=== PATIENT | female | born 1940 | race Caucasian/White ===

== ENCOUNTER 2017-01-25 02:45 | Inpatient (IN) | payer MEDICARE, OTHER ==
[~2017-01-25] VITALS: Ht 144.8 cm; Wt 70.8 kg
[2017-01-25 03:31] LABS: BASO % 1 % (0-3); EOS % 0 % (0-3); HEMATOCRIT 35.6 % (36.0-47.0); HEMOGLOBIN 11.8 g/dL (12.0-15.5); LYMPH # 1.2 x10^3/uL (1.0-4.8); LYMPH % 34 % (24-48); MEAN CORPUSCULAR HEMOGLOBIN 33 pg (25-35); MEAN CORPUSCULAR HGB CONC 33 g/dL (31-37); MEAN CORPUSCULAR VOLUME 100 fL (79-100); MONO # 0.4 x10^3/uL (0.0-1.1); MONO % 12 % (0-9); NEUT # 1.8 x10^3uL (1.8-7.7); NEUT % 53 % (31-73); PLATELET COUNT 228 x10^3/uL (140-400); RED BLOOD COUNT 3.55 x10^6/uL (3.50-5.40); RED CELL DISTRIBUTION WIDTH 13.7 % (11.5-14.5); WHITE BLOOD COUNT 3.5 x10^3/uL (4.0-11.0)
[2017-01-25 03:43] LABS: ALBUMIN 3.8 g/dL (3.4-5.0); ALBUMIN/GLOBULIN RATIO 1.2 (1.0-1.7); CREATININE 0.6 mg/dL (0.6-1.0); GFR 97.2; MAGNESIUM 2.1 mg/dL (1.8-2.4); TOTAL BILIRUBIN 0.4 mg/dL (0.2-1.0); TOTAL PROTEIN 7.1 g/dL (6.4-8.2)
[2017-01-25] MEDS ORDERED: TEMA30CA6 PO (03:53)
[2017-01-25] MEDS ORDERED: ACET650T89 PO (03:53)
[2017-01-25] MEDS ORDERED: BISA5TAB4 PO (03:53)
[2017-01-25] MEDS ORDERED: LISI-338 PO (03:53)
[2017-01-25] MEDS ORDERED: FURO-68 PO (03:53)
[2017-01-25] MEDS ORDERED: ATOR40TA PO (03:53)
[2017-01-25] MEDS ORDERED: [UNRECOGNIZED DRUG - CODE] PO (03:53)
[2017-01-25] MEDS ORDERED: LORA0.5T96 PO (03:53)
[2017-01-25] MEDS ORDERED: CLON0.5T PO (03:53)
[2017-01-25] MEDS ORDERED: TRAZ-90 PO ×2 (03:53)
[2017-01-25] MEDS ORDERED: POLY119P4 PO (03:53)
[2017-01-25] MEDS ORDERED: NITR0.4T SL (03:53)
[2017-01-25] MEDS ORDERED: TRAM50TA PO (03:53)
[2017-01-25] MEDS ORDERED: FLUT12HF2 IH (03:53)
[2017-01-25] MEDS ORDERED: MICO142C TP (03:53)
[2017-01-25] MEDS ORDERED: LEVO100T PO (03:53)
[2017-01-25] MEDS ORDERED: ACET325T9 PO (03:53)
[2017-01-25] MEDS ORDERED: BISA10SU2 RC (03:53)
[2017-01-25] MEDS ORDERED: METF500T PO (03:53)
[2017-01-25] MEDS ORDERED: RISP1SOL6 PO (03:53)
[2017-01-25] MEDS ORDERED: LACT10SO PO (03:53)
[2017-01-25] MEDS ORDERED: MAG-70 PO (03:53)
[2017-01-25] MEDS ORDERED: ASPI-612 PO (03:53)
[2017-01-25] MEDS ORDERED: DIVA125C PO (03:53)
[2017-01-25] MEDS ORDERED: SENN-6 PO (03:53)
[2017-01-25] MEDS ORDERED: IPRA3AMP NEB (03:53)
--- NOTE | 2017-01-25 04:38 | PHYS DOC ---
General Chief Complaint: PSYCH EVALUATION Stated Complaint: PSYCH EVAL Time Seen by MD: 02:49 Source: patient, [facility] records Exam Limitations: clinical condition Problems: History of Present Illness Initial Comments Pt is 76/F to ED from [facility] in [place], [place] for medical clearance and [facility] admission. [place] records indicate pt has been refusing medications, threatening to harm herself, manic behavior with emotional lability, and paranoid. She's been writing obsessively in notebooks responding to audio hallucinations. Pt has been redirected and spoken with director no relief. Sx worsened last 24 hours, has h/o inpatient psychiatric tx at [facility]. On ED arrival pt very paranoid, concerned because she thinks she is and her baby has . Disoriented x 3, at times yelling out and uncooperative requiring zyprexa 10mg PO. Pt has DNR Timing/Duration: 24 hours Severity: severe Associated Symptoms: other Allergies: Coded Allergies: lithium (Verified Adverse Reaction, Unknown, Unknown, 01/25/17) LITHIUM LEVELS GOT TO HIGH Past Medical History Medical History: other (lithium toxicity, hypothyroid, DM, COPD, schizophrenia , LE edema, OA, obesity, HLP, psychosis, insomnia, constipation, sciatica, weakness, ) Surgical History: noncontributory Social History Smoker: non-smoker Alcohol: none Drugs: none Review of Systems All Other Systems: Reviewed and Negative (Pt AMS accurate ROS not obtainable) Physical Exam General Appearance: no apparent distress, obese Ear, Nose, Throat: hearing grossly normal, normal ENT inspection, normal pharynx Neck: non-tender, supple Respiratory: normal breath sounds, no respiratory distress Cardiovascular: normal peripheral pulses, regular rate, rhythm Gastrointestinal: non tender, soft Back: no CVA tenderness, no vertebral tenderness Extremities: normal range of motion, non-tender (3+ edema b/l LE, onychomycosis b/l) Neurologic/Psychiatric: manager printing II-XII nml as tested, no motor/sensory deficits, alert, disoriented x 3, other (audio hallucinations, paranoid with pressured and much of the time incoherent mumbling speech) Skin: normal color, warm/dry Orders, Labs, Meds EKG: NSR 67 bpm, incomplete RBBB, nonspecific ST T changes no STEMI. Interpreted by me. CBC/CMP unremarkable, UA/TSH/valproic acid remain pending 0440: Pt medically cleared for [facility] admission Dr Mitchell is accepting. Departure Time of Disposition: 04:40 Disposition: 09 ADMITTED INPATIENT Diagnosis: Acute psychosis, schizophrenia, AMS Condition: STABLE Additional Instructions: [facility] admission Dr Mitchell is accepting. LIONEL AGUILAR DO Jan 25, 2017 04:38
[2017-01-25 04:41] LABS: BILIRUBIN,URINE NEG (NEG); CLARITY,URINE CLOUDY; COLOR,URINE YELLOW; GLUCOSE,URINE NEG (NEG); NITRITE,URINE NEG (NEG); UROBILINOGEN,URINE 0.2 mg/dL (0.2 mg/dL)
[2017-01-25 04:42] LABS: AMORPHOUS SEDIMENT,UR PRESENT /HPF; BACTERIA,URINE MANY /HPF (0-FEW); SQUAMOUS EPITHELIAL CELL,UR FEW /LPF
[2017-01-25] MEDS ORDERED: traZODone 100 MG TABLET. PO PRN (05:30)
[2017-01-25] MEDS ORDERED: LORazepam 0.5 MG TABLET PO PRN (05:30)
[2017-01-25] MEDS ORDERED: TEMAZEPAM 30 MG CAPSULE PO PRN (05:30)
[2017-01-25 05:59] LABS: VAL ACID < 3 mcg/mL (50-100)
[2017-01-25 06:39] VITALS: BP 143/73
[2017-01-25] MEDS ORDERED: ACETAMINOPHEN 325 MG TABLET PO PRN (06:45)
[2017-01-25] MEDS ORDERED: NITROGLYCERIN SUBLINGUAL 0.4 MG BOTTLE OF 25. SL PRN (06:45)
[2017-01-25] MEDS ORDERED: MAG HYDROX/AL HYDROX/SIMETH 30 ML ORAL.SUSP PO PRN (06:45)
[2017-01-25] MEDS ORDERED: BISACODYL 10 MG SUPP.RECT RC PRN (06:45)
[2017-01-25] MEDS ORDERED: BISACODYL TAB 5 MG TABLET.DR. PO PRN (06:45)
[2017-01-25] MEDS ORDERED: guaiFENesin DM 200MG/20MG 10 ML SYRUP PO PRN (06:45)
[2017-01-25] MEDS ORDERED: IPRATRPIUM/ALBUTEROL 0.5/2.5MG 3 ML NEBU. NEB PRN (06:45)
[2017-01-25] MEDS: LEVOTHYROXINE 100 MCG TABLET PO SCH (07:00)
[2017-01-25] MEDS ORDERED: LACTULOSE 20 GM/30 ML SOLUTION. PO PRN (07:30)
[2017-01-25] MEDS: ALBUTEROL SULFATE 2.5 MG/3 ML NEBU. NEB SCH ×3 (07:30→20:23)
[2017-01-25] MEDS: ACETAMINOPHEN 325 MG TABLET PO SCH ×4 (07:48→19:35)
[2017-01-25] MEDS: NICOTINE 21MG PATCH. TD SCH ×2 (07:48→09:00)
[2017-01-25] MEDS: ASPIRIN ENTERIC COATED 81 MG TABLET.DR. PO SCH ×2 (07:49→09:00)
[2017-01-25] MEDS: clonazePAM 0.5 MG TABLET PO SCH ×4 (07:49→19:35)
[2017-01-25] MEDS: LISINOPRIL 5 MG TABLET. PO SCH ×2 (07:49→09:00)
[2017-01-25] MEDS: DIVALPROEX 125 MG CAP.SPRINK PO SCH ×5 (07:49→19:45)
[2017-01-25] MEDS: POLYETHYLENE GLYCOL 3350 17 GM PACKET. PO SCH ×2 (07:49→09:00)
[2017-01-25] MEDS: FUROSEMIDE 40 MG TABLET PO SCH ×2 (07:49→09:00)
[2017-01-25] MEDS: metFORMIN 500 MG TABLET PO SCH ×3 (07:49→17:00)
[2017-01-25] MEDS: BUDESONIDE 0.5 MG/2 ML NEBU NEB SCH ×2 (08:00→20:23)
[2017-01-25] MEDS ORDERED: MICONAZOLE NITRATE 2% TOPICAL CREAM 14GM TUBE. TP SCH (09:00)
[2017-01-25] MEDS: LORazepam 2 MG/ML VIAL IM SCH (10:55)
[2017-01-25] MEDS: HALOPERIDOL LACT 5 MG/ML VIAL. IM SCH (10:55)
[2017-01-25 13:07] LABS: T3 TOTAL 98 ng/dL (71-180); THYROXINE 9.2 ug/dL (4.5-12.0)
--- NOTE | 2017-01-25 14:24 | HP ---
ADMIT DATE: 01/25/2017 MEDICAL HISTORY AND PHYSICAL FOR THE [facility] DATE OF ADMISSION: Early hours of 01/25/2017 REASON FOR ADMISSION: This is a 76-year-old female who was brought from [facility] in [place], [place] where she has been refusing her meds, been threat to herself, manic, writing extensively on her notebook, having auditory hallucinations and paranoia. The patient just received an IM shot of Ativan, was a little bit sleepy while I was trying to interview her. She was annoyed by little sounds around her in the day room, so we went to a quieter place for the interview. PAST MEDICAL HISTORY: Apparently, the patient had been lithium toxic 1 month ago and the lithium was discontinued. ALLERGIES: No known allergies. MEDICATIONS: Reviewed and appears that she has been refusing most of them. PAST MEDICAL HISTORY: Chronic lymphedema, hypothyroidism, COPD, type 2 diabetes, bipolar disorder, schizophrenia, and insomnia. REVIEW OF SYSTEMS: The patient was very easily annoyed with myself and got tired of answering questions and kept talking about getting the IM shot of Ativan, so could not give me a good history. HABITS: The patient states she quit smoking, no longer smokes. No alcohol. Resides in a nursing facility. OBJECTIVE: VITAL SIGNS: Blood pressure 143/73, pulse 72, temperature 97.4, pulse ox 97% on room air. HEENT: The patient's hearing is normal. HEENT: Her eyes were clear, slightly exophthalmic. Her nose was patent. Her throat was clear. Her speech is garbled. NECK: Supple, without adenopathy. LUNGS: Clear to auscultation. CARDIOVASCULAR: Regular rhythm and rate. ABDOMEN: Soft, nontender. EXTREMITIES: With chronic lymphedema, 2+ edema. No gross deficits noted, but the patient became annoyed and stopped cooperating. She is confined to a wheelchair and was wheeling herself back to her room before we were done with her interview. MENTAL STATE: The patient is very paranoid and kept looking around and behind her. LABORATORY DATA: Slightly low white count 3.5, hemoglobin 11.8, hematocrit 35.6. Chemistry profile normal. Lipids normal. TSH is normal. Iron studies normal. Liver function tests normal. Valproic acid level less than 3. Urinalysis, she has a lot of sediment and bacteria, but only 1-4 white cells. ASSESSMENT: 1. Bipolar disorder with paranoia. 2. Schizophrenia by history. 3. Chronic lymphedema. 4. Chronic obstructive pulmonary disease. 5. Type 2 diabetes. 6. Chronic pain. PLAN: Follow along with Dr. Mitchell and treat her medical conditions. TERESITA PEOPLES DO DR: GIULIANO/lexus JOB#: [id number] / [id number]
[2017-01-25] MEDS: risperiDONE ORAL 1 MG/ML 30ml BOTTLE. PO SCH ×2 (16:00→17:30)
[2017-01-25] MEDS: SENNOSIDES/DOCUSATE 8.6/50MG TABLET. PO SCH ×2 (19:35→19:46)
[2017-01-25] MEDS: ATORVASTATIN CALCIUM 20 MG TABLET PO SCH ×2 (19:35→19:45)
[2017-01-25] MEDS: TEMAZEPAM 15 MG CAPSULE PO PRN (19:36)
--- NOTE | 2017-01-25 19:46 | PDOC ---
Exam Tra Demential Exam: Tra Note: Please also refer to the separate dictated note~for this date of service dictated separately.~Patient seen individually. Discussed the patient with Nursing staff reviewed the chart.~Reviewed interim history and current functioning. Reviewed vital signs,~Labs/ Radiology~and current medications noted below. Continue current treatment with the changes noted in the dictated addendum note Assessment: Vital Signs: Vital Signs Date Time Temp Pulse Resp B/P (MAP) Pulse Ox O2 Delivery O2 Flow Rate FiO2 01/25/17 06:39 97.4 72 22 143/73 (96) 97 01/25/17 02:45 Room Air Labs: Laboratory Tests Test 01/25/17 03:00 01/25/17 03:04 01/25/17 03:20 01/25/17 04:00 Thyroid Stimulating Hormone (TSH) 1.438 uIU/mL (0.358-3.740) Valproic Acid Level < 3 mcg/mL (50-100) L Valproic Acid Last Dose Date 01/25/17 Valproic Acid Last Dose Time 0700 Triglycerides Level 60 mg/dL (0-150) Cholesterol Level 151 mg/dL (0-200) LDL Cholesterol, Calculated 56 mg/dL (0-100) VLDL Cholesterol, Calculated 12 mg/dL (0-40) Non-HDL Cholesterol Calculated 68 mg/dL (0-129) HDL Cholesterol 83 mg/dL (40-60) H Cholesterol/HDL Ratio 1.0 Thyroxine (T4) 9.2 ug/dL (4.5-12.0) Total Triiodothyronine (TT3) 98 ng/dL (71-180) RPR Titer Additional Testing Pending White Blood Count 3.5 x10^3/uL (4.0-11.0) L Red Blood Count 3.55 x10^6/uL (3.50-5.40) Hemoglobin 11.8 g/dL (12.0-15.5) L Hematocrit 35.6 % (36.0-47.0) L Mean Corpuscular Volume 100 fL (79-100) Mean Corpuscular Hemoglobin 33 pg (25-35) Mean Corpuscular Hemoglobin Concent 33 g/dL (31-37) Red Cell Distribution Width 13.7 % (11.5-14.5) Platelet Count 228 x10^3/uL (140-400) Neutrophils (%) (Auto) 53 % (31-73) Lymphocytes (%) (Auto) 34 % (24-48) Monocytes (%) (Auto) 12 % (0-9) H Eosinophils (%) (Auto) 0 % (0-3) Basophils (%) (Auto) 1 % (0-3) Neutrophils # (Auto) 1.8 x10^3uL (1.8-7.7) Lymphocytes # (Auto) 1.2 x10^3/uL (1.0-4.8) Monocytes # (Auto) 0.4 x10^3/uL (0.0-1.1) Eosinophils # (Auto) 0.0 x10^3/uL (0.0-0.7) Basophils # (Auto) 0.0 x10^3/uL (0.0-0.2) Sodium Level 138 mmol/L (136-145) Potassium Level 4.0 mmol/L (3.5-5.1) Chloride Level 105 mmol/L (98-107) Carbon Dioxide Level 29 mmol/L (21-32) Anion Gap 4 (6-14) L Blood Urea Nitrogen 10 mg/dL (7-20) Creatinine 0.6 mg/dL (0.6-1.0) Estimated GFR (Cockcroft-Gault) 97.2 BUN/Creatinine Ratio 17 (6-20) Glucose Level 106 mg/dL (70-99) H Calcium Level 9.0 mg/dL (8.5-10.1) Magnesium Level 2.1 mg/dL (1.8-2.4) Iron Level 91 ug/dL (50-170) Total Iron Binding Capacity 284 ug/dL (250-450) Iron Saturation 32 % (15-34) Total Bilirubin 0.4 mg/dL (0.2-1.0) Aspartate Amino Transferase (AST) 15 U/L (15-37) Alanine Aminotransferase (ALT) 20 U/L (14-59) Alkaline Phosphatase 109 U/L (46-116) Total Protein 7.1 g/dL (6.4-8.2) Albumin 3.8 g/dL (3.4-5.0) Albumin/Globulin Ratio 1.2 (1.0-1.7) Urine Collection Type Unknown Urine Color Yellow Urine Clarity Cloudy Urine pH 7.0 Urine Specific [place] 1.010 Urine Protein Neg (NEG-TRACE) Urine Glucose (UA) Neg mg/dL (NEG) Urine Ketones (Stick) Neg mg/dL (NEG) Urine Blood Mod (NEG) Urine Nitrite Neg (NEG) Urine Bilirubin Neg (NEG) Urine Urobilinogen Dipstick 0.2 mg/dL (0.2 mg/dL) Urine Leukocyte Esterase Small (NEG) Urine RBC 3-5 /HPF (0-2) Urine WBC 1-4 /HPF (0-4) Urine Squamous Epithelial Cells Few /LPF Urine Amorphous Sediment Present /HPF Urine Bacteria Many /HPF (0-FEW) Urine Mucus Slight /LPF Current Medications: Meds: Current Medications Olanzapine (ZyPREXA ZYDIS) 10 mg STK-MED ONCE .ROUTE ; Start 01/25/17 at 04:06; Stop 01/25/17 at 04:07; Status DC Olanzapine (ZyPREXA ZYDIS) 10 mg 1X STAT PO Last administered on 01/25/17 04: 07; Start 01/25/17 at 04:03; Stop 01/25/17 at 06:26; Status DC Nicotine (Nicoderm Cq 21mg) 1 patch DAILY TD ; Start 01/25/17 at 09:00 Clonazepam (KlonoPIN) 0.5 mg TID PO Last administered on 01/25/17 19:35; Start 01/25/17 at 09:00 Divalproex Sodium (Depakote Sprinkles) 125 mg TID PO Last administered on 19:35; Start 01/25/17 at 09:00 Lorazepam (Ativan) 0.5 mg PRN Q4HRS PRN PO ANXIETY / AGITATION; Start 01/25/17 at 05:30 Risperidone (RisperDAL) 3 mg DAILY16 PO ; Start 01/25/17 at 16:00 Temazepam (Restoril) 30 mg PRN QHS PRN PO INSOMNIA; Start 01/25/17 at 05:30; Stop 01/25/17 at 06:31; Status DC Trazodone HCl (Desyrel) 100 mg PRN QHS PRN PO INSOMNIA; Start 01/25/17 at 05:30 ; Stop 01/25/17 at 11:36; Status DC Trazodone HCl (Desyrel) 100 mg QHS PO ; Start 01/25/17 at 21:00; Stop 01/25/17 at 21:00; Status DC Temazepam (Restoril) 30 mg PRN QHS PRN PO INSOMNIA Last administered on t 19:36; Start 01/25/17 at 06:31 Acetaminophen (Tylenol) 650 mg PRN Q6HRS PRN PO PAIN / TEMP; Start 01/25/17 at 06:45 Aspirin (Aspirin Enteric Coated) 81 mg DAILY PO ; Start 01/25/17 at 09:00 Bisacodyl (Dulcolax Tab) 10 mg PRN DAILY PRN PO CONSTIPATION; Start 01/25/17 at 06:45 Bisacodyl (Dulcolax Supp) 10 mg PRN DAILY PRN RC CONSTIPATION; Start 01/25/17 at 06:45 Furosemide (Lasix) 40 mg DAILY PO ; Start 01/25/17 at 09:00 Guaifenesin (Robitussin Dm) 10 ml PRN Q4HRS PRN PO COUGH; Start 01/25/17 at 06: 45 Albuterol/ Ipratropium (Duoneb) 3 ml PRN Q4HRS PRN NEB SHORTNESS OF BREATH; Start 01/25/17 at 06:45 Levothyroxine Sodium (Synthroid) 100 mcg DAILY06 PO Last administered on 07:00; Start 01/25/17 at 07:00 Lisinopril (Prinivil) 5 mg DAILY PO ; Start 01/25/17 at 09:00 Al Hydroxide/Mg Hydroxide (Mylanta Plus Xs) 30 ml PRN Q4HRS PRN PO DYSPEPSIA; Start 01/25/17 at 06:45 Metformin HCl (Glucophage) 500 mg BIDWMEALS PO ; Start 01/25/17 at 08:00 Miconazole Nitrate (Monistat-Derm) 1 gerson BID TP ; Start 01/25/17 at 09:00; Stop 01/25/17 at 09:00; Status DC Nitroglycerin (Nitrostat) 0.4 mg PRN Q5MIN PRN SL CHEST PAIN; Start 01/25/17 at 06:45 Polyethylene Glycol (miraLAX) 17 gm QODAY PO ; Start 01/25/17 at 09:00 Senna/Docusate Sodium (Senna Plus) 1 tab QHS PO Last administered on 01/25/17 19:35; Start 01/25/17 at 21:00 Tramadol HCl (Ultram) 25 mg PRN Q6HRS PRN PO PAIN; Start 01/25/17 at 06:45 Acetaminophen (Tylenol) 650 mg TID PO Last administered on 01/25/17 19:35; Start 01/25/17 at 09:00 Atorvastatin Calcium (Lipitor) 40 mg QHS PO Last administered on 01/25/17 19: 35; Start 01/25/17 at 21:00 Albuterol Sulfate (Ventolin) 2.5 mg Q6H NEB ; Start 01/25/17 at 07:30 Lactulose 20 gm PRN DAILY PRN PO CONSTIPATION; Start 01/25/17 at 07:30 Budesonide (Pulmicort) 0.5 mg RTBID NEB ; Start 01/25/17 at 08:00 Olanzapine (ZyPREXA ZYDIS) 2.5 mg PRN Q2HR PRN PO ANXIETY / AGITATION; Start at 08:00 Lorazepam (Ativan) 1 mg DAILY IM Last administered on 01/25/17 10:55; Start at 11:00 Haloperidol Lactate (Haldol) 5 mg DAILY IM Last administered on 01/25/17 10:55 ; Start 01/25/17 at 11:00 Risperidone (RisperDAL CONSTA) 25 mg Q2WKS IM ; Start 01/26/17 at 09:00; Status UNV Active Scripts Active Reported Tylenol (Acetaminophen) 325 Mg Tablet 650 Mg PO PRN Q6HRS PRN Arthritis Pain (Acetaminophen) 650 Mg Tablet.er 650 Mg PO BID Trazodone Hcl 100 Mg Tablet 100 Mg PO PRN QHS PRN Trazodone Hcl 100 Mg Tablet 100 Mg PO QHS Tramadol Hcl (Tramadol HCl) 50 Mg Tablet 25 Mg PO PRN Q6HRS PRN Synthroid (Levothyroxine Sodium) 100 Mcg Tablet 100 Mcg PO DAILY07 Senna S Tablet (Sennosides/Docusate Sodium) 1 Each Tablet 1 Tab PO QHS Risperdal (Risperidone) 1 Mg/1 Ml Solution 3 Mg PO DAILY16 Restoril (Temazepam) 30 Mg Capsule 30 Mg PO PRN QHS PRN Nitrostat (Nitroglycerin) 0.4 Mg Tab.subl 0.4 Mg SL PRN Q5MIN PRN Miralax (Polyethylene Glycol 3350) 119 Gm Powder 17 Gm PO QODAY Antacid Suspension (Mag Hydrox/Al Hydrox/Simeth) 355 Ml Oral.susp 30 Ml PO PRN Q4HRS PRN Lisinopril 5 Mg Tablet 5 Mg PO DAILY Lipitor (Atorvastatin Calcium) 40 Mg Tablet 40 Mg PO QHS Lasix (Furosemide) 40 Mg Tablet 40 Mg PO DAILY Lactulose 10 Gm/15 Ml Solution 20 Gm PO PRN DAILY PRN Klonopin (Clonazepam) 0.5 Mg Tablet 0.5 Mg PO TID Glucophage (Metformin Hcl) 500 Mg Tablet 500 Mg PO BIDWMEALS Josie-Tussin Dm Syrup (Guaifenesin/Dextromethorphan) 473 Ml Syrup 10 Ml PO PRN Q4HRS PRN Duoneb 0.5-3(2.5) Mg/3 Ml (Albuterol/Ipratropium) 3 Ml Ampul.neb 3 Ml NEB PRN Q4HRS PRN Depakote Sprinkle (Divalproex Sodium) 125 Mg Cap.sprink 125 Mg PO TID Bisacodyl 10 Mg Supp.rect 10 Mg RC PRN DAILY PRN Bisacodyl 5 Mg Tablet.dr 10 Mg PO PRN DAILY PRN Reshma Antifungal (Miconazole Nitrate) 142 Gm Cream..g. 1 Gerson TP BID Ativan (Lorazepam) 0.5 Mg Tablet 0.5 Mg PO PRN Q4HRS PRN Aspirin Ec (Aspirin) 81 Mg Tablet.dr 81 Mg PO DAILY Advair Hfa 115-21 Mcg Inhaler (Fluticasone/Salmeterol) 12 Gm Hfa.aer.ad 2 Puff IH BID Diagnosis: Problems: (1) Psychosis (2) Schizophrenia, acute ALBERT ROSE MD Jan 25, 2017 19:46
[2017-01-25] MEDS ORDERED: traZODone 100 MG TABLET. PO SCH (21:00)
[2017-01-25 21:19] LABS: HEMOGLOBIN A1C 5.6 % (4.8-5.6)
--- NOTE | 2017-01-25 23:44 | HP ---
ADMIT DATE: 01/25/2017 PSYCHIATRIC ADMISSION HISTORY/EVALUATION This note covers elements not covered in my initial note of 01/25/2017. IDENTIFYING DATA: The patient is a 76-year-old female referred to us from the half-way in [place], [place], after she was screened by the [facility] staff and deemed to need inpatient psychiatric stabilization. She was refusing medications, threatening to hurt herself, manic, labile, psychotic, responding to auditory hallucinations, and paranoid. She has failed outpatient psychiatric interventions resulting in this referral. CHIEF COMPLAINT: "You know Dr. Akers I go there, get away, [place] none of these medications, where are we going." The patient is disorganized, rapid in her speech, labile in her mood, psychotic, paranoid. HISTORY OF PRESENT ILLNESS: The patient has a history of bipolar disorder versus schizoaffective disorder, bipolar type. She has been residing at the half-way, but most recently, she has been getting increasingly confused, anxious, agitated, extremely psychotic, and refusing her medications. She is threatening to hurt herself. She has had sleep and appetite changes, and is increasingly confused. No active homicidal ideation. She has been cognitively reasonably intact, but more recently appears confused with her exacerbation of bipolar disorder versus schizoaffective disorder, bipolar type with psychotic features. PAST PSYCHIATRIC HISTORY: Hospitalized at [facility] in 04/2016, and has had other inpatient psychiatric hospitalizations. PAST MEDICAL HISTORY: Hypothyroidism, hyperlipidemia, diabetes mellitus, COPD, degenerative disk disease, chronic back pain, osteoarthritis, sciatica, Accu-Cheks a.c. and at bedtime. CODE STATUS: Full. ALLERGIES: The patient had developed lithium toxicity and consequently it was noted she had a lithium allergy. JANETH Valente, contacted the patient's guardian who clarified that the patient had been stable on lithium for many years and then she developed a lithium toxicity and therefore it was noted that she was allergic to lithium whereas in fact she was not. Diet is regular. She is in a wheelchair with 1 person transfer. CURRENT PSYCHOTROPICS: Ativan 0.5 mg q.4h. p.r.n., Depakote Sprinkles 125 t.i.d., Klonopin 0.5 t.i.d., Restoril 30 mg at bedtime p.r.n., Risperdal 3 mg daily, and Ativan p.r.n. FAMILY HISTORY: Noncontributory. SOCIAL HISTORY: No alcohol, drug abuse, physical, sexual or elder abuse history is noted. Not known to be a perpetrator. MENTAL STATUS EXAMINATION: The patient was seen individually the evening of 01/25/2017. She was up and down the hallway in her wheelchair, rapid in her speech, paranoid, delusional, and distractable. Insight limited, judgment marginal, language function intact, attention span short. Mood and affect labile, very psychotic. Repeatedly stating "Dr. Akers, he is going to go, we are there." LABORATORY DATA: Reviewed. IMPRESSION: Schizoaffective disorder, bipolar type, mixed with psychotic features with acute exacerbation, bipolar 1 disorder, mixed with psychotic features; anxiety disorder, unspecified; impulse control disorder, unspecified. Rest of the diagnoses as above. PLAN: Admit to geropsychiatry unit at [facility]. I will see the patient daily individually from a psychiatric standpoint, medical followup per Dr. Sapp/Dr. Leonardo. We will restart the patient on lithium in due course and guardian approves this as noted above. She is extremely noncompliant with the psychotropics. We will initiate Risperdal Consta at 25 mg IM every 2 weeks since she is on oral Risperdal and tolerating it well. She is paranoid, delusional, believes food is poisoned. May consider restarting lithium in due course. I will see her daily individually. ALBERT ROSE MD DR: CHASE/lexus JOB#: [id number] / [id number]
[2017-01-26] MEDS: ALBUTEROL SULFATE 2.5 MG/3 ML NEBU. NEB SCH ×4 (05:00→17:23)
[2017-01-26] MEDS: LEVOTHYROXINE 100 MCG TABLET PO SCH (06:02)
[2017-01-26 06:03] VITALS: BP 150/86
[2017-01-26] MEDS: BUDESONIDE 0.5 MG/2 ML NEBU NEB SCH ×2 (08:00→20:00)
[2017-01-26] MEDS: NICOTINE 21MG PATCH. TD SCH (08:51)
[2017-01-26] MEDS: ACETAMINOPHEN 325 MG TABLET PO SCH ×4 (08:51→20:45)
[2017-01-26] MEDS: clonazePAM 0.5 MG TABLET PO SCH ×3 (08:52→19:46)
[2017-01-26] MEDS: DIVALPROEX 125 MG CAP.SPRINK PO SCH ×4 (08:53→20:44)
[2017-01-26] MEDS: ASPIRIN ENTERIC COATED 81 MG TABLET.DR. PO SCH (08:53)
[2017-01-26] MEDS: FUROSEMIDE 40 MG TABLET PO SCH (08:53)
[2017-01-26] MEDS: LISINOPRIL 5 MG TABLET. PO SCH (08:53)
[2017-01-26] MEDS: metFORMIN 500 MG TABLET PO SCH ×2 (08:53→16:21)
[2017-01-26] MEDS: LORazepam 2 MG/ML VIAL IM SCH (08:54)
[2017-01-26] MEDS: HALOPERIDOL LACT 5 MG/ML VIAL. IM SCH (08:54)
[2017-01-26] MEDS: risperiDONE MICROSPHERES 25 MG/2 ML DISP.SYRIN. IM SCH (09:39)
[2017-01-26 15:49] VITALS: BP 127/75
[2017-01-26] MEDS ORDERED: risperiDONE ORAL 1 MG/ML 30ml BOTTLE. SL ONE (16:00)
[2017-01-26] MEDS: traMADol 50 MG TABLET PO PRN (16:21)
[2017-01-26] MEDS: SENNOSIDES/DOCUSATE 8.6/50MG TABLET. PO SCH ×2 (19:46→20:45)
[2017-01-26] MEDS: ATORVASTATIN CALCIUM 20 MG TABLET PO SCH (19:46)
[2017-01-26] MEDS: TEMAZEPAM 15 MG CAPSULE PO PRN (19:47)
--- NOTE | 2017-01-26 19:53 | PDOC ---
Exam Tra Demential Exam: Tra Note: Please also refer to the separate dictated note~for this date of service dictated separately.~Patient seen individually. Discussed the patient with Nursing staff reviewed the chart.~Reviewed interim history and current functioning. Reviewed vital signs,~Labs/ Radiology~and current medications noted below. Continue current treatment with the changes noted in the dictated addendum note Assessment: Vital Signs: Vital Signs Date Time Temp Pulse Resp B/P (MAP) Pulse Ox O2 Delivery O2 Flow Rate FiO2 01/26/17 17:29 20 97 01/26/17 16:21 Room Air 01/26/17 15:49 97.4 59 127/75 (92) I&O Intake and Output 01/26/17 07:00 Intake Total 700 ml Balance 700 ml Intake Oral 700 ml # Voids 1 Labs: Laboratory Tests Test 01/26/17 08:09 01/26/17 12:04 01/26/17 16:49 Glucose (Fingerstick) 84 mg/dL (70-99) 90 mg/dL (70-99) 75 mg/dL (70-99) Current Medications: Meds: Current Medications Olanzapine (ZyPREXA ZYDIS) 10 mg STK-MED ONCE .ROUTE ; Start 01/25/17 at 04:06; Stop 01/25/17 at 04:07; Status DC Olanzapine (ZyPREXA ZYDIS) 10 mg 1X STAT PO Last administered on 01/25/17 04: 07; Start 01/25/17 at 04:03; Stop 01/25/17 at 06:26; Status DC Nicotine (Nicoderm Cq 21mg) 1 patch DAILY TD Last administered on 01/26/17 08: 51; Start 01/25/17 at 09:00 Clonazepam (KlonoPIN) 0.5 mg TID PO Last administered on 01/26/17 19:46; Start 01/25/17 at 09:00 Divalproex Sodium (Depakote Sprinkles) 125 mg TID PO Last administered on 19:46; Start 01/25/17 at 09:00 Lorazepam (Ativan) 0.5 mg PRN Q4HRS PRN PO ANXIETY / AGITATION; Start 01/25/17 at 05:30 Risperidone (RisperDAL) 3 mg DAILY16 PO Last administered on 01/25/17 17:30; Start 01/25/17 at 16:00 Temazepam (Restoril) 30 mg PRN QHS PRN PO INSOMNIA; Start 01/25/17 at 05:30; Stop 01/25/17 at 06:31; Status DC Trazodone HCl (Desyrel) 100 mg PRN QHS PRN PO INSOMNIA; Start 01/25/17 at 05:30 ; Stop 01/25/17 at 11:36; Status DC Trazodone HCl (Desyrel) 100 mg QHS PO ; Start 01/25/17 at 21:00; Stop 01/25/17 at 21:00; Status DC Temazepam (Restoril) 30 mg PRN QHS PRN PO INSOMNIA Last administered on 19:47; Start 01/25/17 at 06:31 Acetaminophen (Tylenol) 650 mg PRN Q6HRS PRN PO PAIN / TEMP; Start 01/25/17 at 06:45 Aspirin (Aspirin Enteric Coated) 81 mg DAILY PO Last administered on 01/26/17 08:53; Start 01/25/17 at 09:00 Bisacodyl (Dulcolax Tab) 10 mg PRN DAILY PRN PO CONSTIPATION; Start 01/25/17 at 06:45 Bisacodyl (Dulcolax Supp) 10 mg PRN DAILY PRN RC CONSTIPATION; Start 01/25/17 at 06:45 Furosemide (Lasix) 40 mg DAILY PO Last administered on 01/26/17 08:53; Start 01/25/17 at 09:00 Guaifenesin (Robitussin Dm) 10 ml PRN Q4HRS PRN PO COUGH; Start 01/25/17 at 06: 45 Albuterol/ Ipratropium (Duoneb) 3 ml PRN Q4HRS PRN NEB SHORTNESS OF BREATH; Start 01/25/17 at 06:45 Levothyroxine Sodium (Synthroid) 100 mcg DAILY06 PO Last administered on 06:02; Start 01/25/17 at 07:00 Lisinopril (Prinivil) 5 mg DAILY PO Last administered on 01/26/17 08:53; Start 01/25/17 at 09:00 Al Hydroxide/Mg Hydroxide (Mylanta Plus Xs) 30 ml PRN Q4HRS PRN PO DYSPEPSIA; Start 01/25/17 at 06:45 Metformin HCl (Glucophage) 500 mg BIDWMEALS PO Last administered on 01/26/17 16:21; Start 01/25/17 at 08:00 Miconazole Nitrate (Monistat-Derm) 1 gerson BID TP ; Start 01/25/17 at 09:00; Stop 01/25/17 at 09:00; Status DC Nitroglycerin (Nitrostat) 0.4 mg PRN Q5MIN PRN SL CHEST PAIN; Start 01/25/17 at 06:45 Polyethylene Glycol (miraLAX) 17 gm QODAY PO ; Start 01/25/17 at 09:00 Senna/Docusate Sodium (Senna Plus) 1 tab QHS PO Last administered on 01/26/17 19:46; Start 01/25/17 at 21:00 Tramadol HCl (Ultram) 25 mg PRN Q6HRS PRN PO PAIN Last administered on 16:21; Start 01/25/17 at 06:45 Acetaminophen (Tylenol) 650 mg TID PO Last administered on 01/26/17 19:46; Start 01/25/17 at 09:00 Atorvastatin Calcium (Lipitor) 40 mg QHS PO Last administered on 01/26/17 19: 46; Start 01/25/17 at 21:00 Albuterol Sulfate (Ventolin) 2.5 mg Q6H NEB ; Start 01/25/17 at 07:30 Lactulose 20 gm PRN DAILY PRN PO CONSTIPATION; Start 01/25/17 at 07:30 Budesonide (Pulmicort) 0.5 mg RTBID NEB ; Start 01/25/17 at 08:00 Olanzapine (ZyPREXA ZYDIS) 2.5 mg PRN Q2HR PRN PO ANXIETY / AGITATION; Start at 08:00 Lorazepam (Ativan) 1 mg DAILY IM Last administered on 01/26/17 08:54; Start at 11:00; Stop 01/28/17 at 13:00 Haloperidol Lactate (Haldol) 5 mg DAILY IM Last administered on 01/26/17 08:54 ; Start 01/25/17 at 11:00; Stop 01/28/17 at 13:00 Risperidone (RisperDAL CONSTA) 25 mg Q2WKS IM Last administered on 01/26/17 09 :39; Start 01/26/17 at 09:00 Risperidone (RisperDAL) 3 mg 1X ONCE SL Last administered on 01/26/17 16:15; Start 01/26/17 at 16:00; Stop 01/26/17 at 16:02; Status DC Active Scripts Active Reported Tylenol (Acetaminophen) 325 Mg Tablet 650 Mg PO PRN Q6HRS PRN Arthritis Pain (Acetaminophen) 650 Mg Tablet.er 650 Mg PO BID Trazodone Hcl 100 Mg Tablet 100 Mg PO PRN QHS PRN Trazodone Hcl 100 Mg Tablet 100 Mg PO QHS Tramadol Hcl (Tramadol HCl) 50 Mg Tablet 25 Mg PO PRN Q6HRS PRN Synthroid (Levothyroxine Sodium) 100 Mcg Tablet 100 Mcg PO DAILY07 Senna S Tablet (Sennosides/Docusate Sodium) 1 Each Tablet 1 Tab PO QHS Risperdal (Risperidone) 1 Mg/1 Ml Solution 3 Mg PO DAILY16 Restoril (Temazepam) 30 Mg Capsule 30 Mg PO PRN QHS PRN Nitrostat (Nitroglycerin) 0.4 Mg Tab.subl 0.4 Mg SL PRN Q5MIN PRN Miralax (Polyethylene Glycol 3350) 119 Gm Powder 17 Gm PO QODAY Antacid Suspension (Mag Hydrox/Al Hydrox/Simeth) 355 Ml Oral.susp 30 Ml PO PRN Q4HRS PRN Lisinopril 5 Mg Tablet 5 Mg PO DAILY Lipitor (Atorvastatin Calcium) 40 Mg Tablet 40 Mg PO QHS Lasix (Furosemide) 40 Mg Tablet 40 Mg PO DAILY Lactulose 10 Gm/15 Ml Solution 20 Gm PO PRN DAILY PRN Klonopin (Clonazepam) 0.5 Mg Tablet 0.5 Mg PO TID Glucophage (Metformin Hcl) 500 Mg Tablet 500 Mg PO BIDWMEALS Josie-Tussin Dm Syrup (Guaifenesin/Dextromethorphan) 473 Ml Syrup 10 Ml PO PRN Q4HRS PRN Duoneb 0.5-3(2.5) Mg/3 Ml (Albuterol/Ipratropium) 3 Ml Ampul.neb 3 Ml NEB PRN Q4HRS PRN Depakote Sprinkle (Divalproex Sodium) 125 Mg Cap.sprink 125 Mg PO TID Bisacodyl 10 Mg Supp.rect 10 Mg RC PRN DAILY PRN Bisacodyl 5 Mg Tablet.dr 10 Mg PO PRN DAILY PRN Reshma Antifungal (Miconazole Nitrate) 142 Gm Cream..g. 1 Gerson TP BID Ativan (Lorazepam) 0.5 Mg Tablet 0.5 Mg PO PRN Q4HRS PRN Aspirin Ec (Aspirin) 81 Mg Tablet.dr 81 Mg PO DAILY Advair Hfa 115-21 Mcg Inhaler (Fluticasone/Salmeterol) 12 Gm Hfa.aer.ad 2 Puff IH BID Diagnosis: Problems: (1) Psychosis (2) Schizophrenia, acute ALBERT ROSE MD Jan 26, 2017 19:53
[2017-01-27] MEDS: ALBUTEROL SULFATE 2.5 MG/3 ML NEBU. NEB SCH ×3 (01:30→10:40)
[2017-01-27] MEDS: LEVOTHYROXINE 100 MCG TABLET PO SCH (03:14)
[2017-01-27] MEDS: BUDESONIDE 0.5 MG/2 ML NEBU NEB SCH (08:00)
[2017-01-27] MEDS: ASPIRIN ENTERIC COATED 81 MG TABLET.DR. PO SCH ×2 (08:58→09:00)
[2017-01-27] MEDS: ACETAMINOPHEN 325 MG TABLET PO SCH ×3 (08:58→19:40)
[2017-01-27] MEDS: DIVALPROEX 125 MG CAP.SPRINK PO SCH ×3 (08:58→19:39)
[2017-01-27] MEDS: HALOPERIDOL LACT 5 MG/ML VIAL. IM SCH (08:58)
[2017-01-27] MEDS: FUROSEMIDE 40 MG TABLET PO SCH ×2 (08:59→09:00)
[2017-01-27] MEDS: LISINOPRIL 5 MG TABLET. PO SCH ×2 (08:59→09:00)
[2017-01-27] MEDS: NICOTINE 21MG PATCH. TD SCH (09:00)
[2017-01-27] MEDS: POLYETHYLENE GLYCOL 3350 17 GM PACKET. PO SCH ×2 (09:00→09:03)
[2017-01-27] MEDS: clonazePAM 0.5 MG TABLET PO SCH ×3 (09:03→19:39)
[2017-01-27] MEDS: LORazepam 2 MG/ML VIAL IM SCH (09:03)
[2017-01-27] MEDS: metFORMIN 500 MG TABLET PO SCH ×2 (09:03→16:49)
[2017-01-27 15:55] VITALS: BP 137/59
[2017-01-27] MEDS: risperiDONE ORAL 1 MG/ML 30ml BOTTLE. PO SCH (16:00)
[2017-01-27] MEDS: ATORVASTATIN CALCIUM 20 MG TABLET PO SCH (19:40)
[2017-01-27] MEDS: SENNOSIDES/DOCUSATE 8.6/50MG TABLET. PO SCH (19:40)
[2017-01-27] MEDS: TEMAZEPAM 15 MG CAPSULE PO PRN (19:41)
--- NOTE | 2017-01-27 19:53 | PDOC ---
Exam Tra Demential Exam: Tra Note: Please also refer to the separate dictated note~for this date of service dictated separately.~Patient seen individually. Discussed the patient with Nursing staff reviewed the chart.~Reviewed interim history and current functioning. Reviewed vital signs,~Labs/ Radiology~and current medications noted below. Continue current treatment with the changes noted in the dictated addendum note Assessment: Vital Signs: Vital Signs Date Time Temp Pulse Resp B/P (MAP) Pulse Ox O2 Delivery O2 Flow Rate FiO2 01/27/17 15:55 97.7 69 18 137/59 (85) 97 01/26/17 16:21 Room Air I&O Intake and Output 01/28/17 07:00 Intake Total 720 ml Balance 720 ml Intake Oral 720 ml Labs: Laboratory Tests Test 01/27/17 07:13 01/27/17 11:14 01/27/17 16:25 01/27/17 19:07 Glucose (Fingerstick) 90 mg/dL (70-99) 86 mg/dL (70-99) 118 mg/dL (70-99) H 125 mg/dL (70-99) H Current Medications: Meds: Current Medications Olanzapine (ZyPREXA ZYDIS) 10 mg STK-MED ONCE .ROUTE ; Start 01/25/17 at 04:06; Stop 01/25/17 at 04:07; Status DC Olanzapine (ZyPREXA ZYDIS) 10 mg 1X STAT PO Last administered on 01/25/17 04: 07; Start 01/25/17 at 04:03; Stop 01/25/17 at 06:26; Status DC Nicotine (Nicoderm Cq 21mg) 1 patch DAILY TD Last administered on 01/26/17 08: 51; Start 01/25/17 at 09:00 Clonazepam (KlonoPIN) 0.5 mg TID PO Last administered on 01/27/17 19:39; Start 01/25/17 at 09:00 Divalproex Sodium (Depakote Sprinkles) 125 mg TID PO Last administered on 19:39; Start 01/25/17 at 09:00 Lorazepam (Ativan) 0.5 mg PRN Q4HRS PRN PO ANXIETY / AGITATION; Start 01/25/17 at 05:30 Risperidone (RisperDAL) 3 mg DAILY16 PO Last administered on 01/25/17 17:30; Start 01/25/17 at 16:00 Temazepam (Restoril) 30 mg PRN QHS PRN PO INSOMNIA; Start 01/25/17 at 05:30; Stop 01/25/17 at 06:31; Status DC Trazodone HCl (Desyrel) 100 mg PRN QHS PRN PO INSOMNIA; Start 01/25/17 at 05:30 ; Stop 01/25/17 at 11:36; Status DC Trazodone HCl (Desyrel) 100 mg QHS PO ; Start 01/25/17 at 21:00; Stop 01/25/17 at 21:00; Status DC Temazepam (Restoril) 30 mg PRN QHS PRN PO INSOMNIA Last administered on 19:41; Start 01/25/17 at 06:31 Acetaminophen (Tylenol) 650 mg PRN Q6HRS PRN PO PAIN / TEMP; Start 01/25/17 at 06:45 Aspirin (Aspirin Enteric Coated) 81 mg DAILY PO Last administered on 01/26/17 08:53; Start 01/25/17 at 09:00 Bisacodyl (Dulcolax Tab) 10 mg PRN DAILY PRN PO CONSTIPATION; Start 01/25/17 at 06:45 Bisacodyl (Dulcolax Supp) 10 mg PRN DAILY PRN RC CONSTIPATION; Start 01/25/17 at 06:45 Furosemide (Lasix) 40 mg DAILY PO Last administered on 01/26/17 08:53; Start 01/25/17 at 09:00 Guaifenesin (Robitussin Dm) 10 ml PRN Q4HRS PRN PO COUGH; Start 01/25/17 at 06: 45 Albuterol/ Ipratropium (Duoneb) 3 ml PRN Q4HRS PRN NEB SHORTNESS OF BREATH; Start 01/25/17 at 06:45 Levothyroxine Sodium (Synthroid) 100 mcg DAILY06 PO Last administered on 03:14; Start 01/25/17 at 07:00 Lisinopril (Prinivil) 5 mg DAILY PO Last administered on 01/26/17 08:53; Start 01/25/17 at 09:00 Al Hydroxide/Mg Hydroxide (Mylanta Plus Xs) 30 ml PRN Q4HRS PRN PO DYSPEPSIA; Start 01/25/17 at 06:45 Metformin HCl (Glucophage) 500 mg BIDWMEALS PO Last administered on 01/27/17 09:03; Start 01/25/17 at 08:00 Miconazole Nitrate (Monistat-Derm) 1 gerson BID TP ; Start 01/25/17 at 09:00; Stop 01/25/17 at 09:00; Status DC Nitroglycerin (Nitrostat) 0.4 mg PRN Q5MIN PRN SL CHEST PAIN; Start 01/25/17 at 06:45 Polyethylene Glycol (miraLAX) 17 gm QODAY PO ; Start 01/25/17 at 09:00 Senna/Docusate Sodium (Senna Plus) 1 tab QHS PO Last administered on 01/27/17 19:40; Start 01/25/17 at 21:00 Tramadol HCl (Ultram) 25 mg PRN Q6HRS PRN PO PAIN Last administered on 16:21; Start 01/25/17 at 06:45 Acetaminophen (Tylenol) 650 mg TID PO Last administered on 01/27/17 19:40; Start 01/25/17 at 09:00 Atorvastatin Calcium (Lipitor) 40 mg QHS PO Last administered on 01/27/17 19: 40; Start 01/25/17 at 21:00 Albuterol Sulfate (Ventolin) 2.5 mg Q6H NEB ; Start 01/25/17 at 07:30; Stop at 17:24; Status DC Lactulose 20 gm PRN DAILY PRN PO CONSTIPATION; Start 01/25/17 at 07:30 Budesonide (Pulmicort) 0.5 mg RTBID NEB ; Start 01/25/17 at 08:00; Stop at 17:24; Status DC Olanzapine (ZyPREXA ZYDIS) 2.5 mg PRN Q2HR PRN PO ANXIETY / AGITATION; Start at 08:00 Lorazepam (Ativan) 1 mg DAILY IM Last administered on 01/27/17 09:03; Start at 11:00; Stop 01/27/17 at 18:25; Status DC Haloperidol Lactate (Haldol) 5 mg DAILY IM Last administered on 01/27/17 08:58 ; Start 01/25/17 at 11:00; Stop 01/27/17 at 18:25; Status DC Risperidone (RisperDAL CONSTA) 25 mg Q2WKS IM Last administered on 01/26/17 09 :39; Start 01/26/17 at 09:00 Risperidone (RisperDAL) 3 mg 1X ONCE SL Last administered on 01/26/17 16:15; Start 01/26/17 at 16:00; Stop 01/26/17 at 16:02; Status DC Albuterol Sulfate (Ventolin) 2.5 mg PRN Q6HRS PRN NEB SHORTNESS OF BREATH; Start 01/28/17 at 13:30 Budesonide (Pulmicort) 0.5 mg PRN BID PRN NEB SHORTNESS OF BREATH; Start at 08:00 Haloperidol Lactate (Haldol) 5 mg DAILY IM ; Start 01/28/17 at 09:00 Olanzapine (ZyPREXA ZYDIS) 5 mg PRN Q2HR PRN PO ANXIETY / AGITATION; Start at 18:30 Lorazepam (Ativan) 1 mg DAILY IM ; Start 01/28/17 at 09:00 Active Scripts Active Reported Tylenol (Acetaminophen) 325 Mg Tablet 650 Mg PO PRN Q6HRS PRN Arthritis Pain (Acetaminophen) 650 Mg Tablet.er 650 Mg PO BID Trazodone Hcl 100 Mg Tablet 100 Mg PO PRN QHS PRN Trazodone Hcl 100 Mg Tablet 100 Mg PO QHS Tramadol Hcl (Tramadol HCl) 50 Mg Tablet 25 Mg PO PRN Q6HRS PRN Synthroid (Levothyroxine Sodium) 100 Mcg Tablet 100 Mcg PO DAILY07 Senna S Tablet (Sennosides/Docusate Sodium) 1 Each Tablet 1 Tab PO QHS Risperdal (Risperidone) 1 Mg/1 Ml Solution 3 Mg PO DAILY16 Restoril (Temazepam) 30 Mg Capsule 30 Mg PO PRN QHS PRN Nitrostat (Nitroglycerin) 0.4 Mg Tab.subl 0.4 Mg SL PRN Q5MIN PRN Miralax (Polyethylene Glycol 3350) 119 Gm Powder 17 Gm PO QODAY Antacid Suspension (Mag Hydrox/Al Hydrox/Simeth) 355 Ml Oral.susp 30 Ml PO PRN Q4HRS PRN Lisinopril 5 Mg Tablet 5 Mg PO DAILY Lipitor (Atorvastatin Calcium) 40 Mg Tablet 40 Mg PO QHS Lasix (Furosemide) 40 Mg Tablet 40 Mg PO DAILY Lactulose 10 Gm/15 Ml Solution 20 Gm PO PRN DAILY PRN Klonopin (Clonazepam) 0.5 Mg Tablet 0.5 Mg PO TID Glucophage (Metformin Hcl) 500 Mg Tablet 500 Mg PO BIDWMEALS Josie-Tussin Dm Syrup (Guaifenesin/Dextromethorphan) 473 Ml Syrup 10 Ml PO PRN Q4HRS PRN Duoneb 0.5-3(2.5) Mg/3 Ml (Albuterol/Ipratropium) 3 Ml Ampul.neb 3 Ml NEB PRN Q4HRS PRN Depakote Sprinkle (Divalproex Sodium) 125 Mg Cap.sprink 125 Mg PO TID Bisacodyl 10 Mg Supp.rect 10 Mg RC PRN DAILY PRN Bisacodyl 5 Mg Tablet.dr 10 Mg PO PRN DAILY PRN Reshma Antifungal (Miconazole Nitrate) 142 Gm Cream..g. 1 Gerson TP BID Ativan (Lorazepam) 0.5 Mg Tablet 0.5 Mg PO PRN Q4HRS PRN Aspirin Ec (Aspirin) 81 Mg Tablet.dr 81 Mg PO DAILY Advair Hfa 115-21 Mcg Inhaler (Fluticasone/Salmeterol) 12 Gm Hfa.aer.ad 2 Puff IH BID Diagnosis: Problems: (1) Psychosis (2) Schizophrenia, acute ALBERT ROSE MD Jan 27, 2017 19:53
--- NOTE | 2017-01-28 01:50 | PN ---
DATE: 01/26/2017 PSYCHIATRIC PROGRESS NOTE This is a late entry for 01/26/2017, covers elements not covered in my initial note. SUBJECTIVE: I met with the patient the evening of 01/26/2017. She remains quite paranoid, labile in her mood, refusing medications, throwing herself on the floor, at times asked for pain pills repeatedly. REVIEW OF SYSTEMS: No CV, , pulmonary, eye, ENT system symptoms on review. Ambulation impaired in a wheelchair, 1 person transfer. MENTAL STATUS EXAM: Oriented to herself and situation. Speech is coherent, abstraction fair, computation impaired, language function intact, attention span short. Mood and affect remains labile. LABORATORY DATA: Reviewed. IMPRESSION: Schizophrenia, chronic, undifferentiated with acute exacerbation; schizoaffective disorder, bipolar type, mixed with psychotic features; bipolar 1 disorder, mixed with psychotic features. PLAN: Continue current psychotropics, scheduled Haldol, Ativan IM will be stopped in 2 days. Maintain Risperdal, Depakote Sprinkles, Klonopin, Ativan p.r.n., Restoril p.r.n., Risperdal Consta. Valproic acid level last checked is less than 3. Depakote has been adjusted. Repeat labs level. Adjust further as clinically indicated. Reviewed drug interactions. Risk/benefit ratio favors no further change. MAN Hero ROSE MD DR: [facility] JOB#: [id number] / [id number]
[2017-01-28] MEDS: FUROSEMIDE 40 MG TABLET PO SCH (05:15)
[2017-01-28] MEDS: LEVOTHYROXINE 100 MCG TABLET PO SCH (05:15)
[2017-01-28 06:06] VITALS: BP 123/74
[2017-01-28] MEDS: metFORMIN 500 MG TABLET PO SCH ×2 (07:43→17:43)
[2017-01-28] MEDS ORDERED: BUDESONIDE 0.5 MG/2 ML NEBU NEB PRN (08:00)
[2017-01-28] MEDS: ACETAMINOPHEN 325 MG TABLET PO SCH ×4 (09:00→19:21)
[2017-01-28] MEDS: LISINOPRIL 5 MG TABLET. PO SCH ×2 (09:00→09:33)
[2017-01-28] MEDS: ASPIRIN ENTERIC COATED 81 MG TABLET.DR. PO SCH ×2 (09:00→09:33)
[2017-01-28] MEDS: DIVALPROEX 125 MG CAP.SPRINK PO SCH ×3 (09:00→14:16)
[2017-01-28] MEDS: clonazePAM 0.5 MG TABLET PO SCH ×3 (09:33→19:22)
[2017-01-28] MEDS: NICOTINE 21MG PATCH. TD SCH (09:34)
[2017-01-28] MEDS: LORazepam 2 MG/ML VIAL IM SCH (09:50)
[2017-01-28] MEDS: HALOPERIDOL LACT 5 MG/ML VIAL. IM SCH (09:50)
[2017-01-28 11:37] LABS: BILIRUBIN,URINE NEG (NEG); CLARITY,URINE CLEAR; COLOR,URINE YELLOW; GLUCOSE,URINE NEG (NEG); NITRITE,URINE NEG (NEG); UROBILINOGEN,URINE 0.2 mg/dL (0.2 mg/dL)
[2017-01-28 11:38] LABS: BACTERIA,URINE 0 /HPF (0-FEW); RBC,URINE 0 /HPF (0-2); SQUAMOUS EPITHELIAL CELL,UR OCC /LPF; WBC,URINE OCC /HPF (0-4)
[2017-01-28] MEDS ORDERED: ALBUTEROL SULFATE 2.5 MG/3 ML NEBU. NEB PRN (13:30)
[2017-01-28 16:16] VITALS: BP 115/51
[2017-01-28] MEDS: risperiDONE ORAL 1 MG/ML 30ml BOTTLE. PO SCH (17:44)
[2017-01-28] MEDS: ATORVASTATIN CALCIUM 20 MG TABLET PO SCH (19:20)
[2017-01-28] MEDS: SENNOSIDES/DOCUSATE 8.6/50MG TABLET. PO SCH (19:21)
[2017-01-28] MEDS: TEMAZEPAM 15 MG CAPSULE PO PRN (19:22)
--- NOTE | 2017-01-28 20:01 | PDOC ---
Exam Tra Demential Exam: Tra Note: Please also refer to the separate dictated note~for this date of service dictated separately.~Patient seen individually. Discussed the patient with Nursing staff reviewed the chart.~Reviewed interim history and current functioning. Reviewed vital signs,~Labs/ Radiology~and current medications noted below. Continue current treatment with the changes noted in the dictated addendum note Assessment: Vital Signs: Vital Signs Date Time Temp Pulse Resp B/P (MAP) Pulse Ox O2 Delivery O2 Flow Rate FiO2 01/28/17 16:16 98.0 68 18 115/51 (72) 96 01/26/17 16:21 Room Air I&O Intake and Output 01/29/17 07:00 Intake Total 1380 ml Balance 1380 ml Intake Oral 1380 ml Labs: Laboratory Tests Test 01/28/17 07:24 01/28/17 11:15 01/28/17 11:44 01/28/17 17:17 Glucose (Fingerstick) 97 mg/dL (70-99) 128 mg/dL (70-99) H 105 mg/dL (70-99) H Urine Collection Type Unknown Urine Color Yellow Urine Clarity Clear Urine pH 6.0 Urine Specific [place] 1.010 Urine Protein Neg (NEG-TRACE) Urine Glucose (UA) Neg mg/dL (NEG) Urine Ketones (Stick) Neg mg/dL (NEG) Urine Blood Neg (NEG) Urine Nitrite Neg (NEG) Urine Bilirubin Neg (NEG) Urine Urobilinogen Dipstick 0.2 mg/dL (0.2 mg/dL) Urine Leukocyte Esterase Trace (NEG) Urine RBC 0 /HPF (0-2) Urine WBC Occ /HPF (0-4) Urine Squamous Epithelial Cells Occ /LPF Urine Bacteria 0 /HPF (0-FEW) Urine Mucus Slight /LPF Test 01/28/17 19:14 Glucose (Fingerstick) 114 mg/dL (70-99) H Current Medications: Meds: Current Medications Olanzapine (ZyPREXA ZYDIS) 10 mg STK-MED ONCE .ROUTE ; Start 01/25/17 at 04:06; Stop 01/25/17 at 04:07; Status DC Olanzapine (ZyPREXA ZYDIS) 10 mg 1X STAT PO Last administered on 01/25/17t 04: 07; Start 01/25/17 at 04:03; Stop 01/25/17 at 06:26; Status DC Nicotine (Nicoderm Cq 21mg) 1 patch DAILY TD Last administered on 01/28/17 09: 34; Start 01/25/17 at 09:00 Clonazepam (KlonoPIN) 0.5 mg TID PO Last administered on 01/28/17 19:22; Start 01/25/17 at 09:00 Divalproex Sodium (Depakote Sprinkles) 125 mg TID PO Last administered on 14:16; Start 01/25/17 at 09:00; Stop 01/28/17 at 18:41; Status DC Lorazepam (Ativan) 0.5 mg PRN Q4HRS PRN PO ANXIETY / AGITATION; Start 01/25/17 at 05:30 Risperidone (RisperDAL) 3 mg DAILY16 PO Last administered on 01/28/17 17:44; Start 01/25/17 at 16:00 Temazepam (Restoril) 30 mg PRN QHS PRN PO INSOMNIA; Start 01/25/17 at 05:30; Stop 01/25/17 at 06:31; Status DC Trazodone HCl (Desyrel) 100 mg PRN QHS PRN PO INSOMNIA; Start 01/25/17 at 05:30 ; Stop 01/25/17 at 11:36; Status DC Trazodone HCl (Desyrel) 100 mg QHS PO ; Start 01/25/17 at 21:00; Stop 01/25/17 at 21:00; Status DC Temazepam (Restoril) 30 mg PRN QHS PRN PO INSOMNIA Last administered on 19:22; Start 01/25/17 at 06:31 Acetaminophen (Tylenol) 650 mg PRN Q6HRS PRN PO PAIN / TEMP; Start 01/25/17 at 06:45 Aspirin (Aspirin Enteric Coated) 81 mg DAILY PO Last administered on 01/26/17 08:53; Start 01/25/17 at 09:00 Bisacodyl (Dulcolax Tab) 10 mg PRN DAILY PRN PO CONSTIPATION; Start 01/25/17 at 06:45 Bisacodyl (Dulcolax Supp) 10 mg PRN DAILY PRN RC CONSTIPATION; Start 01/25/17 at 06:45 Furosemide (Lasix) 40 mg DAILY PO Last administered on 01/28/17 05:15; Start 01/25/17 at 09:00 Guaifenesin (Robitussin Dm) 10 ml PRN Q4HRS PRN PO COUGH; Start 01/25/17 at 06: 45 Albuterol/ Ipratropium (Duoneb) 3 ml PRN Q4HRS PRN NEB SHORTNESS OF BREATH; Start 01/25/17 at 06:45 Levothyroxine Sodium (Synthroid) 100 mcg DAILY06 PO Last administered on 05:15; Start 01/25/17 at 07:00 Lisinopril (Prinivil) 5 mg DAILY PO Last administered on 01/26/17 08:53; Start 01/25/17 at 09:00 Al Hydroxide/Mg Hydroxide (Mylanta Plus Xs) 30 ml PRN Q4HRS PRN PO DYSPEPSIA; Start 01/25/17 at 06:45 Metformin HCl (Glucophage) 500 mg BIDWMEALS PO Last administered on 01/28/17 17:43; Start 01/25/17 at 08:00 Miconazole Nitrate (Monistat-Derm) 1 gerson BID TP ; Start 01/25/17 at 09:00; Stop 01/25/17 at 09:00; Status DC Nitroglycerin (Nitrostat) 0.4 mg PRN Q5MIN PRN SL CHEST PAIN; Start 01/25/17 at 06:45 Polyethylene Glycol (miraLAX) 17 gm QODAY PO ; Start 01/25/17 at 09:00 Senna/Docusate Sodium (Senna Plus) 1 tab QHS PO Last administered on 01/28/17 19:21; Start 01/25/17 at 21:00 Tramadol HCl (Ultram) 25 mg PRN Q6HRS PRN PO PAIN Last administered on 16:21; Start 01/25/17 at 06:45 Acetaminophen (Tylenol) 650 mg TID PO Last administered on 01/28/17 19:21; Start 01/25/17 at 09:00 Atorvastatin Calcium (Lipitor) 40 mg QHS PO Last administered on 01/28/17 19: 20; Start 01/25/17 at 21:00 Albuterol Sulfate (Ventolin) 2.5 mg Q6H NEB ; Start 01/25/17 at 07:30; Stop at 17:24; Status DC Lactulose 20 gm PRN DAILY PRN PO CONSTIPATION; Start 01/25/17 at 07:30 Budesonide (Pulmicort) 0.5 mg RTBID NEB ; Start 01/25/17 at 08:00; Stop at 17:24; Status DC Olanzapine (ZyPREXA ZYDIS) 2.5 mg PRN Q2HR PRN PO ANXIETY / AGITATION; Start at 08:00 Lorazepam (Ativan) 1 mg DAILY IM Last administered on 01/27/17 09:03; Start at 11:00; Stop 01/27/17 at 18:25; Status DC Haloperidol Lactate (Haldol) 5 mg DAILY IM Last administered on 01/27/17 08:58 ; Start 01/25/17 at 11:00; Stop 01/27/17 at 18:25; Status DC Risperidone (RisperDAL CONSTA) 25 mg Q2WKS IM Last administered on 01/26/17 09 :39; Start 01/26/17 at 09:00 Risperidone (RisperDAL) 3 mg 1X ONCE SL Last administered on 01/26/17 16:15; Start 01/26/17 at 16:00; Stop 01/26/17 at 16:02; Status DC Albuterol Sulfate (Ventolin) 2.5 mg PRN Q6HRS PRN NEB SHORTNESS OF BREATH; Start 01/28/17 at 13:30 Budesonide (Pulmicort) 0.5 mg PRN BID PRN NEB SHORTNESS OF BREATH; Start at 08:00 Haloperidol Lactate (Haldol) 5 mg DAILY IM Last administered on 01/28/17 09:50 ; Start 01/28/17 at 09:00 Olanzapine (ZyPREXA ZYDIS) 5 mg PRN Q2HR PRN PO ANXIETY / AGITATION; Start at 18:30 Lorazepam (Ativan) 1 mg DAILY IM Last administered on 01/28/17 09:50; Start at 09:00 Valproic Acid (Depakene) 375 mg HS PO ; Start 01/29/17 at 21:00 Active Scripts Active Reported Tylenol (Acetaminophen) 325 Mg Tablet 650 Mg PO PRN Q6HRS PRN Arthritis Pain (Acetaminophen) 650 Mg Tablet.er 650 Mg PO BID Trazodone Hcl 100 Mg Tablet 100 Mg PO PRN QHS PRN Trazodone Hcl 100 Mg Tablet 100 Mg PO QHS Tramadol Hcl (Tramadol HCl) 50 Mg Tablet 25 Mg PO PRN Q6HRS PRN Synthroid (Levothyroxine Sodium) 100 Mcg Tablet 100 Mcg PO DAILY07 Senna S Tablet (Sennosides/Docusate Sodium) 1 Each Tablet 1 Tab PO QHS Risperdal (Risperidone) 1 Mg/1 Ml Solution 3 Mg PO DAILY16 Restoril (Temazepam) 30 Mg Capsule 30 Mg PO PRN QHS PRN Nitrostat (Nitroglycerin) 0.4 Mg Tab.subl 0.4 Mg SL PRN Q5MIN PRN Miralax (Polyethylene Glycol 3350) 119 Gm Powder 17 Gm PO QODAY Antacid Suspension (Mag Hydrox/Al Hydrox/Simeth) 355 Ml Oral.susp 30 Ml PO PRN Q4HRS PRN Lisinopril 5 Mg Tablet 5 Mg PO DAILY Lipitor (Atorvastatin Calcium) 40 Mg Tablet 40 Mg PO QHS Lasix (Furosemide) 40 Mg Tablet 40 Mg PO DAILY Lactulose 10 Gm/15 Ml Solution 20 Gm PO PRN DAILY PRN Klonopin (Clonazepam) 0.5 Mg Tablet 0.5 Mg PO TID Glucophage (Metformin Hcl) 500 Mg Tablet 500 Mg PO BIDWMEALS Josie-Tussin Dm Syrup (Guaifenesin/Dextromethorphan) 473 Ml Syrup 10 Ml PO PRN Q4HRS PRN Duoneb 0.5-3(2.5) Mg/3 Ml (Albuterol/Ipratropium) 3 Ml Ampul.neb 3 Ml NEB PRN Q4HRS PRN Depakote Sprinkle (Divalproex Sodium) 125 Mg Cap.sprink 125 Mg PO TID Bisacodyl 10 Mg Supp.rect 10 Mg RC PRN DAILY PRN Bisacodyl 5 Mg Tablet.dr 10 Mg PO PRN DAILY PRN Reshma Antifungal (Miconazole Nitrate) 142 Gm Cream..g. 1 Gerson TP BID Ativan (Lorazepam) 0.5 Mg Tablet 0.5 Mg PO PRN Q4HRS PRN Aspirin Ec (Aspirin) 81 Mg Tablet.dr 81 Mg PO DAILY Advair Hfa 115-21 Mcg Inhaler (Fluticasone/Salmeterol) 12 Gm Hfa.aer.ad 2 Puff IH BID Diagnosis: Problems: (1) Schizophrenia, acute (2) Psychosis (3) Anxiety disorder (4) Bipolar affective, mixed, sev w/ psych (5) Impulse control disorder (6) Schizoaffective disorder, chronic condition with acute exacerbation ALBERT ROSE MD Jan 28, 2017 20:01
--- NOTE | 2017-01-29 04:36 | PN ---
DATE: 01/27/2017 DATE OF SERVICE: 01/27/2017 This late entry 01/27/2017 covers the elements not covered in my initial note of 01/27/2017. I met with the patient in the evening of 01/27/2017. The patient has had a difficult day, slept just three and quarter hours previous evening, refusing medications, paranoid, labile, per nursing report refusing nursing assessment, hollering at times, had significant hypergraphia, writing extensively wherever she finds something to write and gave me pages of her writing as I met with her, fixated labile, talking about "8 tubes of blood, 8 tubes of blood." She had lab draws and fixated on this. REVIEW OF SYSTEMS: Positive for her pedal edema, difficulty ambulation. No CV, , pulmonary, eye system symptoms on review, vague somatic symptoms evident. MENTAL STATUS EXAM: Oriented to herself, situation, speech rapid at times, low in volume. Abstraction fair, computation impaired, language function intact. Mood and affect labile, paranoid, psychotic. No active suicidal or homicidal ideation. LABORATORY DATA: Reviewed. IMPRESSION: Unchanged from initial note. PLAN: Increase the psychotropics as clinically indicated. She remains on Ativan p.r.n. Change Depakote from 125 t.i.d. to adjust to a therapeutic level. Stop Zyprexa 5 mg q.2 hours p.r.n. psychosis, agitation, max 20 mg 24 hours. Maintain Klonopin, Restoril, Risperdal along with Risperdal Consta and the daily IM Haldol, Ativan. She is quite complicated, worsened by her noncompliance with treatment. We will have to carefully get her psychosis controlled and then stabilize her on psychotropics. Reviewed in detail her various psychotropics drug interactions risk/benefit ratio, favors no further change as of now. ALBERT ROSE MD DR: CH[facility] JOB#: [id number] / [id number]
[2017-01-29] MEDS: LEVOTHYROXINE 100 MCG TABLET PO SCH (05:29)
[2017-01-29] MEDS: FUROSEMIDE 40 MG TABLET PO SCH (05:29)
[2017-01-29 06:13] VITALS: BP 136/63
[2017-01-29] MEDS: metFORMIN 500 MG TABLET PO SCH ×2 (07:37→15:45)
[2017-01-29 07:58] LABS: BASO % 1 % (0-3); EOS % 0 % (0-3); HEMATOCRIT 38.1 % (36.0-47.0); HEMOGLOBIN 12.9 g/dL (12.0-15.5); LYMPH # 1.3 x10^3/uL (1.0-4.8); LYMPH % 24 % (24-48); MEAN CORPUSCULAR HEMOGLOBIN 34 pg (25-35); MEAN CORPUSCULAR HGB CONC 34 g/dL (31-37); MEAN CORPUSCULAR VOLUME 99 fL (79-100); MONO # 0.5 x10^3/uL (0.0-1.1); MONO % 8 % (0-9); NEUT # 3.7 x10^3uL (1.8-7.7); NEUT % 67 % (31-73); PLATELET COUNT 271 x10^3/uL (140-400); RED BLOOD COUNT 3.84 x10^6/uL (3.50-5.40); RED CELL DISTRIBUTION WIDTH 13.9 % (11.5-14.5); WHITE BLOOD COUNT 5.5 x10^3/uL (4.0-11.0)
[2017-01-29 08:16] LABS: ALBUMIN 3.8 g/dL (3.4-5.0); ALBUMIN/GLOBULIN RATIO 1.2 (1.0-1.7); ALK PHOS 120 U/L (46-116); ALT (SGPT) 23 U/L (14-59); ANION GAP 4 (6-14); AST (SGOT) 22 U/L (15-37); BLOOD UREA NITROGEN 14 mg/dL (7-20); BUN/CREATININE RATIO 23 (6-20); CALCIUM 9.1 mg/dL (8.5-10.1); CARBON DIOXIDE 34 mmol/L (21-32); CHLORIDE 105 mmol/L (98-107); CREATININE 0.6 mg/dL (0.6-1.0); GFR 97.2; GLUCOSE 98 mg/dL (70-99); POTASSIUM 3.9 mmol/L (3.5-5.1); SODIUM 143 mmol/L (136-145); TOTAL BILIRUBIN 0.5 mg/dL (0.2-1.0); TOTAL PROTEIN 7.1 g/dL (6.4-8.2)
[2017-01-29 08:18] LABS: VAL ACID 5 mcg/mL (50-100)
[2017-01-29] MEDS: ACETAMINOPHEN 325 MG TABLET PO SCH ×3 (09:00→19:49)
[2017-01-29] MEDS: LORazepam 2 MG/ML VIAL IM SCH (10:01)
[2017-01-29] MEDS: HALOPERIDOL LACT 5 MG/ML VIAL. IM SCH (10:02)
[2017-01-29] MEDS: ASPIRIN ENTERIC COATED 81 MG TABLET.DR. PO SCH (10:03)
[2017-01-29] MEDS: clonazePAM 0.5 MG TABLET PO SCH ×3 (10:03→19:48)
[2017-01-29] MEDS: LISINOPRIL 5 MG TABLET. PO SCH (10:03)
[2017-01-29] MEDS: NICOTINE 21MG PATCH. TD SCH (10:04)
[2017-01-29] MEDS: POLYETHYLENE GLYCOL 3350 17 GM PACKET. PO SCH (10:04)
[2017-01-29] MEDS: risperiDONE ORAL 1 MG/ML 30ml BOTTLE. PO SCH (15:45)
[2017-01-29 16:18] VITALS: BP 107/63
[2017-01-29] MEDS: ATORVASTATIN CALCIUM 20 MG TABLET PO SCH (19:48)
[2017-01-29] MEDS: TEMAZEPAM 15 MG CAPSULE PO SCH (19:48)
[2017-01-29] MEDS: SENNOSIDES/DOCUSATE 8.6/50MG TABLET. PO SCH (19:48)
[2017-01-29] MEDS: VALPROATE ACID 250 MG/5 ML ORAL SOLUTION PO SCH (19:50)
--- NOTE | 2017-01-29 19:59 | PDOC ---
Exam Tra Demential Exam: Tra Note: Please also refer to the separate dictated note~for this date of service dictated separately.~Patient seen individually. Discussed the patient with Nursing staff reviewed the chart.~Reviewed interim history and current functioning. Reviewed vital signs,~Labs/ Radiology~and current medications noted below. Continue current treatment with the changes noted in the dictated addendum note Assessment: Vital Signs: Vital Signs Date Time Temp Pulse Resp B/P (MAP) Pulse Ox O2 Delivery O2 Flow Rate FiO2 01/29/17 16:18 98.0 66 18 107/63 (78) 98 01/26/17 16:21 Room Air I&O Intake and Output 01/30/17 06:59 Intake Total 960 ml Balance 960 ml Intake Oral 960 ml Labs: Laboratory Tests Test 01/29/17 06:53 01/29/17 07:35 01/29/17 11:25 01/29/17 16:21 White Blood Count 5.5 x10^3/uL (4.0-11.0) # Red Blood Count 3.84 x10^6/uL (3.50-5.40) Hemoglobin 12.9 g/dL (12.0-15.5) Hematocrit 38.1 % (36.0-47.0) Mean Corpuscular Volume 99 fL (79-100) Mean Corpuscular Hemoglobin 34 pg (25-35) Mean Corpuscular Hemoglobin Concent 34 g/dL (31-37) Red Cell Distribution Width 13.9 % (11.5-14.5) Platelet Count 271 x10^3/uL (140-400) Neutrophils (%) (Auto) 67 % (31-73) Lymphocytes (%) (Auto) 24 % (24-48) Monocytes (%) (Auto) 8 % (0-9) Eosinophils (%) (Auto) 0 % (0-3) Basophils (%) (Auto) 1 % (0-3) Neutrophils # (Auto) 3.7 x10^3uL (1.8-7.7) Lymphocytes # (Auto) 1.3 x10^3/uL (1.0-4.8) Monocytes # (Auto) 0.5 x10^3/uL (0.0-1.1) Eosinophils # (Auto) 0.0 x10^3/uL (0.0-0.7) Basophils # (Auto) 0.0 x10^3/uL (0.0-0.2) Sodium Level 143 mmol/L (136-145) Potassium Level 3.9 mmol/L (3.5-5.1) Chloride Level 105 mmol/L (98-107) Carbon Dioxide Level 34 mmol/L (21-32) H Anion Gap 4 (6-14) L Blood Urea Nitrogen 14 mg/dL (7-20) Creatinine 0.6 mg/dL (0.6-1.0) Estimated GFR (Cockcroft-Gault) 97.2 BUN/Creatinine Ratio 23 (6-20) H Glucose Level 98 mg/dL (70-99) Calcium Level 9.1 mg/dL (8.5-10.1) Total Bilirubin 0.5 mg/dL (0.2-1.0) Aspartate Amino Transferase (AST) 22 U/L (15-37) Alanine Aminotransferase (ALT) 23 U/L (14-59) Alkaline Phosphatase 120 U/L (46-116) H Total Protein 7.1 g/dL (6.4-8.2) Albumin 3.8 g/dL (3.4-5.0) Albumin/Globulin Ratio 1.2 (1.0-1.7) Valproic Acid Level 5 mcg/mL (50-100) L Valproic Acid Last Dose Date 01/28/17 Valproic Acid Last Dose Time 2100 Glucose (Fingerstick) 109 mg/dL (70-99) H 136 mg/dL (70-99) H 94 mg/dL (70-99) Test 01/29/17 19:08 Glucose (Fingerstick) 135 mg/dL (70-99) H Current Medications: Meds: Current Medications Olanzapine (ZyPREXA ZYDIS) 10 mg STK-MED ONCE .ROUTE ; Start 01/25/17 at 04:06; Stop 01/25/17 at 04:07; Status DC Olanzapine (ZyPREXA ZYDIS) 10 mg 1X STAT PO Last administered on 01/25/17 04: 07; Start 01/25/17 at 04:03; Stop 01/25/17 at 06:26; Status DC Nicotine (Nicoderm Cq 21mg) 1 patch DAILY TD Last administered on 01/29/17t 10: 04; Start 01/25/17 at 09:00 Clonazepam (KlonoPIN) 0.5 mg TID PO Last administered on 01/29/17 19:48; Start 01/25/17 at 09:00 Divalproex Sodium (Depakote Sprinkles) 125 mg TID PO Last administered on 14:16; Start 01/25/17 at 09:00; Stop 01/28/17 at 18:41; Status DC Lorazepam (Ativan) 0.5 mg PRN Q4HRS PRN PO ANXIETY / AGITATION; Start 01/25/17 at 05:30 Risperidone (RisperDAL) 3 mg DAILY16 PO Last administered on 01/29/17 15:45; Start 01/25/17 at 16:00 Temazepam (Restoril) 30 mg PRN QHS PRN PO INSOMNIA; Start 01/25/17 at 05:30; Stop 01/25/17 at 06:31; Status DC Trazodone HCl (Desyrel) 100 mg PRN QHS PRN PO INSOMNIA; Start 01/25/17 at 05:30 ; Stop 01/25/17 at 11:36; Status DC Trazodone HCl (Desyrel) 100 mg QHS PO ; Start 01/25/17 at 21:00; Stop 01/25/17 at 21:00; Status DC Temazepam (Restoril) 30 mg PRN QHS PRN PO INSOMNIA Last administered on 19:22; Start 01/25/17 at 06:31; Stop 01/29/17 at 18:50; Status DC Acetaminophen (Tylenol) 650 mg PRN Q6HRS PRN PO PAIN / TEMP; Start 01/25/17 at 06:45 Aspirin (Aspirin Enteric Coated) 81 mg DAILY PO Last administered on 01/29/17 10:03; Start 01/25/17 at 09:00 Bisacodyl (Dulcolax Tab) 10 mg PRN DAILY PRN PO CONSTIPATION; Start 01/25/17 at 06:45 Bisacodyl (Dulcolax Supp) 10 mg PRN DAILY PRN RC CONSTIPATION; Start 01/25/17 at 06:45 Furosemide (Lasix) 40 mg DAILY PO Last administered on 01/28/17 05:15; Start 01/25/17 at 09:00; Stop 01/29/17 at 03:25; Status DC Guaifenesin (Robitussin Dm) 10 ml PRN Q4HRS PRN PO COUGH; Start 01/25/17 at 06: 45 Albuterol/ Ipratropium (Duoneb) 3 ml PRN Q4HRS PRN NEB SHORTNESS OF BREATH; Start 01/25/17 at 06:45 Levothyroxine Sodium (Synthroid) 100 mcg DAILY06 PO Last administered on 05:29; Start 01/25/17 at 07:00 Lisinopril (Prinivil) 5 mg DAILY PO Last administered on 01/29/17 10:03; Start 01/25/17 at 09:00 Al Hydroxide/Mg Hydroxide (Mylanta Plus Xs) 30 ml PRN Q4HRS PRN PO DYSPEPSIA; Start 01/25/17 at 06:45 Metformin HCl (Glucophage) 500 mg BIDWMEALS PO Last administered on 01/29/17 15:45; Start 01/25/17 at 08:00 Miconazole Nitrate (Monistat-Derm) 1 gerson BID TP ; Start 01/25/17 at 09:00; Stop 01/25/17 at 09:00; Status DC Nitroglycerin (Nitrostat) 0.4 mg PRN Q5MIN PRN SL CHEST PAIN; Start 01/25/17 at 06:45 Polyethylene Glycol (miraLAX) 17 gm QODAY PO Last administered on 01/29/17 10: 04; Start 01/25/17 at 09:00 Senna/Docusate Sodium (Senna Plus) 1 tab QHS PO Last administered on 01/29/17 19:48; Start 01/25/17 at 21:00 Tramadol HCl (Ultram) 25 mg PRN Q6HRS PRN PO PAIN Last administered on 16:21; Start 01/25/17 at 06:45 Acetaminophen (Tylenol) 650 mg TID PO Last administered on 01/29/17 19:49; Start 01/25/17 at 09:00 Atorvastatin Calcium (Lipitor) 40 mg QHS PO Last administered on 01/29/17 19: 48; Start 01/25/17 at 21:00 Albuterol Sulfate (Ventolin) 2.5 mg Q6H NEB ; Start 01/25/17 at 07:30; Stop at 17:24; Status DC Lactulose 20 gm PRN DAILY PRN PO CONSTIPATION; Start 01/25/17 at 07:30 Budesonide (Pulmicort) 0.5 mg RTBID NEB ; Start 01/25/17 at 08:00; Stop at 17:24; Status DC Olanzapine (ZyPREXA ZYDIS) 2.5 mg PRN Q2HR PRN PO ANXIETY / AGITATION; Start at 08:00 Lorazepam (Ativan) 1 mg DAILY IM Last administered on 01/27/17 09:03; Start at 11:00; Stop 01/27/17 at 18:25; Status DC Haloperidol Lactate (Haldol) 5 mg DAILY IM Last administered on 01/27/17 08:58 ; Start 01/25/17 at 11:00; Stop 01/27/17 at 18:25; Status DC Risperidone (RisperDAL CONSTA) 25 mg Q2WKS IM Last administered on 01/26/17 09 :39; Start 01/26/17 at 09:00 Risperidone (RisperDAL) 3 mg 1X ONCE SL Last administered on 01/26/17 16:15; Start 01/26/17 at 16:00; Stop 01/26/17 at 16:02; Status DC Albuterol Sulfate (Ventolin) 2.5 mg PRN Q6HRS PRN NEB SHORTNESS OF BREATH; Start 01/28/17 at 13:30 Budesonide (Pulmicort) 0.5 mg PRN BID PRN NEB SHORTNESS OF BREATH; Start at 08:00 Haloperidol Lactate (Haldol) 5 mg DAILY IM Last administered on 01/29/17 10:02 ; Start 01/28/17 at 09:00 Olanzapine (ZyPREXA ZYDIS) 5 mg PRN Q2HR PRN PO ANXIETY / AGITATION; Start at 18:30 Lorazepam (Ativan) 1 mg DAILY IM Last administered on 01/29/17 10:01; Start at 09:00 Valproic Acid (Depakene) 375 mg HS PO ; Start 01/29/17 at 21:00; Stop 01/29/17 at 21:00; Status DC Furosemide (Lasix) 40 mg DAILY06 PO Last administered on 01/29/17 05:29; Start 01/29/17 at 06:00 Valproic Acid (Depakene) 375 mg BID PO Last administered on 01/29/17 19:50; Start 01/29/17 at 21:00 Temazepam (Restoril) 30 mg QHS PO Last administered on 01/29/17 19:48; Start 01/29/17 at 21:00 Active Scripts Active Reported Tylenol (Acetaminophen) 325 Mg Tablet 650 Mg PO PRN Q6HRS PRN Arthritis Pain (Acetaminophen) 650 Mg Tablet.er 650 Mg PO BID Trazodone Hcl 100 Mg Tablet 100 Mg PO PRN QHS PRN Trazodone Hcl 100 Mg Tablet 100 Mg PO QHS Tramadol Hcl (Tramadol HCl) 50 Mg Tablet 25 Mg PO PRN Q6HRS PRN Synthroid (Levothyroxine Sodium) 100 Mcg Tablet 100 Mcg PO DAILY07 Senna S Tablet (Sennosides/Docusate Sodium) 1 Each Tablet 1 Tab PO QHS Risperdal (Risperidone) 1 Mg/1 Ml Solution 3 Mg PO DAILY16 Restoril (Temazepam) 30 Mg Capsule 30 Mg PO PRN QHS PRN Nitrostat (Nitroglycerin) 0.4 Mg Tab.subl 0.4 Mg SL PRN Q5MIN PRN Miralax (Polyethylene Glycol 3350) 119 Gm Powder 17 Gm PO QODAY Antacid Suspension (Mag Hydrox/Al Hydrox/Simeth) 355 Ml Oral.susp 30 Ml PO PRN Q4HRS PRN Lisinopril 5 Mg Tablet 5 Mg PO DAILY Lipitor (Atorvastatin Calcium) 40 Mg Tablet 40 Mg PO QHS Lasix (Furosemide) 40 Mg Tablet 40 Mg PO DAILY Lactulose 10 Gm/15 Ml Solution 20 Gm PO PRN DAILY PRN Klonopin (Clonazepam) 0.5 Mg Tablet 0.5 Mg PO TID Glucophage (Metformin Hcl) 500 Mg Tablet 500 Mg PO BIDWMEALS Josie-Tussin Dm Syrup (Guaifenesin/Dextromethorphan) 473 Ml Syrup 10 Ml PO PRN Q4HRS PRN Duoneb 0.5-3(2.5) Mg/3 Ml (Albuterol/Ipratropium) 3 Ml Ampul.neb 3 Ml NEB PRN Q4HRS PRN Depakote Sprinkle (Divalproex Sodium) 125 Mg Cap.sprink 125 Mg PO TID Bisacodyl 10 Mg Supp.rect 10 Mg RC PRN DAILY PRN Bisacodyl 5 Mg Tablet.dr 10 Mg PO PRN DAILY PRN Reshma Antifungal (Miconazole Nitrate) 142 Gm Cream..g. 1 Gerson TP BID Ativan (Lorazepam) 0.5 Mg Tablet 0.5 Mg PO PRN Q4HRS PRN Aspirin Ec (Aspirin) 81 Mg Tablet.dr 81 Mg PO DAILY Advair Hfa 115-21 Mcg Inhaler (Fluticasone/Salmeterol) 12 Gm Hfa.aer.ad 2 Puff IH BID Diagnosis: Problems: (1) Psychosis (2) Schizophrenia, acute (3) Anxiety disorder (4) Bipolar affective, mixed, sev w/ psych (5) Impulse control disorder (6) Schizoaffective disorder, chronic condition with acute exacerbation ALBERT ROSE MD Jan 29, 2017 19:59
[2017-01-29] MEDS ORDERED: VALPROATE ACID 250 MG/5 ML ORAL SOLUTION PO SCH (21:00)
--- NOTE | 2017-01-30 01:35 | PN ---
DATE: 01/28/2017 This late entry 01/28/2017 covers elements not covered in my initial note of 01/28/2017 SUBJECTIVE: I met with the patient at some length in her room. She takes metformin, resisted to the rest of the medications, gets her IM Ativan, Haldol, which seems to help. She remains hyperverbal . Speech is low in rate and rhythm. Associations loose at times. Hypergraphia is evident. Nursing staff did collect a UA in the hat. REVIEW OF SYSTEMS: Positive for pedal edema. No CV, , pulmonary, eye system symptoms on review. Reliability poor. MENTAL STATUS EXAM: Oriented to herself and situation. Speech coherent, rapid, low in volume. Abstraction fair, computation impaired. Associations loose. Insight limited, judgment marginal, language function intact. Mood and affect labile, still psychotic. LABORATORY DATA: Reviewed. IMPRESSION: Unchanged from initial note. PLAN: Due to medication noncompliance, we will change the Depakote Sprinkles 125 mg t.i.d. to liquid Depakene 375 mg at bedtime. Check CBC, CMP, valproic acid level in the morning of 01/29/2017. May need to increase the Depakote thereafter. Maintain the rest of the psychotropics reviewed. Drug interactions, risk/benefit ratio favors no further change. ALBERT ROSE MD DR: [facility] JOB#: [id number] / [id number]
[2017-01-30 05:32] VITALS: BP 125/63
[2017-01-30] MEDS: LEVOTHYROXINE 100 MCG TABLET PO SCH (05:54)
[2017-01-30] MEDS: FUROSEMIDE 40 MG TABLET PO SCH (05:54)
[2017-01-30] MEDS: metFORMIN 500 MG TABLET PO SCH ×2 (08:07→16:20)
[2017-01-30] MEDS: NICOTINE 21MG PATCH. TD SCH (11:05)
[2017-01-30] MEDS: VALPROATE ACID 250 MG/5 ML ORAL SOLUTION PO SCH ×2 (11:06→19:28)
[2017-01-30] MEDS: LISINOPRIL 5 MG TABLET. PO SCH (11:06)
[2017-01-30] MEDS: ASPIRIN ENTERIC COATED 81 MG TABLET.DR. PO SCH (11:06)
[2017-01-30] MEDS: HALOPERIDOL LACT 5 MG/ML VIAL. IM SCH (11:07)
[2017-01-30] MEDS: ACETAMINOPHEN 325 MG TABLET PO SCH ×3 (11:07→19:28)
[2017-01-30] MEDS: LORazepam 2 MG/ML VIAL IM SCH (11:07)
[2017-01-30] MEDS: clonazePAM 0.5 MG TABLET PO SCH ×3 (11:08→19:29)
[2017-01-30 16:12] VITALS: BP 100/56
[2017-01-30] MEDS: risperiDONE ORAL 1 MG/ML 30ml BOTTLE. PO SCH (16:20)
[2017-01-30] MEDS ORDERED: MAGNESIUM HYDROXIDE 2,400 MG/30 ML ORAL.SUSP. PO PRN (16:30)
[2017-01-30] MEDS: MAGNESIUM HYDROXIDE 2,400 MG/30 ML ORAL.SUSP. PO PRN (16:56)
--- NOTE | 2017-01-30 16:56 | EKG ---
[address] [address] Test Date: 2017-01-25 Test Time: 03:29:12 Pat Name: CIARAN GA Department: Room: [address] [place] [address] Gender: F Signing Agent: JASIEL : [id number] Requested By: LIONEL AGUILAR Order Number: [id number] Reading MD: Yohannes Blanco Measurements Intervals [place] Rate: 67 P: ND: QRS: 49 QRSD: 108 T: 4 QT: 414 QTc: 440 Interpretive Statements SINUS RHYTHM RBBB Electronically Signed On 02-03-2017 8:13:54 CDT by Yohannes Blanco
[2017-01-30] MEDS: SENNOSIDES/DOCUSATE 8.6/50MG TABLET. PO SCH (19:28)
[2017-01-30] MEDS: TEMAZEPAM 15 MG CAPSULE PO SCH (19:29)
--- NOTE | 2017-01-30 19:50 | PDOC ---
Exam Tra Demential Exam: Tra Note: Please also refer to the separate dictated note~for this date of service dictated separately.~Patient seen individually. Discussed the patient with Nursing staff reviewed the chart.~Reviewed interim history and current functioning. Reviewed vital signs,~Labs/ Radiology~and current medications noted below. Continue current treatment with the changes noted in the dictated addendum note Assessment: Vital Signs: Vital Signs Date Time Temp Pulse Resp B/P (MAP) Pulse Ox O2 Delivery O2 Flow Rate FiO2 01/30/17 16:12 97.2 60 16 100/56 (71) 98 01/26/17 16:21 Room Air I&O Intake and Output 01/31/17 07:00 Intake Total 1560 ml Balance 1560 ml Intake Oral 1560 ml # Voids 1 Labs: Laboratory Tests Test 01/30/17 07:34 01/30/17 11:42 01/30/17 16:32 Glucose (Fingerstick) 90 mg/dL (70-99) 92 mg/dL (70-99) 100 mg/dL (70-99) H Current Medications: Meds: Current Medications Olanzapine (ZyPREXA ZYDIS) 10 mg STK-MED ONCE .ROUTE ; Start 01/25/17 at 04:06; Stop 01/25/17 at 04:07; Status DC Olanzapine (ZyPREXA ZYDIS) 10 mg 1X STAT PO Last administered on 01/25/17 04: 07; Start 01/25/17 at 04:03; Stop 01/25/17 at 06:26; Status DC Nicotine (Nicoderm Cq 21mg) 1 patch DAILY TD Last administered on 01/30/17 11: 05; Start 01/25/17 at 09:00 Clonazepam (KlonoPIN) 0.5 mg TID PO Last administered on 01/30/17 19:29; Start 01/25/17 at 09:00 Divalproex Sodium (Depakote Sprinkles) 125 mg TID PO Last administered on 14:16; Start 01/25/17 at 09:00; Stop 01/28/17 at 18:41; Status DC Lorazepam (Ativan) 0.5 mg PRN Q4HRS PRN PO ANXIETY / AGITATION; Start 01/25/17 at 05:30 Risperidone (RisperDAL) 3 mg DAILY16 PO Last administered on 01/30/17 16:20; Start 01/25/17 at 16:00 Temazepam (Restoril) 30 mg PRN QHS PRN PO INSOMNIA; Start 01/25/17 at 05:30; Stop 01/25/17 at 06:31; Status DC Trazodone HCl (Desyrel) 100 mg PRN QHS PRN PO INSOMNIA; Start 01/25/17 at 05:30 ; Stop 01/25/17 at 11:36; Status DC Trazodone HCl (Desyrel) 100 mg QHS PO ; Start 01/25/17 at 21:00; Stop 01/25/17 at 21:00; Status DC Temazepam (Restoril) 30 mg PRN QHS PRN PO INSOMNIA Last administered on 19:22; Start 01/25/17 at 06:31; Stop 01/29/17 at 18:50; Status DC Acetaminophen (Tylenol) 650 mg PRN Q6HRS PRN PO PAIN / TEMP; Start 01/25/17 at 06:45 Aspirin (Aspirin Enteric Coated) 81 mg DAILY PO Last administered on 01/30/17 11:06; Start 01/25/17 at 09:00 Bisacodyl (Dulcolax Tab) 10 mg PRN DAILY PRN PO CONSTIPATION; Start 01/25/17 at 06:45 Bisacodyl (Dulcolax Supp) 10 mg PRN DAILY PRN RC CONSTIPATION; Start 01/25/17 at 06:45 Furosemide (Lasix) 40 mg DAILY PO Last administered on 01/28/17 05:15; Start 01/25/17 at 09:00; Stop 01/29/17 at 03:25; Status DC Guaifenesin (Robitussin Dm) 10 ml PRN Q4HRS PRN PO COUGH; Start 01/25/17 at 06: 45 Albuterol/ Ipratropium (Duoneb) 3 ml PRN Q4HRS PRN NEB SHORTNESS OF BREATH; Start 01/25/17 at 06:45 Levothyroxine Sodium (Synthroid) 100 mcg DAILY06 PO Last administered on 05:54; Start 01/25/17 at 07:00 Lisinopril (Prinivil) 5 mg DAILY PO Last administered on 01/30/17 11:06; Start 01/25/17 at 09:00 Al Hydroxide/Mg Hydroxide (Mylanta Plus Xs) 30 ml PRN Q4HRS PRN PO DYSPEPSIA; Start 01/25/17 at 06:45 Metformin HCl (Glucophage) 500 mg BIDWMEALS PO Last administered on 01/30/17 16 :20; Start 01/25/17 at 08:00 Miconazole Nitrate (Monistat-Derm) 1 gerson BID TP ; Start 01/25/17 at 09:00; Stop 01/25/17 at 09:00; Status DC Nitroglycerin (Nitrostat) 0.4 mg PRN Q5MIN PRN SL CHEST PAIN; Start 01/25/17 at 06:45 Polyethylene Glycol (miraLAX) 17 gm QODAY PO Last administered on 01/29/17 10: 04; Start 01/25/17 at 09:00 Senna/Docusate Sodium (Senna Plus) 1 tab QHS PO Last administered on 01/30/17 19:28; Start 01/25/17 at 21:00 Tramadol HCl (Ultram) 25 mg PRN Q6HRS PRN PO PAIN Last administered on 16:21; Start 01/25/17 at 06:45 Acetaminophen (Tylenol) 650 mg TID PO Last administered on 01/30/17 19:28; Start 01/25/17 at 09:00 Atorvastatin Calcium (Lipitor) 40 mg QHS PO Last administered on 01/29/17 19: 48; Start 01/25/17 at 21:00 Albuterol Sulfate (Ventolin) 2.5 mg Q6H NEB ; Start 01/25/17 at 07:30; Stop at 17:24; Status DC Lactulose 20 gm PRN DAILY PRN PO CONSTIPATION; Start 01/25/17 at 07:30 Budesonide (Pulmicort) 0.5 mg RTBID NEB ; Start 01/25/17 at 08:00; Stop at 17:24; Status DC Olanzapine (ZyPREXA ZYDIS) 2.5 mg PRN Q2HR PRN PO ANXIETY / AGITATION; Start at 08:00 Lorazepam (Ativan) 1 mg DAILY IM Last administered on 01/27/17 09:03; Start at 11:00; Stop 01/27/17 at 18:25; Status DC Haloperidol Lactate (Haldol) 5 mg DAILY IM Last administered on 01/27/17 08:58 ; Start 01/25/17 at 11:00; Stop 01/27/17 at 18:25; Status DC Risperidone (RisperDAL CONSTA) 25 mg Q2WKS IM Last administered on 01/26/17 09 :39; Start 01/26/17 at 09:00 Risperidone (RisperDAL) 3 mg 1X ONCE SL Last administered on 01/26/17 16:15; Start 01/26/17 at 16:00; Stop 01/26/17 at 16:02; Status DC Albuterol Sulfate (Ventolin) 2.5 mg PRN Q6HRS PRN NEB SHORTNESS OF BREATH; Start 01/28/17 at 13:30 Budesonide (Pulmicort) 0.5 mg PRN BID PRN NEB SHORTNESS OF BREATH; Start at 08:00 Haloperidol Lactate (Haldol) 5 mg DAILY IM Last administered on 01/30/17 11:07 ; Start 01/28/17 at 09:00; Stop 01/30/17 at 18:32; Status DC Olanzapine (ZyPREXA ZYDIS) 5 mg PRN Q2HR PRN PO ANXIETY / AGITATION; Start at 18:30 Lorazepam (Ativan) 1 mg DAILY IM Last administered on 01/30/17 11:07; Start at 09:00; Stop 01/30/17 at 18:32; Status DC Valproic Acid (Depakene) 375 mg HS PO ; Start 01/29/17 at 21:00; Stop 01/29/17 at 21:00; Status DC Furosemide (Lasix) 40 mg DAILY06 PO Last administered on 01/30/17 05:54; Start 01/29/17 at 06:00 Valproic Acid (Depakene) 375 mg BID PO Last administered on 01/30/17 19:28; Start 01/29/17 at 21:00 Temazepam (Restoril) 30 mg QHS PO Last administered on 9/1/17at 19:29; Start at 21:00 Potassium Chloride (Klor-Con) 20 meq BID PO ; Start 01/30/17 at 21:00 Magnesium Hydroxide (Milk Of Magnesia) 2,400 mg PRN DAILY PRN PO CONSTIPATION; Start 01/30/17 at 16:30; Status UNV Magnesium Hydroxide (Milk Of Magnesia) 2,400 mg PRN DAILY PRN PO CONSTIPATION Last administered on 01/30/17t 16:56; Start 01/30/17 at 16:45 Active Scripts Active Reported Tylenol (Acetaminophen) 325 Mg Tablet 650 Mg PO PRN Q6HRS PRN Arthritis Pain (Acetaminophen) 650 Mg Tablet.er 650 Mg PO BID Trazodone Hcl 100 Mg Tablet 100 Mg PO PRN QHS PRN Trazodone Hcl 100 Mg Tablet 100 Mg PO QHS Tramadol Hcl (Tramadol HCl) 50 Mg Tablet 25 Mg PO PRN Q6HRS PRN Synthroid (Levothyroxine Sodium) 100 Mcg Tablet 100 Mcg PO DAILY07 Senna S Tablet (Sennosides/Docusate Sodium) 1 Each Tablet 1 Tab PO QHS Risperdal (Risperidone) 1 Mg/1 Ml Solution 3 Mg PO DAILY16 Restoril (Temazepam) 30 Mg Capsule 30 Mg PO PRN QHS PRN Nitrostat (Nitroglycerin) 0.4 Mg Tab.subl 0.4 Mg SL PRN Q5MIN PRN Miralax (Polyethylene Glycol 3350) 119 Gm Powder 17 Gm PO QODAY Antacid Suspension (Mag Hydrox/Al Hydrox/Simeth) 355 Ml Oral.susp 30 Ml PO PRN Q4HRS PRN Lisinopril 5 Mg Tablet 5 Mg PO DAILY Lipitor (Atorvastatin Calcium) 40 Mg Tablet 40 Mg PO QHS Lasix (Furosemide) 40 Mg Tablet 40 Mg PO DAILY Lactulose 10 Gm/15 Ml Solution 20 Gm PO PRN DAILY PRN Klonopin (Clonazepam) 0.5 Mg Tablet 0.5 Mg PO TID Glucophage (Metformin Hcl) 500 Mg Tablet 500 Mg PO BIDWMEALS Josie-Tussin Dm Syrup (Guaifenesin/Dextromethorphan) 473 Ml Syrup 10 Ml PO PRN Q4HRS PRN Duoneb 0.5-3(2.5) Mg/3 Ml (Albuterol/Ipratropium) 3 Ml Ampul.neb 3 Ml NEB PRN Q4HRS PRN Depakote Sprinkle (Divalproex Sodium) 125 Mg Cap.sprink 125 Mg PO TID Bisacodyl 10 Mg Supp.rect 10 Mg RC PRN DAILY PRN Bisacodyl 5 Mg Tablet.dr 10 Mg PO PRN DAILY PRN Reshma Antifungal (Miconazole Nitrate) 142 Gm Cream..g. 1 Gerson TP BID Ativan (Lorazepam) 0.5 Mg Tablet 0.5 Mg PO PRN Q4HRS PRN Aspirin Ec (Aspirin) 81 Mg Tablet.dr 81 Mg PO DAILY Advair Hfa 115-21 Mcg Inhaler (Fluticasone/Salmeterol) 12 Gm Hfa.aer.ad 2 Puff IH BID Diagnosis: Problems: (1) Psychosis (2) Schizophrenia, acute (3) Anxiety disorder (4) Bipolar affective, mixed, sev w/ psych (5) Impulse control disorder (6) Schizoaffective disorder, chronic condition with acute exacerbation ALBERT ROSE MD Jan 30, 2017 19:50
[2017-01-30] MEDS ORDERED: POTASSIUM CHLORIDE 20 MEQ TABLET.ER. PO SCH (21:00)
[2017-01-30] MEDS: ATORVASTATIN CALCIUM 20 MG TABLET PO SCH (21:48)
[2017-01-31] MEDS: POTASSIUM CHLORIDE 20 MEQ TABLET.ER. PO SCH ×2 (05:34→17:44)
[2017-01-31] MEDS: FUROSEMIDE 40 MG TABLET PO SCH (05:34)
[2017-01-31] MEDS: LEVOTHYROXINE 100 MCG TABLET PO SCH (05:34)
[2017-01-31 05:49] VITALS: BP 101/58
[2017-01-31] MEDS: metFORMIN 500 MG TABLET PO SCH ×2 (07:51→17:44)
[2017-01-31] MEDS: ASPIRIN ENTERIC COATED 81 MG TABLET.DR. PO SCH (07:51)
[2017-01-31] MEDS: VALPROATE ACID 250 MG/5 ML ORAL SOLUTION PO SCH ×2 (07:52→20:03)
[2017-01-31] MEDS: clonazePAM 0.5 MG TABLET PO SCH ×3 (07:52→20:04)
[2017-01-31] MEDS: ACETAMINOPHEN 325 MG TABLET PO SCH ×3 (07:53→20:04)
[2017-01-31] MEDS: NICOTINE 21MG PATCH. TD SCH (07:54)
--- NOTE | 2017-01-31 08:19 | PN ---
DATE: 01/29/2017 This late entry 01/29/2017 covers elements not covered in my initial note of 01/29/2017. SUBJECTIVE: The patient was staffed at a treatment team meeting morning of 01/29/2017. Seen individually evening of 01/29/2017. At treatment team meeting reviewed a history at length. She is still delusional resistive to medications, believes she is , has hypergraphia, played bingo the day before, and after won, just got up and walked out, oblivious to what she was doing. REVIEW OF SYSTEMS: No CV, , pulmonary, eye system symptoms on review. Complains of pedal edema, impaired ambulation, met with her in her room. MENTAL STATUS EXAM: Oriented to herself and situation. Speech rapid, low in volume, difficult to understand. Abstraction fair. Computation impaired. Language function intact. Attention span short. No active suicidal or homicidal ideation. LABORATORY DATA: Reviewed. IMPRESSION: Unchanged from initial note. Valproic acid level is 5. PLAN: Increase Depakene syrup from 375 mg at bedtime to 375 mg twice a day. Check CBC, CMP, valproic acid level in 3 days. Continue rest of the psychotropics mentioned in my initial note. Ideally, I would like to have the patient on a combination of lithium and Clozaril, but given noncompliance, it is very difficult to see how we can stabilize her on that regimen and we will do the best we can with the combination she is taking now. Reviewed this at length. ALBERT ROSE MD DR: CHASE[facility] JOB#: [id number] / [id number]
[2017-01-31] MEDS: POLYETHYLENE GLYCOL 3350 17 GM PACKET. PO SCH (09:00)
[2017-01-31] MEDS: LISINOPRIL 5 MG TABLET. PO SCH (09:00)
[2017-01-31] MEDS: risperiDONE ORAL 1 MG/ML 30ml BOTTLE. PO SCH (14:06)
[2017-01-31 16:12] VITALS: BP 120/52
[2017-01-31] MEDS: SENNOSIDES/DOCUSATE 8.6/50MG TABLET. PO SCH (20:03)
[2017-01-31] MEDS: ATORVASTATIN CALCIUM 20 MG TABLET PO SCH (20:04)
[2017-01-31] MEDS: TEMAZEPAM 15 MG CAPSULE PO SCH (20:04)
--- NOTE | 2017-01-31 23:23 | PDOC ---
Exam Tra Demential Exam: Tra Note: Please also refer to the separate dictated note~for this date of service dictated separately.~Patient seen individually. Discussed the patient with Nursing staff reviewed the chart.~Reviewed interim history and current functioning. Reviewed vital signs,~Labs/ Radiology~and current medications noted below. Continue current treatment with the changes noted in the dictated addendum note Assessment: Vital Signs: Vital Signs Date Time Temp Pulse Resp B/P (MAP) Pulse Ox O2 Delivery O2 Flow Rate FiO2 01/31/17 16:12 98.0 72 18 120/52 (74) 99 01/26/17 16:21 Room Air I&O Intake and Output 02/01/17 06:59 Intake Total 480 ml Balance 480 ml Intake Oral 480 ml # Voids 1 Labs: Laboratory Tests Test 01/31/17 07:26 01/31/17 11:31 01/31/17 17:10 01/31/17 19:35 Glucose (Fingerstick) 93 mg/dL (70-99) 104 mg/dL (70-99) H 107 mg/dL (70-99) H 142 mg/dL (70-99) H Current Medications: Meds: Current Medications Olanzapine (ZyPREXA ZYDIS) 10 mg STK-MED ONCE .ROUTE ; Start 01/25/17 at 04:06; Stop 01/25/17 at 04:07; Status DC Olanzapine (ZyPREXA ZYDIS) 10 mg 1X STAT PO Last administered on 01/25/17 04: 07; Start 01/25/17 at 04:03; Stop 01/25/17 at 06:26; Status DC Nicotine (Nicoderm Cq 21mg) 1 patch DAILY TD Last administered on 01/31/17 07: 54; Start 01/25/17 at 09:00 Clonazepam (KlonoPIN) 0.5 mg TID PO Last administered on 01/31/17 20:04; Start 01/25/17 at 09:00 Divalproex Sodium (Depakote Sprinkles) 125 mg TID PO Last administered on 14:16; Start 01/25/17 at 09:00; Stop 01/28/17 at 18:41; Status DC Lorazepam (Ativan) 0.5 mg PRN Q4HRS PRN PO ANXIETY / AGITATION; Start 01/25/17 at 05:30 Risperidone (RisperDAL) 3 mg DAILY16 PO Last administered on 01/31/17 14:06; Start 01/25/17 at 16:00 Temazepam (Restoril) 30 mg PRN QHS PRN PO INSOMNIA; Start 01/25/17 at 05:30; Stop 01/25/17 at 06:31; Status DC Trazodone HCl (Desyrel) 100 mg PRN QHS PRN PO INSOMNIA; Start 01/25/17 at 05:30 ; Stop 01/25/17 at 11:36; Status DC Trazodone HCl (Desyrel) 100 mg QHS PO ; Start 01/25/17 at 21:00; Stop 01/25/17 at 21:00; Status DC Temazepam (Restoril) 30 mg PRN QHS PRN PO INSOMNIA Last administered on 19:22; Start 01/25/17 at 06:31; Stop 01/29/17 at 18:50; Status DC Acetaminophen (Tylenol) 650 mg PRN Q6HRS PRN PO PAIN / TEMP; Start 01/25/17 at 06:45 Aspirin (Aspirin Enteric Coated) 81 mg DAILY PO Last administered on 01/31/17 07:51; Start 01/25/17 at 09:00 Bisacodyl (Dulcolax Tab) 10 mg PRN DAILY PRN PO CONSTIPATION; Start 01/25/17 at 06:45 Bisacodyl (Dulcolax Supp) 10 mg PRN DAILY PRN RC CONSTIPATION; Start 01/25/17 at 06:45 Furosemide (Lasix) 40 mg DAILY PO Last administered on 01/28/17 05:15; Start 01/25/17 at 09:00; Stop 01/29/17 at 03:25; Status DC Guaifenesin (Robitussin Dm) 10 ml PRN Q4HRS PRN PO COUGH; Start 01/25/17 at 06: 45 Albuterol/ Ipratropium (Duoneb) 3 ml PRN Q4HRS PRN NEB SHORTNESS OF BREATH; Start 01/25/17 at 06:45 Levothyroxine Sodium (Synthroid) 100 mcg DAILY06 PO Last administered on 05:34; Start 01/25/17 at 07:00 Lisinopril (Prinivil) 5 mg DAILY PO Last administered on 01/30/17 11:06; Start 01/25/17 at 09:00 Al Hydroxide/Mg Hydroxide (Mylanta Plus Xs) 30 ml PRN Q4HRS PRN PO DYSPEPSIA; Start 01/25/17 at 06:45 Metformin HCl (Glucophage) 500 mg BIDWMEALS PO Last administered on 01/31/17 07 :51; Start 01/25/17 at 08:00 Miconazole Nitrate (Monistat-Derm) 1 gerson BID TP ; Start 01/25/17 at 09:00; Stop 01/25/17 at 09:00; Status DC Nitroglycerin (Nitrostat) 0.4 mg PRN Q5MIN PRN SL CHEST PAIN; Start 01/25/17 at 06:45 Polyethylene Glycol (miraLAX) 17 gm QODAY PO Last administered on 01/29/17 10: 04; Start 01/25/17 at 09:00 Senna/Docusate Sodium (Senna Plus) 1 tab QHS PO Last administered on 01/31/17 20:03; Start 01/25/17 at 21:00 Tramadol HCl (Ultram) 25 mg PRN Q6HRS PRN PO PAIN Last administered on 16:21; Start 01/25/17 at 06:45 Acetaminophen (Tylenol) 650 mg TID PO Last administered on 01/31/17 20:04; Start 01/25/17 at 09:00 Atorvastatin Calcium (Lipitor) 40 mg QHS PO Last administered on 01/31/17 20:04 ; Start 01/25/17 at 21:00 Albuterol Sulfate (Ventolin) 2.5 mg Q6H NEB ; Start 01/25/17 at 07:30; Stop at 17:24; Status DC Lactulose 20 gm PRN DAILY PRN PO CONSTIPATION; Start 01/25/17 at 07:30 Budesonide (Pulmicort) 0.5 mg RTBID NEB ; Start 01/25/17 at 08:00; Stop at 17:24; Status DC Olanzapine (ZyPREXA ZYDIS) 2.5 mg PRN Q2HR PRN PO ANXIETY / AGITATION; Start at 08:00 Lorazepam (Ativan) 1 mg DAILY IM Last administered on 01/27/17 09:03; Start at 11:00; Stop 01/27/17 at 18:25; Status DC Haloperidol Lactate (Haldol) 5 mg DAILY IM Last administered on 01/27/17 08:58 ; Start 01/25/17 at 11:00; Stop 01/27/17 at 18:25; Status DC Risperidone (RisperDAL CONSTA) 25 mg Q2WKS IM Last administered on 01/26/17 09 :39; Start 01/26/17 at 09:00 Risperidone (RisperDAL) 3 mg 1X ONCE SL Last administered on 01/26/17 16:15; Start 01/26/17 at 16:00; Stop 01/26/17 at 16:02; Status DC Albuterol Sulfate (Ventolin) 2.5 mg PRN Q6HRS PRN NEB SHORTNESS OF BREATH; Start 01/28/17 at 13:30 Budesonide (Pulmicort) 0.5 mg PRN BID PRN NEB SHORTNESS OF BREATH; Start at 08:00 Haloperidol Lactate (Haldol) 5 mg DAILY IM Last administered on 01/30/17 11:07 ; Start 01/28/17 at 09:00; Stop 01/30/17 at 18:32; Status DC Olanzapine (ZyPREXA ZYDIS) 5 mg PRN Q2HR PRN PO ANXIETY / AGITATION; Start at 18:30 Lorazepam (Ativan) 1 mg DAILY IM Last administered on 01/30/17 11:07; Start at 09:00; Stop 01/30/17 at 18:32; Status DC Valproic Acid (Depakene) 375 mg HS PO ; Start 01/29/17 at 21:00; Stop 01/29/17 at 21:00; Status DC Furosemide (Lasix) 40 mg DAILY06 PO Last administered on 01/31/17 05:34; Start 01/29/17 at 06:00 Valproic Acid (Depakene) 375 mg BID PO Last administered on 01/31/17 20:03; Start 01/29/17 at 21:00 Temazepam (Restoril) 30 mg QHS PO Last administered on 01/31/17 20:04; Start at 21:00 Potassium Chloride (Klor-Con) 20 meq BID PO ; Start 01/30/17 at 21:00; Stop at 05:33; Status DC Magnesium Hydroxide (Milk Of Magnesia) 2,400 mg PRN DAILY PRN PO CONSTIPATION; Start 01/30/17 at 16:30; Status UNV Magnesium Hydroxide (Milk Of Magnesia) 2,400 mg PRN DAILY PRN PO CONSTIPATION Last administered on 01/30/17 16:56; Start 01/30/17 at 16:45 Potassium Chloride (Klor-Con) 20 meq BID66 PO Last administered on 01/31/17 05: 34; Start 01/31/17 at 06:00 Active Scripts Active Reported Tylenol (Acetaminophen) 325 Mg Tablet 650 Mg PO PRN Q6HRS PRN Arthritis Pain (Acetaminophen) 650 Mg Tablet.er 650 Mg PO BID Trazodone Hcl 100 Mg Tablet 100 Mg PO PRN QHS PRN Trazodone Hcl 100 Mg Tablet 100 Mg PO QHS Tramadol Hcl (Tramadol HCl) 50 Mg Tablet 25 Mg PO PRN Q6HRS PRN Synthroid (Levothyroxine Sodium) 100 Mcg Tablet 100 Mcg PO DAILY07 Senna S Tablet (Sennosides/Docusate Sodium) 1 Each Tablet 1 Tab PO QHS Risperdal (Risperidone) 1 Mg/1 Ml Solution 3 Mg PO DAILY16 Restoril (Temazepam) 30 Mg Capsule 30 Mg PO PRN QHS PRN Nitrostat (Nitroglycerin) 0.4 Mg Tab.subl 0.4 Mg SL PRN Q5MIN PRN Miralax (Polyethylene Glycol 3350) 119 Gm Powder 17 Gm PO QODAY Antacid Suspension (Mag Hydrox/Al Hydrox/Simeth) 355 Ml Oral.susp 30 Ml PO PRN Q4HRS PRN Lisinopril 5 Mg Tablet 5 Mg PO DAILY Lipitor (Atorvastatin Calcium) 40 Mg Tablet 40 Mg PO QHS Lasix (Furosemide) 40 Mg Tablet 40 Mg PO DAILY Lactulose 10 Gm/15 Ml Solution 20 Gm PO PRN DAILY PRN Klonopin (Clonazepam) 0.5 Mg Tablet 0.5 Mg PO TID Glucophage (Metformin Hcl) 500 Mg Tablet 500 Mg PO BIDWMEALS Josie-Tussin Dm Syrup (Guaifenesin/Dextromethorphan) 473 Ml Syrup 10 Ml PO PRN Q4HRS PRN Duoneb 0.5-3(2.5) Mg/3 Ml (Albuterol/Ipratropium) 3 Ml Ampul.neb 3 Ml NEB PRN Q4HRS PRN Depakote Sprinkle (Divalproex Sodium) 125 Mg Cap.sprink 125 Mg PO TID Bisacodyl 10 Mg Supp.rect 10 Mg RC PRN DAILY PRN Bisacodyl 5 Mg Tablet.dr 10 Mg PO PRN DAILY PRN Reshma Antifungal (Miconazole Nitrate) 142 Gm Cream..g. 1 Gerson TP BID Ativan (Lorazepam) 0.5 Mg Tablet 0.5 Mg PO PRN Q4HRS PRN Aspirin Ec (Aspirin) 81 Mg Tablet.dr 81 Mg PO DAILY Advair Hfa 115-21 Mcg Inhaler (Fluticasone/Salmeterol) 12 Gm Hfa.aer.ad 2 Puff IH BID Diagnosis: Problems: (1) Psychosis (2) Schizophrenia, acute (3) Anxiety disorder (4) Bipolar affective, mixed, sev w/ psych (5) Impulse control disorder (6) Schizoaffective disorder, chronic condition with acute exacerbation ALBERT ROSE MD Jan 31, 2017 23:23
--- NOTE | 2017-02-01 03:40 | PN ---
DATE: 01/30/2017 PSYCHIATRIC PROGRESS NOTE This is a late entry 01/30/2017 covers elements not covered in my initial note. SUBJECTIVE: I met with the patient in the evening of 01/30/2017. Per nursing report, she has been taking her medications, takes Depakene and Gatorade no talked about being , less delusional, somewhat constipated being treated symptomatically. Milk of mag, prune juice alone heated up. She is more compliant with oral medications. We will discontinue IM Haldol, Ativan scheduled. REVIEW OF SYSTEMS: Positive for edema lower extremity, impaired ambulation. No CV, , pulmonary, eye, ENT system symptoms on review. Reliability poor. MENTAL STATUS EXAM: Oriented to herself and situation. Speech low in volume, rapid, difficult to understand, loose associations, abstraction fair, computation impaired, language function intact. Mood and affect, lability has improved. LABORATORY DATA: Reviewed. IMPRESSION: Unchanged from initial note. PLAN: Continue current psychotropics. Depakote is being adjusted to follow labs level. Reviewed drug interactions risk/benefit ratio favors no further change as of now. MAN Hero ROSE MD DR: [facility] JOB#: [id number] / [id number]
[2017-02-01 05:58] VITALS: BP 133/71
[2017-02-01] MEDS: LEVOTHYROXINE 100 MCG TABLET PO SCH (06:19)
[2017-02-01] MEDS: FUROSEMIDE 40 MG TABLET PO SCH (06:19)
[2017-02-01] MEDS: POTASSIUM CHLORIDE 20 MEQ TABLET.ER. PO SCH ×2 (06:19→17:10)
[2017-02-01] MEDS: VALPROATE ACID 250 MG/5 ML ORAL SOLUTION PO SCH ×2 (08:00→20:39)
[2017-02-01] MEDS: metFORMIN 500 MG TABLET PO SCH ×2 (08:00→17:07)
[2017-02-01] MEDS: LISINOPRIL 5 MG TABLET. PO SCH (08:01)
[2017-02-01] MEDS: clonazePAM 0.5 MG TABLET PO SCH ×3 (08:01→20:41)
[2017-02-01] MEDS: ACETAMINOPHEN 325 MG TABLET PO SCH ×3 (08:02→20:41)
[2017-02-01] MEDS: NICOTINE 21MG PATCH. TD SCH (08:02)
[2017-02-01] MEDS: ASPIRIN ENTERIC COATED 81 MG TABLET.DR. PO SCH (08:16)
[2017-02-01 12:00] VITALS: BP 106/71
[2017-02-01 15:49] VITALS: BP 110/57
[2017-02-01] MEDS: risperiDONE ORAL 1 MG/ML 30ml BOTTLE. PO SCH (17:07)
[2017-02-01] MEDS: SENNOSIDES/DOCUSATE 8.6/50MG TABLET. PO SCH (20:41)
[2017-02-01] MEDS: TEMAZEPAM 15 MG CAPSULE PO SCH (20:41)
[2017-02-01] MEDS: ATORVASTATIN CALCIUM 20 MG TABLET PO SCH (20:41)
--- NOTE | 2017-02-01 21:52 | PDOC ---
Exam Tra Demential Exam: Tra Note: Please also refer to the separate dictated note~for this date of service dictated separately.~Patient seen individually. Discussed the patient with Nursing staff reviewed the chart.~Reviewed interim history and current functioning. Reviewed vital signs,~Labs/ Radiology~and current medications noted below. Continue current treatment with the changes noted in the dictated addendum note Assessment: Vital Signs: Vital Signs Date Time Temp Pulse Resp B/P (MAP) Pulse Ox O2 Delivery O2 Flow Rate FiO2 02/01/17 15:49 97.2 66 18 110/57 (74) 96 01/26/17 16:21 Room Air I&O Intake and Output 02/02/17 06:59 Intake Total 840 ml Balance 840 ml Intake Oral 840 ml Labs: Laboratory Tests Test 02/01/17 07:23 02/01/17 11:44 02/01/17 16:24 02/01/17 19:22 Glucose (Fingerstick) 86 mg/dL (70-99) 93 mg/dL (70-99) 95 mg/dL (70-99) 135 mg/dL (70-99) H Current Medications: Meds: Current Medications Olanzapine (ZyPREXA ZYDIS) 10 mg STK-MED ONCE .ROUTE ; Start 01/25/17 at 04:06; Stop 01/25/17 at 04:07; Status DC Olanzapine (ZyPREXA ZYDIS) 10 mg 1X STAT PO Last administered on 01/25/17 04: 07; Start 01/25/17 at 04:03; Stop 01/25/17 at 06:26; Status DC Nicotine (Nicoderm Cq 21mg) 1 patch DAILY TD Last administered on 02/01/17 08: 02; Start 01/25/17 at 09:00 Clonazepam (KlonoPIN) 0.5 mg TID PO Last administered on 02/01/17 20:41; Start 01/25/17 at 09:00 Divalproex Sodium (Depakote Sprinkles) 125 mg TID PO Last administered on 14:16; Start 01/25/17 at 09:00; Stop 01/28/17 at 18:41; Status DC Lorazepam (Ativan) 0.5 mg PRN Q4HRS PRN PO ANXIETY / AGITATION; Start 01/25/17 at 05:30 Risperidone (RisperDAL) 3 mg DAILY16 PO Last administered on 02/01/17 17:07; Start 01/25/17 at 16:00 Temazepam (Restoril) 30 mg PRN QHS PRN PO INSOMNIA; Start 01/25/17 at 05:30; Stop 01/25/17 at 06:31; Status DC Trazodone HCl (Desyrel) 100 mg PRN QHS PRN PO INSOMNIA; Start 01/25/17 at 05:30 ; Stop 01/25/17 at 11:36; Status DC Trazodone HCl (Desyrel) 100 mg QHS PO ; Start 01/25/17 at 21:00; Stop 01/25/17 at 21:00; Status DC Temazepam (Restoril) 30 mg PRN QHS PRN PO INSOMNIA Last administered on 19:22; Start 01/25/17 at 06:31; Stop 01/29/17 at 18:50; Status DC Acetaminophen (Tylenol) 650 mg PRN Q6HRS PRN PO PAIN / TEMP; Start 01/25/17 at 06:45 Aspirin (Aspirin Enteric Coated) 81 mg DAILY PO Last administered on 01/31/17 07:51; Start 01/25/17 at 09:00 Bisacodyl (Dulcolax Tab) 10 mg PRN DAILY PRN PO CONSTIPATION; Start 01/25/17 at 06:45 Bisacodyl (Dulcolax Supp) 10 mg PRN DAILY PRN RC CONSTIPATION; Start 01/25/17 at 06:45 Furosemide (Lasix) 40 mg DAILY PO Last administered on 01/28/17 05:15; Start 01/25/17 at 09:00; Stop 01/29/17 at 03:25; Status DC Guaifenesin (Robitussin Dm) 10 ml PRN Q4HRS PRN PO COUGH; Start 01/25/17 at 06: 45 Albuterol/ Ipratropium (Duoneb) 3 ml PRN Q4HRS PRN NEB SHORTNESS OF BREATH; Start 01/25/17 at 06:45 Levothyroxine Sodium (Synthroid) 100 mcg DAILY06 PO Last administered on 06:19; Start 01/25/17 at 07:00 Lisinopril (Prinivil) 5 mg DAILY PO Last administered on 02/01/17 08:01; Start 01/25/17 at 09:00 Al Hydroxide/Mg Hydroxide (Mylanta Plus Xs) 30 ml PRN Q4HRS PRN PO DYSPEPSIA; Start 01/25/17 at 06:45 Metformin HCl (Glucophage) 500 mg BIDWMEALS PO Last administered on 02/01/17 17 :07; Start 01/25/17 at 08:00 Miconazole Nitrate (Monistat-Derm) 1 gerson BID TP ; Start 01/25/17 at 09:00; Stop 01/25/17 at 09:00; Status DC Nitroglycerin (Nitrostat) 0.4 mg PRN Q5MIN PRN SL CHEST PAIN; Start 01/25/17 at 06:45 Polyethylene Glycol (miraLAX) 17 gm QODAY PO Last administered on 01/29/17 10: 04; Start 01/25/17 at 09:00 Senna/Docusate Sodium (Senna Plus) 1 tab QHS PO Last administered on 02/01/17 20:41; Start 01/25/17 at 21:00 Tramadol HCl (Ultram) 25 mg PRN Q6HRS PRN PO PAIN Last administered on 16:21; Start 01/25/17 at 06:45 Acetaminophen (Tylenol) 650 mg TID PO Last administered on 02/01/17 20:41; Start 01/25/17 at 09:00 Atorvastatin Calcium (Lipitor) 40 mg QHS PO Last administered on 02/01/17 20:41 ; Start 01/25/17 at 21:00 Albuterol Sulfate (Ventolin) 2.5 mg Q6H NEB ; Start 01/25/17 at 07:30; Stop at 17:24; Status DC Lactulose 20 gm PRN DAILY PRN PO CONSTIPATION; Start 01/25/17 at 07:30 Budesonide (Pulmicort) 0.5 mg RTBID NEB ; Start 01/25/17 at 08:00; Stop at 17:24; Status DC Olanzapine (ZyPREXA ZYDIS) 2.5 mg PRN Q2HR PRN PO ANXIETY / AGITATION; Start at 08:00 Lorazepam (Ativan) 1 mg DAILY IM Last administered on 01/27/17 09:03; Start at 11:00; Stop 01/27/17 at 18:25; Status DC Haloperidol Lactate (Haldol) 5 mg DAILY IM Last administered on 01/27/17 08:58 ; Start 01/25/17 at 11:00; Stop 01/27/17 at 18:25; Status DC Risperidone (RisperDAL CONSTA) 25 mg Q2WKS IM Last administered on 01/26/17 09 :39; Start 01/26/17 at 09:00 Risperidone (RisperDAL) 3 mg 1X ONCE SL Last administered on 01/26/17 16:15; Start 01/26/17 at 16:00; Stop 01/26/17 at 16:02; Status DC Albuterol Sulfate (Ventolin) 2.5 mg PRN Q6HRS PRN NEB SHORTNESS OF BREATH; Start 01/28/17 at 13:30 Budesonide (Pulmicort) 0.5 mg PRN BID PRN NEB SHORTNESS OF BREATH; Start at 08:00 Haloperidol Lactate (Haldol) 5 mg DAILY IM Last administered on 01/30/17 11:07 ; Start 01/28/17 at 09:00; Stop 01/30/17 at 18:32; Status DC Olanzapine (ZyPREXA ZYDIS) 5 mg PRN Q2HR PRN PO ANXIETY / AGITATION; Start at 18:30 Lorazepam (Ativan) 1 mg DAILY IM Last administered on 01/30/17 11:07; Start at 09:00; Stop 01/30/17 at 18:32; Status DC Valproic Acid (Depakene) 375 mg HS PO ; Start 01/29/17 at 21:00; Stop 01/29/17 at 21:00; Status DC Furosemide (Lasix) 40 mg DAILY06 PO Last administered on 02/01/17 06:19; Start 01/29/17 at 06:00 Valproic Acid (Depakene) 375 mg BID PO Last administered on 02/01/17 20:39; Start 01/29/17 at 21:00 Temazepam (Restoril) 30 mg QHS PO Last administered on 02/01/17 20:41; Start at 21:00 Potassium Chloride (Klor-Con) 20 meq BID PO ; Start 01/30/17 at 21:00; Stop at 05:33; Status DC Magnesium Hydroxide (Milk Of Magnesia) 2,400 mg PRN DAILY PRN PO CONSTIPATION; Start 01/30/17 at 16:30; Status UNV Magnesium Hydroxide (Milk Of Magnesia) 2,400 mg PRN DAILY PRN PO CONSTIPATION Last administered on 01/30/17 16:56; Start 01/30/17 at 16:45 Potassium Chloride (Klor-Con) 20 meq BID66 PO Last administered on 02/01/17 17: 10; Start 01/31/17 at 06:00 Active Scripts Active Reported Tylenol (Acetaminophen) 325 Mg Tablet 650 Mg PO PRN Q6HRS PRN Arthritis Pain (Acetaminophen) 650 Mg Tablet.er 650 Mg PO BID Trazodone Hcl 100 Mg Tablet 100 Mg PO PRN QHS PRN Trazodone Hcl 100 Mg Tablet 100 Mg PO QHS Tramadol Hcl (Tramadol HCl) 50 Mg Tablet 25 Mg PO PRN Q6HRS PRN Synthroid (Levothyroxine Sodium) 100 Mcg Tablet 100 Mcg PO DAILY07 Senna S Tablet (Sennosides/Docusate Sodium) 1 Each Tablet 1 Tab PO QHS Risperdal (Risperidone) 1 Mg/1 Ml Solution 3 Mg PO DAILY16 Restoril (Temazepam) 30 Mg Capsule 30 Mg PO PRN QHS PRN Nitrostat (Nitroglycerin) 0.4 Mg Tab.subl 0.4 Mg SL PRN Q5MIN PRN Miralax (Polyethylene Glycol 3350) 119 Gm Powder 17 Gm PO QODAY Antacid Suspension (Mag Hydrox/Al Hydrox/Simeth) 355 Ml Oral.susp 30 Ml PO PRN Q4HRS PRN Lisinopril 5 Mg Tablet 5 Mg PO DAILY Lipitor (Atorvastatin Calcium) 40 Mg Tablet 40 Mg PO QHS Lasix (Furosemide) 40 Mg Tablet 40 Mg PO DAILY Lactulose 10 Gm/15 Ml Solution 20 Gm PO PRN DAILY PRN Klonopin (Clonazepam) 0.5 Mg Tablet 0.5 Mg PO TID Glucophage (Metformin Hcl) 500 Mg Tablet 500 Mg PO BIDWMEALS Josie-Tussin Dm Syrup (Guaifenesin/Dextromethorphan) 473 Ml Syrup 10 Ml PO PRN Q4HRS PRN Duoneb 0.5-3(2.5) Mg/3 Ml (Albuterol/Ipratropium) 3 Ml Ampul.neb 3 Ml NEB PRN Q4HRS PRN Depakote Sprinkle (Divalproex Sodium) 125 Mg Cap.sprink 125 Mg PO TID Bisacodyl 10 Mg Supp.rect 10 Mg RC PRN DAILY PRN Bisacodyl 5 Mg Tablet.dr 10 Mg PO PRN DAILY PRN Reshma Antifungal (Miconazole Nitrate) 142 Gm Cream..g. 1 Gerson TP BID Ativan (Lorazepam) 0.5 Mg Tablet 0.5 Mg PO PRN Q4HRS PRN Aspirin Ec (Aspirin) 81 Mg Tablet.dr 81 Mg PO DAILY Advair Hfa 115-21 Mcg Inhaler (Fluticasone/Salmeterol) 12 Gm Hfa.aer.ad 2 Puff IH BID Diagnosis: Problems: (1) Psychosis (2) Schizophrenia, acute (3) Anxiety disorder (4) Bipolar affective, mixed, sev w/ psych (5) Impulse control disorder (6) Schizoaffective disorder, chronic condition with acute exacerbation ALBERT ROSE MD Feb 01, 2017 21:52
--- NOTE | 2017-02-02 01:19 | PN ---
DATE: 01/31/2017 This late entry for 01/31/2017 covers elements not covered in my initial note. SUBJECTIVE: I met with the patient in the evening of 01/31/2017. With nursing staff, she has been a little more cooperative, bit compliant and compliant with taking her psychotropics. REVIEW OF SYSTEMS: I met with her in her room, complains of swelling of her legs, impaired ambulation, ringing in her ears. No CV, , pulmonary, eye system symptoms on review. MENTAL STATUS EXAM: Oriented to herself. Insight, judgment, recent memory is impaired. Language function intact. Attention span short. Mood and affect despite the above remains somewhat labile. Speech rapid low in volume, difficult to understand, still psychotic, paranoid. LABORATORY DATA: Reviewed. IMPRESSION: Unchanged from initial note. PLAN: Continue current psychotropics. Valproic acid is being adjusted to reach a therapeutic level. Reviewed drug interactions. Risk/benefit ratio favors no further change at this time. ALBERT ROSE MD DR: [facility] JOB#: [id number] / [id number]
[2017-02-02] MEDS: POTASSIUM CHLORIDE 20 MEQ TABLET.ER. PO SCH ×2 (06:23→16:54)
[2017-02-02] MEDS: FUROSEMIDE 40 MG TABLET PO SCH (06:23)
[2017-02-02] MEDS: LEVOTHYROXINE 100 MCG TABLET PO SCH (06:23)
[2017-02-02 06:28] VITALS: BP 101/55
[2017-02-02] MEDS: metFORMIN 500 MG TABLET PO SCH ×2 (08:28→16:54)
[2017-02-02] MEDS: ASPIRIN ENTERIC COATED 81 MG TABLET.DR. PO SCH (08:28)
[2017-02-02] MEDS: VALPROATE ACID 250 MG/5 ML ORAL SOLUTION PO SCH ×2 (08:28→20:07)
[2017-02-02] MEDS: ACETAMINOPHEN 325 MG TABLET PO SCH ×3 (08:29→20:07)
[2017-02-02] MEDS: NICOTINE 21MG PATCH. TD SCH (08:30)
[2017-02-02] MEDS: POLYETHYLENE GLYCOL 3350 17 GM PACKET. PO SCH (08:30)
[2017-02-02] MEDS: LISINOPRIL 5 MG TABLET. PO SCH (09:00)
[2017-02-02] MEDS: clonazePAM 0.5 MG TABLET PO SCH ×3 (09:00→20:08)
[2017-02-02 09:32] LABS: BASO % 1 % (0-3); EOS % 0 % (0-3); HEMATOCRIT 36.8 % (36.0-47.0); HEMOGLOBIN 12.1 g/dL (12.0-15.5); LYMPH # 1.3 x10^3/uL (1.0-4.8); LYMPH % 31 % (24-48); MEAN CORPUSCULAR HEMOGLOBIN 34 pg (25-35); MEAN CORPUSCULAR HGB CONC 33 g/dL (31-37); MEAN CORPUSCULAR VOLUME 102 fL (79-100); MONO # 0.4 x10^3/uL (0.0-1.1); MONO % 10 % (0-9); NEUT # 2.4 x10^3uL (1.8-7.7); NEUT % 58 % (31-73); PLATELET COUNT 246 x10^3/uL (140-400); RED BLOOD COUNT 3.61 x10^6/uL (3.50-5.40); RED CELL DISTRIBUTION WIDTH 14.1 % (11.5-14.5); WHITE BLOOD COUNT 4.2 x10^3/uL (4.0-11.0)
[2017-02-02 09:44] LABS: ALBUMIN 3.5 g/dL (3.4-5.0); ALK PHOS 116 U/L (46-116); ALT (SGPT) 28 U/L (14-59); ANION GAP 5 (6-14); AST (SGOT) 17 U/L (15-37); BLOOD UREA NITROGEN 15 mg/dL (7-20); BUN/CREATININE RATIO 21 (6-20); CALCIUM 8.8 mg/dL (8.5-10.1); CARBON DIOXIDE 31 mmol/L (21-32); CHLORIDE 101 mmol/L (98-107); CREATININE 0.7 mg/dL (0.6-1.0); GFR 81.4; GLUCOSE 170 mg/dL (70-99); POTASSIUM 4.6 mmol/L (3.5-5.1); SODIUM 137 mmol/L (136-145); TOTAL BILIRUBIN 0.4 mg/dL (0.2-1.0); TOTAL PROTEIN 6.9 g/dL (6.4-8.2)
[2017-02-02 09:47] LABS: VAL ACID 49 mcg/mL (50-100)
[2017-02-02 15:53] VITALS: BP 106/63
[2017-02-02] MEDS: risperiDONE ORAL 1 MG/ML 30ml BOTTLE. PO SCH (16:54)
[2017-02-02] MEDS: SENNOSIDES/DOCUSATE 8.6/50MG TABLET. PO SCH (20:07)
[2017-02-02] MEDS: ATORVASTATIN CALCIUM 20 MG TABLET PO SCH (20:07)
[2017-02-02] MEDS: TEMAZEPAM 15 MG CAPSULE PO SCH (20:08)
--- NOTE | 2017-02-02 22:47 | PDOC ---
Exam Tra Demential Exam: Tra Note: Please also refer to the separate dictated note~for this date of service dictated separately.~Patient seen individually. Discussed the patient with Nursing staff reviewed the chart.~Reviewed interim history and current functioning. Reviewed vital signs,~Labs/ Radiology~and current medications noted below. Continue current treatment with the changes noted in the dictated addendum note Assessment: Vital Signs: Vital Signs Date Time Temp Pulse Resp B/P (MAP) Pulse Ox O2 Delivery O2 Flow Rate FiO2 02/02/17 15:53 97.4 58 16 106/63 (77) 96 I&O Intake and Output 02/03/17 06:59 Intake Total 1080 ml Balance 1080 ml Intake Oral 1080 ml # Voids 2 Labs: Laboratory Tests Test 02/02/17 07:29 02/02/17 09:21 02/02/17 11:07 02/02/17 16:24 Glucose (Fingerstick) 90 mg/dL (70-99) 105 mg/dL (70-99) H 116 mg/dL (70-99) H White Blood Count 4.2 x10^3/uL (4.0-11.0) Red Blood Count 3.61 x10^6/uL (3.50-5.40) Hemoglobin 12.1 g/dL (12.0-15.5) Hematocrit 36.8 % (36.0-47.0) Mean Corpuscular Volume 102 fL (79-100) H Mean Corpuscular Hemoglobin 34 pg (25-35) Mean Corpuscular Hemoglobin Concent 33 g/dL (31-37) Red Cell Distribution Width 14.1 % (11.5-14.5) Platelet Count 246 x10^3/uL (140-400) Neutrophils (%) (Auto) 58 % (31-73) Lymphocytes (%) (Auto) 31 % (24-48) Monocytes (%) (Auto) 10 % (0-9) H Eosinophils (%) (Auto) 0 % (0-3) Basophils (%) (Auto) 1 % (0-3) Neutrophils # (Auto) 2.4 x10^3uL (1.8-7.7) Lymphocytes # (Auto) 1.3 x10^3/uL (1.0-4.8) Monocytes # (Auto) 0.4 x10^3/uL (0.0-1.1) Eosinophils # (Auto) 0.0 x10^3/uL (0.0-0.7) Basophils # (Auto) 0.0 x10^3/uL (0.0-0.2) Sodium Level 137 mmol/L (136-145) Potassium Level 4.6 mmol/L (3.5-5.1) Chloride Level 101 mmol/L (98-107) Carbon Dioxide Level 31 mmol/L (21-32) Anion Gap 5 (6-14) L Blood Urea Nitrogen 15 mg/dL (7-20) Creatinine 0.7 mg/dL (0.6-1.0) Estimated GFR (Cockcroft-Gault) 81.4 BUN/Creatinine Ratio 21 (6-20) H Glucose Level 170 mg/dL (70-99) H Calcium Level 8.8 mg/dL (8.5-10.1) Total Bilirubin 0.4 mg/dL (0.2-1.0) Aspartate Amino Transferase (AST) 17 U/L (15-37) Alanine Aminotransferase (ALT) 28 U/L (14-59) Alkaline Phosphatase 116 U/L (46-116) Ammonia < 10 mcmol/L (11-34) L Total Protein 6.9 g/dL (6.4-8.2) Albumin 3.5 g/dL (3.4-5.0) Albumin/Globulin Ratio 1.0 (1.0-1.7) Valproic Acid Level 49 mcg/mL (50-100) L Valproic Acid Last Dose Date 02/01/2017 Valproic Acid Last Dose Time 2100 Test 02/02/17 19:13 Glucose (Fingerstick) 117 mg/dL (70-99) H Current Medications: Meds: Current Medications Olanzapine (ZyPREXA ZYDIS) 10 mg STK-MED ONCE .ROUTE ; Start 01/25/17 at 04:06; Stop 01/25/17 at 04:07; Status DC Olanzapine (ZyPREXA ZYDIS) 10 mg 1X STAT PO Last administered on 01/25/17 04: 07; Start 01/25/17 at 04:03; Stop 01/25/17 at 06:26; Status DC Nicotine (Nicoderm Cq 21mg) 1 patch DAILY TD Last administered on 02/02/17 08: 30; Start 01/25/17 at 09:00 Clonazepam (KlonoPIN) 0.5 mg TID PO Last administered on 02/02/17 20:08; Start 01/25/17 at 09:00 Divalproex Sodium (Depakote Sprinkles) 125 mg TID PO Last administered on 14:16; Start 01/25/17 at 09:00; Stop 01/28/17 at 18:41; Status DC Lorazepam (Ativan) 0.5 mg PRN Q4HRS PRN PO ANXIETY / AGITATION; Start 01/25/17 at 05:30 Risperidone (RisperDAL) 3 mg DAILY16 PO Last administered on 02/02/17 16:54; Start 01/25/17 at 16:00 Temazepam (Restoril) 30 mg PRN QHS PRN PO INSOMNIA; Start 01/25/17 at 05:30; Stop 01/25/17 at 06:31; Status DC Trazodone HCl (Desyrel) 100 mg PRN QHS PRN PO INSOMNIA; Start 01/25/17 at 05:30 ; Stop 01/25/17 at 11:36; Status DC Trazodone HCl (Desyrel) 100 mg QHS PO ; Start 01/25/17 at 21:00; Stop 01/25/17 at 21:00; Status DC Temazepam (Restoril) 30 mg PRN QHS PRN PO INSOMNIA Last administered on 19:22; Start 01/25/17 at 06:31; Stop 01/29/17 at 18:50; Status DC Acetaminophen (Tylenol) 650 mg PRN Q6HRS PRN PO PAIN / TEMP; Start 01/25/17 at 06:45 Aspirin (Aspirin Enteric Coated) 81 mg DAILY PO Last administered on 02/02/17 08:28; Start 01/25/17 at 09:00 Bisacodyl (Dulcolax Tab) 10 mg PRN DAILY PRN PO CONSTIPATION; Start 01/25/17 at 06:45 Bisacodyl (Dulcolax Supp) 10 mg PRN DAILY PRN RC CONSTIPATION; Start 01/25/17 at 06:45 Furosemide (Lasix) 40 mg DAILY PO Last administered on 01/28/17 05:15; Start 01/25/17 at 09:00; Stop 01/29/17 at 03:25; Status DC Guaifenesin (Robitussin Dm) 10 ml PRN Q4HRS PRN PO COUGH; Start 01/25/17 at 06: 45 Albuterol/ Ipratropium (Duoneb) 3 ml PRN Q4HRS PRN NEB SHORTNESS OF BREATH; Start 01/25/17 at 06:45 Levothyroxine Sodium (Synthroid) 100 mcg DAILY06 PO Last administered on 06:23; Start 01/25/17 at 07:00 Lisinopril (Prinivil) 5 mg DAILY PO Last administered on 02/01/17 08:01; Start 01/25/17 at 09:00 Al Hydroxide/Mg Hydroxide (Mylanta Plus Xs) 30 ml PRN Q4HRS PRN PO DYSPEPSIA; Start 01/25/17 at 06:45 Metformin HCl (Glucophage) 500 mg BIDWMEALS PO Last administered on 02/02/17 16 :54; Start 01/25/17 at 08:00 Miconazole Nitrate (Monistat-Derm) 1 gerson BID TP ; Start 01/25/17 at 09:00; Stop 01/25/17 at 09:00; Status DC Nitroglycerin (Nitrostat) 0.4 mg PRN Q5MIN PRN SL CHEST PAIN; Start 01/25/17 at 06:45 Polyethylene Glycol (miraLAX) 17 gm QODAY PO Last administered on 02/02/17 08: 30; Start 01/25/17 at 09:00 Senna/Docusate Sodium (Senna Plus) 1 tab QHS PO Last administered on 02/02/17 20:07; Start 01/25/17 at 21:00 Tramadol HCl (Ultram) 25 mg PRN Q6HRS PRN PO PAIN Last administered on 16:21; Start 01/25/17 at 06:45 Acetaminophen (Tylenol) 650 mg TID PO Last administered on 02/02/17 20:07; Start 01/25/17 at 09:00 Atorvastatin Calcium (Lipitor) 40 mg QHS PO Last administered on 02/02/17 20:07 ; Start 01/25/17 at 21:00 Albuterol Sulfate (Ventolin) 2.5 mg Q6H NEB ; Start 01/25/17 at 07:30; Stop at 17:24; Status DC Lactulose 20 gm PRN DAILY PRN PO CONSTIPATION; Start 01/25/17 at 07:30 Budesonide (Pulmicort) 0.5 mg RTBID NEB ; Start 01/25/17 at 08:00; Stop at 17:24; Status DC Olanzapine (ZyPREXA ZYDIS) 2.5 mg PRN Q2HR PRN PO ANXIETY / AGITATION; Start at 08:00 Lorazepam (Ativan) 1 mg DAILY IM Last administered on 01/27/17 09:03; Start at 11:00; Stop 01/27/17 at 18:25; Status DC Haloperidol Lactate (Haldol) 5 mg DAILY IM Last administered on 01/27/17 08:58 ; Start 01/25/17 at 11:00; Stop 01/27/17 at 18:25; Status DC Risperidone (RisperDAL CONSTA) 25 mg Q2WKS IM Last administered on 01/26/17 09 :39; Start 01/26/17 at 09:00 Risperidone (RisperDAL) 3 mg 1X ONCE SL Last administered on 01/26/17 16:15; Start 01/26/17 at 16:00; Stop 01/26/17 at 16:02; Status DC Albuterol Sulfate (Ventolin) 2.5 mg PRN Q6HRS PRN NEB SHORTNESS OF BREATH; Start 01/28/17 at 13:30 Budesonide (Pulmicort) 0.5 mg PRN BID PRN NEB SHORTNESS OF BREATH; Start at 08:00 Haloperidol Lactate (Haldol) 5 mg DAILY IM Last administered on 01/30/17 11:07 ; Start 01/28/17 at 09:00; Stop 01/30/17 at 18:32; Status DC Olanzapine (ZyPREXA ZYDIS) 5 mg PRN Q2HR PRN PO ANXIETY / AGITATION; Start at 18:30 Lorazepam (Ativan) 1 mg DAILY IM Last administered on 01/30/17 11:07; Start at 09:00; Stop 01/30/17 at 18:32; Status DC Valproic Acid (Depakene) 375 mg HS PO ; Start 01/29/17 at 21:00; Stop 01/29/17 at 21:00; Status DC Furosemide (Lasix) 40 mg DAILY06 PO Last administered on 02/02/17 06:23; Start 01/29/17 at 06:00 Valproic Acid (Depakene) 375 mg BID PO Last administered on 02/02/17 20:07; Start 01/29/17 at 21:00 Temazepam (Restoril) 30 mg QHS PO Last administered on 02/02/17 20:08; Start at 21:00 Potassium Chloride (Klor-Con) 20 meq BID PO ; Start 01/30/17 at 21:00; Stop at 05:33; Status DC Magnesium Hydroxide (Milk Of Magnesia) 2,400 mg PRN DAILY PRN PO CONSTIPATION; Start 01/30/17 at 16:30; Status UNV Magnesium Hydroxide (Milk Of Magnesia) 2,400 mg PRN DAILY PRN PO CONSTIPATION Last administered on 01/30/17 16:56; Start 01/30/17 at 16:45 Potassium Chloride (Klor-Con) 20 meq BID66 PO Last administered on 02/02/17 16: 54; Start 01/31/17 at 06:00 Active Scripts Active Reported Tylenol (Acetaminophen) 325 Mg Tablet 650 Mg PO PRN Q6HRS PRN Arthritis Pain (Acetaminophen) 650 Mg Tablet.er 650 Mg PO BID Trazodone Hcl 100 Mg Tablet 100 Mg PO PRN QHS PRN Trazodone Hcl 100 Mg Tablet 100 Mg PO QHS Tramadol Hcl (Tramadol HCl) 50 Mg Tablet 25 Mg PO PRN Q6HRS PRN Synthroid (Levothyroxine Sodium) 100 Mcg Tablet 100 Mcg PO DAILY07 Senna S Tablet (Sennosides/Docusate Sodium) 1 Each Tablet 1 Tab PO QHS Risperdal (Risperidone) 1 Mg/1 Ml Solution 3 Mg PO DAILY16 Restoril (Temazepam) 30 Mg Capsule 30 Mg PO PRN QHS PRN Nitrostat (Nitroglycerin) 0.4 Mg Tab.subl 0.4 Mg SL PRN Q5MIN PRN Miralax (Polyethylene Glycol 3350) 119 Gm Powder 17 Gm PO QODAY Antacid Suspension (Mag Hydrox/Al Hydrox/Simeth) 355 Ml Oral.susp 30 Ml PO PRN Q4HRS PRN Lisinopril 5 Mg Tablet 5 Mg PO DAILY Lipitor (Atorvastatin Calcium) 40 Mg Tablet 40 Mg PO QHS Lasix (Furosemide) 40 Mg Tablet 40 Mg PO DAILY Lactulose 10 Gm/15 Ml Solution 20 Gm PO PRN DAILY PRN Klonopin (Clonazepam) 0.5 Mg Tablet 0.5 Mg PO TID Glucophage (Metformin Hcl) 500 Mg Tablet 500 Mg PO BIDWMEALS Josie-Tussin Dm Syrup (Guaifenesin/Dextromethorphan) 473 Ml Syrup 10 Ml PO PRN Q4HRS PRN Duoneb 0.5-3(2.5) Mg/3 Ml (Albuterol/Ipratropium) 3 Ml Ampul.neb 3 Ml NEB PRN Q4HRS PRN Depakote Sprinkle (Divalproex Sodium) 125 Mg Cap.sprink 125 Mg PO TID Bisacodyl 10 Mg Supp.rect 10 Mg RC PRN DAILY PRN Bisacodyl 5 Mg Tablet.dr 10 Mg PO PRN DAILY PRN Reshma Antifungal (Miconazole Nitrate) 142 Gm Cream..g. 1 Gerson TP BID Ativan (Lorazepam) 0.5 Mg Tablet 0.5 Mg PO PRN Q4HRS PRN Aspirin Ec (Aspirin) 81 Mg Tablet.dr 81 Mg PO DAILY Advair Hfa 115-21 Mcg Inhaler (Fluticasone/Salmeterol) 12 Gm Hfa.aer.ad 2 Puff IH BID Diagnosis: Problems: (1) Psychosis (2) Schizophrenia, acute (3) Anxiety disorder (4) Bipolar affective, mixed, sev w/ psych (5) Impulse control disorder (6) Schizoaffective disorder, chronic condition with acute exacerbation ALBERT ROSE MD Feb 02, 2017 22:47
--- NOTE | 2017-02-03 00:46 | PN ---
DATE: 02/01/2017 This is a late entry for 02/01/2017 and covers elements not covered in my initial note. I met with the patient the evening of 02/01/2017 in her room. She seems more oriented, was able to tell me the year was 2016, president Chuy Rangel, still complains of ringing in her ears, impaired ambulation, pedal edema and not ruminating about being . No CV, , pulmonary, eye system symptoms on review. MENTAL STATUS EXAM: Oriented to herself and situation. Speech coherent, still pressured, low in volume, but easier to understand, abstraction fair, computation impaired, language function intact, attention span short. Mood and affect is improved, still labile, still psychotic, but better than before. LABORATORY DATA: Reviewed. IMPRESSION: Unchanged. PLAN: Scheduled IM Haldol, Ativan has been discontinued. Maintain current psychotropics mentioned in my initial note. Check CBC, CMP, valproic acid level, ammonia level morning of 02/02/2017. Make further adjustments as clinically indicated. Reviewed drug interactions, risk/benefit ratio favors no further change at this time. MAN Hero ROSE MD DR: CHASE[facility] JOB#: [id number] / [id number]
[2017-02-03] MEDS: LEVOTHYROXINE 100 MCG TABLET PO SCH (06:16)
[2017-02-03] MEDS: FUROSEMIDE 40 MG TABLET PO SCH (06:16)
[2017-02-03] MEDS: POTASSIUM CHLORIDE 20 MEQ TABLET.ER. PO SCH ×3 (06:16→17:36)
[2017-02-03 06:36] VITALS: BP 130/74
[2017-02-03] MEDS: metFORMIN 500 MG TABLET PO SCH ×3 (08:13→17:00)
[2017-02-03] MEDS: ASPIRIN ENTERIC COATED 81 MG TABLET.DR. PO SCH ×2 (08:13→09:00)
[2017-02-03] MEDS: ACETAMINOPHEN 325 MG TABLET PO SCH ×4 (08:13→23:22)
[2017-02-03] MEDS: NICOTINE 21MG PATCH. TD SCH ×2 (08:14→09:00)
[2017-02-03] MEDS: LISINOPRIL 5 MG TABLET. PO SCH (08:16)
[2017-02-03] MEDS: risperiDONE ORAL 1 MG/ML 30ml BOTTLE. PO SCH ×2 (08:17→16:46)
[2017-02-03] MEDS: clonazePAM 0.5 MG TABLET PO SCH ×4 (08:17→23:24)
[2017-02-03] MEDS: VALPROATE ACID 250 MG/5 ML ORAL SOLUTION PO SCH ×2 (08:23→23:23)
[2017-02-03 17:32] VITALS: BP 105/68
--- NOTE | 2017-02-03 19:36 | PDOC ---
Exam Tra Demential Exam: Tra Note: Please also refer to the separate dictated note~for this date of service dictated separately.~Patient seen individually. Discussed the patient with Nursing staff reviewed the chart.~Reviewed interim history and current functioning. Reviewed vital signs,~Labs/ Radiology~and current medications noted below. Continue current treatment with the changes noted in the dictated addendum note Assessment: Vital Signs: Vital Signs Date Time Temp Pulse Resp B/P (MAP) Pulse Ox O2 Delivery O2 Flow Rate FiO2 02/03/17 17:32 97.5 66 18 105/68 (80) 97 Room Air I&O Intake and Output 02/04/17 07:00 Intake Total 840 ml Balance 840 ml Intake Oral 840 ml Labs: Laboratory Tests Test 02/03/17 07:41 02/03/17 12:06 02/03/17 19:16 Glucose (Fingerstick) 95 mg/dL (70-99) 104 mg/dL (70-99) H 114 mg/dL (70-99) H Current Medications: Meds: Current Medications Olanzapine (ZyPREXA ZYDIS) 10 mg STK-MED ONCE .ROUTE ; Start 01/25/17 at 04:06; Stop 01/25/17 at 04:07; Status DC Olanzapine (ZyPREXA ZYDIS) 10 mg 1X STAT PO Last administered on 01/25/17 04: 07; Start 01/25/17 at 04:03; Stop 01/25/17 at 06:26; Status DC Nicotine (Nicoderm Cq 21mg) 1 patch DAILY TD Last administered on 02/02/17 08: 30; Start 01/25/17 at 09:00 Clonazepam (KlonoPIN) 0.5 mg TID PO Last administered on 02/03/17 14:00; Start 01/25/17 at 09:00 Divalproex Sodium (Depakote Sprinkles) 125 mg TID PO Last administered on 14:16; Start 01/25/17 at 09:00; Stop 01/28/17 at 18:41; Status DC Lorazepam (Ativan) 0.5 mg PRN Q4HRS PRN PO ANXIETY / AGITATION; Start 01/25/17 at 05:30 Risperidone (RisperDAL) 3 mg DAILY16 PO Last administered on 02/03/17 16:46; Start 01/25/17 at 16:00 Temazepam (Restoril) 30 mg PRN QHS PRN PO INSOMNIA; Start 01/25/17 at 05:30; Stop 01/25/17 at 06:31; Status DC Trazodone HCl (Desyrel) 100 mg PRN QHS PRN PO INSOMNIA; Start 01/25/17 at 05:30 ; Stop 01/25/17 at 11:36; Status DC Trazodone HCl (Desyrel) 100 mg QHS PO ; Start 01/25/17 at 21:00; Stop 01/25/17 at 21:00; Status DC Temazepam (Restoril) 30 mg PRN QHS PRN PO INSOMNIA Last administered on 19:22; Start 01/25/17 at 06:31; Stop 01/29/17 at 18:50; Status DC Acetaminophen (Tylenol) 650 mg PRN Q6HRS PRN PO PAIN / TEMP; Start 01/25/17 at 06:45 Aspirin (Aspirin Enteric Coated) 81 mg DAILY PO Last administered on 02/02/17 08:28; Start 01/25/17 at 09:00 Bisacodyl (Dulcolax Tab) 10 mg PRN DAILY PRN PO CONSTIPATION; Start 01/25/17 at 06:45 Bisacodyl (Dulcolax Supp) 10 mg PRN DAILY PRN RC CONSTIPATION; Start 01/25/17 at 06:45 Furosemide (Lasix) 40 mg DAILY PO Last administered on 01/28/17 05:15; Start 01/25/17 at 09:00; Stop 01/29/17 at 03:25; Status DC Guaifenesin (Robitussin Dm) 10 ml PRN Q4HRS PRN PO COUGH; Start 01/25/17 at 06: 45 Albuterol/ Ipratropium (Duoneb) 3 ml PRN Q4HRS PRN NEB SHORTNESS OF BREATH; Start 01/25/17 at 06:45 Levothyroxine Sodium (Synthroid) 100 mcg DAILY06 PO Last administered on 06:16; Start 01/25/17 at 07:00 Lisinopril (Prinivil) 5 mg DAILY PO Last administered on 02/03/17 08:16; Start 01/25/17 at 09:00 Al Hydroxide/Mg Hydroxide (Mylanta Plus Xs) 30 ml PRN Q4HRS PRN PO DYSPEPSIA; Start 01/25/17 at 06:45 Metformin HCl (Glucophage) 500 mg BIDWMEALS PO Last administered on 02/03/17 08 :13; Start 01/25/17 at 08:00; Stop 02/03/17 at 15:41; Status DC Miconazole Nitrate (Monistat-Derm) 1 gerson BID TP ; Start 01/25/17 at 09:00; Stop 01/25/17 at 09:00; Status DC Nitroglycerin (Nitrostat) 0.4 mg PRN Q5MIN PRN SL CHEST PAIN; Start 01/25/17 at 06:45 Polyethylene Glycol (miraLAX) 17 gm QODAY PO Last administered on 02/02/17 08: 30; Start 01/25/17 at 09:00 Senna/Docusate Sodium (Senna Plus) 1 tab QHS PO Last administered on 02/02/17 20:07; Start 01/25/17 at 21:00 Tramadol HCl (Ultram) 25 mg PRN Q6HRS PRN PO PAIN Last administered on 16:21; Start 01/25/17 at 06:45 Acetaminophen (Tylenol) 650 mg TID PO Last administered on 02/03/17 08:13; Start 01/25/17 at 09:00 Atorvastatin Calcium (Lipitor) 40 mg QHS PO Last administered on 02/02/17 20:07 ; Start 01/25/17 at 21:00 Albuterol Sulfate (Ventolin) 2.5 mg Q6H NEB ; Start 01/25/17 at 07:30; Stop at 17:24; Status DC Lactulose 20 gm PRN DAILY PRN PO CONSTIPATION; Start 01/25/17 at 07:30 Budesonide (Pulmicort) 0.5 mg RTBID NEB ; Start 01/25/17 at 08:00; Stop at 17:24; Status DC Olanzapine (ZyPREXA ZYDIS) 2.5 mg PRN Q2HR PRN PO ANXIETY / AGITATION; Start at 08:00 Lorazepam (Ativan) 1 mg DAILY IM Last administered on 01/27/17 09:03; Start at 11:00; Stop 01/27/17 at 18:25; Status DC Haloperidol Lactate (Haldol) 5 mg DAILY IM Last administered on 01/27/17 08:58 ; Start 01/25/17 at 11:00; Stop 01/27/17 at 18:25; Status DC Risperidone (RisperDAL CONSTA) 25 mg Q2WKS IM Last administered on 01/26/17 09 :39; Start 01/26/17 at 09:00 Risperidone (RisperDAL) 3 mg 1X ONCE SL Last administered on 01/26/17 16:15; Start 01/26/17 at 16:00; Stop 01/26/17 at 16:02; Status DC Albuterol Sulfate (Ventolin) 2.5 mg PRN Q6HRS PRN NEB SHORTNESS OF BREATH; Start 01/28/17 at 13:30 Budesonide (Pulmicort) 0.5 mg PRN BID PRN NEB SHORTNESS OF BREATH; Start at 08:00 Haloperidol Lactate (Haldol) 5 mg DAILY IM Last administered on 01/30/17 11:07 ; Start 01/28/17 at 09:00; Stop 01/30/17 at 18:32; Status DC Olanzapine (ZyPREXA ZYDIS) 5 mg PRN Q2HR PRN PO ANXIETY / AGITATION; Start at 18:30 Lorazepam (Ativan) 1 mg DAILY IM Last administered on 01/30/17 11:07; Start at 09:00; Stop 01/30/17 at 18:32; Status DC Valproic Acid (Depakene) 375 mg HS PO ; Start 01/29/17 at 21:00; Stop 01/29/17 at 21:00; Status DC Furosemide (Lasix) 40 mg DAILY06 PO Last administered on 02/03/17 06:16; Start 01/29/17 at 06:00 Valproic Acid (Depakene) 375 mg BID PO Last administered on 02/03/17 08:23; Start 01/29/17 at 21:00; Stop 02/03/17 at 18:22; Status DC Temazepam (Restoril) 30 mg QHS PO Last administered on 02/02/17 20:08; Start at 21:00 Potassium Chloride (Klor-Con) 20 meq BID PO ; Start 01/30/17 at 21:00; Stop at 05:33; Status DC Magnesium Hydroxide (Milk Of Magnesia) 2,400 mg PRN DAILY PRN PO CONSTIPATION; Start 01/30/17 at 16:30; Status UNV Magnesium Hydroxide (Milk Of Magnesia) 2,400 mg PRN DAILY PRN PO CONSTIPATION Last administered on 01/30/17 16:56; Start 01/30/17 at 16:45 Potassium Chloride (Klor-Con) 20 meq BID66 PO Last administered on 02/03/17 06: 16; Start 01/31/17 at 06:00 Metformin HCl (Glucophage) 250 mg BIDWMEALS PO ; Start 02/03/17 at 17:00 Cyanocobalamin (Vitamin B-12) 1,000 mcg DAILY PO ; Start 02/04/17 at 09:00 Valproic Acid (Depakene) 500 mg BID PO ; Start 02/03/17 at 21:00 Active Scripts Active Reported Tylenol (Acetaminophen) 325 Mg Tablet 650 Mg PO PRN Q6HRS PRN Arthritis Pain (Acetaminophen) 650 Mg Tablet.er 650 Mg PO BID Trazodone Hcl 100 Mg Tablet 100 Mg PO PRN QHS PRN Trazodone Hcl 100 Mg Tablet 100 Mg PO QHS Tramadol Hcl (Tramadol HCl) 50 Mg Tablet 25 Mg PO PRN Q6HRS PRN Synthroid (Levothyroxine Sodium) 100 Mcg Tablet 100 Mcg PO DAILY07 Senna S Tablet (Sennosides/Docusate Sodium) 1 Each Tablet 1 Tab PO QHS Risperdal (Risperidone) 1 Mg/1 Ml Solution 3 Mg PO DAILY16 Restoril (Temazepam) 30 Mg Capsule 30 Mg PO PRN QHS PRN Nitrostat (Nitroglycerin) 0.4 Mg Tab.subl 0.4 Mg SL PRN Q5MIN PRN Miralax (Polyethylene Glycol 3350) 119 Gm Powder 17 Gm PO QODAY Antacid Suspension (Mag Hydrox/Al Hydrox/Simeth) 355 Ml Oral.susp 30 Ml PO PRN Q4HRS PRN Lisinopril 5 Mg Tablet 5 Mg PO DAILY Lipitor (Atorvastatin Calcium) 40 Mg Tablet 40 Mg PO QHS Lasix (Furosemide) 40 Mg Tablet 40 Mg PO DAILY Lactulose 10 Gm/15 Ml Solution 20 Gm PO PRN DAILY PRN Klonopin (Clonazepam) 0.5 Mg Tablet 0.5 Mg PO TID Glucophage (Metformin Hcl) 500 Mg Tablet 500 Mg PO BIDWMEALS Josie-Tussin Dm Syrup (Guaifenesin/Dextromethorphan) 473 Ml Syrup 10 Ml PO PRN Q4HRS PRN Duoneb 0.5-3(2.5) Mg/3 Ml (Albuterol/Ipratropium) 3 Ml Ampul.neb 3 Ml NEB PRN Q4HRS PRN Depakote Sprinkle (Divalproex Sodium) 125 Mg Cap.sprink 125 Mg PO TID Bisacodyl 10 Mg Supp.rect 10 Mg RC PRN DAILY PRN Bisacodyl 5 Mg Tablet.dr 10 Mg PO PRN DAILY PRN Reshma Antifungal (Miconazole Nitrate) 142 Gm Cream..g. 1 Gerson TP BID Ativan (Lorazepam) 0.5 Mg Tablet 0.5 Mg PO PRN Q4HRS PRN Aspirin Ec (Aspirin) 81 Mg Tablet.dr 81 Mg PO DAILY Advair Hfa 115-21 Mcg Inhaler (Fluticasone/Salmeterol) 12 Gm Hfa.aer.ad 2 Puff IH BID Diagnosis: Problems: (1) Psychosis (2) Schizophrenia, acute (3) Anxiety disorder (4) Bipolar affective, mixed, sev w/ psych (5) Impulse control disorder (6) Schizoaffective disorder, chronic condition with acute exacerbation ALBERT ROSE MD Feb 03, 2017 19:36
[2017-02-03] MEDS: TEMAZEPAM 15 MG CAPSULE PO SCH (23:22)
[2017-02-03] MEDS: ATORVASTATIN CALCIUM 20 MG TABLET PO SCH (23:23)
[2017-02-03] MEDS: SENNOSIDES/DOCUSATE 8.6/50MG TABLET. PO SCH (23:23)
--- NOTE | 2017-02-04 01:34 | PN ---
DATE: 02/02/2017 SUBJECTIVE: This late entry date of service 02/02/2017 covers elements not covered in my initial note of 02/02/2017. I met with the patient evening of 02/02/2017 for this evaluation. The patient slept 5 hours the previous evening. I met with her in her room at some length. She is at times resistive to medications, appears confused with pressured speech, but the latter is better. REVIEW OF SYSTEMS: Positive for swelling of her lower extremities and she is pulling off her socks to show it to me, wanting me to palpate it, which I did. No CV, , pulmonary, eye, ENT system symptoms on review. Reliability is poor. MENTAL STATUS EXAMINATION: Oriented to herself and at times to situation. Speech coherent, pressured lesser than before. Abstraction fair, computation impaired, language function intact, attention span short, mood and affect, lability shows some improvement. Psychotic symptoms are better. LABORATORY DATA: Reviewed. IMPRESSION: Unchanged from initial note. PLAN: Continue current psychotropics, Depakene was increased. Repeat labs level. Make further adjustments as clinically indicated. Reviewed drug interactions. Risk and benefit ratio favors no further change at this time. ALBERT ROSE MD DR: CHASE/[facility] JOB#: [id number] / [id number]
[2017-02-04 06:11] VITALS: BP 113/80
[2017-02-04] MEDS: POTASSIUM CHLORIDE 20 MEQ TABLET.ER. PO SCH ×2 (06:28→17:07)
[2017-02-04] MEDS: LEVOTHYROXINE 100 MCG TABLET PO SCH (06:28)
[2017-02-04] MEDS: FUROSEMIDE 40 MG TABLET PO SCH (06:28)
[2017-02-04] MEDS: ACETAMINOPHEN 325 MG TABLET PO SCH ×4 (07:54→19:38)
[2017-02-04] MEDS: clonazePAM 0.5 MG TABLET PO SCH ×3 (07:54→19:38)
[2017-02-04] MEDS: ASPIRIN ENTERIC COATED 81 MG TABLET.DR. PO SCH (07:55)
[2017-02-04] MEDS: metFORMIN 500 MG TABLET PO SCH ×2 (07:55→17:07)
[2017-02-04] MEDS: LISINOPRIL 5 MG TABLET. PO SCH (07:55)
[2017-02-04] MEDS: NICOTINE 21MG PATCH. TD SCH ×2 (07:56→09:00)
[2017-02-04] MEDS: POLYETHYLENE GLYCOL 3350 17 GM PACKET. PO SCH (07:56)
[2017-02-04] MEDS: VALPROATE ACID 250 MG/5 ML ORAL SOLUTION PO SCH ×2 (07:56→19:37)
[2017-02-04] MEDS: CYANOCOBALAMIN (VITAMIN B-12) 1,000 MCG TABLET. PO SCH (07:58)
[2017-02-04 16:23] VITALS: BP 112/58
[2017-02-04] MEDS: risperiDONE ORAL 1 MG/ML 30ml BOTTLE. PO SCH (17:07)
[2017-02-04] MEDS: TEMAZEPAM 15 MG CAPSULE PO SCH (19:38)
[2017-02-04] MEDS: SENNOSIDES/DOCUSATE 8.6/50MG TABLET. PO SCH (19:38)
[2017-02-04] MEDS: ATORVASTATIN CALCIUM 20 MG TABLET PO SCH (19:38)
--- NOTE | 2017-02-04 19:59 | PDOC ---
Exam Tra Demential Exam: Tra Note: Please also refer to the separate dictated note~for this date of service dictated separately.~Patient seen individually. Discussed the patient with Nursing staff reviewed the chart.~Reviewed interim history and current functioning. Reviewed vital signs,~Labs/ Radiology~and current medications noted below. Continue current treatment with the changes noted in the dictated addendum note Assessment: Vital Signs: Vital Signs Date Time Temp Pulse Resp B/P (MAP) Pulse Ox O2 Delivery O2 Flow Rate FiO2 02/04/17 16:23 97.2 79 20 112/58 (76) 97 02/03/17 17:32 Room Air I&O Intake and Output 02/05/17 07:00 Intake Total 900 ml Balance 900 ml Intake Oral 900 ml Current Medications: Meds: Current Medications Olanzapine (ZyPREXA ZYDIS) 10 mg STK-MED ONCE .ROUTE ; Start 01/25/17 at 04:06; Stop 01/25/17 at 04:07; Status DC Olanzapine (ZyPREXA ZYDIS) 10 mg 1X STAT PO Last administered on 01/25/17 04: 07; Start 01/25/17 at 04:03; Stop 01/25/17 at 06:26; Status DC Nicotine (Nicoderm Cq 21mg) 1 patch DAILY TD Last administered on 02/02/17 08: 30; Start 01/25/17 at 09:00 Clonazepam (KlonoPIN) 0.5 mg TID PO Last administered on 02/04/17 19:38; Start 01/25/17 at 09:00 Divalproex Sodium (Depakote Sprinkles) 125 mg TID PO Last administered on 14:16; Start 01/25/17 at 09:00; Stop 01/28/17 at 18:41; Status DC Lorazepam (Ativan) 0.5 mg PRN Q4HRS PRN PO ANXIETY / AGITATION; Start 01/25/17 at 05:30 Risperidone (RisperDAL) 3 mg DAILY16 PO Last administered on 02/04/17 17:07; Start 01/25/17 at 16:00 Temazepam (Restoril) 30 mg PRN QHS PRN PO INSOMNIA; Start 01/25/17 at 05:30; Stop 01/25/17 at 06:31; Status DC Trazodone HCl (Desyrel) 100 mg PRN QHS PRN PO INSOMNIA; Start 01/25/17 at 05:30 ; Stop 01/25/17 at 11:36; Status DC Trazodone HCl (Desyrel) 100 mg QHS PO ; Start 01/25/17 at 21:00; Stop 01/25/17 at 21:00; Status DC Temazepam (Restoril) 30 mg PRN QHS PRN PO INSOMNIA Last administered on 19:22; Start 01/25/17 at 06:31; Stop 01/29/17 at 18:50; Status DC Acetaminophen (Tylenol) 650 mg PRN Q6HRS PRN PO PAIN / TEMP; Start 01/25/17 at 06:45 Aspirin (Aspirin Enteric Coated) 81 mg DAILY PO Last administered on 02/04/17 07:55; Start 01/25/17 at 09:00 Bisacodyl (Dulcolax Tab) 10 mg PRN DAILY PRN PO CONSTIPATION; Start 01/25/17 at 06:45 Bisacodyl (Dulcolax Supp) 10 mg PRN DAILY PRN RC CONSTIPATION; Start 01/25/17 at 06:45 Furosemide (Lasix) 40 mg DAILY PO Last administered on 01/28/17 05:15; Start 01/25/17 at 09:00; Stop 01/29/17 at 03:25; Status DC Guaifenesin (Robitussin Dm) 10 ml PRN Q4HRS PRN PO COUGH; Start 01/25/17 at 06: 45 Albuterol/ Ipratropium (Duoneb) 3 ml PRN Q4HRS PRN NEB SHORTNESS OF BREATH; Start 01/25/17 at 06:45 Levothyroxine Sodium (Synthroid) 100 mcg DAILY06 PO Last administered on 06:28; Start 01/25/17 at 07:00 Lisinopril (Prinivil) 5 mg DAILY PO Last administered on 02/04/17 07:55; Start 01/25/17 at 09:00 Al Hydroxide/Mg Hydroxide (Mylanta Plus Xs) 30 ml PRN Q4HRS PRN PO DYSPEPSIA; Start 01/25/17 at 06:45 Metformin HCl (Glucophage) 500 mg BIDWMEALS PO Last administered on 02/03/17 08 :13; Start 01/25/17 at 08:00; Stop 02/03/17 at 15:41; Status DC Miconazole Nitrate (Monistat-Derm) 1 gerson BID TP ; Start 01/25/17 at 09:00; Stop 01/25/17 at 09:00; Status DC Nitroglycerin (Nitrostat) 0.4 mg PRN Q5MIN PRN SL CHEST PAIN; Start 01/25/17 at 06:45 Polyethylene Glycol (miraLAX) 17 gm QODAY PO Last administered on 02/04/17 07: 56; Start 01/25/17 at 09:00 Senna/Docusate Sodium (Senna Plus) 1 tab QHS PO Last administered on 02/04/17 19:38; Start 01/25/17 at 21:00 Tramadol HCl (Ultram) 25 mg PRN Q6HRS PRN PO PAIN Last administered on 16:21; Start 01/25/17 at 06:45 Acetaminophen (Tylenol) 650 mg TID PO Last administered on 02/04/17 19:38; Start 01/25/17 at 09:00 Atorvastatin Calcium (Lipitor) 40 mg QHS PO Last administered on 02/04/17 19:38 ; Start 01/25/17 at 21:00 Albuterol Sulfate (Ventolin) 2.5 mg Q6H NEB ; Start 01/25/17 at 07:30; Stop at 17:24; Status DC Lactulose 20 gm PRN DAILY PRN PO CONSTIPATION; Start 01/25/17 at 07:30 Budesonide (Pulmicort) 0.5 mg RTBID NEB ; Start 01/25/17 at 08:00; Stop at 17:24; Status DC Olanzapine (ZyPREXA ZYDIS) 2.5 mg PRN Q2HR PRN PO ANXIETY / AGITATION; Start at 08:00 Lorazepam (Ativan) 1 mg DAILY IM Last administered on 01/27/17 09:03; Start at 11:00; Stop 01/27/17 at 18:25; Status DC Haloperidol Lactate (Haldol) 5 mg DAILY IM Last administered on 01/27/17 08:58 ; Start 01/25/17 at 11:00; Stop 01/27/17 at 18:25; Status DC Risperidone (RisperDAL CONSTA) 25 mg Q2WKS IM Last administered on 01/26/17 09 :39; Start 01/26/17 at 09:00 Risperidone (RisperDAL) 3 mg 1X ONCE SL Last administered on 01/26/17 16:15; Start 01/26/17 at 16:00; Stop 01/26/17 at 16:02; Status DC Albuterol Sulfate (Ventolin) 2.5 mg PRN Q6HRS PRN NEB SHORTNESS OF BREATH; Start 01/28/17 at 13:30 Budesonide (Pulmicort) 0.5 mg PRN BID PRN NEB SHORTNESS OF BREATH; Start at 08:00 Haloperidol Lactate (Haldol) 5 mg DAILY IM Last administered on 01/30/17 11:07 ; Start 01/28/17 at 09:00; Stop 01/30/17 at 18:32; Status DC Olanzapine (ZyPREXA ZYDIS) 5 mg PRN Q2HR PRN PO ANXIETY / AGITATION; Start at 18:30 Lorazepam (Ativan) 1 mg DAILY IM Last administered on 01/30/17 11:07; Start at 09:00; Stop 01/30/17 at 18:32; Status DC Valproic Acid (Depakene) 375 mg HS PO ; Start 01/29/17 at 21:00; Stop 01/29/17 at 21:00; Status DC Furosemide (Lasix) 40 mg DAILY06 PO Last administered on 02/04/17 06:28; Start 01/29/17 at 06:00 Valproic Acid (Depakene) 375 mg BID PO Last administered on 02/03/17 08:23; Start 01/29/17 at 21:00; Stop 02/03/17 at 18:22; Status DC Temazepam (Restoril) 30 mg QHS PO Last administered on 02/04/17 19:38; Start at 21:00 Potassium Chloride (Klor-Con) 20 meq BID PO ; Start 01/30/17 at 21:00; Stop at 05:33; Status DC Magnesium Hydroxide (Milk Of Magnesia) 2,400 mg PRN DAILY PRN PO CONSTIPATION; Start 01/30/17 at 16:30; Status UNV Magnesium Hydroxide (Milk Of Magnesia) 2,400 mg PRN DAILY PRN PO CONSTIPATION Last administered on 01/30/17 16:56; Start 01/30/17 at 16:45 Potassium Chloride (Klor-Con) 20 meq BID66 PO Last administered on 02/04/17 17: 07; Start 01/31/17 at 06:00 Metformin HCl (Glucophage) 250 mg BIDWMEALS PO Last administered on 02/04/17 17 :07; Start 02/03/17 at 17:00 Cyanocobalamin (Vitamin B-12) 1,000 mcg DAILY PO Last administered on 02/04/17 07:58; Start 02/04/17 at 09:00 Valproic Acid (Depakene) 500 mg BID PO Last administered on 02/04/17 19:37; Start 02/03/17 at 21:00 Active Scripts Active Reported Tylenol (Acetaminophen) 325 Mg Tablet 650 Mg PO PRN Q6HRS PRN Arthritis Pain (Acetaminophen) 650 Mg Tablet.er 650 Mg PO BID Trazodone Hcl 100 Mg Tablet 100 Mg PO PRN QHS PRN Trazodone Hcl 100 Mg Tablet 100 Mg PO QHS Tramadol Hcl (Tramadol HCl) 50 Mg Tablet 25 Mg PO PRN Q6HRS PRN Synthroid (Levothyroxine Sodium) 100 Mcg Tablet 100 Mcg PO DAILY07 Senna S Tablet (Sennosides/Docusate Sodium) 1 Each Tablet 1 Tab PO QHS Risperdal (Risperidone) 1 Mg/1 Ml Solution 3 Mg PO DAILY16 Restoril (Temazepam) 30 Mg Capsule 30 Mg PO PRN QHS PRN Nitrostat (Nitroglycerin) 0.4 Mg Tab.subl 0.4 Mg SL PRN Q5MIN PRN Miralax (Polyethylene Glycol 3350) 119 Gm Powder 17 Gm PO QODAY Antacid Suspension (Mag Hydrox/Al Hydrox/Simeth) 355 Ml Oral.susp 30 Ml PO PRN Q4HRS PRN Lisinopril 5 Mg Tablet 5 Mg PO DAILY Lipitor (Atorvastatin Calcium) 40 Mg Tablet 40 Mg PO QHS Lasix (Furosemide) 40 Mg Tablet 40 Mg PO DAILY Lactulose 10 Gm/15 Ml Solution 20 Gm PO PRN DAILY PRN Klonopin (Clonazepam) 0.5 Mg Tablet 0.5 Mg PO TID Glucophage (Metformin Hcl) 500 Mg Tablet 500 Mg PO BIDWMEALS Josie-Tussin Dm Syrup (Guaifenesin/Dextromethorphan) 473 Ml Syrup 10 Ml PO PRN Q4HRS PRN Duoneb 0.5-3(2.5) Mg/3 Ml (Albuterol/Ipratropium) 3 Ml Ampul.neb 3 Ml NEB PRN Q4HRS PRN Depakote Sprinkle (Divalproex Sodium) 125 Mg Cap.sprink 125 Mg PO TID Bisacodyl 10 Mg Supp.rect 10 Mg RC PRN DAILY PRN Bisacodyl 5 Mg Tablet.dr 10 Mg PO PRN DAILY PRN Reshma Antifungal (Miconazole Nitrate) 142 Gm Cream..g. 1 Gerson TP BID Ativan (Lorazepam) 0.5 Mg Tablet 0.5 Mg PO PRN Q4HRS PRN Aspirin Ec (Aspirin) 81 Mg Tablet.dr 81 Mg PO DAILY Advair Hfa 115-21 Mcg Inhaler (Fluticasone/Salmeterol) 12 Gm Hfa.aer.ad 2 Puff IH BID Diagnosis: Problems: (1) Psychosis (2) Schizophrenia, acute (3) Anxiety disorder (4) Bipolar affective, mixed, sev w/ psych (5) Impulse control disorder (6) Schizoaffective disorder, chronic condition with acute exacerbation ALBERT ROSE MD Feb 04, 2017 19:59
--- NOTE | 2017-02-05 01:04 | PN ---
DATE: 02/03/2017 This late entry 02/03/2017 covers elements not covered in my initial note on 02/03/2017. SUBJECTIVE: I met with the patient evening of 02/03/2017. The patient has been resistant to medications, demanding both previous evening and during the day on 02/03/2017, some of her meds had to be syringed. She came late for dinner, abusive and yelling at aids. REVIEW OF SYSTEMS: Pedal edema, difficulty ambulation. No CV, , pulmonary, eye system symptoms on review. MENTAL STATUS EXAM: Oriented to herself and situation. Speech coherent, low and volume, rapid, abstraction fair, computation impaired, language function intact, attention span, short. Mood and affect remain somewhat labile. LABORATORY DATA: Reviewed. IMPRESSION: Unchanged from initial note of schizoaffective disorder, bipolar type, mixed with psychotic features; major neurocognitive disorder, Alzheimer, vascular with delusion; anxiety disorder, unspecified; impulse control disorder, unspecified. PLAN: Continue psychotropics mentioned in my initial note. Valproic acid level is subtherapeutic at 49, increase Depakene syrup from 375 mg b.i.d. to 500 mg b.i.d. Check CBC, CMP, valproic acid level in 3 days. I had a message to call Sravanthi Mims, the patient's guardian [phone], called and left a very detailed message and discussed that we may still consider starting lithium, but I do not want to do that till she is totally compliant with the psychotropics, so that we do not get into a toxic state like she did in the past. Reviewed drug interactions, risk/benefit ratio favors no further change at this time. MAN Hero ROSE MD DR: [facility] JOB#: [id number] / [id number]
[2017-02-05] MEDS: POTASSIUM CHLORIDE 20 MEQ TABLET.ER. PO SCH ×2 (05:21→16:47)
[2017-02-05] MEDS: FUROSEMIDE 40 MG TABLET PO SCH (05:21)
[2017-02-05] MEDS: LEVOTHYROXINE 100 MCG TABLET PO SCH (05:21)
[2017-02-05 06:00] VITALS: BP 126/54
[2017-02-05] MEDS: ASPIRIN ENTERIC COATED 81 MG TABLET.DR. PO SCH ×2 (07:55→08:34)
[2017-02-05] MEDS: VALPROATE ACID 250 MG/5 ML ORAL SOLUTION PO SCH ×2 (07:55→21:00)
[2017-02-05] MEDS: ACETAMINOPHEN 325 MG TABLET PO SCH ×4 (07:56→21:00)
[2017-02-05] MEDS: CYANOCOBALAMIN (VITAMIN B-12) 1,000 MCG TABLET. PO SCH ×2 (07:56→08:34)
[2017-02-05] MEDS: metFORMIN 500 MG TABLET PO SCH ×2 (07:56→16:47)
[2017-02-05] MEDS: LISINOPRIL 5 MG TABLET. PO SCH ×2 (07:56→08:34)
[2017-02-05] MEDS: NICOTINE 21MG PATCH. TD SCH ×2 (07:57→08:34)
[2017-02-05] MEDS: clonazePAM 0.5 MG TABLET PO SCH ×3 (07:58→21:00)
[2017-02-05] MEDS: risperiDONE ORAL 1 MG/ML 30ml BOTTLE. PO SCH (15:54)
[2017-02-05 16:01] VITALS: BP 137/61
--- NOTE | 2017-02-05 19:42 | PDOC ---
Exam Tra Demential Exam: Tra Note: Please also refer to the separate dictated note~for this date of service dictated separately.~Patient seen individually. Discussed the patient with Nursing staff reviewed the chart.~Reviewed interim history and current functioning. Reviewed vital signs,~Labs/ Radiology~and current medications noted below. Continue current treatment with the changes noted in the dictated addendum note Assessment: Vital Signs: Vital Signs Date Time Temp Pulse Resp B/P (MAP) Pulse Ox O2 Delivery O2 Flow Rate FiO2 02/05/17 16:01 97.2 77 20 137/61 (86) 96 02/03/17 17:32 Room Air I&O Intake and Output 02/06/17 07:00 Intake Total 840 ml Balance 840 ml Intake Oral 840 ml Current Medications: Meds: Current Medications Olanzapine (ZyPREXA ZYDIS) 10 mg STK-MED ONCE .ROUTE ; Start 01/25/17 at 04:06; Stop 01/25/17 at 04:07; Status DC Olanzapine (ZyPREXA ZYDIS) 10 mg 1X STAT PO Last administered on 01/25/17 04: 07; Start 01/25/17 at 04:03; Stop 01/25/17 at 06:26; Status DC Nicotine (Nicoderm Cq 21mg) 1 patch DAILY TD Last administered on 02/02/17 08: 30; Start 01/25/17 at 09:00 Clonazepam (KlonoPIN) 0.5 mg TID PO Last administered on 02/05/17 14:09; Start 01/25/17 at 09:00 Divalproex Sodium (Depakote Sprinkles) 125 mg TID PO Last administered on 14:16; Start 01/25/17 at 09:00; Stop 01/28/17 at 18:41; Status DC Lorazepam (Ativan) 0.5 mg PRN Q4HRS PRN PO ANXIETY / AGITATION; Start 01/25/17 at 05:30 Risperidone (RisperDAL) 3 mg DAILY16 PO Last administered on 02/05/17 15:54; Start 01/25/17 at 16:00 Temazepam (Restoril) 30 mg PRN QHS PRN PO INSOMNIA; Start 01/25/17 at 05:30; Stop 01/25/17 at 06:31; Status DC Trazodone HCl (Desyrel) 100 mg PRN QHS PRN PO INSOMNIA; Start 01/25/17 at 05:30 ; Stop 01/25/17 at 11:36; Status DC Trazodone HCl (Desyrel) 100 mg QHS PO ; Start 01/25/17 at 21:00; Stop 01/25/17 at 21:00; Status DC Temazepam (Restoril) 30 mg PRN QHS PRN PO INSOMNIA Last administered on 19:22; Start 01/25/17 at 06:31; Stop 01/29/17 at 18:50; Status DC Acetaminophen (Tylenol) 650 mg PRN Q6HRS PRN PO PAIN / TEMP; Start 01/25/17 at 06:45 Aspirin (Aspirin Enteric Coated) 81 mg DAILY PO Last administered on 02/04/17 07:55; Start 01/25/17 at 09:00 Bisacodyl (Dulcolax Tab) 10 mg PRN DAILY PRN PO CONSTIPATION; Start 01/25/17 at 06:45 Bisacodyl (Dulcolax Supp) 10 mg PRN DAILY PRN RC CONSTIPATION; Start 01/25/17 at 06:45 Furosemide (Lasix) 40 mg DAILY PO Last administered on 01/28/17 05:15; Start 01/25/17 at 09:00; Stop 01/29/17 at 03:25; Status DC Guaifenesin (Robitussin Dm) 10 ml PRN Q4HRS PRN PO COUGH; Start 01/25/17 at 06: 45 Albuterol/ Ipratropium (Duoneb) 3 ml PRN Q4HRS PRN NEB SHORTNESS OF BREATH; Start 01/25/17 at 06:45 Levothyroxine Sodium (Synthroid) 100 mcg DAILY06 PO Last administered on 05:21; Start 01/25/17 at 07:00 Lisinopril (Prinivil) 5 mg DAILY PO Last administered on 02/04/17 07:55; Start 01/25/17 at 09:00 Al Hydroxide/Mg Hydroxide (Mylanta Plus Xs) 30 ml PRN Q4HRS PRN PO DYSPEPSIA; Start 01/25/17 at 06:45 Metformin HCl (Glucophage) 500 mg BIDWMEALS PO Last administered on 02/03/17 08 :13; Start 01/25/17 at 08:00; Stop 02/03/17 at 15:41; Status DC Miconazole Nitrate (Monistat-Derm) 1 gerson BID TP ; Start 01/25/17 at 09:00; Stop 01/25/17 at 09:00; Status DC Nitroglycerin (Nitrostat) 0.4 mg PRN Q5MIN PRN SL CHEST PAIN; Start 01/25/17 at 06:45 Polyethylene Glycol (miraLAX) 17 gm QODAY PO Last administered on 02/04/17 07: 56; Start 01/25/17 at 09:00 Senna/Docusate Sodium (Senna Plus) 1 tab QHS PO Last administered on 02/04/17 19:38; Start 01/25/17 at 21:00 Tramadol HCl (Ultram) 25 mg PRN Q6HRS PRN PO PAIN Last administered on 16:21; Start 01/25/17 at 06:45 Acetaminophen (Tylenol) 650 mg TID PO Last administered on 02/05/17 14:09; Start 01/25/17 at 09:00 Atorvastatin Calcium (Lipitor) 40 mg QHS PO Last administered on 02/04/17 19:38 ; Start 01/25/17 at 21:00 Albuterol Sulfate (Ventolin) 2.5 mg Q6H NEB ; Start 01/25/17 at 07:30; Stop at 17:24; Status DC Lactulose 20 gm PRN DAILY PRN PO CONSTIPATION; Start 01/25/17 at 07:30 Budesonide (Pulmicort) 0.5 mg RTBID NEB ; Start 01/25/17 at 08:00; Stop at 17:24; Status DC Olanzapine (ZyPREXA ZYDIS) 2.5 mg PRN Q2HR PRN PO ANXIETY / AGITATION; Start at 08:00 Lorazepam (Ativan) 1 mg DAILY IM Last administered on 01/27/17 09:03; Start at 11:00; Stop 01/27/17 at 18:25; Status DC Haloperidol Lactate (Haldol) 5 mg DAILY IM Last administered on 01/27/17 08:58 ; Start 01/25/17 at 11:00; Stop 01/27/17 at 18:25; Status DC Risperidone (RisperDAL CONSTA) 25 mg Q2WKS IM Last administered on 01/26/17 09 :39; Start 01/26/17 at 09:00 Risperidone (RisperDAL) 3 mg 1X ONCE SL Last administered on 01/26/17 16:15; Start 01/26/17 at 16:00; Stop 01/26/17 at 16:02; Status DC Albuterol Sulfate (Ventolin) 2.5 mg PRN Q6HRS PRN NEB SHORTNESS OF BREATH; Start 01/28/17 at 13:30 Budesonide (Pulmicort) 0.5 mg PRN BID PRN NEB SHORTNESS OF BREATH; Start at 08:00 Haloperidol Lactate (Haldol) 5 mg DAILY IM Last administered on 01/30/17 11:07 ; Start 01/28/17 at 09:00; Stop 01/30/17 at 18:32; Status DC Olanzapine (ZyPREXA ZYDIS) 5 mg PRN Q2HR PRN PO ANXIETY / AGITATION; Start at 18:30 Lorazepam (Ativan) 1 mg DAILY IM Last administered on 01/30/17 11:07; Start at 09:00; Stop 01/30/17 at 18:32; Status DC Valproic Acid (Depakene) 375 mg HS PO ; Start 01/29/17 at 21:00; Stop 01/29/17 at 21:00; Status DC Furosemide (Lasix) 40 mg DAILY06 PO Last administered on 02/05/17 05:21; Start 01/29/17 at 06:00 Valproic Acid (Depakene) 375 mg BID PO Last administered on 02/03/17 08:23; Start 01/29/17 at 21:00; Stop 02/03/17 at 18:22; Status DC Temazepam (Restoril) 30 mg QHS PO Last administered on 02/04/17 19:38; Start at 21:00 Potassium Chloride (Klor-Con) 20 meq BID PO ; Start 01/30/17 at 21:00; Stop at 05:33; Status DC Magnesium Hydroxide (Milk Of Magnesia) 2,400 mg PRN DAILY PRN PO CONSTIPATION; Start 01/30/17 at 16:30; Status UNV Magnesium Hydroxide (Milk Of Magnesia) 2,400 mg PRN DAILY PRN PO CONSTIPATION Last administered on 01/30/17 16:56; Start 01/30/17 at 16:45 Potassium Chloride (Klor-Con) 20 meq BID66 PO Last administered on 02/05/17 16: 47; Start 01/31/17 at 06:00 Metformin HCl (Glucophage) 250 mg BIDWMEALS PO Last administered on 02/05/17 16 :47; Start 02/03/17 at 17:00 Cyanocobalamin (Vitamin B-12) 1,000 mcg DAILY PO Last administered on 02/04/17 07:58; Start 02/04/17 at 09:00 Valproic Acid (Depakene) 500 mg BID PO Last administered on 02/05/17 07:55; Start 02/03/17 at 21:00 Active Scripts Active Reported Tylenol (Acetaminophen) 325 Mg Tablet 650 Mg PO PRN Q6HRS PRN Arthritis Pain (Acetaminophen) 650 Mg Tablet.er 650 Mg PO BID Trazodone Hcl 100 Mg Tablet 100 Mg PO PRN QHS PRN Trazodone Hcl 100 Mg Tablet 100 Mg PO QHS Tramadol Hcl (Tramadol HCl) 50 Mg Tablet 25 Mg PO PRN Q6HRS PRN Synthroid (Levothyroxine Sodium) 100 Mcg Tablet 100 Mcg PO DAILY07 Senna S Tablet (Sennosides/Docusate Sodium) 1 Each Tablet 1 Tab PO QHS Risperdal (Risperidone) 1 Mg/1 Ml Solution 3 Mg PO DAILY16 Restoril (Temazepam) 30 Mg Capsule 30 Mg PO PRN QHS PRN Nitrostat (Nitroglycerin) 0.4 Mg Tab.subl 0.4 Mg SL PRN Q5MIN PRN Miralax (Polyethylene Glycol 3350) 119 Gm Powder 17 Gm PO QODAY Antacid Suspension (Mag Hydrox/Al Hydrox/Simeth) 355 Ml Oral.susp 30 Ml PO PRN Q4HRS PRN Lisinopril 5 Mg Tablet 5 Mg PO DAILY Lipitor (Atorvastatin Calcium) 40 Mg Tablet 40 Mg PO QHS Lasix (Furosemide) 40 Mg Tablet 40 Mg PO DAILY Lactulose 10 Gm/15 Ml Solution 20 Gm PO PRN DAILY PRN Klonopin (Clonazepam) 0.5 Mg Tablet 0.5 Mg PO TID Glucophage (Metformin Hcl) 500 Mg Tablet 500 Mg PO BIDWMEALS Josie-Tussin Dm Syrup (Guaifenesin/Dextromethorphan) 473 Ml Syrup 10 Ml PO PRN Q4HRS PRN Duoneb 0.5-3(2.5) Mg/3 Ml (Albuterol/Ipratropium) 3 Ml Ampul.neb 3 Ml NEB PRN Q4HRS PRN Depakote Sprinkle (Divalproex Sodium) 125 Mg Cap.sprink 125 Mg PO TID Bisacodyl 10 Mg Supp.rect 10 Mg RC PRN DAILY PRN Bisacodyl 5 Mg Tablet.dr 10 Mg PO PRN DAILY PRN Reshma Antifungal (Miconazole Nitrate) 142 Gm Cream..g. 1 Gerson TP BID Ativan (Lorazepam) 0.5 Mg Tablet 0.5 Mg PO PRN Q4HRS PRN Aspirin Ec (Aspirin) 81 Mg Tablet.dr 81 Mg PO DAILY Advair Hfa 115-21 Mcg Inhaler (Fluticasone/Salmeterol) 12 Gm Hfa.aer.ad 2 Puff IH BID Diagnosis: Problems: (1) Psychosis (2) Schizophrenia, acute (3) Anxiety disorder (4) Bipolar affective, mixed, sev w/ psych (5) Impulse control disorder (6) Schizoaffective disorder, chronic condition with acute exacerbation ALBERT ROSE MD Feb 05, 2017 19:42
[2017-02-05] MEDS: ATORVASTATIN CALCIUM 20 MG TABLET PO SCH (21:00)
[2017-02-05] MEDS: TEMAZEPAM 15 MG CAPSULE PO SCH (21:00)
[2017-02-06] MEDS: TEMAZEPAM 15 MG CAPSULE PO SCH ×2 (01:19→19:24)
[2017-02-06] MEDS: SENNOSIDES/DOCUSATE 8.6/50MG TABLET. PO SCH ×2 (02:06→19:23)
[2017-02-06] MEDS: LEVOTHYROXINE 100 MCG TABLET PO SCH (05:34)
[2017-02-06] MEDS: FUROSEMIDE 40 MG TABLET PO SCH (05:35)
[2017-02-06] MEDS: POTASSIUM CHLORIDE 20 MEQ TABLET.ER. PO SCH ×2 (05:35→16:47)
[2017-02-06] MEDS: MAGNESIUM HYDROXIDE 2,400 MG/30 ML ORAL.SUSP. PO PRN (05:48)
[2017-02-06 06:45] VITALS: BP 130/54
[2017-02-06] MEDS: LISINOPRIL 5 MG TABLET. PO SCH (09:00)
[2017-02-06] MEDS: NICOTINE 21MG PATCH. TD SCH ×2 (09:00→09:18)
[2017-02-06] MEDS: ACETAMINOPHEN 325 MG TABLET PO SCH ×5 (09:00→19:23)
[2017-02-06] MEDS: CYANOCOBALAMIN (VITAMIN B-12) 1,000 MCG TABLET. PO SCH (09:16)
[2017-02-06] MEDS: metFORMIN 500 MG TABLET PO SCH ×2 (09:17→16:46)
[2017-02-06] MEDS: ASPIRIN ENTERIC COATED 81 MG TABLET.DR. PO SCH (09:17)
[2017-02-06] MEDS: VALPROATE ACID 250 MG/5 ML ORAL SOLUTION PO SCH ×2 (09:18→19:23)
[2017-02-06] MEDS: POLYETHYLENE GLYCOL 3350 17 GM PACKET. PO SCH (09:19)
[2017-02-06] MEDS: clonazePAM 0.5 MG TABLET PO SCH ×3 (09:20→19:27)
[2017-02-06 15:45] VITALS: BP 103/68
[2017-02-06] MEDS: risperiDONE ORAL 1 MG/ML 30ml BOTTLE. PO SCH (16:13)
--- NOTE | 2017-02-06 17:16 | PN ---
DATE: 02/04/2017 This late entry 02/04/2017 covers elements not covered in my initial note on 02/04/2017. SUBJECTIVE: The patient was seen individually evening of 02/04/2017. I met with her in her room. The patient remains somewhat hyperverbal, often refuses medications, later takes it, somewhat demanding at times, refusing a NARINDER hose at other times. REVIEW OF SYSTEMS: Positive for pedal edema. No CV, , pulmonary, eye system symptoms on review. Reliability poor. MENTAL STATUS EXAM: Oriented to herself and situation. Speech coherent, rapid, low in volume, abstraction fair, computation impaired, language function intact, attention span short. Mood and affect remains intermittently labile. LABORATORY DATA: Reviewed. IMPRESSION: Unchanged from initial note. PLAN: Continue current psychotropics. Depakote was increased to 500 b.i.d. We would repeat labs level on 02/07/2017. Reviewed drug interactions, risk/benefit ratio favors, no further change at this time. ALBERT ROSE MD DR: [facility] JOB#: [id number] / [id number]
[2017-02-06] MEDS: ATORVASTATIN CALCIUM 20 MG TABLET PO SCH (19:23)
--- NOTE | 2017-02-06 20:39 | PDOC ---
Exam Tra Demential Exam: Tra Note: Please also refer to the separate dictated note~for this date of service dictated separately.~Patient seen individually. Discussed the patient with Nursing staff reviewed the chart.~Reviewed interim history and current functioning. Reviewed vital signs,~Labs/ Radiology~and current medications noted below. Continue current treatment with the changes noted in the dictated addendum note Assessment: Vital Signs: Vital Signs Date Time Temp Pulse Resp B/P (MAP) Pulse Ox O2 Delivery O2 Flow Rate FiO2 02/06/17 15:45 97.1 99 20 103/68 (80) 95 02/03/17 17:32 Room Air I&O Intake and Output 02/07/17 07:00 Intake Total 840 ml Balance 840 ml Intake Oral 840 ml Current Medications: Meds: Current Medications Olanzapine (ZyPREXA ZYDIS) 10 mg STK-MED ONCE .ROUTE ; Start 01/25/17 at 04:06; Stop 01/25/17 at 04:07; Status DC Olanzapine (ZyPREXA ZYDIS) 10 mg 1X STAT PO Last administered on 01/25/17 04: 07; Start 01/25/17 at 04:03; Stop 01/25/17 at 06:26; Status DC Nicotine (Nicoderm Cq 21mg) 1 patch DAILY TD Last administered on 02/02/17 08: 30; Start 01/25/17 at 09:00 Clonazepam (KlonoPIN) 0.5 mg TID PO Last administered on 02/06/17 19:27; Start 01/25/17 at 09:00 Divalproex Sodium (Depakote Sprinkles) 125 mg TID PO Last administered on 14:16; Start 01/25/17 at 09:00; Stop 01/28/17 at 18:41; Status DC Lorazepam (Ativan) 0.5 mg PRN Q4HRS PRN PO ANXIETY / AGITATION; Start 01/25/17 at 05:30 Risperidone (RisperDAL) 3 mg DAILY16 PO Last administered on 02/06/17 16:13; Start 01/25/17 at 16:00 Temazepam (Restoril) 30 mg PRN QHS PRN PO INSOMNIA; Start 01/25/17 at 05:30; Stop 01/25/17 at 06:31; Status DC Trazodone HCl (Desyrel) 100 mg PRN QHS PRN PO INSOMNIA; Start 01/25/17 at 05:30 ; Stop 01/25/17 at 11:36; Status DC Trazodone HCl (Desyrel) 100 mg QHS PO ; Start 01/25/17 at 21:00; Stop 01/25/17 at 21:00; Status DC Temazepam (Restoril) 30 mg PRN QHS PRN PO INSOMNIA Last administered on 19:22; Start 01/25/17 at 06:31; Stop 01/29/17 at 18:50; Status DC Acetaminophen (Tylenol) 650 mg PRN Q6HRS PRN PO PAIN / TEMP; Start 01/25/17 at 06:45 Aspirin (Aspirin Enteric Coated) 81 mg DAILY PO Last administered on 02/06/17 09:17; Start 01/25/17 at 09:00 Bisacodyl (Dulcolax Tab) 10 mg PRN DAILY PRN PO CONSTIPATION; Start 01/25/17 at 06:45 Bisacodyl (Dulcolax Supp) 10 mg PRN DAILY PRN RC CONSTIPATION; Start 01/25/17 at 06:45 Furosemide (Lasix) 40 mg DAILY PO Last administered on 01/28/17 05:15; Start 01/25/17 at 09:00; Stop 01/29/17 at 03:25; Status DC Guaifenesin (Robitussin Dm) 10 ml PRN Q4HRS PRN PO COUGH; Start 01/25/17 at 06: 45 Albuterol/ Ipratropium (Duoneb) 3 ml PRN Q4HRS PRN NEB SHORTNESS OF BREATH; Start 01/25/17 at 06:45 Levothyroxine Sodium (Synthroid) 100 mcg DAILY06 PO Last administered on 05:34; Start 01/25/17 at 07:00 Lisinopril (Prinivil) 5 mg DAILY PO Last administered on 02/04/17 07:55; Start 01/25/17 at 09:00 Al Hydroxide/Mg Hydroxide (Mylanta Plus Xs) 30 ml PRN Q4HRS PRN PO DYSPEPSIA; Start 01/25/17 at 06:45 Metformin HCl (Glucophage) 500 mg BIDWMEALS PO Last administered on 02/03/17 08 :13; Start 01/25/17 at 08:00; Stop 02/03/17 at 15:41; Status DC Miconazole Nitrate (Monistat-Derm) 1 gerson BID TP ; Start 01/25/17 at 09:00; Stop 01/25/17 at 09:00; Status DC Nitroglycerin (Nitrostat) 0.4 mg PRN Q5MIN PRN SL CHEST PAIN; Start 01/25/17 at 06:45 Polyethylene Glycol (miraLAX) 17 gm QODAY PO Last administered on 02/06/17 09: 19; Start 01/25/17 at 09:00 Senna/Docusate Sodium (Senna Plus) 1 tab QHS PO Last administered on 02/06/17 19:23; Start 01/25/17 at 21:00 Tramadol HCl (Ultram) 25 mg PRN Q6HRS PRN PO PAIN Last administered on 16:21; Start 01/25/17 at 06:45 Acetaminophen (Tylenol) 650 mg TID PO Last administered on 02/06/17 19:23; Start 01/25/17 at 09:00 Atorvastatin Calcium (Lipitor) 40 mg QHS PO Last administered on 02/06/17 19:23 ; Start 01/25/17 at 21:00 Albuterol Sulfate (Ventolin) 2.5 mg Q6H NEB ; Start 01/25/17 at 07:30; Stop at 17:24; Status DC Lactulose 20 gm PRN DAILY PRN PO CONSTIPATION; Start 01/25/17 at 07:30 Budesonide (Pulmicort) 0.5 mg RTBID NEB ; Start 01/25/17 at 08:00; Stop at 17:24; Status DC Olanzapine (ZyPREXA ZYDIS) 2.5 mg PRN Q2HR PRN PO ANXIETY / AGITATION; Start at 08:00 Lorazepam (Ativan) 1 mg DAILY IM Last administered on 01/27/17 09:03; Start at 11:00; Stop 01/27/17 at 18:25; Status DC Haloperidol Lactate (Haldol) 5 mg DAILY IM Last administered on 01/27/17 08:58 ; Start 01/25/17 at 11:00; Stop 01/27/17 at 18:25; Status DC Risperidone (RisperDAL CONSTA) 25 mg Q2WKS IM Last administered on 01/26/17 09 :39; Start 01/26/17 at 09:00 Risperidone (RisperDAL) 3 mg 1X ONCE SL Last administered on 01/26/17 16:15; Start 01/26/17 at 16:00; Stop 01/26/17 at 16:02; Status DC Albuterol Sulfate (Ventolin) 2.5 mg PRN Q6HRS PRN NEB SHORTNESS OF BREATH; Start 01/28/17 at 13:30 Budesonide (Pulmicort) 0.5 mg PRN BID PRN NEB SHORTNESS OF BREATH; Start at 08:00 Haloperidol Lactate (Haldol) 5 mg DAILY IM Last administered on 01/30/17 11:07 ; Start 01/28/17 at 09:00; Stop 01/30/17 at 18:32; Status DC Olanzapine (ZyPREXA ZYDIS) 5 mg PRN Q2HR PRN PO ANXIETY / AGITATION; Start at 18:30 Lorazepam (Ativan) 1 mg DAILY IM Last administered on 01/30/17 11:07; Start at 09:00; Stop 01/30/17 at 18:32; Status DC Valproic Acid (Depakene) 375 mg HS PO ; Start 01/29/17 at 21:00; Stop 01/29/17 at 21:00; Status DC Furosemide (Lasix) 40 mg DAILY06 PO Last administered on 02/06/17 05:35; Start 01/29/17 at 06:00 Valproic Acid (Depakene) 375 mg BID PO Last administered on 02/03/17 08:23; Start 01/29/17 at 21:00; Stop 02/03/17 at 18:22; Status DC Temazepam (Restoril) 30 mg QHS PO Last administered on 02/06/17 19:24; Start at 21:00 Potassium Chloride (Klor-Con) 20 meq BID PO ; Start 01/30/17 at 21:00; Stop at 05:33; Status DC Magnesium Hydroxide (Milk Of Magnesia) 2,400 mg PRN DAILY PRN PO CONSTIPATION; Start 01/30/17 at 16:30; Status UNV Magnesium Hydroxide (Milk Of Magnesia) 2,400 mg PRN DAILY PRN PO CONSTIPATION Last administered on 02/06/17 05:48; Start 01/30/17 at 16:45 Potassium Chloride (Klor-Con) 20 meq BID66 PO Last administered on 02/06/17 16: 47; Start 01/31/17 at 06:00 Metformin HCl (Glucophage) 250 mg BIDWMEALS PO Last administered on 02/06/17 16 :46; Start 02/03/17 at 17:00 Cyanocobalamin (Vitamin B-12) 1,000 mcg DAILY PO Last administered on 02/06/17 09:16; Start 02/04/17 at 09:00 Valproic Acid (Depakene) 500 mg BID PO Last administered on 02/06/17 19:23; Start 02/03/17 at 21:00 Active Scripts Active Reported Tylenol (Acetaminophen) 325 Mg Tablet 650 Mg PO PRN Q6HRS PRN Arthritis Pain (Acetaminophen) 650 Mg Tablet.er 650 Mg PO BID Trazodone Hcl 100 Mg Tablet 100 Mg PO PRN QHS PRN Trazodone Hcl 100 Mg Tablet 100 Mg PO QHS Tramadol Hcl (Tramadol HCl) 50 Mg Tablet 25 Mg PO PRN Q6HRS PRN Synthroid (Levothyroxine Sodium) 100 Mcg Tablet 100 Mcg PO DAILY07 Senna S Tablet (Sennosides/Docusate Sodium) 1 Each Tablet 1 Tab PO QHS Risperdal (Risperidone) 1 Mg/1 Ml Solution 3 Mg PO DAILY16 Restoril (Temazepam) 30 Mg Capsule 30 Mg PO PRN QHS PRN Nitrostat (Nitroglycerin) 0.4 Mg Tab.subl 0.4 Mg SL PRN Q5MIN PRN Miralax (Polyethylene Glycol 3350) 119 Gm Powder 17 Gm PO QODAY Antacid Suspension (Mag Hydrox/Al Hydrox/Simeth) 355 Ml Oral.susp 30 Ml PO PRN Q4HRS PRN Lisinopril 5 Mg Tablet 5 Mg PO DAILY Lipitor (Atorvastatin Calcium) 40 Mg Tablet 40 Mg PO QHS Lasix (Furosemide) 40 Mg Tablet 40 Mg PO DAILY Lactulose 10 Gm/15 Ml Solution 20 Gm PO PRN DAILY PRN Klonopin (Clonazepam) 0.5 Mg Tablet 0.5 Mg PO TID Glucophage (Metformin Hcl) 500 Mg Tablet 500 Mg PO BIDWMEALS Josie-Tussin Dm Syrup (Guaifenesin/Dextromethorphan) 473 Ml Syrup 10 Ml PO PRN Q4HRS PRN Duoneb 0.5-3(2.5) Mg/3 Ml (Albuterol/Ipratropium) 3 Ml Ampul.neb 3 Ml NEB PRN Q4HRS PRN Depakote Sprinkle (Divalproex Sodium) 125 Mg Cap.sprink 125 Mg PO TID Bisacodyl 10 Mg Supp.rect 10 Mg RC PRN DAILY PRN Bisacodyl 5 Mg Tablet.dr 10 Mg PO PRN DAILY PRN Reshma Antifungal (Miconazole Nitrate) 142 Gm Cream..g. 1 Gerson TP BID Ativan (Lorazepam) 0.5 Mg Tablet 0.5 Mg PO PRN Q4HRS PRN Aspirin Ec (Aspirin) 81 Mg Tablet.dr 81 Mg PO DAILY Advair Hfa 115-21 Mcg Inhaler (Fluticasone/Salmeterol) 12 Gm Hfa.aer.ad 2 Puff IH BID Diagnosis: Problems: (1) Psychosis (2) Schizophrenia, acute (3) Anxiety disorder (4) Bipolar affective, mixed, sev w/ psych (5) Impulse control disorder (6) Schizoaffective disorder, chronic condition with acute exacerbation ALBERT ROSE MD Feb 06, 2017 20:39
--- NOTE | 2017-02-07 02:05 | PN ---
DATE: 02/05/2017 PSYCHIATRIC PROGRESS NOTE This is a late entry for 02/05/2017, covers elements not covered in my initial note of 02/05/2017. SUBJECTIVE: The patient was staffed at a treatment team meeting with the entire team the morning of 02/05/2017, seen individually the evening of 02/05/2017. Refusing her psychotropics, frequently demanding, later accepting her medications, refusing the NARINDER hose. Labs awaited on 02/07/2017. She does take her metformin, potassium, and Klonopin later. REVIEW OF SYSTEMS: Positive for her pedal edema. No CV, , pulmonary, eye system symptoms on review. MENTAL STATUS EXAM: Oriented to herself and situation. Speech is coherent, rapid, pressured at times, low in volume. Abstraction fair, computation impaired, language function intact, attention span short. Mood and affect remains labile, but showing some slight improvement. LABORATORY DATA: Reviewed. IMPRESSION: Unchanged from initial note. PLAN: Continue current psychotropics. Repeat labs level on the Depakote on 02/07/2017. Reviewed drug interactions. Risk/benefit ratio favors no further change at this time. MAN Hero ROSE MD DR: CHASE/elxus JOB#: [id number] / [id number]
[2017-02-07] MEDS: LEVOTHYROXINE 100 MCG TABLET PO SCH (04:15)
[2017-02-07] MEDS: POTASSIUM CHLORIDE 20 MEQ TABLET.ER. PO SCH ×2 (04:15→17:57)
[2017-02-07] MEDS: FUROSEMIDE 40 MG TABLET PO SCH (04:15)
[2017-02-07 05:57] VITALS: BP 100/67
[2017-02-07 07:08] LABS: BASO % 1 % (0-3); EOS % 0 % (0-3); HEMATOCRIT 36.5 % (36.0-47.0); HEMOGLOBIN 12.3 g/dL (12.0-15.5); LYMPH # 1.3 x10^3/uL (1.0-4.8); LYMPH % 28 % (24-48); MEAN CORPUSCULAR HEMOGLOBIN 34 pg (25-35); MEAN CORPUSCULAR HGB CONC 34 g/dL (31-37); MEAN CORPUSCULAR VOLUME 100 fL (79-100); MONO # 0.5 x10^3/uL (0.0-1.1); MONO % 12 % (0-9); NEUT # 2.7 x10^3uL (1.8-7.7); NEUT % 59 % (31-73); PLATELET COUNT 238 x10^3/uL (140-400); RED BLOOD COUNT 3.64 x10^6/uL (3.50-5.40); RED CELL DISTRIBUTION WIDTH 13.8 % (11.5-14.5); WHITE BLOOD COUNT 4.6 x10^3/uL (4.0-11.0)
[2017-02-07 07:25] LABS: ALBUMIN 3.6 g/dL (3.4-5.0); ALBUMIN/GLOBULIN RATIO 1.2 (1.0-1.7); ALK PHOS 113 U/L (46-116); ALT (SGPT) 25 U/L (14-59); ANION GAP 5 (6-14); AST (SGOT) 16 U/L (15-37); BLOOD UREA NITROGEN 12 mg/dL (7-20); BUN/CREATININE RATIO 20 (6-20); CALCIUM 8.7 mg/dL (8.5-10.1); CARBON DIOXIDE 31 mmol/L (21-32); CHLORIDE 102 mmol/L (98-107); CREATININE 0.6 mg/dL (0.6-1.0); GFR 97.2; GLUCOSE 93 mg/dL (70-99); POTASSIUM 4.5 mmol/L (3.5-5.1); SODIUM 138 mmol/L (136-145); TOTAL BILIRUBIN 0.3 mg/dL (0.2-1.0); TOTAL PROTEIN 6.7 g/dL (6.4-8.2)
[2017-02-07 07:26] LABS: VAL ACID 42 mcg/mL (50-100)
[2017-02-07] MEDS: NICOTINE 21MG PATCH. TD SCH ×2 (08:01→09:00)
[2017-02-07] MEDS: VALPROATE ACID 250 MG/5 ML ORAL SOLUTION PO SCH ×2 (08:01→19:54)
[2017-02-07] MEDS: ASPIRIN ENTERIC COATED 81 MG TABLET.DR. PO SCH ×2 (08:01→09:00)
[2017-02-07] MEDS: metFORMIN 500 MG TABLET PO SCH ×2 (08:02→17:57)
[2017-02-07] MEDS: LISINOPRIL 5 MG TABLET. PO SCH (08:02)
[2017-02-07] MEDS: ACETAMINOPHEN 325 MG TABLET PO SCH ×4 (08:03→19:54)
[2017-02-07] MEDS: CYANOCOBALAMIN (VITAMIN B-12) 1,000 MCG TABLET. PO SCH ×2 (08:03→09:00)
[2017-02-07] MEDS: clonazePAM 0.5 MG TABLET PO SCH ×3 (08:07→19:54)
[2017-02-07] MEDS: traMADol 50 MG TABLET PO PRN (11:47)
[2017-02-07] MEDS: risperiDONE ORAL 1 MG/ML 30ml BOTTLE. PO SCH (16:00)
[2017-02-07 17:21] VITALS: BP 119/56
[2017-02-07] MEDS: traZODone 100 MG TABLET. PO SCH (19:53)
[2017-02-07] MEDS: SENNOSIDES/DOCUSATE 8.6/50MG TABLET. PO SCH (19:54)
[2017-02-07] MEDS: TEMAZEPAM 15 MG CAPSULE PO SCH (19:55)
[2017-02-07] MEDS: ATORVASTATIN CALCIUM 20 MG TABLET PO SCH (19:55)
--- NOTE | 2017-02-07 23:10 | PDOC ---
Exam Tra Demential Exam: Tra Note: Please also refer to the separate dictated note~for this date of service dictated separately.~Patient seen individually. Discussed the patient with Nursing staff reviewed the chart.~Reviewed interim history and current functioning. Reviewed vital signs,~Labs/ Radiology~and current medications noted below. Continue current treatment with the changes noted in the dictated addendum note Assessment: Vital Signs: Vital Signs Date Time Temp Pulse Resp B/P (MAP) Pulse Ox O2 Delivery O2 Flow Rate FiO2 02/07/17 17:21 98.7 65 16 119/56 (77) 98 02/03/17 17:32 Room Air I&O Intake and Output 02/08/17 07:00 Intake Total 960 ml Balance 960 ml Intake Oral 960 ml Labs: Laboratory Tests Test 02/07/17 06:54 White Blood Count 4.6 x10^3/uL (4.0-11.0) Red Blood Count 3.64 x10^6/uL (3.50-5.40) Hemoglobin 12.3 g/dL (12.0-15.5) Hematocrit 36.5 % (36.0-47.0) Mean Corpuscular Volume 100 fL (79-100) Mean Corpuscular Hemoglobin 34 pg (25-35) Mean Corpuscular Hemoglobin Concent 34 g/dL (31-37) Red Cell Distribution Width 13.8 % (11.5-14.5) Platelet Count 238 x10^3/uL (140-400) Neutrophils (%) (Auto) 59 % (31-73) Lymphocytes (%) (Auto) 28 % (24-48) Monocytes (%) (Auto) 12 % (0-9) H Eosinophils (%) (Auto) 0 % (0-3) Basophils (%) (Auto) 1 % (0-3) Neutrophils # (Auto) 2.7 x10^3uL (1.8-7.7) Lymphocytes # (Auto) 1.3 x10^3/uL (1.0-4.8) Monocytes # (Auto) 0.5 x10^3/uL (0.0-1.1) Eosinophils # (Auto) 0.0 x10^3/uL (0.0-0.7) Basophils # (Auto) 0.0 x10^3/uL (0.0-0.2) Sodium Level 138 mmol/L (136-145) Potassium Level 4.5 mmol/L (3.5-5.1) Chloride Level 102 mmol/L (98-107) Carbon Dioxide Level 31 mmol/L (21-32) Anion Gap 5 (6-14) L Blood Urea Nitrogen 12 mg/dL (7-20) Creatinine 0.6 mg/dL (0.6-1.0) Estimated GFR (Cockcroft-Gault) 97.2 BUN/Creatinine Ratio 20 (6-20) Glucose Level 93 mg/dL (70-99) Calcium Level 8.7 mg/dL (8.5-10.1) Total Bilirubin 0.3 mg/dL (0.2-1.0) Aspartate Amino Transferase (AST) 16 U/L (15-37) Alanine Aminotransferase (ALT) 25 U/L (14-59) Alkaline Phosphatase 113 U/L (46-116) Total Protein 6.7 g/dL (6.4-8.2) Albumin 3.6 g/dL (3.4-5.0) Albumin/Globulin Ratio 1.2 (1.0-1.7) Valproic Acid Level 42 mcg/mL (50-100) L Valproic Acid Last Dose Date 02/06/17 Valproic Acid Last Dose Time 2100 Current Medications: Meds: Current Medications Olanzapine (ZyPREXA ZYDIS) 10 mg STK-MED ONCE .ROUTE ; Start 01/25/17 at 04:06; Stop 01/25/17 at 04:07; Status DC Olanzapine (ZyPREXA ZYDIS) 10 mg 1X STAT PO Last administered on 01/25/17 04: 07; Start 01/25/17 at 04:03; Stop 01/25/17 at 06:26; Status DC Nicotine (Nicoderm Cq 21mg) 1 patch DAILY TD Last administered on 02/02/17 08: 30; Start 01/25/17 at 09:00 Clonazepam (KlonoPIN) 0.5 mg TID PO Last administered on 02/07/17 19:54; Start 01/25/17 at 09:00 Divalproex Sodium (Depakote Sprinkles) 125 mg TID PO Last administered on 14:16; Start 01/25/17 at 09:00; Stop 01/28/17 at 18:41; Status DC Lorazepam (Ativan) 0.5 mg PRN Q4HRS PRN PO ANXIETY / AGITATION; Start 01/25/17 at 05:30 Risperidone (RisperDAL) 3 mg DAILY16 PO Last administered on 02/07/17 16:00; Start 01/25/17 at 16:00 Temazepam (Restoril) 30 mg PRN QHS PRN PO INSOMNIA; Start 01/25/17 at 05:30; Stop 01/25/17 at 06:31; Status DC Trazodone HCl (Desyrel) 100 mg PRN QHS PRN PO INSOMNIA; Start 01/25/17 at 05:30 ; Stop 01/25/17 at 11:36; Status DC Trazodone HCl (Desyrel) 100 mg QHS PO ; Start 01/25/17 at 21:00; Stop 01/25/17 at 21:00; Status DC Temazepam (Restoril) 30 mg PRN QHS PRN PO INSOMNIA Last administered on 19:22; Start 01/25/17 at 06:31; Stop 01/29/17 at 18:50; Status DC Acetaminophen (Tylenol) 650 mg PRN Q6HRS PRN PO PAIN / TEMP Last administered on 02/07/17 04:26; Start 01/25/17 at 06:45 Aspirin (Aspirin Enteric Coated) 81 mg DAILY PO Last administered on 02/06/17 09:17; Start 01/25/17 at 09:00 Bisacodyl (Dulcolax Tab) 10 mg PRN DAILY PRN PO CONSTIPATION; Start 01/25/17 at 06:45 Bisacodyl (Dulcolax Supp) 10 mg PRN DAILY PRN RC CONSTIPATION; Start 01/25/17 at 06:45 Furosemide (Lasix) 40 mg DAILY PO Last administered on 01/28/17 05:15; Start 01/25/17 at 09:00; Stop 01/29/17 at 03:25; Status DC Guaifenesin (Robitussin Dm) 10 ml PRN Q4HRS PRN PO COUGH; Start 01/25/17 at 06: 45 Albuterol/ Ipratropium (Duoneb) 3 ml PRN Q4HRS PRN NEB SHORTNESS OF BREATH; Start 01/25/17 at 06:45 Levothyroxine Sodium (Synthroid) 100 mcg DAILY06 PO Last administered on 04:15; Start 01/25/17 at 07:00 Lisinopril (Prinivil) 5 mg DAILY PO Last administered on 02/04/17 07:55; Start 01/25/17 at 09:00 Al Hydroxide/Mg Hydroxide (Mylanta Plus Xs) 30 ml PRN Q4HRS PRN PO DYSPEPSIA; Start 01/25/17 at 06:45 Metformin HCl (Glucophage) 500 mg BIDWMEALS PO Last administered on 02/03/17 08 :13; Start 01/25/17 at 08:00; Stop 02/03/17 at 15:41; Status DC Miconazole Nitrate (Monistat-Derm) 1 gerson BID TP ; Start 01/25/17 at 09:00; Stop 01/25/17 at 09:00; Status DC Nitroglycerin (Nitrostat) 0.4 mg PRN Q5MIN PRN SL CHEST PAIN; Start 01/25/17 at 06:45 Polyethylene Glycol (miraLAX) 17 gm QODAY PO Last administered on 02/06/17 09: 19; Start 01/25/17 at 09:00 Senna/Docusate Sodium (Senna Plus) 1 tab QHS PO Last administered on 02/07/17 19:54; Start 01/25/17 at 21:00 Tramadol HCl (Ultram) 25 mg PRN Q6HRS PRN PO PAIN Last administered on 11:47; Start 01/25/17 at 06:45 Acetaminophen (Tylenol) 650 mg TID PO Last administered on 02/07/17 19:54; Start 01/25/17 at 09:00 Atorvastatin Calcium (Lipitor) 40 mg QHS PO Last administered on 02/07/17 19:55 ; Start 01/25/17 at 21:00 Albuterol Sulfate (Ventolin) 2.5 mg Q6H NEB ; Start 01/25/17 at 07:30; Stop at 17:24; Status DC Lactulose 20 gm PRN DAILY PRN PO CONSTIPATION; Start 01/25/17 at 07:30 Budesonide (Pulmicort) 0.5 mg RTBID NEB ; Start 01/25/17 at 08:00; Stop at 17:24; Status DC Olanzapine (ZyPREXA ZYDIS) 2.5 mg PRN Q2HR PRN PO ANXIETY / AGITATION; Start at 08:00 Lorazepam (Ativan) 1 mg DAILY IM Last administered on 01/27/17 09:03; Start at 11:00; Stop 01/27/17 at 18:25; Status DC Haloperidol Lactate (Haldol) 5 mg DAILY IM Last administered on 01/27/17 08:58 ; Start 01/25/17 at 11:00; Stop 01/27/17 at 18:25; Status DC Risperidone (RisperDAL CONSTA) 25 mg Q2WKS IM Last administered on 01/26/17 09 :39; Start 01/26/17 at 09:00 Risperidone (RisperDAL) 3 mg 1X ONCE SL Last administered on 01/26/17 16:15; Start 01/26/17 at 16:00; Stop 01/26/17 at 16:02; Status DC Albuterol Sulfate (Ventolin) 2.5 mg PRN Q6HRS PRN NEB SHORTNESS OF BREATH; Start 01/28/17 at 13:30 Budesonide (Pulmicort) 0.5 mg PRN BID PRN NEB SHORTNESS OF BREATH; Start at 08:00 Haloperidol Lactate (Haldol) 5 mg DAILY IM Last administered on 01/30/17 11:07 ; Start 01/28/17 at 09:00; Stop 01/30/17 at 18:32; Status DC Olanzapine (ZyPREXA ZYDIS) 5 mg PRN Q2HR PRN PO ANXIETY / AGITATION; Start at 18:30 Lorazepam (Ativan) 1 mg DAILY IM Last administered on 01/30/17 11:07; Start at 09:00; Stop 01/30/17 at 18:32; Status DC Valproic Acid (Depakene) 375 mg HS PO ; Start 01/29/17 at 21:00; Stop 01/29/17 at 21:00; Status DC Furosemide (Lasix) 40 mg DAILY06 PO Last administered on 02/07/17 04:15; Start 01/29/17 at 06:00 Valproic Acid (Depakene) 375 mg BID PO Last administered on 02/03/17 08:23; Start 01/29/17 at 21:00; Stop 02/03/17 at 18:22; Status DC Temazepam (Restoril) 30 mg QHS PO Last administered on 02/07/17 19:55; Start at 21:00 Potassium Chloride (Klor-Con) 20 meq BID PO ; Start 01/30/17 at 21:00; Stop at 05:33; Status DC Magnesium Hydroxide (Milk Of Magnesia) 2,400 mg PRN DAILY PRN PO CONSTIPATION; Start 01/30/17 at 16:30; Status UNV Magnesium Hydroxide (Milk Of Magnesia) 2,400 mg PRN DAILY PRN PO CONSTIPATION Last administered on 02/06/17 05:48; Start 01/30/17 at 16:45 Potassium Chloride (Klor-Con) 20 meq BID66 PO Last administered on 02/07/17 17: 57; Start 01/31/17 at 06:00 Metformin HCl (Glucophage) 250 mg BIDWMEALS PO Last administered on 02/07/17 17 :57; Start 02/03/17 at 17:00 Cyanocobalamin (Vitamin B-12) 1,000 mcg DAILY PO Last administered on 02/06/17 09:16; Start 02/04/17 at 09:00 Valproic Acid (Depakene) 500 mg BID PO Last administered on 02/07/17 08:01; Start 02/03/17 at 21:00; Stop 02/07/17 at 15:17; Status DC Valproic Acid (Depakene) 750 mg BID PO Last administered on 02/07/17 19:54; Start 02/07/17 at 21:00 Trazodone HCl (Desyrel) 100 mg QHS PO Last administered on 02/07/17 19:53; Start 02/07/17 at 21:00 Trazodone HCl (Desyrel) 100 mg PRN QHS PRN PO INSOMNIA; Start 02/07/17 at 19:00 Active Scripts Active Reported Tylenol (Acetaminophen) 325 Mg Tablet 650 Mg PO PRN Q6HRS PRN Arthritis Pain (Acetaminophen) 650 Mg Tablet.er 650 Mg PO BID Trazodone Hcl 100 Mg Tablet 100 Mg PO PRN QHS PRN Trazodone Hcl 100 Mg Tablet 100 Mg PO QHS Tramadol Hcl (Tramadol HCl) 50 Mg Tablet 25 Mg PO PRN Q6HRS PRN Synthroid (Levothyroxine Sodium) 100 Mcg Tablet 100 Mcg PO DAILY07 Senna S Tablet (Sennosides/Docusate Sodium) 1 Each Tablet 1 Tab PO QHS Risperdal (Risperidone) 1 Mg/1 Ml Solution 3 Mg PO DAILY16 Restoril (Temazepam) 30 Mg Capsule 30 Mg PO PRN QHS PRN Nitrostat (Nitroglycerin) 0.4 Mg Tab.subl 0.4 Mg SL PRN Q5MIN PRN Miralax (Polyethylene Glycol 3350) 119 Gm Powder 17 Gm PO QODAY Antacid Suspension (Mag Hydrox/Al Hydrox/Simeth) 355 Ml Oral.susp 30 Ml PO PRN Q4HRS PRN Lisinopril 5 Mg Tablet 5 Mg PO DAILY Lipitor (Atorvastatin Calcium) 40 Mg Tablet 40 Mg PO QHS Lasix (Furosemide) 40 Mg Tablet 40 Mg PO DAILY Lactulose 10 Gm/15 Ml Solution 20 Gm PO PRN DAILY PRN Klonopin (Clonazepam) 0.5 Mg Tablet 0.5 Mg PO TID Glucophage (Metformin Hcl) 500 Mg Tablet 500 Mg PO BIDWMEALS Josie-Tussin Dm Syrup (Guaifenesin/Dextromethorphan) 473 Ml Syrup 10 Ml PO PRN Q4HRS PRN Duoneb 0.5-3(2.5) Mg/3 Ml (Albuterol/Ipratropium) 3 Ml Ampul.neb 3 Ml NEB PRN Q4HRS PRN Depakote Sprinkle (Divalproex Sodium) 125 Mg Cap.sprink 125 Mg PO TID Bisacodyl 10 Mg Supp.rect 10 Mg RC PRN DAILY PRN Bisacodyl 5 Mg Tablet.dr 10 Mg PO PRN DAILY PRN Reshma Antifungal (Miconazole Nitrate) 142 Gm Cream..g. 1 Gerson TP BID Ativan (Lorazepam) 0.5 Mg Tablet 0.5 Mg PO PRN Q4HRS PRN Aspirin Ec (Aspirin) 81 Mg Tablet.dr 81 Mg PO DAILY Advair Hfa 115-21 Mcg Inhaler (Fluticasone/Salmeterol) 12 Gm Hfa.aer.ad 2 Puff IH BID Diagnosis: Problems: (1) Psychosis (2) Schizophrenia, acute (3) Anxiety disorder (4) Bipolar affective, mixed, sev w/ psych (5) Impulse control disorder (6) Schizoaffective disorder, chronic condition with acute exacerbation ALBERT ROSE MD Feb 07, 2017 23:10
--- NOTE | 2017-02-08 01:43 | PN ---
DATE: 02/07/2017 PSYCHIATRIC PROGRESS NOTE This late entry 02/06/2017, covers elements not covered in my initial note. SUBJECTIVE: I met with the patient in the evening of 02/06/2017. The patient has been resistive to taking a p.m. medication, tearful at times, refused metformin and Klonopin was hidden in her food drinks and she took it. She told the nursing staff, she would not take her medications until she talked to me. I met with her on 2 separate occasions, the evening of 02/06/2017 and on the second occasion took her evening medications in a container to help store administrator it to her successfully. She has been writing profusely, very disorganized, still manic, labile. She talked about her father being an anesthesiologist and just the talk of her father and some memories about him made her extremely tearful, labile as I sat with her in her room. She did recover before she took her medications from me. REVIEW OF SYSTEMS: No CV, , pulmonary, eye system symptoms on review. Reliability poor, complains of lower extremity swelling. MENTAL STATUS EXAM: Oriented to herself and situation. Speech coherent, rapid, low in volume. Abstraction fair, computation impaired, language function intact, attention span short. Mood and affect remain somewhat labile. LABORATORY DATA: Reviewed. IMPRESSION: Unchanged from initial note. PLAN: Continue current psychotropics, reviewed drug interactions, Depakene is 500 mg b.i.d. We will adjust to reach a therapeutic level since the last level was 49. Review of drug interactions, risk/benefit ratio favors no further change other than Depakene for now. MAN Hero ROSE MD DR: CHASE/lexus JOB#: [id number] / [id number]
[2017-02-08] MEDS: LEVOTHYROXINE 100 MCG TABLET PO SCH (06:01)
[2017-02-08] MEDS: FUROSEMIDE 40 MG TABLET PO SCH (06:01)
[2017-02-08] MEDS: POTASSIUM CHLORIDE 20 MEQ TABLET.ER. PO SCH ×2 (06:02→18:00)
[2017-02-08 06:07] VITALS: BP 126/81
[2017-02-08] MEDS: metFORMIN 500 MG TABLET PO SCH ×2 (07:33→18:08)
[2017-02-08] MEDS: POLYETHYLENE GLYCOL 3350 17 GM PACKET. PO SCH (07:33)
[2017-02-08] MEDS: clonazePAM 0.5 MG TABLET PO SCH ×3 (07:34→19:56)
[2017-02-08] MEDS: VALPROATE ACID 250 MG/5 ML ORAL SOLUTION PO SCH ×2 (07:34→19:55)
[2017-02-08] MEDS: ACETAMINOPHEN 325 MG TABLET PO SCH ×3 (07:35→19:56)
[2017-02-08] MEDS: LISINOPRIL 5 MG TABLET. PO SCH (07:35)
[2017-02-08] MEDS: ASPIRIN ENTERIC COATED 81 MG TABLET.DR. PO SCH (07:35)
[2017-02-08] MEDS: NICOTINE 21MG PATCH. TD SCH (07:36)
[2017-02-08] MEDS: CYANOCOBALAMIN (VITAMIN B-12) 1,000 MCG TABLET. PO SCH (07:36)
[2017-02-08] MEDS: risperiDONE ORAL 1 MG/ML 30ml BOTTLE. PO SCH (16:00)
[2017-02-08 16:51] VITALS: BP 126/55
[2017-02-08] MEDS: traZODone 100 MG TABLET. PO SCH (19:55)
[2017-02-08] MEDS: TEMAZEPAM 15 MG CAPSULE PO SCH (19:55)
[2017-02-08] MEDS: ATORVASTATIN CALCIUM 20 MG TABLET PO SCH (19:56)
[2017-02-08] MEDS: SENNOSIDES/DOCUSATE 8.6/50MG TABLET. PO SCH (19:56)
[2017-02-08] MEDS: LITHIUM CARBONATE ER 300 MG TABLET.ER PO SCH (20:01)
--- NOTE | 2017-02-08 20:06 | PDOC ---
Exam Tra Demential Exam: Tra Note: Please also refer to the separate dictated note~for this date of service dictated separately.~Patient seen individually. Discussed the patient with Nursing staff reviewed the chart.~Reviewed interim history and current functioning. Reviewed vital signs,~Labs/ Radiology~and current medications noted below. Continue current treatment with the changes noted in the dictated addendum note Assessment: Vital Signs: Vital Signs Date Time Temp Pulse Resp B/P (MAP) Pulse Ox O2 Delivery O2 Flow Rate FiO2 02/08/17 16:51 97.9 82 16 126/55 (78) 95 02/03/17 17:32 Room Air I&O Intake and Output 02/09/17 07:00 Intake Total 580 ml Balance 580 ml Intake Oral 580 ml Current Medications: Meds: Current Medications Olanzapine (ZyPREXA ZYDIS) 10 mg STK-MED ONCE .ROUTE ; Start 01/25/17 at 04:06; Stop 01/25/17 at 04:07; Status DC Olanzapine (ZyPREXA ZYDIS) 10 mg 1X STAT PO Last administered on 01/25/17 04: 07; Start 01/25/17 at 04:03; Stop 01/25/17 at 06:26; Status DC Nicotine (Nicoderm Cq 21mg) 1 patch DAILY TD Last administered on 02/02/17 08: 30; Start 01/25/17 at 09:00 Clonazepam (KlonoPIN) 0.5 mg TID PO Last administered on 02/08/17 19:56; Start 01/25/17 at 09:00 Divalproex Sodium (Depakote Sprinkles) 125 mg TID PO Last administered on 14:16; Start 01/25/17 at 09:00; Stop 01/28/17 at 18:41; Status DC Lorazepam (Ativan) 0.5 mg PRN Q4HRS PRN PO ANXIETY / AGITATION; Start 01/25/17 at 05:30 Risperidone (RisperDAL) 3 mg DAILY16 PO Last administered on 02/08/17 16:00; Start 01/25/17 at 16:00; Stop 02/08/17 at 18:42; Status DC Temazepam (Restoril) 30 mg PRN QHS PRN PO INSOMNIA; Start 01/25/17 at 05:30; Stop 01/25/17 at 06:31; Status DC Trazodone HCl (Desyrel) 100 mg PRN QHS PRN PO INSOMNIA; Start 01/25/17 at 05:30 ; Stop 01/25/17 at 11:36; Status DC Trazodone HCl (Desyrel) 100 mg QHS PO ; Start 01/25/17 at 21:00; Stop 01/25/17 at 21:00; Status DC Temazepam (Restoril) 30 mg PRN QHS PRN PO INSOMNIA Last administered on 19:22; Start 01/25/17 at 06:31; Stop 01/29/17 at 18:50; Status DC Acetaminophen (Tylenol) 650 mg PRN Q6HRS PRN PO PAIN / TEMP Last administered on 02/07/17 04:26; Start 01/25/17 at 06:45 Aspirin (Aspirin Enteric Coated) 81 mg DAILY PO Last administered on 02/06/17 09:17; Start 01/25/17 at 09:00 Bisacodyl (Dulcolax Tab) 10 mg PRN DAILY PRN PO CONSTIPATION; Start 01/25/17 at 06:45 Bisacodyl (Dulcolax Supp) 10 mg PRN DAILY PRN RC CONSTIPATION; Start 01/25/17 at 06:45 Furosemide (Lasix) 40 mg DAILY PO Last administered on 01/28/17 05:15; Start 01/25/17 at 09:00; Stop 01/29/17 at 03:25; Status DC Guaifenesin (Robitussin Dm) 10 ml PRN Q4HRS PRN PO COUGH; Start 01/25/17 at 06: 45 Albuterol/ Ipratropium (Duoneb) 3 ml PRN Q4HRS PRN NEB SHORTNESS OF BREATH; Start 01/25/17 at 06:45 Levothyroxine Sodium (Synthroid) 100 mcg DAILY06 PO Last administered on 06:01; Start 01/25/17 at 07:00 Lisinopril (Prinivil) 5 mg DAILY PO Last administered on 02/08/17 07:35; Start 01/25/17 at 09:00 Al Hydroxide/Mg Hydroxide (Mylanta Plus Xs) 30 ml PRN Q4HRS PRN PO DYSPEPSIA; Start 01/25/17 at 06:45 Metformin HCl (Glucophage) 500 mg BIDWMEALS PO Last administered on 02/03/17 08 :13; Start 01/25/17 at 08:00; Stop 02/03/17 at 15:41; Status DC Miconazole Nitrate (Monistat-Derm) 1 gerson BID TP ; Start 01/25/17 at 09:00; Stop 01/25/17 at 09:00; Status DC Nitroglycerin (Nitrostat) 0.4 mg PRN Q5MIN PRN SL CHEST PAIN; Start 01/25/17 at 06:45 Polyethylene Glycol (miraLAX) 17 gm QODAY PO Last administered on 02/08/17 07: 33; Start 01/25/17 at 09:00 Senna/Docusate Sodium (Senna Plus) 1 tab QHS PO Last administered on 02/08/17 19:56; Start 01/25/17 at 21:00 Tramadol HCl (Ultram) 25 mg PRN Q6HRS PRN PO PAIN Last administered on 11:47; Start 01/25/17 at 06:45 Acetaminophen (Tylenol) 650 mg TID PO Last administered on 02/08/17 19:56; Start 01/25/17 at 09:00 Atorvastatin Calcium (Lipitor) 40 mg QHS PO Last administered on 02/08/17 19: 56; Start 01/25/17 at 21:00 Albuterol Sulfate (Ventolin) 2.5 mg Q6H NEB ; Start 01/25/17 at 07:30; Stop at 17:24; Status DC Lactulose 20 gm PRN DAILY PRN PO CONSTIPATION; Start 01/25/17 at 07:30 Budesonide (Pulmicort) 0.5 mg RTBID NEB ; Start 01/25/17 at 08:00; Stop at 17:24; Status DC Olanzapine (ZyPREXA ZYDIS) 2.5 mg PRN Q2HR PRN PO ANXIETY / AGITATION; Start at 08:00 Lorazepam (Ativan) 1 mg DAILY IM Last administered on 01/27/17 09:03; Start at 11:00; Stop 01/27/17 at 18:25; Status DC Haloperidol Lactate (Haldol) 5 mg DAILY IM Last administered on 01/27/17 08:58 ; Start 01/25/17 at 11:00; Stop 01/27/17 at 18:25; Status DC Risperidone (RisperDAL CONSTA) 25 mg Q2WKS IM Last administered on 01/26/17 09 :39; Start 01/26/17 at 09:00 Risperidone (RisperDAL) 3 mg 1X ONCE SL Last administered on 01/26/17 16:15; Start 01/26/17 at 16:00; Stop 01/26/17 at 16:02; Status DC Albuterol Sulfate (Ventolin) 2.5 mg PRN Q6HRS PRN NEB SHORTNESS OF BREATH; Start 01/28/17 at 13:30 Budesonide (Pulmicort) 0.5 mg PRN BID PRN NEB SHORTNESS OF BREATH; Start at 08:00 Haloperidol Lactate (Haldol) 5 mg DAILY IM Last administered on 01/30/17 11:07 ; Start 01/28/17 at 09:00; Stop 01/30/17 at 18:32; Status DC Olanzapine (ZyPREXA ZYDIS) 5 mg PRN Q2HR PRN PO ANXIETY / AGITATION; Start at 18:30 Lorazepam (Ativan) 1 mg DAILY IM Last administered on 01/30/17 11:07; Start at 09:00; Stop 01/30/17 at 18:32; Status DC Valproic Acid (Depakene) 375 mg HS PO ; Start 01/29/17 at 21:00; Stop 01/29/17 at 21:00; Status DC Furosemide (Lasix) 40 mg DAILY06 PO Last administered on 02/08/17 06:01; Start 01/29/17 at 06:00 Valproic Acid (Depakene) 375 mg BID PO Last administered on 02/03/17 08:23; Start 01/29/17 at 21:00; Stop 02/03/17 at 18:22; Status DC Temazepam (Restoril) 30 mg QHS PO Last administered on 02/08/17 19:55; Start 01/29/17 at 21:00 Potassium Chloride (Klor-Con) 20 meq BID PO ; Start 01/30/17 at 21:00; Stop at 05:33; Status DC Magnesium Hydroxide (Milk Of Magnesia) 2,400 mg PRN DAILY PRN PO CONSTIPATION; Start 01/30/17 at 16:30; Status UNV Magnesium Hydroxide (Milk Of Magnesia) 2,400 mg PRN DAILY PRN PO CONSTIPATION Last administered on 02/06/17 05:48; Start 01/30/17 at 16:45 Potassium Chloride (Klor-Con) 20 meq BID66 PO Last administered on 02/08/17 18 :00; Start 01/31/17 at 06:00 Metformin HCl (Glucophage) 250 mg BIDWMEALS PO Last administered on 02/08/17 18:08; Start 02/03/17 at 17:00 Cyanocobalamin (Vitamin B-12) 1,000 mcg DAILY PO Last administered on 02/06/17 09:16; Start 02/04/17 at 09:00 Valproic Acid (Depakene) 500 mg BID PO Last administered on 02/07/17 08:01; Start 02/03/17 at 21:00; Stop 02/07/17 at 15:17; Status DC Valproic Acid (Depakene) 750 mg BID PO Last administered on 02/08/17 19:55; Start 02/07/17 at 21:00 Trazodone HCl (Desyrel) 100 mg QHS PO Last administered on 02/08/17 19:55; Start 02/07/17 at 21:00 Trazodone HCl (Desyrel) 100 mg PRN QHS PRN PO INSOMNIA; Start 02/07/17 at 19:00 Risperidone (RisperDAL) 2 mg DAILY16 PO ; Start 02/09/17 at 16:00 [place] Carbonate (Lithobid) 300 mg HS PO Last administered on 02/08/17 20:01 ; Start 02/08/17 at 21:00 Active Scripts Active Reported Tylenol (Acetaminophen) 325 Mg Tablet 650 Mg PO PRN Q6HRS PRN Arthritis Pain (Acetaminophen) 650 Mg Tablet.er 650 Mg PO BID Trazodone Hcl 100 Mg Tablet 100 Mg PO PRN QHS PRN Trazodone Hcl 100 Mg Tablet 100 Mg PO QHS Tramadol Hcl (Tramadol HCl) 50 Mg Tablet 25 Mg PO PRN Q6HRS PRN Synthroid (Levothyroxine Sodium) 100 Mcg Tablet 100 Mcg PO DAILY07 Senna S Tablet (Sennosides/Docusate Sodium) 1 Each Tablet 1 Tab PO QHS Risperdal (Risperidone) 1 Mg/1 Ml Solution 3 Mg PO DAILY16 Restoril (Temazepam) 30 Mg Capsule 30 Mg PO PRN QHS PRN Nitrostat (Nitroglycerin) 0.4 Mg Tab.subl 0.4 Mg SL PRN Q5MIN PRN Miralax (Polyethylene Glycol 3350) 119 Gm Powder 17 Gm PO QODAY Antacid Suspension (Mag Hydrox/Al Hydrox/Simeth) 355 Ml Oral.susp 30 Ml PO PRN Q4HRS PRN Lisinopril 5 Mg Tablet 5 Mg PO DAILY Lipitor (Atorvastatin Calcium) 40 Mg Tablet 40 Mg PO QHS Lasix (Furosemide) 40 Mg Tablet 40 Mg PO DAILY Lactulose 10 Gm/15 Ml Solution 20 Gm PO PRN DAILY PRN Klonopin (Clonazepam) 0.5 Mg Tablet 0.5 Mg PO TID Glucophage (Metformin Hcl) 500 Mg Tablet 500 Mg PO BIDWMEALS Josie-Tussin Dm Syrup (Guaifenesin/Dextromethorphan) 473 Ml Syrup 10 Ml PO PRN Q4HRS PRN Duoneb 0.5-3(2.5) Mg/3 Ml (Albuterol/Ipratropium) 3 Ml Ampul.neb 3 Ml NEB PRN Q4HRS PRN Depakote Sprinkle (Divalproex Sodium) 125 Mg Cap.sprink 125 Mg PO TID Bisacodyl 10 Mg Supp.rect 10 Mg RC PRN DAILY PRN Bisacodyl 5 Mg Tablet.dr 10 Mg PO PRN DAILY PRN Reshma Antifungal (Miconazole Nitrate) 142 Gm Cream..g. 1 Gerson TP BID Ativan (Lorazepam) 0.5 Mg Tablet 0.5 Mg PO PRN Q4HRS PRN Aspirin Ec (Aspirin) 81 Mg Tablet.dr 81 Mg PO DAILY Advair Hfa 115-21 Mcg Inhaler (Fluticasone/Salmeterol) 12 Gm Hfa.aer.ad 2 Puff IH BID Diagnosis: Problems: (1) Psychosis (2) Schizophrenia, acute (3) Anxiety disorder (4) Bipolar affective, mixed, sev w/ psych (5) Impulse control disorder (6) Schizoaffective disorder, chronic condition with acute exacerbation ALBERT ROSE MD Feb 08, 2017 20:06
--- NOTE | 2017-02-08 22:16 | PN ---
DATE: 02/07/2017 This is a late entry 02/07/2017, covers the elements not covered in my initial note of 02/07/2017. I met with the patient individually evening of 02/07/2017. She slept poorly previous evening, just one and a quarter hours at most of the night, anxious, repetitive, tearful at times, attention seeking per nursing report. REVIEW OF SYSTEMS: Positive for pedal edema bilateral. No CV, , pulmonary, eye system symptoms on review. She is writing profusely and gave me several pages of what she had written, none of which are in any organized manner, but rather haphazard words about lithium schizophrenia, anesthesia, etc. MENTAL STATUS EXAM: Oriented to herself and situation. Speech coherent, low in volume, rapid at times. Abstraction fair, computation impaired, language function intact, attention span short. Mood and affect remains labile. LABORATORY DATA: Reviewed. IMPRESSION: Unchanged from initial note. PLAN: Depakene was increased since the previous level was subtherapeutic and she is currently on 750 b.i.d. with repeat labs level on 02/11/2017. Continue Klonopin, Risperdal oral, Restoril, Risperdal Consta, we will add trazodone 100 mg at bedtime, may repeat x 1 for insomnia. Review drug interactions, risk, benefits ratio favors no further change. ALBERT ROSE MD DR: CHASE/[facility] JOB#: [id number] / [id number]
[2017-02-09] MEDS: FUROSEMIDE 40 MG TABLET PO SCH (05:44)
[2017-02-09] MEDS: LEVOTHYROXINE 100 MCG TABLET PO SCH (05:44)
[2017-02-09] MEDS: POTASSIUM CHLORIDE 20 MEQ TABLET.ER. PO SCH ×2 (05:50→16:43)
[2017-02-09 06:10] VITALS: BP 131/54
[2017-02-09] MEDS: VALPROATE ACID 250 MG/5 ML ORAL SOLUTION PO SCH ×3 (07:59→20:59)
[2017-02-09] MEDS: LISINOPRIL 5 MG TABLET. PO SCH ×2 (07:59→08:48)
[2017-02-09] MEDS: clonazePAM 0.5 MG TABLET PO SCH ×3 (07:59→20:17)
[2017-02-09] MEDS: metFORMIN 500 MG TABLET PO SCH ×2 (07:59→16:42)
[2017-02-09] MEDS: ACETAMINOPHEN 325 MG TABLET PO SCH ×5 (08:00→20:59)
[2017-02-09] MEDS: ASPIRIN ENTERIC COATED 81 MG TABLET.DR. PO SCH ×2 (08:00→08:48)
[2017-02-09] MEDS: CYANOCOBALAMIN (VITAMIN B-12) 1,000 MCG TABLET. PO SCH ×2 (08:00→08:48)
[2017-02-09] MEDS: NICOTINE 21MG PATCH. TD SCH ×2 (08:00→08:49)
[2017-02-09] MEDS: risperiDONE MICROSPHERES 25 MG/2 ML DISP.SYRIN. IM SCH (10:08)
[2017-02-09] MEDS ORDERED: risperiDONE ORAL 1 MG/ML 30ml BOTTLE. PO SCH (16:00)
[2017-02-09 16:02] VITALS: BP 136/76
--- NOTE | 2017-02-09 19:46 | PDOC ---
Exam Tra Demential Exam: Tra Note: Please also refer to the separate dictated note~for this date of service dictated separately.~Patient seen individually. Discussed the patient with Nursing staff reviewed the chart.~Reviewed interim history and current functioning. Reviewed vital signs,~Labs/ Radiology~and current medications noted below. Continue current treatment with the changes noted in the dictated addendum note Assessment: Vital Signs: Vital Signs Date Time Temp Pulse Resp B/P (MAP) Pulse Ox O2 Delivery O2 Flow Rate FiO2 02/09/17 16:02 97.9 70 16 136/76 (96) 97 02/03/17 17:32 Room Air I&O Intake and Output 02/10/17 07:00 Intake Total 1240 ml Balance 1240 ml Intake Oral 1240 ml Current Medications: Meds: Current Medications Olanzapine (ZyPREXA ZYDIS) 10 mg STK-MED ONCE .ROUTE ; Start 01/25/17 at 04:06; Stop 01/25/17 at 04:07; Status DC Olanzapine (ZyPREXA ZYDIS) 10 mg 1X STAT PO Last administered on 01/25/17 04: 07; Start 01/25/17 at 04:03; Stop 01/25/17 at 06:26; Status DC Nicotine (Nicoderm Cq 21mg) 1 patch DAILY TD Last administered on 02/02/17 08: 30; Start 01/25/17 at 09:00 Clonazepam (KlonoPIN) 0.5 mg TID PO Last administered on 02/09/17 14:04; Start 01/25/17 at 09:00 Divalproex Sodium (Depakote Sprinkles) 125 mg TID PO Last administered on 14:16; Start 01/25/17 at 09:00; Stop 01/28/17 at 18:41; Status DC Lorazepam (Ativan) 0.5 mg PRN Q4HRS PRN PO ANXIETY / AGITATION; Start 01/25/17 at 05:30 Risperidone (RisperDAL) 3 mg DAILY16 PO Last administered on 02/08/17 16:00; Start 01/25/17 at 16:00; Stop 02/08/17 at 18:42; Status DC Temazepam (Restoril) 30 mg PRN QHS PRN PO INSOMNIA; Start 01/25/17 at 05:30; Stop 01/25/17 at 06:31; Status DC Trazodone HCl (Desyrel) 100 mg PRN QHS PRN PO INSOMNIA; Start 01/25/17 at 05:30 ; Stop 01/25/17 at 11:36; Status DC Trazodone HCl (Desyrel) 100 mg QHS PO ; Start 01/25/17 at 21:00; Stop 01/25/17 at 21:00; Status DC Temazepam (Restoril) 30 mg PRN QHS PRN PO INSOMNIA Last administered on 19:22; Start 01/25/17 at 06:31; Stop 01/29/17 at 18:50; Status DC Acetaminophen (Tylenol) 650 mg PRN Q6HRS PRN PO PAIN / TEMP Last administered on 02/07/17 04:26; Start 01/25/17 at 06:45 Aspirin (Aspirin Enteric Coated) 81 mg DAILY PO Last administered on 02/06/17 09:17; Start 01/25/17 at 09:00 Bisacodyl (Dulcolax Tab) 10 mg PRN DAILY PRN PO CONSTIPATION; Start 01/25/17 at 06:45 Bisacodyl (Dulcolax Supp) 10 mg PRN DAILY PRN RC CONSTIPATION; Start 01/25/17 at 06:45 Furosemide (Lasix) 40 mg DAILY PO Last administered on 01/28/17 05:15; Start 01/25/17 at 09:00; Stop 01/29/17 at 03:25; Status DC Guaifenesin (Robitussin Dm) 10 ml PRN Q4HRS PRN PO COUGH; Start 01/25/17 at 06: 45 Albuterol/ Ipratropium (Duoneb) 3 ml PRN Q4HRS PRN NEB SHORTNESS OF BREATH; Start 01/25/17 at 06:45 Levothyroxine Sodium (Synthroid) 100 mcg DAILY06 PO Last administered on 05:44; Start 01/25/17 at 07:00 Lisinopril (Prinivil) 5 mg DAILY PO Last administered on 02/08/17 07:35; Start 01/25/17 at 09:00 Al Hydroxide/Mg Hydroxide (Mylanta Plus Xs) 30 ml PRN Q4HRS PRN PO DYSPEPSIA; Start 01/25/17 at 06:45 Metformin HCl (Glucophage) 500 mg BIDWMEALS PO Last administered on 02/03/17 08 :13; Start 01/25/17 at 08:00; Stop 02/03/17 at 15:41; Status DC Miconazole Nitrate (Monistat-Derm) 1 gerson BID TP ; Start 01/25/17 at 09:00; Stop 01/25/17 at 09:00; Status DC Nitroglycerin (Nitrostat) 0.4 mg PRN Q5MIN PRN SL CHEST PAIN; Start 01/25/17 at 06:45 Polyethylene Glycol (miraLAX) 17 gm QODAY PO Last administered on 02/08/17 07: 33; Start 01/25/17 at 09:00 Senna/Docusate Sodium (Senna Plus) 1 tab QHS PO Last administered on 02/08/17 19:56; Start 01/25/17 at 21:00 Tramadol HCl (Ultram) 25 mg PRN Q6HRS PRN PO PAIN Last administered on 11:47; Start 01/25/17 at 06:45 Acetaminophen (Tylenol) 650 mg TID PO Last administered on 02/08/17 19:56; Start 01/25/17 at 09:00 Atorvastatin Calcium (Lipitor) 40 mg QHS PO Last administered on 02/08/17 19: 56; Start 01/25/17 at 21:00 Albuterol Sulfate (Ventolin) 2.5 mg Q6H NEB ; Start 01/25/17 at 07:30; Stop at 17:24; Status DC Lactulose 20 gm PRN DAILY PRN PO CONSTIPATION; Start 01/25/17 at 07:30 Budesonide (Pulmicort) 0.5 mg RTBID NEB ; Start 01/25/17 at 08:00; Stop at 17:24; Status DC Olanzapine (ZyPREXA ZYDIS) 2.5 mg PRN Q2HR PRN PO ANXIETY / AGITATION; Start at 08:00 Lorazepam (Ativan) 1 mg DAILY IM Last administered on 01/27/17 09:03; Start at 11:00; Stop 01/27/17 at 18:25; Status DC Haloperidol Lactate (Haldol) 5 mg DAILY IM Last administered on 01/27/17 08:58 ; Start 01/25/17 at 11:00; Stop 01/27/17 at 18:25; Status DC Risperidone (RisperDAL CONSTA) 25 mg Q2WKS IM Last administered on 02/09/17 10 :08; Start 01/26/17 at 09:00 Risperidone (RisperDAL) 3 mg 1X ONCE SL Last administered on 01/26/17 16:15; Start 01/26/17 at 16:00; Stop 01/26/17 at 16:02; Status DC Albuterol Sulfate (Ventolin) 2.5 mg PRN Q6HRS PRN NEB SHORTNESS OF BREATH; Start 01/28/17 at 13:30 Budesonide (Pulmicort) 0.5 mg PRN BID PRN NEB SHORTNESS OF BREATH; Start at 08:00 Haloperidol Lactate (Haldol) 5 mg DAILY IM Last administered on 01/30/17 11:07 ; Start 01/28/17 at 09:00; Stop 01/30/17 at 18:32; Status DC Olanzapine (ZyPREXA ZYDIS) 5 mg PRN Q2HR PRN PO ANXIETY / AGITATION; Start at 18:30 Lorazepam (Ativan) 1 mg DAILY IM Last administered on 01/30/17 11:07; Start at 09:00; Stop 01/30/17 at 18:32; Status DC Valproic Acid (Depakene) 375 mg HS PO ; Start 01/29/17 at 21:00; Stop 01/29/17 at 21:00; Status DC Furosemide (Lasix) 40 mg DAILY06 PO Last administered on 02/09/17 05:44; Start 01/29/17 at 06:00 Valproic Acid (Depakene) 375 mg BID PO Last administered on 02/03/17 08:23; Start 01/29/17 at 21:00; Stop 02/03/17 at 18:22; Status DC Temazepam (Restoril) 30 mg QHS PO Last administered on 02/08/17 19:55; Start 01/29/17 at 21:00 Potassium Chloride (Klor-Con) 20 meq BID PO ; Start 01/30/17 at 21:00; Stop at 05:33; Status DC Magnesium Hydroxide (Milk Of Magnesia) 2,400 mg PRN DAILY PRN PO CONSTIPATION; Start 01/30/17 at 16:30; Status UNV Magnesium Hydroxide (Milk Of Magnesia) 2,400 mg PRN DAILY PRN PO CONSTIPATION Last administered on 02/06/17 05:48; Start 01/30/17 at 16:45 Potassium Chloride (Klor-Con) 20 meq BID66 PO Last administered on 02/09/17 16 :43; Start 01/31/17 at 06:00 Metformin HCl (Glucophage) 250 mg BIDWMEALS PO Last administered on 02/09/17 16:42; Start 02/03/17 at 17:00 Cyanocobalamin (Vitamin B-12) 1,000 mcg DAILY PO Last administered on 02/06/17 09:16; Start 02/04/17 at 09:00 Valproic Acid (Depakene) 500 mg BID PO Last administered on 02/07/17 08:01; Start 02/03/17 at 21:00; Stop 02/07/17 at 15:17; Status DC Valproic Acid (Depakene) 750 mg BID PO Last administered on 02/09/17 07:59; Start 02/07/17 at 21:00 Trazodone HCl (Desyrel) 100 mg QHS PO Last administered on 02/08/17 19:55; Start 02/07/17 at 21:00 Trazodone HCl (Desyrel) 100 mg PRN QHS PRN PO INSOMNIA; Start 02/07/17 at 19:00 Risperidone (RisperDAL) 2 mg DAILY16 PO Last administered on 02/09/17 16:44; Start 02/09/17 at 16:00; Stop 02/09/17 at 18:47; Status DC [place] Carbonate (Lithobid) 300 mg HS PO Last administered on 02/08/17 20:01 ; Start 02/08/17 at 21:00 Risperidone (RisperDAL) 1 mg DAILY16 PO ; Start 02/11/17 at 16:00 Active Scripts Active Reported Tylenol (Acetaminophen) 325 Mg Tablet 650 Mg PO PRN Q6HRS PRN Arthritis Pain (Acetaminophen) 650 Mg Tablet.er 650 Mg PO BID Trazodone Hcl 100 Mg Tablet 100 Mg PO PRN QHS PRN Trazodone Hcl 100 Mg Tablet 100 Mg PO QHS Tramadol Hcl (Tramadol HCl) 50 Mg Tablet 25 Mg PO PRN Q6HRS PRN Synthroid (Levothyroxine Sodium) 100 Mcg Tablet 100 Mcg PO DAILY07 Senna S Tablet (Sennosides/Docusate Sodium) 1 Each Tablet 1 Tab PO QHS Risperdal (Risperidone) 1 Mg/1 Ml Solution 3 Mg PO DAILY16 Restoril (Temazepam) 30 Mg Capsule 30 Mg PO PRN QHS PRN Nitrostat (Nitroglycerin) 0.4 Mg Tab.subl 0.4 Mg SL PRN Q5MIN PRN Miralax (Polyethylene Glycol 3350) 119 Gm Powder 17 Gm PO QODAY Antacid Suspension (Mag Hydrox/Al Hydrox/Simeth) 355 Ml Oral.susp 30 Ml PO PRN Q4HRS PRN Lisinopril 5 Mg Tablet 5 Mg PO DAILY Lipitor (Atorvastatin Calcium) 40 Mg Tablet 40 Mg PO QHS Lasix (Furosemide) 40 Mg Tablet 40 Mg PO DAILY Lactulose 10 Gm/15 Ml Solution 20 Gm PO PRN DAILY PRN Klonopin (Clonazepam) 0.5 Mg Tablet 0.5 Mg PO TID Glucophage (Metformin Hcl) 500 Mg Tablet 500 Mg PO BIDWMEALS Josie-Tussin Dm Syrup (Guaifenesin/Dextromethorphan) 473 Ml Syrup 10 Ml PO PRN Q4HRS PRN Duoneb 0.5-3(2.5) Mg/3 Ml (Albuterol/Ipratropium) 3 Ml Ampul.neb 3 Ml NEB PRN Q4HRS PRN Depakote Sprinkle (Divalproex Sodium) 125 Mg Cap.sprink 125 Mg PO TID Bisacodyl 10 Mg Supp.rect 10 Mg RC PRN DAILY PRN Bisacodyl 5 Mg Tablet.dr 10 Mg PO PRN DAILY PRN Reshma Antifungal (Miconazole Nitrate) 142 Gm Cream..g. 1 [place] TP BID Ativan (Lorazepam) 0.5 Mg Tablet 0.5 Mg PO PRN Q4HRS PRN Aspirin Ec (Aspirin) 81 Mg Tablet.dr 81 Mg PO DAILY Advair Hfa 115-21 Mcg Inhaler (Fluticasone/Salmeterol) 12 Gm Hfa.aer.ad 2 Puff IH BID Diagnosis: Problems: (1) Psychosis (2) Schizophrenia, acute (3) Anxiety disorder (4) Bipolar affective, mixed, sev w/ psych (5) Impulse control disorder (6) Schizoaffective disorder, chronic condition with acute exacerbation ALBERT ROSE MD Feb 09, 2017 19:46
[2017-02-09] MEDS: TEMAZEPAM 15 MG CAPSULE PO SCH (20:13)
[2017-02-09] MEDS: SENNOSIDES/DOCUSATE 8.6/50MG TABLET. PO SCH ×2 (20:13→20:59)
[2017-02-09] MEDS: LITHIUM CARBONATE ER 300 MG TABLET.ER PO SCH (20:13)
[2017-02-09] MEDS: ATORVASTATIN CALCIUM 20 MG TABLET PO SCH (20:14)
[2017-02-09] MEDS: traZODone 100 MG TABLET. PO SCH (20:14)
--- NOTE | 2017-02-10 01:27 | PN ---
DATE: 02/08/2017 SUBJECTIVE: This is a late entry 02/08/2017, covers elements not covered in my initial note of 02/08/2017. I met with the patient individually evening of 02/08/2017, in her room. She was lying in bed around suppertime and has refused to go to supper with the nursing staff, but gradually did get up with me and I held her hand and walked her to the dining room. She slept better the previous evening with trazodone 6-1/4 hours. Picks and chooses what medications she takes. REVIEW OF SYSTEMS: Positive for complains of bilateral pedal edema/lymphedema. No CV, , pulmonary, or eye system symptoms on review. Complains of some dizziness that she got up from her bed to walk in the corridor with me to the dining room, but it was better at the end of the walk. MENTAL STATUS EXAM: Oriented to herself and situation. Still has a lot of hypergraphia. Speech coherent, rapid at times, and low in volume, but less so than before. Abstraction fair, computation impaired, language function intact, and attention span short. Mood and affect still somewhat anxious and labile, but better than before. LABORATORY DATA: Reviewed. IMPRESSION: Schizoaffective disorder, bipolar type, mixed with psychotic features. Rest unchanged. PLAN: I had a lengthy discussion in review of her psychotropics. She has done very well on lithium in the past and I have not restarted her because of her noncompliance with medications might make it hard for us to monitor her levels accurately since she had become toxic on it in the distant past. Nevertheless, after a lengthy discussion and feedback from nursing it appears she should be able to accept the lithium on a regular basis because she wants to restart lithium and if she agrees to it we will start lithium carbonate 300 mg at bedtime. Check CBC and CMP level in 3 days and if we start the lithium, we will drop the Risperdal liquid down from 3 mg a day to 2 mg a day since she is on Risperdal Consta 25 mg IM every 2 weeks along with trazodone and Restoril. Depakote was adjusted. Repeat labs on 02/11/2017. Continue Klonopin. Reviewed drug interactions at length. The risk/benefit ratio favors no further change at this time. MAN Hero ROSE MD DR: Shobha JOB#: [id number] / [id number]
[2017-02-10 06:03] VITALS: BP 137/63
[2017-02-10] MEDS: CYANOCOBALAMIN (VITAMIN B-12) 1,000 MCG TABLET. PO SCH ×2 (08:19→08:53)
[2017-02-10] MEDS: LISINOPRIL 5 MG TABLET. PO SCH ×2 (08:20→08:53)
[2017-02-10] MEDS: ASPIRIN ENTERIC COATED 81 MG TABLET.DR. PO SCH ×2 (08:20→08:52)
[2017-02-10] MEDS: clonazePAM 0.5 MG TABLET PO SCH ×3 (08:20→19:46)
[2017-02-10] MEDS: LEVOTHYROXINE 100 MCG TABLET PO SCH (08:20)
[2017-02-10] MEDS: metFORMIN 500 MG TABLET PO SCH ×2 (08:20→16:47)
[2017-02-10] MEDS: POTASSIUM CHLORIDE 20 MEQ TABLET.ER. PO SCH ×2 (08:21→16:47)
[2017-02-10] MEDS: FUROSEMIDE 40 MG TABLET PO SCH (08:21)
[2017-02-10] MEDS: VALPROATE ACID 250 MG/5 ML ORAL SOLUTION PO SCH ×2 (08:27→19:42)
[2017-02-10] MEDS: ACETAMINOPHEN 325 MG TABLET PO SCH ×4 (08:27→19:43)
[2017-02-10] MEDS: NICOTINE 21MG PATCH. TD SCH (08:28)
[2017-02-10] MEDS: POLYETHYLENE GLYCOL 3350 17 GM PACKET. PO SCH (08:28)
[2017-02-10 16:04] VITALS: BP 135/78
[2017-02-10] MEDS: LITHIUM CARBONATE ER 300 MG TABLET.ER PO SCH (19:42)
[2017-02-10] MEDS: SENNOSIDES/DOCUSATE 8.6/50MG TABLET. PO SCH (19:42)
[2017-02-10] MEDS: ATORVASTATIN CALCIUM 20 MG TABLET PO SCH (19:42)
[2017-02-10] MEDS: traZODone 100 MG TABLET. PO SCH (19:42)
[2017-02-10] MEDS: TEMAZEPAM 15 MG CAPSULE PO SCH (19:43)
--- NOTE | 2017-02-10 19:44 | PDOC ---
Exam Tra Demential Exam: Tra Note: Please also refer to the separate dictated note~for this date of service dictated separately.~Patient seen individually. Discussed the patient with Nursing staff reviewed the chart.~Reviewed interim history and current functioning. Reviewed vital signs,~Labs/ Radiology~and current medications noted below. Continue current treatment with the changes noted in the dictated addendum note Assessment: Vital Signs: Vital Signs Date Time Temp Pulse Resp B/P (MAP) Pulse Ox O2 Delivery O2 Flow Rate FiO2 02/10/17 16:04 97.9 70 22 135/78 (97) 99 I&O Intake and Output 02/11/17 06:59 Intake Total 1340 ml Balance 1340 ml Intake Oral 1340 ml Current Medications: Meds: Current Medications Olanzapine (ZyPREXA ZYDIS) 10 mg STK-MED ONCE .ROUTE ; Start 01/25/17 at 04:06; Stop 01/25/17 at 04:07; Status DC Olanzapine (ZyPREXA ZYDIS) 10 mg 1X STAT PO Last administered on 01/25/17 04: 07; Start 01/25/17 at 04:03; Stop 01/25/17 at 06:26; Status DC Nicotine (Nicoderm Cq 21mg) 1 patch DAILY TD Last administered on 02/02/17 08: 30; Start 01/25/17 at 09:00 Clonazepam (KlonoPIN) 0.5 mg TID PO Last administered on 02/10/17 14:26; Start 01/25/17 at 09:00 Divalproex Sodium (Depakote Sprinkles) 125 mg TID PO Last administered on 14:16; Start 01/25/17 at 09:00; Stop 01/28/17 at 18:41; Status DC Lorazepam (Ativan) 0.5 mg PRN Q4HRS PRN PO ANXIETY / AGITATION; Start 01/25/17 at 05:30 Risperidone (RisperDAL) 3 mg DAILY16 PO Last administered on 02/08/17 16:00; Start 01/25/17 at 16:00; Stop 02/08/17 at 18:42; Status DC Temazepam (Restoril) 30 mg PRN QHS PRN PO INSOMNIA; Start 01/25/17 at 05:30; Stop 01/25/17 at 06:31; Status DC Trazodone HCl (Desyrel) 100 mg PRN QHS PRN PO INSOMNIA; Start 01/25/17 at 05:30 ; Stop 01/25/17 at 11:36; Status DC Trazodone HCl (Desyrel) 100 mg QHS PO ; Start 01/25/17 at 21:00; Stop 01/25/17 at 21:00; Status DC Temazepam (Restoril) 30 mg PRN QHS PRN PO INSOMNIA Last administered on 19:22; Start 01/25/17 at 06:31; Stop 01/29/17 at 18:50; Status DC Acetaminophen (Tylenol) 650 mg PRN Q6HRS PRN PO PAIN / TEMP Last administered on 02/07/17 04:26; Start 01/25/17 at 06:45 Aspirin (Aspirin Enteric Coated) 81 mg DAILY PO Last administered on 02/06/17 09:17; Start 01/25/17 at 09:00 Bisacodyl (Dulcolax Tab) 10 mg PRN DAILY PRN PO CONSTIPATION; Start 01/25/17 at 06:45 Bisacodyl (Dulcolax Supp) 10 mg PRN DAILY PRN RC CONSTIPATION; Start 01/25/17 at 06:45 Furosemide (Lasix) 40 mg DAILY PO Last administered on 01/28/17 05:15; Start 01/25/17 at 09:00; Stop 01/29/17 at 03:25; Status DC Guaifenesin (Robitussin Dm) 10 ml PRN Q4HRS PRN PO COUGH; Start 01/25/17 at 06: 45 Albuterol/ Ipratropium (Duoneb) 3 ml PRN Q4HRS PRN NEB SHORTNESS OF BREATH; Start 01/25/17 at 06:45 Levothyroxine Sodium (Synthroid) 100 mcg DAILY06 PO Last administered on 08:20; Start 01/25/17 at 07:00 Lisinopril (Prinivil) 5 mg DAILY PO Last administered on 02/08/17 07:35; Start 01/25/17 at 09:00 Al Hydroxide/Mg Hydroxide (Mylanta Plus Xs) 30 ml PRN Q4HRS PRN PO DYSPEPSIA; Start 01/25/17 at 06:45 Metformin HCl (Glucophage) 500 mg BIDWMEALS PO Last administered on 02/03/17 08 :13; Start 01/25/17 at 08:00; Stop 02/03/17 at 15:41; Status DC Miconazole Nitrate (Monistat-Derm) 1 gerson BID TP ; Start 01/25/17 at 09:00; Stop 01/25/17 at 09:00; Status DC Nitroglycerin (Nitrostat) 0.4 mg PRN Q5MIN PRN SL CHEST PAIN; Start 01/25/17 at 06:45 Polyethylene Glycol (miraLAX) 17 gm QODAY PO Last administered on 02/10/17 08: 28; Start 01/25/17 at 09:00 Senna/Docusate Sodium (Senna Plus) 1 tab QHS PO Last administered on 02/08/17 19:56; Start 01/25/17 at 21:00 Tramadol HCl (Ultram) 25 mg PRN Q6HRS PRN PO PAIN Last administered on 11:47; Start 01/25/17 at 06:45 Acetaminophen (Tylenol) 650 mg TID PO Last administered on 02/08/17 19:56; Start 01/25/17 at 09:00 Atorvastatin Calcium (Lipitor) 40 mg QHS PO Last administered on 02/09/17 20: 14; Start 01/25/17 at 21:00 Albuterol Sulfate (Ventolin) 2.5 mg Q6H NEB ; Start 01/25/17 at 07:30; Stop at 17:24; Status DC Lactulose 20 gm PRN DAILY PRN PO CONSTIPATION; Start 01/25/17 at 07:30 Budesonide (Pulmicort) 0.5 mg RTBID NEB ; Start 01/25/17 at 08:00; Stop at 17:24; Status DC Olanzapine (ZyPREXA ZYDIS) 2.5 mg PRN Q2HR PRN PO ANXIETY / AGITATION; Start at 08:00 Lorazepam (Ativan) 1 mg DAILY IM Last administered on 01/27/17 09:03; Start at 11:00; Stop 01/27/17 at 18:25; Status DC Haloperidol Lactate (Haldol) 5 mg DAILY IM Last administered on 01/27/17 08:58 ; Start 01/25/17 at 11:00; Stop 01/27/17 at 18:25; Status DC Risperidone (RisperDAL CONSTA) 25 mg Q2WKS IM Last administered on 02/09/17 10 :08; Start 01/26/17 at 09:00 Risperidone (RisperDAL) 3 mg 1X ONCE SL Last administered on 01/26/17 16:15; Start 01/26/17 at 16:00; Stop 01/26/17 at 16:02; Status DC Albuterol Sulfate (Ventolin) 2.5 mg PRN Q6HRS PRN NEB SHORTNESS OF BREATH; Start 01/28/17 at 13:30 Budesonide (Pulmicort) 0.5 mg PRN BID PRN NEB SHORTNESS OF BREATH; Start at 08:00 Haloperidol Lactate (Haldol) 5 mg DAILY IM Last administered on 01/30/17 11:07 ; Start 01/28/17 at 09:00; Stop 01/30/17 at 18:32; Status DC Olanzapine (ZyPREXA ZYDIS) 5 mg PRN Q2HR PRN PO ANXIETY / AGITATION; Start at 18:30 Lorazepam (Ativan) 1 mg DAILY IM Last administered on 01/30/17 11:07; Start at 09:00; Stop 01/30/17 at 18:32; Status DC Valproic Acid (Depakene) 375 mg HS PO ; Start 01/29/17 at 21:00; Stop 01/29/17 at 21:00; Status DC Furosemide (Lasix) 40 mg DAILY06 PO Last administered on 02/10/17 08:21; Start 01/29/17 at 06:00 Valproic Acid (Depakene) 375 mg BID PO Last administered on 02/03/17 08:23; Start 01/29/17 at 21:00; Stop 02/03/17 at 18:22; Status DC Temazepam (Restoril) 30 mg QHS PO Last administered on 02/09/17 20:13; Start 01/29/17 at 21:00 Potassium Chloride (Klor-Con) 20 meq BID PO ; Start 01/30/17 at 21:00; Stop at 05:33; Status DC Magnesium Hydroxide (Milk Of Magnesia) 2,400 mg PRN DAILY PRN PO CONSTIPATION; Start 01/30/17 at 16:30; Status UNV Magnesium Hydroxide (Milk Of Magnesia) 2,400 mg PRN DAILY PRN PO CONSTIPATION Last administered on 02/06/17 05:48; Start 01/30/17 at 16:45 Potassium Chloride (Klor-Con) 20 meq BID66 PO Last administered on 02/10/17 16 :47; Start 01/31/17 at 06:00 Metformin HCl (Glucophage) 250 mg BIDWMEALS PO Last administered on 02/10/17 16:47; Start 02/03/17 at 17:00 Cyanocobalamin (Vitamin B-12) 1,000 mcg DAILY PO Last administered on 02/06/17 09:16; Start 02/04/17 at 09:00 Valproic Acid (Depakene) 500 mg BID PO Last administered on 02/07/17 08:01; Start 02/03/17 at 21:00; Stop 02/07/17 at 15:17; Status DC Valproic Acid (Depakene) 750 mg BID PO Last administered on 02/10/17 08:27; Start 02/07/17 at 21:00 Trazodone HCl (Desyrel) 100 mg QHS PO Last administered on 02/09/17 20:14; Start 02/07/17 at 21:00 Trazodone HCl (Desyrel) 100 mg PRN QHS PRN PO INSOMNIA; Start 02/07/17 at 19:00 Risperidone (RisperDAL) 2 mg DAILY16 PO Last administered on 02/09/17 16:44; Start 02/09/17 at 16:00; Stop 02/09/17 at 18:47; Status DC [place] Carbonate (Lithobid) 300 mg HS PO Last administered on 02/09/17 20:13 ; Start 02/08/17 at 21:00 Risperidone (RisperDAL) 1 mg DAILY16 PO ; Start 02/11/17 at 16:00 Active Scripts Active Reported Tylenol (Acetaminophen) 325 Mg Tablet 650 Mg PO PRN Q6HRS PRN Arthritis Pain (Acetaminophen) 650 Mg Tablet.er 650 Mg PO BID Trazodone Hcl 100 Mg Tablet 100 Mg PO PRN QHS PRN Trazodone Hcl 100 Mg Tablet 100 Mg PO QHS Tramadol Hcl (Tramadol HCl) 50 Mg Tablet 25 Mg PO PRN Q6HRS PRN Synthroid (Levothyroxine Sodium) 100 Mcg Tablet 100 Mcg PO DAILY07 Senna S Tablet (Sennosides/Docusate Sodium) 1 Each Tablet 1 Tab PO QHS Risperdal (Risperidone) 1 Mg/1 Ml Solution 3 Mg PO DAILY16 Restoril (Temazepam) 30 Mg Capsule 30 Mg PO PRN QHS PRN Nitrostat (Nitroglycerin) 0.4 Mg Tab.subl 0.4 Mg SL PRN Q5MIN PRN Miralax (Polyethylene Glycol 3350) 119 Gm Powder 17 Gm PO QODAY Antacid Suspension (Mag Hydrox/Al Hydrox/Simeth) 355 Ml Oral.susp 30 Ml PO PRN Q4HRS PRN Lisinopril 5 Mg Tablet 5 Mg PO DAILY Lipitor (Atorvastatin Calcium) 40 Mg Tablet 40 Mg PO QHS Lasix (Furosemide) 40 Mg Tablet 40 Mg PO DAILY Lactulose 10 Gm/15 Ml Solution 20 Gm PO PRN DAILY PRN Klonopin (Clonazepam) 0.5 Mg Tablet 0.5 Mg PO TID Glucophage (Metformin Hcl) 500 Mg Tablet 500 Mg PO BIDWMEALS Josie-Tussin Dm Syrup (Guaifenesin/Dextromethorphan) 473 Ml Syrup 10 Ml PO PRN Q4HRS PRN Duoneb 0.5-3(2.5) Mg/3 Ml (Albuterol/Ipratropium) 3 Ml Ampul.neb 3 Ml NEB PRN Q4HRS PRN Depakote Sprinkle (Divalproex Sodium) 125 Mg Cap.sprink 125 Mg PO TID Bisacodyl 10 Mg Supp.rect 10 Mg RC PRN DAILY PRN Bisacodyl 5 Mg Tablet.dr 10 Mg PO PRN DAILY PRN Reshma Antifungal (Miconazole Nitrate) 142 Gm Cream..g. 1 Gerson TP BID Ativan (Lorazepam) 0.5 Mg Tablet 0.5 Mg PO PRN Q4HRS PRN Aspirin Ec (Aspirin) 81 Mg Tablet.dr 81 Mg PO DAILY Advair Hfa 115-21 Mcg Inhaler (Fluticasone/Salmeterol) 12 Gm Hfa.aer.ad 2 Puff IH BID Diagnosis: Problems: (1) Psychosis (2) Schizophrenia, acute (3) Anxiety disorder (4) Bipolar affective, mixed, sev w/ psych (5) Impulse control disorder (6) Schizoaffective disorder, chronic condition with acute exacerbation ALBERT ROSE MD Feb 10, 2017 19:44
--- NOTE | 2017-02-11 02:21 | PN ---
DATE: 02/09/2017 PSYCHIATRIC PROGRESS NOTE This is a late entry for 02/09/2017, covers elements not covered in my initial note of 02/09/2017. SUBJECTIVE: The patient was seen individually the evening of 02/09/2017. I met with the patient in her room. She has been obsessed with the bowel. Nursing staff states she has had a bowel movement and part of her obsession is just her anxiety rather than reality, but they are monitoring this closely treating it symptomatically. REVIEW OF SYSTEMS: Other than the bowel, complains of pedal edema and lymphedema. No CV, , pulmonary, eye system symptoms on review. MENTAL STATUS EXAM: Oriented to herself and situation. Speech coherent, rapid at times, pressured, but less so than before. Abstraction fair, computation impaired, language function intact, attention span short. Mood and affect, lability is improved. LABORATORY DATA: Reviewed. IMPRESSION: Unchanged from initial note. PLAN: Continue current psychotropics. Reduce oral Risperdal from 2 mg a day to 1 mg a day since she is on Risperdal Consta at 25 mg IM every 2 weeks and received a second injection in the last day or so. [place] at 300 mg at bedtime. Check labs level. [place] level on the 02/11/2017, adjust to reach a therapeutic level. Continue Depakote for now, level is to be repeated as well. ALBERT ROSE MD DR: CHASE/[facility] JOB#: [id number] / [id number]
[2017-02-11] MEDS: FUROSEMIDE 40 MG TABLET PO SCH (05:26)
[2017-02-11] MEDS: LEVOTHYROXINE 100 MCG TABLET PO SCH (05:26)
[2017-02-11] MEDS: POTASSIUM CHLORIDE 20 MEQ TABLET.ER. PO SCH ×2 (05:28→18:00)
[2017-02-11 06:06] VITALS: BP 127/85
[2017-02-11] MEDS: LISINOPRIL 5 MG TABLET. PO SCH (07:29)
[2017-02-11] MEDS: ACETAMINOPHEN 325 MG TABLET PO SCH ×4 (07:29→21:00)
[2017-02-11] MEDS: ASPIRIN ENTERIC COATED 81 MG TABLET.DR. PO SCH (07:29)
[2017-02-11] MEDS: CYANOCOBALAMIN (VITAMIN B-12) 1,000 MCG TABLET. PO SCH (07:29)
[2017-02-11] MEDS: VALPROATE ACID 250 MG/5 ML ORAL SOLUTION PO SCH ×2 (07:30→20:37)
[2017-02-11] MEDS: NICOTINE 21MG PATCH. TD SCH ×2 (07:31→07:52)
[2017-02-11] MEDS: clonazePAM 0.5 MG TABLET PO SCH ×3 (07:33→20:42)
[2017-02-11] MEDS: metFORMIN 500 MG TABLET PO SCH ×2 (07:33→15:49)
[2017-02-11 07:41] LABS: BASO % 1 % (0-3); EOS % 0 % (0-3); HEMATOCRIT 34.9 % (36.0-47.0); LYMPH # 1.2 x10^3/uL (1.0-4.8); LYMPH % 24 % (24-48); MEAN CORPUSCULAR HEMOGLOBIN 35 pg (25-35); MEAN CORPUSCULAR HGB CONC 34 g/dL (31-37); MEAN CORPUSCULAR VOLUME 101 fL (79-100); MONO # 0.6 x10^3/uL (0.0-1.1); MONO % 12 % (0-9); NEUT # 3.1 x10^3uL (1.8-7.7); NEUT % 63 % (31-73); PLATELET COUNT 255 x10^3/uL (140-400); RED BLOOD COUNT 3.47 x10^6/uL (3.50-5.40); RED CELL DISTRIBUTION WIDTH 13.8 % (11.5-14.5); WHITE BLOOD COUNT 4.9 x10^3/uL (4.0-11.0)
[2017-02-11 08:08] LABS: ALBUMIN 3.5 g/dL (3.4-5.0); ALBUMIN/GLOBULIN RATIO 1.1 (1.0-1.7); ALK PHOS 108 U/L (46-116); ALT (SGPT) 20 U/L (14-59); ANION GAP 2 (6-14); AST (SGOT) 11 U/L (15-37); BLOOD UREA NITROGEN 21 mg/dL (7-20); BUN/CREATININE RATIO 35 (6-20); CALCIUM 8.8 mg/dL (8.5-10.1); CARBON DIOXIDE 34 mmol/L (21-32); CHLORIDE 102 mmol/L (98-107); CREATININE 0.6 mg/dL (0.6-1.0); GFR 97.2; GLUCOSE 96 mg/dL (70-99); POTASSIUM 4.4 mmol/L (3.5-5.1); SODIUM 138 mmol/L (136-145); TOTAL BILIRUBIN 0.4 mg/dL (0.2-1.0); TOTAL PROTEIN 6.6 g/dL (6.4-8.2)
[2017-02-11 08:09] LABS: VAL ACID 70 mcg/mL (50-100)
[2017-02-11 13:54] LABS: LI 0.4 mmol/L (0.6-1.2)
[2017-02-11] MEDS: risperiDONE ORAL 1 MG/ML 30ml BOTTLE. PO SCH (15:49)
[2017-02-11 16:16] VITALS: BP 105/62
--- NOTE | 2017-02-11 19:55 | PDOC ---
Exam Tra Demential Exam: Tra Note: Please also refer to the separate dictated note~for this date of service dictated separately.~Patient seen individually. Discussed the patient with Nursing staff reviewed the chart.~Reviewed interim history and current functioning. Reviewed vital signs,~Labs/ Radiology~and current medications noted below. Continue current treatment with the changes noted in the dictated addendum note Assessment: Vital Signs: Vital Signs Date Time Temp Pulse Resp B/P (MAP) Pulse Ox O2 Delivery O2 Flow Rate FiO2 02/11/17 16:16 97.8 59 16 105/62 (76) 98 I&O Intake and Output 02/12/17 07:00 Intake Total 420 ml Balance 420 ml Intake Oral 420 ml Labs: Laboratory Tests Test 02/11/17 07:30 White Blood Count 4.9 x10^3/uL (4.0-11.0) Red Blood Count 3.47 x10^6/uL (3.50-5.40) L Hemoglobin 12.0 g/dL (12.0-15.5) Hematocrit 34.9 % (36.0-47.0) L Mean Corpuscular Volume 101 fL (79-100) H Mean Corpuscular Hemoglobin 35 pg (25-35) Mean Corpuscular Hemoglobin Concent 34 g/dL (31-37) Red Cell Distribution Width 13.8 % (11.5-14.5) Platelet Count 255 x10^3/uL (140-400) Neutrophils (%) (Auto) 63 % (31-73) Lymphocytes (%) (Auto) 24 % (24-48) Monocytes (%) (Auto) 12 % (0-9) H Eosinophils (%) (Auto) 0 % (0-3) Basophils (%) (Auto) 1 % (0-3) Neutrophils # (Auto) 3.1 x10^3uL (1.8-7.7) Lymphocytes # (Auto) 1.2 x10^3/uL (1.0-4.8) Monocytes # (Auto) 0.6 x10^3/uL (0.0-1.1) Eosinophils # (Auto) 0.0 x10^3/uL (0.0-0.7) Basophils # (Auto) 0.0 x10^3/uL (0.0-0.2) Sodium Level 138 mmol/L (136-145) Potassium Level 4.4 mmol/L (3.5-5.1) Chloride Level 102 mmol/L (98-107) Carbon Dioxide Level 34 mmol/L (21-32) H Anion Gap 2 (6-14) L Blood Urea Nitrogen 21 mg/dL (7-20) H Creatinine 0.6 mg/dL (0.6-1.0) Estimated GFR (Cockcroft-Gault) 97.2 BUN/Creatinine Ratio 35 (6-20) H Glucose Level 96 mg/dL (70-99) Calcium Level 8.8 mg/dL (8.5-10.1) Total Bilirubin 0.4 mg/dL (0.2-1.0) Aspartate Amino Transferase (AST) 11 U/L (15-37) L Alanine Aminotransferase (ALT) 20 U/L (14-59) Alkaline Phosphatase 108 U/L (46-116) Total Protein 6.6 g/dL (6.4-8.2) Albumin 3.5 g/dL (3.4-5.0) Albumin/Globulin Ratio 1.1 (1.0-1.7) Valproic Acid Level 70 mcg/mL (50-100) Valproic Acid Last Dose Date 02/10/17 Valproic Acid Last Dose Time 2100 Wisdom Level 0.4 mmol/L (0.6-1.2) L Wisdom Last Dose Date 02/10/17 Wisdom Last Dose Time 2100 Current Medications: Meds: Current Medications Olanzapine (ZyPREXA ZYDIS) 10 mg STK-MED ONCE .ROUTE ; Start 01/25/17 at 04:06; Stop 01/25/17 at 04:07; Status DC Olanzapine (ZyPREXA ZYDIS) 10 mg 1X STAT PO Last administered on 01/25/17 04: 07; Start 01/25/17 at 04:03; Stop 01/25/17 at 06:26; Status DC Nicotine (Nicoderm Cq 21mg) 1 patch DAILY TD Last administered on 02/02/17 08: 30; Start 01/25/17 at 09:00; Stop 02/11/17 at 16:38; Status DC Clonazepam (KlonoPIN) 0.5 mg TID PO Last administered on 02/11/17 13:18; Start 01/25/17 at 09:00 Divalproex Sodium (Depakote Sprinkles) 125 mg TID PO Last administered on 14:16; Start 01/25/17 at 09:00; Stop 01/28/17 at 18:41; Status DC Lorazepam (Ativan) 0.5 mg PRN Q4HRS PRN PO ANXIETY / AGITATION; Start 01/25/17 at 05:30 Risperidone (RisperDAL) 3 mg DAILY16 PO Last administered on 02/08/17 16:00; Start 01/25/17 at 16:00; Stop 02/08/17 at 18:42; Status DC Temazepam (Restoril) 30 mg PRN QHS PRN PO INSOMNIA; Start 01/25/17 at 05:30; Stop 01/25/17 at 06:31; Status DC Trazodone HCl (Desyrel) 100 mg PRN QHS PRN PO INSOMNIA; Start 01/25/17 at 05:30 ; Stop 01/25/17 at 11:36; Status DC Trazodone HCl (Desyrel) 100 mg QHS PO ; Start 01/25/17 at 21:00; Stop 01/25/17 at 21:00; Status DC Temazepam (Restoril) 30 mg PRN QHS PRN PO INSOMNIA Last administered on 19:22; Start 01/25/17 at 06:31; Stop 01/29/17 at 18:50; Status DC Acetaminophen (Tylenol) 650 mg PRN Q6HRS PRN PO PAIN / TEMP Last administered on 02/07/17 04:26; Start 01/25/17 at 06:45 Aspirin (Aspirin Enteric Coated) 81 mg DAILY PO Last administered on 02/11/17 07:29; Start 01/25/17 at 09:00 Bisacodyl (Dulcolax Tab) 10 mg PRN DAILY PRN PO CONSTIPATION; Start 01/25/17 at 06:45 Bisacodyl (Dulcolax Supp) 10 mg PRN DAILY PRN RC CONSTIPATION; Start 01/25/17 at 06:45 Furosemide (Lasix) 40 mg DAILY PO Last administered on 01/28/17 05:15; Start 01/25/17 at 09:00; Stop 01/29/17 at 03:25; Status DC Guaifenesin (Robitussin Dm) 10 ml PRN Q4HRS PRN PO COUGH; Start 01/25/17 at 06: 45 Albuterol/ Ipratropium (Duoneb) 3 ml PRN Q4HRS PRN NEB SHORTNESS OF BREATH; Start 01/25/17 at 06:45 Levothyroxine Sodium (Synthroid) 100 mcg DAILY06 PO Last administered on 05:26; Start 01/25/17 at 07:00 Lisinopril (Prinivil) 5 mg DAILY PO Last administered on 02/11/17 07:29; Start 01/25/17 at 09:00 Al Hydroxide/Mg Hydroxide (Mylanta Plus Xs) 30 ml PRN Q4HRS PRN PO DYSPEPSIA; Start 01/25/17 at 06:45 Metformin HCl (Glucophage) 500 mg BIDWMEALS PO Last administered on 02/03/17 08 :13; Start 01/25/17 at 08:00; Stop 02/03/17 at 15:41; Status DC Miconazole Nitrate (Monistat-Derm) 1 gerson BID TP ; Start 01/25/17 at 09:00; Stop 01/25/17 at 09:00; Status DC Nitroglycerin (Nitrostat) 0.4 mg PRN Q5MIN PRN SL CHEST PAIN; Start 01/25/17 at 06:45 Polyethylene Glycol (miraLAX) 17 gm QODAY PO Last administered on 02/10/17 08: 28; Start 01/25/17 at 09:00 Senna/Docusate Sodium (Senna Plus) 1 tab QHS PO Last administered on 02/10/17 19:42; Start 01/25/17 at 21:00 Tramadol HCl (Ultram) 25 mg PRN Q6HRS PRN PO PAIN Last administered on 11:47; Start 01/25/17 at 06:45 Acetaminophen (Tylenol) 650 mg TID PO Last administered on 02/11/17 07:29; Start 01/25/17 at 09:00 Atorvastatin Calcium (Lipitor) 40 mg QHS PO Last administered on 02/10/17 19: 42; Start 01/25/17 at 21:00 Albuterol Sulfate (Ventolin) 2.5 mg Q6H NEB ; Start 01/25/17 at 07:30; Stop at 17:24; Status DC Lactulose 20 gm PRN DAILY PRN PO CONSTIPATION; Start 01/25/17 at 07:30 Budesonide (Pulmicort) 0.5 mg RTBID NEB ; Start 01/25/17 at 08:00; Stop at 17:24; Status DC Olanzapine (ZyPREXA ZYDIS) 2.5 mg PRN Q2HR PRN PO ANXIETY / AGITATION; Start at 08:00 Lorazepam (Ativan) 1 mg DAILY IM Last administered on 01/27/17 09:03; Start at 11:00; Stop 01/27/17 at 18:25; Status DC Haloperidol Lactate (Haldol) 5 mg DAILY IM Last administered on 01/27/17 08:58 ; Start 01/25/17 at 11:00; Stop 01/27/17 at 18:25; Status DC Risperidone (RisperDAL CONSTA) 25 mg Q2WKS IM Last administered on 02/09/17 10 :08; Start 01/26/17 at 09:00 Risperidone (RisperDAL) 3 mg 1X ONCE SL Last administered on 01/26/17 16:15; Start 01/26/17 at 16:00; Stop 01/26/17 at 16:02; Status DC Albuterol Sulfate (Ventolin) 2.5 mg PRN Q6HRS PRN NEB SHORTNESS OF BREATH; Start 01/28/17 at 13:30 Budesonide (Pulmicort) 0.5 mg PRN BID PRN NEB SHORTNESS OF BREATH; Start at 08:00 Haloperidol Lactate (Haldol) 5 mg DAILY IM Last administered on 01/30/17 11:07 ; Start 01/28/17 at 09:00; Stop 01/30/17 at 18:32; Status DC Olanzapine (ZyPREXA ZYDIS) 5 mg PRN Q2HR PRN PO ANXIETY / AGITATION; Start at 18:30 Lorazepam (Ativan) 1 mg DAILY IM Last administered on 01/30/17 11:07; Start at 09:00; Stop 01/30/17 at 18:32; Status DC Valproic Acid (Depakene) 375 mg HS PO ; Start 01/29/17 at 21:00; Stop 01/29/17 at 21:00; Status DC Furosemide (Lasix) 40 mg DAILY06 PO Last administered on 02/11/17 05:26; Start 01/29/17 at 06:00 Valproic Acid (Depakene) 375 mg BID PO Last administered on 02/03/17 08:23; Start 01/29/17 at 21:00; Stop 02/03/17 at 18:22; Status DC Temazepam (Restoril) 30 mg QHS PO Last administered on 02/10/17 19:43; Start 01/29/17 at 21:00 Potassium Chloride (Klor-Con) 20 meq BID PO ; Start 01/30/17 at 21:00; Stop at 05:33; Status DC Magnesium Hydroxide (Milk Of Magnesia) 2,400 mg PRN DAILY PRN PO CONSTIPATION; Start 01/30/17 at 16:30; Status UNV Magnesium Hydroxide (Milk Of Magnesia) 2,400 mg PRN DAILY PRN PO CONSTIPATION Last administered on 02/06/17 05:48; Start 01/30/17 at 16:45 Potassium Chloride (Klor-Con) 20 meq BID66 PO Last administered on 02/11/17 05 :28; Start 01/31/17 at 06:00 Metformin HCl (Glucophage) 250 mg BIDWMEALS PO Last administered on 02/11/17 15:49; Start 02/03/17 at 17:00 Cyanocobalamin (Vitamin B-12) 1,000 mcg DAILY PO Last administered on 07:29; Start 02/04/17 at 09:00 Valproic Acid (Depakene) 500 mg BID PO Last administered on 02/07/17 08:01; Start 02/03/17 at 21:00; Stop 02/07/17 at 15:17; Status DC Valproic Acid (Depakene) 750 mg BID PO Last administered on 02/11/17 07:30; Start 02/07/17 at 21:00 Trazodone HCl (Desyrel) 100 mg QHS PO Last administered on 02/10/17 19:42; Start 02/07/17 at 21:00 Trazodone HCl (Desyrel) 100 mg PRN QHS PRN PO INSOMNIA; Start 02/07/17 at 19:00 Risperidone (RisperDAL) 2 mg DAILY16 PO Last administered on 02/09/17 16:44; Start 02/09/17 at 16:00; Stop 02/09/17 at 18:47; Status DC [place] Carbonate (Lithobid) 300 mg HS PO Last administered on 02/10/17 19:42 ; Start 02/08/17 at 21:00 Risperidone (RisperDAL) 1 mg DAILY16 PO Last administered on 02/11/17 15:49; Start 02/11/17 at 16:00 Active Scripts Active Reported Tylenol (Acetaminophen) 325 Mg Tablet 650 Mg PO PRN Q6HRS PRN Arthritis Pain (Acetaminophen) 650 Mg Tablet.er 650 Mg PO BID Trazodone Hcl 100 Mg Tablet 100 Mg PO PRN QHS PRN Trazodone Hcl 100 Mg Tablet 100 Mg PO QHS Tramadol Hcl (Tramadol HCl) 50 Mg Tablet 25 Mg PO PRN Q6HRS PRN Synthroid (Levothyroxine Sodium) 100 Mcg Tablet 100 Mcg PO DAILY07 Senna S Tablet (Sennosides/Docusate Sodium) 1 Each Tablet 1 Tab PO QHS Risperdal (Risperidone) 1 Mg/1 Ml Solution 3 Mg PO DAILY16 Restoril (Temazepam) 30 Mg Capsule 30 Mg PO PRN QHS PRN Nitrostat (Nitroglycerin) 0.4 Mg Tab.subl 0.4 Mg SL PRN Q5MIN PRN Miralax (Polyethylene Glycol 3350) 119 Gm Powder 17 Gm PO QODAY Antacid Suspension (Mag Hydrox/Al Hydrox/Simeth) 355 Ml Oral.susp 30 Ml PO PRN Q4HRS PRN Lisinopril 5 Mg Tablet 5 Mg PO DAILY Lipitor (Atorvastatin Calcium) 40 Mg Tablet 40 Mg PO QHS Lasix (Furosemide) 40 Mg Tablet 40 Mg PO DAILY Lactulose 10 Gm/15 Ml Solution 20 Gm PO PRN DAILY PRN Klonopin (Clonazepam) 0.5 Mg Tablet 0.5 Mg PO TID Glucophage (Metformin Hcl) 500 Mg Tablet 500 Mg PO BIDWMEALS Josie-Leti Dm Syrup (Guaifenesin/Dextromethorphan) 473 Ml Syrup 10 Ml PO PRN Q4HRS PRN Duoneb 0.5-3(2.5) Mg/3 Ml (Albuterol/Ipratropium) 3 Ml Ampul.neb 3 Ml NEB PRN Q4HRS PRN Depakote Sprinkle (Divalproex Sodium) 125 Mg Cap.sprink 125 Mg PO TID Bisacodyl 10 Mg Supp.rect 10 Mg RC PRN DAILY PRN Bisacodyl 5 Mg Tablet.dr 10 Mg PO PRN DAILY PRN Reshma Antifungal (Miconazole Nitrate) 142 Gm Cream..g. 1 [place] TP BID Ativan (Lorazepam) 0.5 Mg Tablet 0.5 Mg PO PRN Q4HRS PRN Aspirin Ec (Aspirin) 81 Mg Tablet.dr 81 Mg PO DAILY Advair Hfa 115-21 Mcg Inhaler (Fluticasone/Salmeterol) 12 Gm Hfa.aer.ad 2 Puff IH BID Diagnosis: Problems: (1) Psychosis (2) Schizophrenia, acute (3) Anxiety disorder (4) Bipolar affective, mixed, sev w/ psych (5) Impulse control disorder (6) Schizoaffective disorder, chronic condition with acute exacerbation ALBERT ROSE MD Feb 11, 2017 19:55
[2017-02-11] MEDS: ATORVASTATIN CALCIUM 20 MG TABLET PO SCH ×2 (20:37→21:00)
[2017-02-11] MEDS: LITHIUM CARBONATE ER 300 MG TABLET.ER PO SCH (20:37)
[2017-02-11] MEDS: TEMAZEPAM 15 MG CAPSULE PO SCH ×2 (20:37→21:00)
[2017-02-11] MEDS: SENNOSIDES/DOCUSATE 8.6/50MG TABLET. PO SCH (20:38)
[2017-02-11] MEDS: traZODone 100 MG TABLET. PO SCH (20:38)
--- NOTE | 2017-02-12 04:09 | PN ---
DATE: 02/10/2017 PSYCHIATRIC PROGRESS NOTE This late entry 02/10/2017 covers the elements not covered in my initial note of 02/10/2017. I met with the patient at length in her room. Overall, the patient is irritable, labile at times, agreed to take some of her medications including Risperdal. At times labile, and her mood demanding, states she fell in the bathroom. No evidence per nursing report that she fell, no injuries noted. REVIEW OF SYSTEMS: Positive for bilateral pedal edema. No CV, , pulmonary, eye, ENT system symptoms on review. MENTAL STATUS EXAM: Oriented to herself and situation. Speech is coherent, less pressured. Abstraction fair, computation impaired, language function intact, attention span short. Mood and affect remains somewhat anxious, labile at times, psychotic, but less so than before. LABORATORY DATA: Reviewed. IMPRESSION: Unchanged from initial note. PLAN: Continue current psychotropics. Valproic acid level is 49. We will repeat CBC, CMP, lithium and valproic acid level in the morning of 02/11/2017. Adjust the psychotropics further thereafter depending on her progress. We will attempt to reach a therapeutic lithium level. MAN Hero ROSE MD DR: CH[facility] JOB#: [id number] / [id number]
[2017-02-12] MEDS: POTASSIUM CHLORIDE 20 MEQ TABLET.ER. PO SCH ×2 (05:25→17:17)
[2017-02-12] MEDS: LEVOTHYROXINE 100 MCG TABLET PO SCH (05:25)
[2017-02-12] MEDS: FUROSEMIDE 40 MG TABLET PO SCH (05:26)
[2017-02-12 05:59] VITALS: BP 95/47
[2017-02-12] MEDS: ASPIRIN ENTERIC COATED 81 MG TABLET.DR. PO SCH (07:55)
[2017-02-12] MEDS: metFORMIN 500 MG TABLET PO SCH ×2 (08:00→16:33)
[2017-02-12] MEDS: POLYETHYLENE GLYCOL 3350 17 GM PACKET. PO SCH (08:02)
[2017-02-12] MEDS: ACETAMINOPHEN 325 MG TABLET PO SCH ×3 (08:02→20:17)
[2017-02-12] MEDS: CYANOCOBALAMIN (VITAMIN B-12) 1,000 MCG TABLET. PO SCH (08:02)
[2017-02-12] MEDS: VALPROATE ACID 250 MG/5 ML ORAL SOLUTION PO SCH ×2 (08:03→20:18)
[2017-02-12] MEDS: clonazePAM 0.5 MG TABLET PO SCH ×3 (08:05→20:17)
[2017-02-12] MEDS: LISINOPRIL 5 MG TABLET. PO SCH ×3 (09:00→10:35)
[2017-02-12 16:26] VITALS: BP 105/62
[2017-02-12] MEDS: risperiDONE ORAL 1 MG/ML 30ml BOTTLE. PO SCH (16:32)
--- NOTE | 2017-02-12 20:09 | PDOC ---
Exam Tra Demential Exam: Tra Note: Please also refer to the separate dictated note~for this date of service dictated separately.~Patient seen individually. Discussed the patient with Nursing staff reviewed the chart.~Reviewed interim history and current functioning. Reviewed vital signs,~Labs/ Radiology~and current medications noted below. Continue current treatment with the changes noted in the dictated addendum note Assessment: Vital Signs: Vital Signs Date Time Temp Pulse Resp B/P (MAP) Pulse Ox O2 Delivery O2 Flow Rate FiO2 02/12/17 16:26 97.3 84 16 105/62 (76) 96 I&O Intake and Output 02/13/17 06:59 Intake Total 900 ml Balance 900 ml Intake Oral 900 ml Current Medications: Meds: Current Medications Olanzapine (ZyPREXA ZYDIS) 10 mg STK-MED ONCE .ROUTE ; Start 01/25/17 at 04:06; Stop 01/25/17 at 04:07; Status DC Olanzapine (ZyPREXA ZYDIS) 10 mg 1X STAT PO Last administered on 01/25/17 04: 07; Start 01/25/17 at 04:03; Stop 01/25/17 at 06:26; Status DC Nicotine (Nicoderm Cq 21mg) 1 patch DAILY TD Last administered on 02/02/17 08: 30; Start 01/25/17 at 09:00; Stop 02/11/17 at 16:38; Status DC Clonazepam (KlonoPIN) 0.5 mg TID PO Last administered on 02/12/17 14:15; Start 01/25/17 at 09:00 Divalproex Sodium (Depakote Sprinkles) 125 mg TID PO Last administered on 14:16; Start 01/25/17 at 09:00; Stop 01/28/17 at 18:41; Status DC Lorazepam (Ativan) 0.5 mg PRN Q4HRS PRN PO ANXIETY / AGITATION; Start 01/25/17 at 05:30 Risperidone (RisperDAL) 3 mg DAILY16 PO Last administered on 02/08/17 16:00; Start 01/25/17 at 16:00; Stop 02/08/17 at 18:42; Status DC Temazepam (Restoril) 30 mg PRN QHS PRN PO INSOMNIA; Start 01/25/17 at 05:30; Stop 01/25/17 at 06:31; Status DC Trazodone HCl (Desyrel) 100 mg PRN QHS PRN PO INSOMNIA; Start 01/25/17 at 05:30 ; Stop 01/25/17 at 11:36; Status DC Trazodone HCl (Desyrel) 100 mg QHS PO ; Start 01/25/17 at 21:00; Stop 01/25/17 at 21:00; Status DC Temazepam (Restoril) 30 mg PRN QHS PRN PO INSOMNIA Last administered on 19:22; Start 01/25/17 at 06:31; Stop 01/29/17 at 18:50; Status DC Acetaminophen (Tylenol) 650 mg PRN Q6HRS PRN PO PAIN / TEMP Last administered on 02/07/17 04:26; Start 01/25/17 at 06:45 Aspirin (Aspirin Enteric Coated) 81 mg DAILY PO Last administered on 02/12/17 07:55; Start 01/25/17 at 09:00 Bisacodyl (Dulcolax Tab) 10 mg PRN DAILY PRN PO CONSTIPATION; Start 01/25/17 at 06:45 Bisacodyl (Dulcolax Supp) 10 mg PRN DAILY PRN RC CONSTIPATION; Start 01/25/17 at 06:45 Furosemide (Lasix) 40 mg DAILY PO Last administered on 01/28/17 05:15; Start 01/25/17 at 09:00; Stop 01/29/17 at 03:25; Status DC Guaifenesin (Robitussin Dm) 10 ml PRN Q4HRS PRN PO COUGH; Start 01/25/17 at 06: 45 Albuterol/ Ipratropium (Duoneb) 3 ml PRN Q4HRS PRN NEB SHORTNESS OF BREATH; Start 01/25/17 at 06:45 Levothyroxine Sodium (Synthroid) 100 mcg DAILY06 PO Last administered on 05:25; Start 01/25/17 at 07:00 Lisinopril (Prinivil) 5 mg DAILY PO Last administered on 02/11/17 07:29; Start 01/25/17 at 09:00 Al Hydroxide/Mg Hydroxide (Mylanta Plus Xs) 30 ml PRN Q4HRS PRN PO DYSPEPSIA; Start 01/25/17 at 06:45 Metformin HCl (Glucophage) 500 mg BIDWMEALS PO Last administered on 02/03/17 08 :13; Start 01/25/17 at 08:00; Stop 02/03/17 at 15:41; Status DC Miconazole Nitrate (Monistat-Derm) 1 gerson BID TP ; Start 01/25/17 at 09:00; Stop 01/25/17 at 09:00; Status DC Nitroglycerin (Nitrostat) 0.4 mg PRN Q5MIN PRN SL CHEST PAIN; Start 01/25/17 at 06:45 Polyethylene Glycol (miraLAX) 17 gm QODAY PO Last administered on 02/12/17 08: 02; Start 01/25/17 at 09:00 Senna/Docusate Sodium (Senna Plus) 1 tab QHS PO Last administered on 02/11/17 20:38; Start 01/25/17 at 21:00 Tramadol HCl (Ultram) 25 mg PRN Q6HRS PRN PO PAIN Last administered on 11:47; Start 01/25/17 at 06:45 Acetaminophen (Tylenol) 650 mg TID PO Last administered on 02/11/17 07:29; Start 01/25/17 at 09:00 Atorvastatin Calcium (Lipitor) 40 mg QHS PO Last administered on 02/10/17 19: 42; Start 01/25/17 at 21:00 Albuterol Sulfate (Ventolin) 2.5 mg Q6H NEB ; Start 01/25/17 at 07:30; Stop at 17:24; Status DC Lactulose 20 gm PRN DAILY PRN PO CONSTIPATION; Start 01/25/17 at 07:30 Budesonide (Pulmicort) 0.5 mg RTBID NEB ; Start 01/25/17 at 08:00; Stop at 17:24; Status DC Olanzapine (ZyPREXA ZYDIS) 2.5 mg PRN Q2HR PRN PO ANXIETY / AGITATION; Start at 08:00 Lorazepam (Ativan) 1 mg DAILY IM Last administered on 01/27/17 09:03; Start at 11:00; Stop 01/27/17 at 18:25; Status DC Haloperidol Lactate (Haldol) 5 mg DAILY IM Last administered on 01/27/17 08:58 ; Start 01/25/17 at 11:00; Stop 01/27/17 at 18:25; Status DC Risperidone (RisperDAL CONSTA) 25 mg Q2WKS IM Last administered on 02/09/17 10 :08; Start 01/26/17 at 09:00 Risperidone (RisperDAL) 3 mg 1X ONCE SL Last administered on 01/26/17 16:15; Start 01/26/17 at 16:00; Stop 01/26/17 at 16:02; Status DC Albuterol Sulfate (Ventolin) 2.5 mg PRN Q6HRS PRN NEB SHORTNESS OF BREATH; Start 01/28/17 at 13:30 Budesonide (Pulmicort) 0.5 mg PRN BID PRN NEB SHORTNESS OF BREATH; Start at 08:00 Haloperidol Lactate (Haldol) 5 mg DAILY IM Last administered on 01/30/17 11:07 ; Start 01/28/17 at 09:00; Stop 01/30/17 at 18:32; Status DC Olanzapine (ZyPREXA ZYDIS) 5 mg PRN Q2HR PRN PO ANXIETY / AGITATION; Start at 18:30 Lorazepam (Ativan) 1 mg DAILY IM Last administered on 01/30/17 11:07; Start at 09:00; Stop 01/30/17 at 18:32; Status DC Valproic Acid (Depakene) 375 mg HS PO ; Start 01/29/17 at 21:00; Stop 01/29/17 at 21:00; Status DC Furosemide (Lasix) 40 mg DAILY06 PO Last administered on 02/12/17 05:26; Start 01/29/17 at 06:00 Valproic Acid (Depakene) 375 mg BID PO Last administered on 02/03/17 08:23; Start 01/29/17 at 21:00; Stop 02/03/17 at 18:22; Status DC Temazepam (Restoril) 30 mg QHS PO Last administered on 02/10/17 19:43; Start 01/29/17 at 21:00 Potassium Chloride (Klor-Con) 20 meq BID PO ; Start 01/30/17 at 21:00; Stop at 05:33; Status DC Magnesium Hydroxide (Milk Of Magnesia) 2,400 mg PRN DAILY PRN PO CONSTIPATION; Start 01/30/17 at 16:30; Status UNV Magnesium Hydroxide (Milk Of Magnesia) 2,400 mg PRN DAILY PRN PO CONSTIPATION Last administered on 02/06/17 05:48; Start 01/30/17 at 16:45 Potassium Chloride (Klor-Con) 20 meq BID66 PO Last administered on 02/12/17 17 :17; Start 01/31/17 at 06:00 Metformin HCl (Glucophage) 250 mg BIDWMEALS PO Last administered on 02/12/17 16:33; Start 02/03/17 at 17:00 Cyanocobalamin (Vitamin B-12) 1,000 mcg DAILY PO Last administered on 08:02; Start 02/04/17 at 09:00 Valproic Acid (Depakene) 500 mg BID PO Last administered on 02/07/17 08:01; Start 02/03/17 at 21:00; Stop 02/07/17 at 15:17; Status DC Valproic Acid (Depakene) 750 mg BID PO Last administered on 02/12/17 08:03; Start 02/07/17 at 21:00 Trazodone HCl (Desyrel) 100 mg QHS PO Last administered on 02/11/17 20:38; Start 02/07/17 at 21:00 Trazodone HCl (Desyrel) 100 mg PRN QHS PRN PO INSOMNIA; Start 02/07/17 at 19:00 Risperidone (RisperDAL) 2 mg DAILY16 PO Last administered on 02/09/17 16:44; Start 02/09/17 at 16:00; Stop 02/09/17 at 18:47; Status DC [place] Carbonate (Lithobid) 300 mg HS PO Last administered on 02/11/17 20:37 ; Start 02/08/17 at 21:00 Risperidone (RisperDAL) 1 mg DAILY16 PO Last administered on 02/12/17 16:32; Start 02/11/17 at 16:00 [place] Carbonate (Lithobid) 150 mg DAILY PO ; Start 02/13/17 at 09:00 Active Scripts Active Reported Tylenol (Acetaminophen) 325 Mg Tablet 650 Mg PO PRN Q6HRS PRN Arthritis Pain (Acetaminophen) 650 Mg Tablet.er 650 Mg PO BID Trazodone Hcl 100 Mg Tablet 100 Mg PO PRN QHS PRN Trazodone Hcl 100 Mg Tablet 100 Mg PO QHS Tramadol Hcl (Tramadol HCl) 50 Mg Tablet 25 Mg PO PRN Q6HRS PRN Synthroid (Levothyroxine Sodium) 100 Mcg Tablet 100 Mcg PO DAILY07 Senna S Tablet (Sennosides/Docusate Sodium) 1 Each Tablet 1 Tab PO QHS Risperdal (Risperidone) 1 Mg/1 Ml Solution 3 Mg PO DAILY16 Restoril (Temazepam) 30 Mg Capsule 30 Mg PO PRN QHS PRN Nitrostat (Nitroglycerin) 0.4 Mg Tab.subl 0.4 Mg SL PRN Q5MIN PRN Miralax (Polyethylene Glycol 3350) 119 Gm Powder 17 Gm PO QODAY Antacid Suspension (Mag Hydrox/Al Hydrox/Simeth) 355 Ml Oral.susp 30 Ml PO PRN Q4HRS PRN Lisinopril 5 Mg Tablet 5 Mg PO DAILY Lipitor (Atorvastatin Calcium) 40 Mg Tablet 40 Mg PO QHS Lasix (Furosemide) 40 Mg Tablet 40 Mg PO DAILY Lactulose 10 Gm/15 Ml Solution 20 Gm PO PRN DAILY PRN Klonopin (Clonazepam) 0.5 Mg Tablet 0.5 Mg PO TID Glucophage (Metformin Hcl) 500 Mg Tablet 500 Mg PO BIDWMEALS Josie-Tussin Dm Syrup (Guaifenesin/Dextromethorphan) 473 Ml Syrup 10 Ml PO PRN Q4HRS PRN Duoneb 0.5-3(2.5) Mg/3 Ml (Albuterol/Ipratropium) 3 Ml Ampul.neb 3 Ml NEB PRN Q4HRS PRN Depakote Sprinkle (Divalproex Sodium) 125 Mg Cap.sprink 125 Mg PO TID Bisacodyl 10 Mg Supp.rect 10 Mg RC PRN DAILY PRN Bisacodyl 5 Mg Tablet.dr 10 Mg PO PRN DAILY PRN Reshma Antifungal (Miconazole Nitrate) 142 Gm Cream..g. 1 Gerson TP BID Ativan (Lorazepam) 0.5 Mg Tablet 0.5 Mg PO PRN Q4HRS PRN Aspirin Ec (Aspirin) 81 Mg Tablet.dr 81 Mg PO DAILY Advair Hfa 115-21 Mcg Inhaler (Fluticasone/Salmeterol) 12 Gm Hfa.aer.ad 2 Puff IH BID Diagnosis: Problems: (1) Psychosis (2) Schizophrenia, acute (3) Anxiety disorder (4) Bipolar affective, mixed, sev w/ psych (5) Impulse control disorder (6) Schizoaffective disorder, chronic condition with acute exacerbation ALBERT ROSE MD Feb 12, 2017 20:09
[2017-02-12] MEDS: traZODone 100 MG TABLET. PO SCH (20:17)
[2017-02-12] MEDS: LITHIUM CARBONATE ER 300 MG TABLET.ER PO SCH (20:17)
[2017-02-12] MEDS: SENNOSIDES/DOCUSATE 8.6/50MG TABLET. PO SCH (20:17)
[2017-02-12] MEDS: TEMAZEPAM 15 MG CAPSULE PO SCH (20:17)
[2017-02-12] MEDS: ATORVASTATIN CALCIUM 20 MG TABLET PO SCH (20:17)
[2017-02-13] MEDS: LEVOTHYROXINE 100 MCG TABLET PO SCH (04:31)
[2017-02-13] MEDS: POTASSIUM CHLORIDE 20 MEQ TABLET.ER. PO SCH ×2 (04:31→17:57)
[2017-02-13] MEDS: ACETAMINOPHEN 325 MG TABLET PO SCH ×4 (04:31→19:46)
[2017-02-13] MEDS: FUROSEMIDE 40 MG TABLET PO SCH (04:31)
[2017-02-13 05:50] VITALS: BP 107/75
[2017-02-13] MEDS: VALPROATE ACID 250 MG/5 ML ORAL SOLUTION PO SCH ×2 (08:38→19:47)
[2017-02-13] MEDS: metFORMIN 500 MG TABLET PO SCH ×2 (08:39→17:57)
[2017-02-13] MEDS: ASPIRIN ENTERIC COATED 81 MG TABLET.DR. PO SCH ×2 (08:40→09:26)
[2017-02-13] MEDS: CYANOCOBALAMIN (VITAMIN B-12) 1,000 MCG TABLET. PO SCH ×2 (08:40→09:26)
[2017-02-13] MEDS: clonazePAM 0.5 MG TABLET PO SCH ×3 (08:41→19:50)
[2017-02-13] MEDS ORDERED: LITHIUM CARBONATE ER 300 MG TABLET.ER PO SCH (09:00)
--- NOTE | 2017-02-13 10:12 | PN ---
DATE: 02/11/2017 PSYCHIATRIC PROGRESS NOTE This late entry 02/11/2017 covers elements not covered in my initial note on 02/11/2017. I met with the patient the evening of 02/11/2017. She has been resistive to taking her medications, somewhat grouchy per nursing report, refused her patch, stuffing her ears with toilet paper because she feels the external stimuli too much. She is obsessed with the bowel. REVIEW OF SYSTEMS: Positive for constipation, over stimuli with hearing. No CV, , pulmonary, system symptoms on review. Reliability poor. MENTAL STATUS EXAM: Oriented to herself and situation. Speech, often responses monosyllabic somewhat pressured, less so than before. Abstraction fair, computation impaired, language function intact, attention span short. Mood and affect still somewhat labile. LABORATORY DATA: Reviewed. IMPRESSION: Unchanged from initial note. PLAN: Continue current psychotropics. Valproic acid level is 70. Gerald is being adjusted to reach a therapeutic level. We repeated a draw of lithium on 02/11/2017, result is awaited and then we will adjust the dosage. Review of the drug interactions risk/benefit ratio favors no further change at this time. ALBERT ROSE MD DR: CHASE[facility] JOB#: [id number] / [id number]
[2017-02-13 16:37] VITALS: BP 136/63
[2017-02-13] MEDS: risperiDONE ORAL 1 MG/ML 30ml BOTTLE. PO SCH (17:56)
[2017-02-13] MEDS: ATORVASTATIN CALCIUM 20 MG TABLET PO SCH (19:46)
[2017-02-13] MEDS: LITHIUM CARBONATE ER 300 MG TABLET.ER PO SCH (19:46)
[2017-02-13] MEDS: TEMAZEPAM 15 MG CAPSULE PO SCH (19:46)
[2017-02-13] MEDS: SENNOSIDES/DOCUSATE 8.6/50MG TABLET. PO SCH (19:46)
[2017-02-13] MEDS: traZODone 100 MG TABLET. PO SCH (19:47)
--- NOTE | 2017-02-13 20:36 | PDOC ---
Exam Tra Demential Exam: Tra Note: Please also refer to the separate dictated note~for this date of service dictated separately.~Patient seen individually. Discussed the patient with Nursing staff reviewed the chart.~Reviewed interim history and current functioning. Reviewed vital signs,~Labs/ Radiology~and current medications noted below. Continue current treatment with the changes noted in the dictated addendum note Assessment: Vital Signs: Vital Signs Date Time Temp Pulse Resp B/P (MAP) Pulse Ox O2 Delivery O2 Flow Rate FiO2 02/13/17 16:37 97.7 63 20 136/63 (87) 97 Room Air I&O Intake and Output 02/14/17 07:00 Intake Total 860 ml Balance 860 ml Intake Oral 860 ml Current Medications: Meds: Current Medications Olanzapine (ZyPREXA ZYDIS) 10 mg STK-MED ONCE .ROUTE ; Start 01/25/17 at 04:06; Stop 01/25/17 at 04:07; Status DC Olanzapine (ZyPREXA ZYDIS) 10 mg 1X STAT PO Last administered on 01/25/17 04: 07; Start 01/25/17 at 04:03; Stop 01/25/17 at 06:26; Status DC Nicotine (Nicoderm Cq 21mg) 1 patch DAILY TD Last administered on 02/02/17 08: 30; Start 01/25/17 at 09:00; Stop 02/11/17 at 16:38; Status DC Clonazepam (KlonoPIN) 0.5 mg TID PO Last administered on 02/13/17 19:50; Start 01/25/17 at 09:00 Divalproex Sodium (Depakote Sprinkles) 125 mg TID PO Last administered on 14:16; Start 01/25/17 at 09:00; Stop 01/28/17 at 18:41; Status DC Lorazepam (Ativan) 0.5 mg PRN Q4HRS PRN PO ANXIETY / AGITATION; Start 01/25/17 at 05:30 Risperidone (RisperDAL) 3 mg DAILY16 PO Last administered on 02/08/17 16:00; Start 01/25/17 at 16:00; Stop 02/08/17 at 18:42; Status DC Temazepam (Restoril) 30 mg PRN QHS PRN PO INSOMNIA; Start 01/25/17 at 05:30; Stop 01/25/17 at 06:31; Status DC Trazodone HCl (Desyrel) 100 mg PRN QHS PRN PO INSOMNIA; Start 01/25/17 at 05:30 ; Stop 01/25/17 at 11:36; Status DC Trazodone HCl (Desyrel) 100 mg QHS PO ; Start 01/25/17 at 21:00; Stop 01/25/17 at 21:00; Status DC Temazepam (Restoril) 30 mg PRN QHS PRN PO INSOMNIA Last administered on 19:22; Start 01/25/17 at 06:31; Stop 01/29/17 at 18:50; Status DC Acetaminophen (Tylenol) 650 mg PRN Q6HRS PRN PO PAIN / TEMP Last administered on 02/07/17 04:26; Start 01/25/17 at 06:45 Aspirin (Aspirin Enteric Coated) 81 mg DAILY PO Last administered on 02/12/17 07:55; Start 01/25/17 at 09:00 Bisacodyl (Dulcolax Tab) 10 mg PRN DAILY PRN PO CONSTIPATION; Start 01/25/17 at 06:45 Bisacodyl (Dulcolax Supp) 10 mg PRN DAILY PRN RC CONSTIPATION; Start 01/25/17 at 06:45 Furosemide (Lasix) 40 mg DAILY PO Last administered on 01/28/17 05:15; Start 01/25/17 at 09:00; Stop 01/29/17 at 03:25; Status DC Guaifenesin (Robitussin Dm) 10 ml PRN Q4HRS PRN PO COUGH; Start 01/25/17 at 06: 45 Albuterol/ Ipratropium (Duoneb) 3 ml PRN Q4HRS PRN NEB SHORTNESS OF BREATH; Start 01/25/17 at 06:45 Levothyroxine Sodium (Synthroid) 100 mcg DAILY06 PO Last administered on 04:31; Start 01/25/17 at 07:00 Lisinopril (Prinivil) 5 mg DAILY PO Last administered on 02/11/17 07:29; Start 01/25/17 at 09:00 Al Hydroxide/Mg Hydroxide (Mylanta Plus Xs) 30 ml PRN Q4HRS PRN PO DYSPEPSIA; Start 01/25/17 at 06:45 Metformin HCl (Glucophage) 500 mg BIDWMEALS PO Last administered on 02/03/17 08 :13; Start 01/25/17 at 08:00; Stop 02/03/17 at 15:41; Status DC Miconazole Nitrate (Monistat-Derm) 1 gerson BID TP ; Start 01/25/17 at 09:00; Stop 01/25/17 at 09:00; Status DC Nitroglycerin (Nitrostat) 0.4 mg PRN Q5MIN PRN SL CHEST PAIN; Start 01/25/17 at 06:45 Polyethylene Glycol (miraLAX) 17 gm QODAY PO Last administered on 02/12/17 08: 02; Start 01/25/17 at 09:00 Senna/Docusate Sodium (Senna Plus) 1 tab QHS PO Last administered on 02/13/17 19:46; Start 01/25/17 at 21:00 Tramadol HCl (Ultram) 25 mg PRN Q6HRS PRN PO PAIN Last administered on 11:47; Start 01/25/17 at 06:45 Acetaminophen (Tylenol) 650 mg TID PO Last administered on 02/13/17 19:46; Start 01/25/17 at 09:00 Atorvastatin Calcium (Lipitor) 40 mg QHS PO Last administered on 02/13/17 19: 46; Start 01/25/17 at 21:00 Albuterol Sulfate (Ventolin) 2.5 mg Q6H NEB ; Start 01/25/17 at 07:30; Stop at 17:24; Status DC Lactulose 20 gm PRN DAILY PRN PO CONSTIPATION; Start 01/25/17 at 07:30 Budesonide (Pulmicort) 0.5 mg RTBID NEB ; Start 01/25/17 at 08:00; Stop at 17:24; Status DC Olanzapine (ZyPREXA ZYDIS) 2.5 mg PRN Q2HR PRN PO ANXIETY / AGITATION; Start at 08:00 Lorazepam (Ativan) 1 mg DAILY IM Last administered on 01/27/17 09:03; Start at 11:00; Stop 01/27/17 at 18:25; Status DC Haloperidol Lactate (Haldol) 5 mg DAILY IM Last administered on 01/27/17 08:58 ; Start 01/25/17 at 11:00; Stop 01/27/17 at 18:25; Status DC Risperidone (RisperDAL CONSTA) 25 mg Q2WKS IM Last administered on 02/09/17 10 :08; Start 01/26/17 at 09:00 Risperidone (RisperDAL) 3 mg 1X ONCE SL Last administered on 01/26/17 16:15; Start 01/26/17 at 16:00; Stop 01/26/17 at 16:02; Status DC Albuterol Sulfate (Ventolin) 2.5 mg PRN Q6HRS PRN NEB SHORTNESS OF BREATH; Start 01/28/17 at 13:30 Budesonide (Pulmicort) 0.5 mg PRN BID PRN NEB SHORTNESS OF BREATH; Start at 08:00 Haloperidol Lactate (Haldol) 5 mg DAILY IM Last administered on 01/30/17 11:07 ; Start 01/28/17 at 09:00; Stop 01/30/17 at 18:32; Status DC Olanzapine (ZyPREXA ZYDIS) 5 mg PRN Q2HR PRN PO ANXIETY / AGITATION; Start at 18:30 Lorazepam (Ativan) 1 mg DAILY IM Last administered on 01/30/17 11:07; Start at 09:00; Stop 01/30/17 at 18:32; Status DC Valproic Acid (Depakene) 375 mg HS PO ; Start 01/29/17 at 21:00; Stop 01/29/17 at 21:00; Status DC Furosemide (Lasix) 40 mg DAILY06 PO Last administered on 02/13/17 04:31; Start 01/29/17 at 06:00 Valproic Acid (Depakene) 375 mg BID PO Last administered on 02/03/17 08:23; Start 01/29/17 at 21:00; Stop 02/03/17 at 18:22; Status DC Temazepam (Restoril) 30 mg QHS PO Last administered on 02/13/17 19:46; Start 01/29/17 at 21:00 Potassium Chloride (Klor-Con) 20 meq BID PO ; Start 01/30/17 at 21:00; Stop at 05:33; Status DC Magnesium Hydroxide (Milk Of Magnesia) 2,400 mg PRN DAILY PRN PO CONSTIPATION; Start 01/30/17 at 16:30; Status UNV Magnesium Hydroxide (Milk Of Magnesia) 2,400 mg PRN DAILY PRN PO CONSTIPATION Last administered on 02/06/17 05:48; Start 01/30/17 at 16:45 Potassium Chloride (Klor-Con) 20 meq BID66 PO Last administered on 02/13/17 17 :57; Start 01/31/17 at 06:00 Metformin HCl (Glucophage) 250 mg BIDWMEALS PO Last administered on 02/13/17 17:57; Start 02/03/17 at 17:00 Cyanocobalamin (Vitamin B-12) 1,000 mcg DAILY PO Last administered on 08:02; Start 02/04/17 at 09:00 Valproic Acid (Depakene) 500 mg BID PO Last administered on 02/07/17 08:01; Start 02/03/17 at 21:00; Stop 02/07/17 at 15:17; Status DC Valproic Acid (Depakene) 750 mg BID PO Last administered on 02/13/17 19:47; Start 02/07/17 at 21:00 Trazodone HCl (Desyrel) 100 mg QHS PO Last administered on 02/13/17 19:47; Start 02/07/17 at 21:00 Trazodone HCl (Desyrel) 100 mg PRN QHS PRN PO INSOMNIA; Start 02/07/17 at 19:00 Risperidone (RisperDAL) 2 mg DAILY16 PO Last administered on 02/09/17 16:44; Start 02/09/17 at 16:00; Stop 02/09/17 at 18:47; Status DC [place] Carbonate (Lithobid) 300 mg HS PO Last administered on 02/13/17 19:46 ; Start 02/08/17 at 21:00 Risperidone (RisperDAL) 1 mg DAILY16 PO Last administered on 02/13/17 17:56; Start 02/11/17 at 16:00 [place] Carbonate (Lithobid) 150 mg DAILY PO Last administered on 02/13/17t 08: 41; Start 02/13/17 at 09:00 Mirtazapine (Remeron) 7.5 mg QHS PO ; Start 02/13/17 at 21:00 Active Scripts Active Reported Tylenol (Acetaminophen) 325 Mg Tablet 650 Mg PO PRN Q6HRS PRN Arthritis Pain (Acetaminophen) 650 Mg Tablet.er 650 Mg PO BID Trazodone Hcl 100 Mg Tablet 100 Mg PO PRN QHS PRN Trazodone Hcl 100 Mg Tablet 100 Mg PO QHS Tramadol Hcl (Tramadol HCl) 50 Mg Tablet 25 Mg PO PRN Q6HRS PRN Synthroid (Levothyroxine Sodium) 100 Mcg Tablet 100 Mcg PO DAILY07 Senna S Tablet (Sennosides/Docusate Sodium) 1 Each Tablet 1 Tab PO QHS Risperdal (Risperidone) 1 Mg/1 Ml Solution 3 Mg PO DAILY16 Restoril (Temazepam) 30 Mg Capsule 30 Mg PO PRN QHS PRN Nitrostat (Nitroglycerin) 0.4 Mg Tab.subl 0.4 Mg SL PRN Q5MIN PRN Miralax (Polyethylene Glycol 3350) 119 Gm Powder 17 Gm PO QODAY Antacid Suspension (Mag Hydrox/Al Hydrox/Simeth) 355 Ml Oral.susp 30 Ml PO PRN Q4HRS PRN Lisinopril 5 Mg Tablet 5 Mg PO DAILY Lipitor (Atorvastatin Calcium) 40 Mg Tablet 40 Mg PO QHS Lasix (Furosemide) 40 Mg Tablet 40 Mg PO DAILY Lactulose 10 Gm/15 Ml Solution 20 Gm PO PRN DAILY PRN Klonopin (Clonazepam) 0.5 Mg Tablet 0.5 Mg PO TID Glucophage (Metformin Hcl) 500 Mg Tablet 500 Mg PO BIDWMEALS Josie-Tussin Dm Syrup (Guaifenesin/Dextromethorphan) 473 Ml Syrup 10 Ml PO PRN Q4HRS PRN Duoneb 0.5-3(2.5) Mg/3 Ml (Albuterol/Ipratropium) 3 Ml Ampul.neb 3 Ml NEB PRN Q4HRS PRN Depakote Sprinkle (Divalproex Sodium) 125 Mg Cap.sprink 125 Mg PO TID Bisacodyl 10 Mg Supp.rect 10 Mg RC PRN DAILY PRN Bisacodyl 5 Mg Tablet.dr 10 Mg PO PRN DAILY PRN Reshma Antifungal (Miconazole Nitrate) 142 Gm Cream..g. 1 [place] TP BID Ativan (Lorazepam) 0.5 Mg Tablet 0.5 Mg PO PRN Q4HRS PRN Aspirin Ec (Aspirin) 81 Mg Tablet.dr 81 Mg PO DAILY Advair Hfa 115-21 Mcg Inhaler (Fluticasone/Salmeterol) 12 Gm Hfa.aer.ad 2 Puff IH BID Diagnosis: Problems: (1) Psychosis (2) Schizophrenia, acute (3) Anxiety disorder (4) Bipolar affective, mixed, sev w/ psych (5) Impulse control disorder (6) Schizoaffective disorder, chronic condition with acute exacerbation ALBERT ROSE MD Feb 13, 2017 20:36
[2017-02-13] MEDS: MIRTAZAPINE 7.5 MG TABLET. PO SCH (20:57)
--- NOTE | 2017-02-14 04:03 | PN ---
DATE: 02/12/2017 This late entry for 02/12/2017 covers elements not covered in my initial note of 02/12/2017. SUBJECTIVE: The patient was staffed at a treatment team meeting morning of 02/12/2017, seen individually in the evening of 02/12/2017, irritable at times, takes some medication and refuses others. [place] level is 0.4. Appetite 80%, sleeping about 6 hours. Valproic acid level is 70. REVIEW OF SYSTEMS: No CV, , pulmonary, eye, ENT system symptoms on review, does complain of lower extremity edema as before, slept for three quarter of an hour the previous evening, takes meds in ice-cream, demanding in the morning "snarky" per nursing staff, obsessing about her legs. No CV, , pulmonary, eye system symptoms on review. MENTAL STATUS EXAM: Oriented to herself and situation. Speech, often responses monosyllabic, at times pressured. Abstraction fair, computation impaired, language function intact. Mood and affect remain somewhat labile. IMPRESSION: Unchanged from initial note. PLAN: [place] level is 0.4, subtherapeutic, increase lithium from 300 mg at bedtime to 150 mg in a.m., 300 mg at bedtime. Check CBC, CMP and lithium level in 3 days. Continue Depakote together with oral Risperdal, Risperdal Consta, Klonopin, Restoril for sleep. Adjust further as clinically indicated. Reviewed drug interactions. Risk/benefit ratio favors no further change. ALBERT ROSE MD DR: CH[facility] JOB#: [id number] / [id number]
[2017-02-14] MEDS: POTASSIUM CHLORIDE 20 MEQ TABLET.ER. PO SCH ×2 (06:00→18:15)
[2017-02-14] MEDS: FUROSEMIDE 40 MG TABLET PO SCH (06:00)
[2017-02-14] MEDS: LEVOTHYROXINE 100 MCG TABLET PO SCH (06:00)
[2017-02-14 06:11] VITALS: BP 122/65
[2017-02-14] MEDS: traMADol 50 MG TABLET PO PRN (06:20)
[2017-02-14] MEDS: VALPROATE ACID 250 MG/5 ML ORAL SOLUTION PO SCH ×2 (10:15→20:10)
[2017-02-14] MEDS: CYANOCOBALAMIN (VITAMIN B-12) 1,000 MCG TABLET. PO SCH (10:15)
[2017-02-14] MEDS: ACETAMINOPHEN 325 MG TABLET PO SCH ×3 (10:16→20:10)
[2017-02-14] MEDS: LISINOPRIL 5 MG TABLET. PO SCH (10:17)
[2017-02-14] MEDS: ASPIRIN ENTERIC COATED 81 MG TABLET.DR. PO SCH (10:17)
[2017-02-14] MEDS: clonazePAM 0.5 MG TABLET PO SCH ×3 (10:17→20:11)
[2017-02-14] MEDS: POLYETHYLENE GLYCOL 3350 17 GM PACKET. PO SCH (10:18)
[2017-02-14] MEDS: metFORMIN 500 MG TABLET PO SCH ×2 (10:18→17:19)
[2017-02-14] MEDS: LITHIUM CARBONATE 150 MG CAPSULE. PO SCH ×2 (15:18→20:11)
[2017-02-14 15:34] VITALS: BP 106/44
[2017-02-14 15:48] VITALS: BP 106/42
[2017-02-14] MEDS: risperiDONE ORAL 1 MG/ML 30ml BOTTLE. PO SCH (16:00)
[2017-02-14] MEDS: traZODone 100 MG TABLET. PO SCH (20:09)
[2017-02-14] MEDS: SENNOSIDES/DOCUSATE 8.6/50MG TABLET. PO SCH (20:09)
[2017-02-14] MEDS: TEMAZEPAM 15 MG CAPSULE PO SCH (20:09)
[2017-02-14] MEDS: MIRTAZAPINE 7.5 MG TABLET. PO SCH (20:09)
[2017-02-14] MEDS: LITHIUM CARBONATE ER 300 MG TABLET.ER PO SCH (20:09)
[2017-02-14] MEDS: ATORVASTATIN CALCIUM 20 MG TABLET PO SCH (20:09)
--- NOTE | 2017-02-14 22:55 | PDOC ---
Exam Tra Demential Exam: Tra Note: Please also refer to the separate dictated note~for this date of service dictated separately.~Patient seen individually. Discussed the patient with Nursing staff reviewed the chart.~Reviewed interim history and current functioning. Reviewed vital signs,~Labs/ Radiology~and current medications noted below. Continue current treatment with the changes noted in the dictated addendum note Assessment: Vital Signs: Vital Signs Date Time Temp Pulse Resp B/P (MAP) Pulse Ox O2 Delivery O2 Flow Rate FiO2 02/14/17 15:48 97.0 54 16 106/42 (63) 96 02/13/17 16:37 Room Air I&O Intake and Output 02/15/17 07:00 Intake Total 840 ml Balance 840 ml Intake Oral 840 ml Current Medications: Meds: Current Medications Olanzapine (ZyPREXA ZYDIS) 10 mg STK-MED ONCE .ROUTE ; Start 01/25/17 at 04:06; Stop 01/25/17 at 04:07; Status DC Olanzapine (ZyPREXA ZYDIS) 10 mg 1X STAT PO Last administered on 01/25/17 04: 07; Start 01/25/17 at 04:03; Stop 01/25/17 at 06:26; Status DC Nicotine (Nicoderm Cq 21mg) 1 patch DAILY TD Last administered on 02/02/17 08: 30; Start 01/25/17 at 09:00; Stop 02/11/17 at 16:38; Status DC Clonazepam (KlonoPIN) 0.5 mg TID PO Last administered on 02/14/17 20:11; Start 01/25/17 at 09:00 Divalproex Sodium (Depakote Sprinkles) 125 mg TID PO Last administered on 14:16; Start 01/25/17 at 09:00; Stop 01/28/17 at 18:41; Status DC Lorazepam (Ativan) 0.5 mg PRN Q4HRS PRN PO ANXIETY / AGITATION; Start 01/25/17 at 05:30 Risperidone (RisperDAL) 3 mg DAILY16 PO Last administered on 02/08/17 16:00; Start 01/25/17 at 16:00; Stop 02/08/17 at 18:42; Status DC Temazepam (Restoril) 30 mg PRN QHS PRN PO INSOMNIA; Start 01/25/17 at 05:30; Stop 01/25/17 at 06:31; Status DC Trazodone HCl (Desyrel) 100 mg PRN QHS PRN PO INSOMNIA; Start 01/25/17 at 05:30 ; Stop 01/25/17 at 11:36; Status DC Trazodone HCl (Desyrel) 100 mg QHS PO ; Start 01/25/17 at 21:00; Stop 01/25/17 at 21:00; Status DC Temazepam (Restoril) 30 mg PRN QHS PRN PO INSOMNIA Last administered on 19:22; Start 01/25/17 at 06:31; Stop 01/29/17 at 18:50; Status DC Acetaminophen (Tylenol) 650 mg PRN Q6HRS PRN PO PAIN / TEMP Last administered on 02/07/17 04:26; Start 01/25/17 at 06:45 Aspirin (Aspirin Enteric Coated) 81 mg DAILY PO Last administered on 02/14/17 10:17; Start 01/25/17 at 09:00 Bisacodyl (Dulcolax Tab) 10 mg PRN DAILY PRN PO CONSTIPATION; Start 01/25/17 at 06:45 Bisacodyl (Dulcolax Supp) 10 mg PRN DAILY PRN RC CONSTIPATION; Start 01/25/17 at 06:45 Furosemide (Lasix) 40 mg DAILY PO Last administered on 01/28/17 05:15; Start 01/25/17 at 09:00; Stop 01/29/17 at 03:25; Status DC Guaifenesin (Robitussin Dm) 10 ml PRN Q4HRS PRN PO COUGH; Start 01/25/17 at 06: 45 Albuterol/ Ipratropium (Duoneb) 3 ml PRN Q4HRS PRN NEB SHORTNESS OF BREATH; Start 01/25/17 at 06:45 Levothyroxine Sodium (Synthroid) 100 mcg DAILY06 PO Last administered on 06:00; Start 01/25/17 at 07:00 Lisinopril (Prinivil) 5 mg DAILY PO Last administered on 02/14/17 10:17; Start 01/25/17 at 09:00 Al Hydroxide/Mg Hydroxide (Mylanta Plus Xs) 30 ml PRN Q4HRS PRN PO DYSPEPSIA; Start 01/25/17 at 06:45 Metformin HCl (Glucophage) 500 mg BIDWMEALS PO Last administered on 02/03/17 08 :13; Start 01/25/17 at 08:00; Stop 02/03/17 at 15:41; Status DC Miconazole Nitrate (Monistat-Derm) 1 gerson BID TP ; Start 01/25/17 at 09:00; Stop 01/25/17 at 09:00; Status DC Nitroglycerin (Nitrostat) 0.4 mg PRN Q5MIN PRN SL CHEST PAIN; Start 01/25/17 at 06:45 Polyethylene Glycol (miraLAX) 17 gm QODAY PO Last administered on 02/14/17 10: 18; Start 01/25/17 at 09:00 Senna/Docusate Sodium (Senna Plus) 1 tab QHS PO Last administered on 02/14/17 20:09; Start 01/25/17 at 21:00 Tramadol HCl (Ultram) 25 mg PRN Q6HRS PRN PO PAIN Last administered on 06:20; Start 01/25/17 at 06:45 Acetaminophen (Tylenol) 650 mg TID PO Last administered on 02/14/17 20:10; Start 01/25/17 at 09:00 Atorvastatin Calcium (Lipitor) 40 mg QHS PO Last administered on 02/14/17 20: 09; Start 01/25/17 at 21:00 Albuterol Sulfate (Ventolin) 2.5 mg Q6H NEB ; Start 01/25/17 at 07:30; Stop at 17:24; Status DC Lactulose 20 gm PRN DAILY PRN PO CONSTIPATION; Start 01/25/17 at 07:30 Budesonide (Pulmicort) 0.5 mg RTBID NEB ; Start 01/25/17 at 08:00; Stop at 17:24; Status DC Olanzapine (ZyPREXA ZYDIS) 2.5 mg PRN Q2HR PRN PO ANXIETY / AGITATION; Start at 08:00 Lorazepam (Ativan) 1 mg DAILY IM Last administered on 01/27/17 09:03; Start at 11:00; Stop 01/27/17 at 18:25; Status DC Haloperidol Lactate (Haldol) 5 mg DAILY IM Last administered on 01/27/17 08:58 ; Start 01/25/17 at 11:00; Stop 01/27/17 at 18:25; Status DC Risperidone (RisperDAL CONSTA) 25 mg Q2WKS IM Last administered on 02/09/17 10 :08; Start 01/26/17 at 09:00 Risperidone (RisperDAL) 3 mg 1X ONCE SL Last administered on 01/26/17 16:15; Start 01/26/17 at 16:00; Stop 01/26/17 at 16:02; Status DC Albuterol Sulfate (Ventolin) 2.5 mg PRN Q6HRS PRN NEB SHORTNESS OF BREATH; Start 01/28/17 at 13:30 Budesonide (Pulmicort) 0.5 mg PRN BID PRN NEB SHORTNESS OF BREATH; Start at 08:00 Haloperidol Lactate (Haldol) 5 mg DAILY IM Last administered on 01/30/17 11:07 ; Start 01/28/17 at 09:00; Stop 01/30/17 at 18:32; Status DC Olanzapine (ZyPREXA ZYDIS) 5 mg PRN Q2HR PRN PO ANXIETY / AGITATION; Start at 18:30 Lorazepam (Ativan) 1 mg DAILY IM Last administered on 01/30/17 11:07; Start at 09:00; Stop 01/30/17 at 18:32; Status DC Valproic Acid (Depakene) 375 mg HS PO ; Start 01/29/17 at 21:00; Stop 01/29/17 at 21:00; Status DC Furosemide (Lasix) 40 mg DAILY06 PO Last administered on 02/14/17 06:00; Start 01/29/17 at 06:00 Valproic Acid (Depakene) 375 mg BID PO Last administered on 02/03/17 08:23; Start 01/29/17 at 21:00; Stop 02/03/17 at 18:22; Status DC Temazepam (Restoril) 30 mg QHS PO Last administered on 02/14/17 20:09; Start 01/29/17 at 21:00 Potassium Chloride (Klor-Con) 20 meq BID PO ; Start 01/30/17 at 21:00; Stop at 05:33; Status DC Magnesium Hydroxide (Milk Of Magnesia) 2,400 mg PRN DAILY PRN PO CONSTIPATION; Start 01/30/17 at 16:30; Status UNV Magnesium Hydroxide (Milk Of Magnesia) 2,400 mg PRN DAILY PRN PO CONSTIPATION Last administered on 02/06/17 05:48; Start 01/30/17 at 16:45 Potassium Chloride (Klor-Con) 20 meq BID66 PO Last administered on 02/14/17 06 :00; Start 01/31/17 at 06:00 Metformin HCl (Glucophage) 250 mg BIDWMEALS PO Last administered on 02/14/17 17:19; Start 02/03/17 at 17:00 Cyanocobalamin (Vitamin B-12) 1,000 mcg DAILY PO Last administered on 10:15; Start 02/04/17 at 09:00 Valproic Acid (Depakene) 500 mg BID PO Last administered on 02/07/17 08:01; Start 02/03/17 at 21:00; Stop 02/07/17 at 15:17; Status DC Valproic Acid (Depakene) 750 mg BID PO Last administered on 02/14/17 20:10; Start 02/07/17 at 21:00 Trazodone HCl (Desyrel) 100 mg QHS PO Last administered on 02/14/17 20:09; Start 02/07/17 at 21:00 Trazodone HCl (Desyrel) 100 mg PRN QHS PRN PO INSOMNIA; Start 02/07/17 at 19:00 Risperidone (RisperDAL) 2 mg DAILY16 PO Last administered on 02/09/17 16:44; Start 02/09/17 at 16:00; Stop 02/09/17 at 18:47; Status DC [place] Carbonate (Lithobid) 300 mg HS PO Last administered on 02/14/17 20:09 ; Start 02/08/17 at 21:00 Risperidone (RisperDAL) 1 mg DAILY16 PO Last administered on 02/13/17 17:56; Start 02/11/17 at 16:00 [place] Carbonate (Lithobid) 150 mg DAILY PO Last administered on 02/13/17 08: 41; Start 02/13/17 at 09:00; Stop 02/14/17 at 10:24; Status DC Mirtazapine (Remeron) 7.5 mg QHS PO Last administered on 02/14/17 20:09; Start 02/13/17 at 21:00 [place] Carbonate 150 mg TID PO Last administered on 02/14/17 20:11; Start at 14:00 Active Scripts Active Reported Tylenol (Acetaminophen) 325 Mg Tablet 650 Mg PO PRN Q6HRS PRN Arthritis Pain (Acetaminophen) 650 Mg Tablet.er 650 Mg PO BID Trazodone Hcl 100 Mg Tablet 100 Mg PO PRN QHS PRN Trazodone Hcl 100 Mg Tablet 100 Mg PO QHS Tramadol Hcl (Tramadol HCl) 50 Mg Tablet 25 Mg PO PRN Q6HRS PRN Synthroid (Levothyroxine Sodium) 100 Mcg Tablet 100 Mcg PO DAILY07 Senna S Tablet (Sennosides/Docusate Sodium) 1 Each Tablet 1 Tab PO QHS Risperdal (Risperidone) 1 Mg/1 Ml Solution 3 Mg PO DAILY16 Restoril (Temazepam) 30 Mg Capsule 30 Mg PO PRN QHS PRN Nitrostat (Nitroglycerin) 0.4 Mg Tab.subl 0.4 Mg SL PRN Q5MIN PRN Miralax (Polyethylene Glycol 3350) 119 Gm Powder 17 Gm PO QODAY Antacid Suspension (Mag Hydrox/Al Hydrox/Simeth) 355 Ml Oral.susp 30 Ml PO PRN Q4HRS PRN Lisinopril 5 Mg Tablet 5 Mg PO DAILY Lipitor (Atorvastatin Calcium) 40 Mg Tablet 40 Mg PO QHS Lasix (Furosemide) 40 Mg Tablet 40 Mg PO DAILY Lactulose 10 Gm/15 Ml Solution 20 Gm PO PRN DAILY PRN Klonopin (Clonazepam) 0.5 Mg Tablet 0.5 Mg PO TID Glucophage (Metformin Hcl) 500 Mg Tablet 500 Mg PO BIDWMEALS Josie-Tussin Dm Syrup (Guaifenesin/Dextromethorphan) 473 Ml Syrup 10 Ml PO PRN Q4HRS PRN Duoneb 0.5-3(2.5) Mg/3 Ml (Albuterol/Ipratropium) 3 Ml Ampul.neb 3 Ml NEB PRN Q4HRS PRN Depakote Sprinkle (Divalproex Sodium) 125 Mg Cap.sprink 125 Mg PO TID Bisacodyl 10 Mg Supp.rect 10 Mg RC PRN DAILY PRN Bisacodyl 5 Mg Tablet.dr 10 Mg PO PRN DAILY PRN Reshma Antifungal (Miconazole Nitrate) 142 Gm Cream..g. 1 [place] TP BID Ativan (Lorazepam) 0.5 Mg Tablet 0.5 Mg PO PRN Q4HRS PRN Aspirin Ec (Aspirin) 81 Mg Tablet.dr 81 Mg PO DAILY Advair Hfa 115-21 Mcg Inhaler (Fluticasone/Salmeterol) 12 Gm Hfa.aer.ad 2 Puff IH BID Diagnosis: Problems: (1) Schizoaffective disorder, chronic condition with acute exacerbation (2) Impulse control disorder (3) Bipolar affective, mixed, sev w/ psych (4) Anxiety disorder (5) Schizophrenia, acute (6) Psychosis ALBERT ROSE MD Feb 14, 2017 22:55
[2017-02-15] MEDS: LEVOTHYROXINE 100 MCG TABLET PO SCH (05:46)
[2017-02-15] MEDS: POTASSIUM CHLORIDE 20 MEQ TABLET.ER. PO SCH (05:46)
[2017-02-15] MEDS: FUROSEMIDE 40 MG TABLET PO SCH (05:46)
[2017-02-15 05:51] VITALS: BP 142/77
--- NOTE | 2017-02-15 06:29 | PN ---
DATE: 02/13/2017 This late entry 02/13/2017 covers elements not covered in my initial note of 02/13/2017. SUBJECTIVE: I met with the patient in the evening of 02/13/2017. The patient has been tearful at times, anxious, labile in her mood, but seems more coherent. She slept just 2-1/2 hours previous evening. Labs are to be done on the including a lithium level. As I met with her the evening of 02/13/2017, she was tearful at times, said she missed her father, talked about being an anesthesiologist. REVIEW OF SYSTEMS: Ambulation impaired, complain of bilateral lymphedema of lower extremities. No CV, , pulmonary, eye system symptoms on review. MENTAL STATUS EXAM: Oriented to herself and situation. Speech, often responses monosyllabic, somewhat sudden, at times unconnected to the conversation at hand. Abstraction fair, computation impaired, language function intact. Mood and affect remains somewhat labile, but improved. LABORATORY DATA: Reviewed. IMPRESSION: Unchanged from initial note. PLAN: Start Remeron 7.5 mg at bedtime to help with insomnia and anxiety. I have carefully reviewed the rest of the psychotropics mentioned in my initial note including drug interactions. Risk/benefit ratio favors no further change as of now. ALBERT ROSE MD DR: CHASE/[facility] JOB#: [id number] / [id number]
[2017-02-15] MEDS: CYANOCOBALAMIN (VITAMIN B-12) 1,000 MCG TABLET. PO SCH (07:46)
[2017-02-15] MEDS: LITHIUM CARBONATE 150 MG CAPSULE. PO SCH ×2 (07:47→13:35)
[2017-02-15] MEDS: metFORMIN 500 MG TABLET PO SCH ×2 (07:47→17:00)
[2017-02-15] MEDS: VALPROATE ACID 250 MG/5 ML ORAL SOLUTION PO SCH ×2 (07:48→19:25)
[2017-02-15] MEDS: ACETAMINOPHEN 325 MG TABLET PO SCH ×3 (07:48→19:27)
[2017-02-15] MEDS: ASPIRIN ENTERIC COATED 81 MG TABLET.DR. PO SCH (07:48)
[2017-02-15] MEDS: LISINOPRIL 5 MG TABLET. PO SCH (07:48)
[2017-02-15] MEDS: clonazePAM 0.5 MG TABLET PO SCH ×3 (07:50→19:26)
[2017-02-15] MEDS: MAGNESIUM HYDROXIDE 2,400 MG/30 ML ORAL.SUSP. PO PRN ×2 (09:00→20:11)
[2017-02-15 10:58] LABS: BASO % 1 % (0-3); EOS % 0 % (0-3); HEMATOCRIT 33.9 % (36.0-47.0); HEMOGLOBIN 11.8 g/dL (12.0-15.5); LYMPH # 1.1 x10^3/uL (1.0-4.8); LYMPH % 20 % (24-48); MEAN CORPUSCULAR HEMOGLOBIN 35 pg (25-35); MEAN CORPUSCULAR HGB CONC 35 g/dL (31-37); MEAN CORPUSCULAR VOLUME 101 fL (79-100); MONO # 0.8 x10^3/uL (0.0-1.1); MONO % 14 % (0-9); NEUT # 3.7 x10^3uL (1.8-7.7); NEUT % 66 % (31-73); PLATELET COUNT 260 x10^3/uL (140-400); RED BLOOD COUNT 3.36 x10^6/uL (3.50-5.40); RED CELL DISTRIBUTION WIDTH 13.6 % (11.5-14.5); WHITE BLOOD COUNT 5.6 x10^3/uL (4.0-11.0)
[2017-02-15 11:11] LABS: ALBUMIN 3.2 g/dL (3.4-5.0); ALBUMIN/GLOBULIN RATIO 1.1 (1.0-1.7); CALCIUM 8.7 mg/dL (8.5-10.1); CREATININE 0.9 mg/dL (0.6-1.0); GFR 60.9; POTASSIUM 5.2 mmol/L (3.5-5.1); TOTAL BILIRUBIN 0.4 mg/dL (0.2-1.0); TOTAL PROTEIN 6.1 g/dL (6.4-8.2)
[2017-02-15] MEDS: risperiDONE ORAL 1 MG/ML 30ml BOTTLE. PO SCH (16:00)
[2017-02-15 16:41] VITALS: BP 98/48
[2017-02-15 17:28] LABS: LI 1.2 mmol/L (0.6-1.2)
[2017-02-15] MEDS: MIRTAZAPINE 7.5 MG TABLET. PO SCH (19:25)
[2017-02-15] MEDS: SENNOSIDES/DOCUSATE 8.6/50MG TABLET. PO SCH (19:25)
[2017-02-15] MEDS: traZODone 100 MG TABLET. PO SCH (19:26)
[2017-02-15] MEDS: ATORVASTATIN CALCIUM 20 MG TABLET PO SCH (19:26)
[2017-02-15] MEDS: TEMAZEPAM 15 MG CAPSULE PO SCH (19:27)
--- NOTE | 2017-02-15 20:00 | PDOC ---
Exam Tra Demential Exam: Tra Note: Please also refer to the separate dictated note~for this date of service dictated separately.~Patient seen individually. Discussed the patient with Nursing staff reviewed the chart.~Reviewed interim history and current functioning. Reviewed vital signs,~Labs/ Radiology~and current medications noted below. Continue current treatment with the changes noted in the dictated addendum note Assessment: Vital Signs: Vital Signs Date Time Temp Pulse Resp B/P (MAP) Pulse Ox O2 Delivery O2 Flow Rate FiO2 02/15/17 16:41 98.0 57 20 98/48 (65) 92 02/13/17 16:37 Room Air I&O Intake and Output 02/16/17 07:00 Intake Total 1440 ml Balance 1440 ml Intake Oral 1440 ml Labs: Laboratory Tests Test 02/15/17 10:10 White Blood Count 5.6 x10^3/uL (4.0-11.0) Red Blood Count 3.36 x10^6/uL (3.50-5.40) L Hemoglobin 11.8 g/dL (12.0-15.5) L Hematocrit 33.9 % (36.0-47.0) L Mean Corpuscular Volume 101 fL (79-100) H Mean Corpuscular Hemoglobin 35 pg (25-35) Mean Corpuscular Hemoglobin Concent 35 g/dL (31-37) Red Cell Distribution Width 13.6 % (11.5-14.5) Platelet Count 260 x10^3/uL (140-400) Neutrophils (%) (Auto) 66 % (31-73) Lymphocytes (%) (Auto) 20 % (24-48) L Monocytes (%) (Auto) 14 % (0-9) H Eosinophils (%) (Auto) 0 % (0-3) Basophils (%) (Auto) 1 % (0-3) Neutrophils # (Auto) 3.7 x10^3uL (1.8-7.7) Lymphocytes # (Auto) 1.1 x10^3/uL (1.0-4.8) Monocytes # (Auto) 0.8 x10^3/uL (0.0-1.1) Eosinophils # (Auto) 0.0 x10^3/uL (0.0-0.7) Basophils # (Auto) 0.0 x10^3/uL (0.0-0.2) Sodium Level 137 mmol/L (136-145) Potassium Level 5.2 mmol/L (3.5-5.1) H Chloride Level 103 mmol/L (98-107) Carbon Dioxide Level 32 mmol/L (21-32) Anion Gap 2 (6-14) L Blood Urea Nitrogen 27 mg/dL (7-20) H Creatinine 0.9 mg/dL (0.6-1.0) Estimated GFR (Cockcroft-Gault) 60.9 BUN/Creatinine Ratio 30 (6-20) H Glucose Level 79 mg/dL (70-99) Calcium Level 8.7 mg/dL (8.5-10.1) Total Bilirubin 0.4 mg/dL (0.2-1.0) Aspartate Amino Transferase (AST) 11 U/L (15-37) L Alanine Aminotransferase (ALT) 19 U/L (14-59) Alkaline Phosphatase 92 U/L (46-116) Total Protein 6.1 g/dL (6.4-8.2) L Albumin 3.2 g/dL (3.4-5.0) L Albumin/Globulin Ratio 1.1 (1.0-1.7) [place] Level 1.2 mmol/L (0.6-1.2) [place] Last Dose Date 02/14/17 [place] Last Dose Time 2100 Current Medications: Meds: Current Medications Olanzapine (ZyPREXA ZYDIS) 10 mg STK-MED ONCE .ROUTE ; Start 01/25/17 at 04:06; Stop 01/25/17 at 04:07; Status DC Olanzapine (ZyPREXA ZYDIS) 10 mg 1X STAT PO Last administered on 01/25/17 04: 07; Start 01/25/17 at 04:03; Stop 01/25/17 at 06:26; Status DC Nicotine (Nicoderm Cq 21mg) 1 patch DAILY TD Last administered on 02/02/17 08: 30; Start 01/25/17 at 09:00; Stop 02/11/17 at 16:38; Status DC Clonazepam (KlonoPIN) 0.5 mg TID PO Last administered on 02/15/17 19:26; Start 01/25/17 at 09:00 Divalproex Sodium (Depakote Sprinkles) 125 mg TID PO Last administered on 14:16; Start 01/25/17 at 09:00; Stop 01/28/17 at 18:41; Status DC Lorazepam (Ativan) 0.5 mg PRN Q4HRS PRN PO ANXIETY / AGITATION; Start 01/25/17 at 05:30 Risperidone (RisperDAL) 3 mg DAILY16 PO Last administered on 02/08/17 16:00; Start 01/25/17 at 16:00; Stop 02/08/17 at 18:42; Status DC Temazepam (Restoril) 30 mg PRN QHS PRN PO INSOMNIA; Start 01/25/17 at 05:30; Stop 01/25/17 at 06:31; Status DC Trazodone HCl (Desyrel) 100 mg PRN QHS PRN PO INSOMNIA; Start 01/25/17 at 05:30 ; Stop 01/25/17 at 11:36; Status DC Trazodone HCl (Desyrel) 100 mg QHS PO ; Start 01/25/17 at 21:00; Stop 01/25/17 at 21:00; Status DC Temazepam (Restoril) 30 mg PRN QHS PRN PO INSOMNIA Last administered on 19:22; Start 01/25/17 at 06:31; Stop 01/29/17 at 18:50; Status DC Acetaminophen (Tylenol) 650 mg PRN Q6HRS PRN PO PAIN / TEMP Last administered on 02/07/17 04:26; Start 01/25/17 at 06:45 Aspirin (Aspirin Enteric Coated) 81 mg DAILY PO Last administered on 02/15/17 07:48; Start 01/25/17 at 09:00 Bisacodyl (Dulcolax Tab) 10 mg PRN DAILY PRN PO CONSTIPATION; Start 01/25/17 at 06:45 Bisacodyl (Dulcolax Supp) 10 mg PRN DAILY PRN RC CONSTIPATION; Start 01/25/17 at 06:45 Furosemide (Lasix) 40 mg DAILY PO Last administered on 01/28/17 05:15; Start 01/25/17 at 09:00; Stop 01/29/17 at 03:25; Status DC Guaifenesin (Robitussin Dm) 10 ml PRN Q4HRS PRN PO COUGH; Start 01/25/17 at 06: 45 Albuterol/ Ipratropium (Duoneb) 3 ml PRN Q4HRS PRN NEB SHORTNESS OF BREATH; Start 01/25/17 at 06:45 Levothyroxine Sodium (Synthroid) 100 mcg DAILY06 PO Last administered on 05:46; Start 01/25/17 at 07:00 Lisinopril (Prinivil) 5 mg DAILY PO Last administered on 02/15/17 07:48; Start 01/25/17 at 09:00 Al Hydroxide/Mg Hydroxide (Mylanta Plus Xs) 30 ml PRN Q4HRS PRN PO DYSPEPSIA; Start 01/25/17 at 06:45 Metformin HCl (Glucophage) 500 mg BIDWMEALS PO Last administered on 02/03/17 08 :13; Start 01/25/17 at 08:00; Stop 02/03/17 at 15:41; Status DC Miconazole Nitrate (Monistat-Derm) 1 gerson BID TP ; Start 01/25/17 at 09:00; Stop 01/25/17 at 09:00; Status DC Nitroglycerin (Nitrostat) 0.4 mg PRN Q5MIN PRN SL CHEST PAIN; Start 01/25/17 at 06:45 Polyethylene Glycol (miraLAX) 17 gm QODAY PO Last administered on 02/14/17 10: 18; Start 01/25/17 at 09:00 Senna/Docusate Sodium (Senna Plus) 1 tab QHS PO Last administered on 02/15/17 19:25; Start 01/25/17 at 21:00 Tramadol HCl (Ultram) 25 mg PRN Q6HRS PRN PO PAIN Last administered on 06:20; Start 01/25/17 at 06:45 Acetaminophen (Tylenol) 650 mg TID PO Last administered on 02/15/17 19:27; Start 01/25/17 at 09:00 Atorvastatin Calcium (Lipitor) 40 mg QHS PO Last administered on 02/15/17 19: 26; Start 01/25/17 at 21:00 Albuterol Sulfate (Ventolin) 2.5 mg Q6H NEB ; Start 01/25/17 at 07:30; Stop at 17:24; Status DC Lactulose 20 gm PRN DAILY PRN PO CONSTIPATION; Start 01/25/17 at 07:30 Budesonide (Pulmicort) 0.5 mg RTBID NEB ; Start 01/25/17 at 08:00; Stop at 17:24; Status DC Olanzapine (ZyPREXA ZYDIS) 2.5 mg PRN Q2HR PRN PO ANXIETY / AGITATION; Start at 08:00 Lorazepam (Ativan) 1 mg DAILY IM Last administered on 01/27/17 09:03; Start at 11:00; Stop 01/27/17 at 18:25; Status DC Haloperidol Lactate (Haldol) 5 mg DAILY IM Last administered on 01/27/17 08:58 ; Start 01/25/17 at 11:00; Stop 01/27/17 at 18:25; Status DC Risperidone (RisperDAL CONSTA) 25 mg Q2WKS IM Last administered on 02/09/17 10 :08; Start 01/26/17 at 09:00 Risperidone (RisperDAL) 3 mg 1X ONCE SL Last administered on 01/26/17 16:15; Start 01/26/17 at 16:00; Stop 01/26/17 at 16:02; Status DC Albuterol Sulfate (Ventolin) 2.5 mg PRN Q6HRS PRN NEB SHORTNESS OF BREATH; Start 01/28/17 at 13:30 Budesonide (Pulmicort) 0.5 mg PRN BID PRN NEB SHORTNESS OF BREATH; Start at 08:00 Haloperidol Lactate (Haldol) 5 mg DAILY IM Last administered on 01/30/17 11:07 ; Start 01/28/17 at 09:00; Stop 01/30/17 at 18:32; Status DC Olanzapine (ZyPREXA ZYDIS) 5 mg PRN Q2HR PRN PO ANXIETY / AGITATION; Start at 18:30 Lorazepam (Ativan) 1 mg DAILY IM Last administered on 01/30/17 11:07; Start at 09:00; Stop 01/30/17 at 18:32; Status DC Valproic Acid (Depakene) 375 mg HS PO ; Start 01/29/17 at 21:00; Stop 01/29/17 at 21:00; Status DC Furosemide (Lasix) 40 mg DAILY06 PO Last administered on 02/15/17 05:46; Start 01/29/17 at 06:00 Valproic Acid (Depakene) 375 mg BID PO Last administered on 02/03/17 08:23; Start 01/29/17 at 21:00; Stop 02/03/17 at 18:22; Status DC Temazepam (Restoril) 30 mg QHS PO Last administered on 02/15/17 19:27; Start 01/29/17 at 21:00 Potassium Chloride (Klor-Con) 20 meq BID PO ; Start 01/30/17 at 21:00; Stop at 05:33; Status DC Magnesium Hydroxide (Milk Of Magnesia) 2,400 mg PRN DAILY PRN PO CONSTIPATION; Start 01/30/17 at 16:30; Status UNV Magnesium Hydroxide (Milk Of Magnesia) 2,400 mg PRN DAILY PRN PO CONSTIPATION Last administered on 02/15/17 09:00; Start 01/30/17 at 16:45 Potassium Chloride (Klor-Con) 20 meq BID66 PO Last administered on 02/15/17 05 :46; Start 01/31/17 at 06:00; Stop 02/15/17 at 16:58; Status DC Metformin HCl (Glucophage) 250 mg BIDWMEALS PO Last administered on 02/15/17 17:00; Start 02/03/17 at 17:00 Cyanocobalamin (Vitamin B-12) 1,000 mcg DAILY PO Last administered on 07:46; Start 02/04/17 at 09:00 Valproic Acid (Depakene) 500 mg BID PO Last administered on 02/07/17 08:01; Start 02/03/17 at 21:00; Stop 02/07/17 at 15:17; Status DC Valproic Acid (Depakene) 750 mg BID PO Last administered on 02/15/17 19:25; Start 02/07/17 at 21:00 Trazodone HCl (Desyrel) 100 mg QHS PO Last administered on 02/15/17 19:26; Start 02/07/17 at 21:00 Trazodone HCl (Desyrel) 100 mg PRN QHS PRN PO INSOMNIA; Start 02/07/17 at 19:00 Risperidone (RisperDAL) 2 mg DAILY16 PO Last administered on 02/09/17 16:44; Start 02/09/17 at 16:00; Stop 02/09/17 at 18:47; Status DC [place] Carbonate (Lithobid) 300 mg HS PO Last administered on 02/14/17 20:09 ; Start 02/08/17 at 21:00; Stop 02/15/17 at 18:52; Status DC Risperidone (RisperDAL) 1 mg DAILY16 PO Last administered on 02/15/17 16:00; Start 02/11/17 at 16:00 [place] Carbonate (Lithobid) 150 mg DAILY PO Last administered on 02/13/17 08: 41; Start 02/13/17 at 09:00; Stop 02/14/17 at 10:24; Status DC Mirtazapine (Remeron) 7.5 mg QHS PO Last administered on 02/15/17 19:25; Start 02/13/17 at 21:00 [place] Carbonate 150 mg TID PO Last administered on 02/15/17 13:35; Start at 14:00; Stop 02/15/17 at 18:52; Status DC Potassium Chloride (Klor-Con) 20 meq DAILY PO ; Start 02/16/17 at 09:00 [place] Carbonate 150 mg DAILY PO ; Start 02/16/17 at 09:00 [place] Carbonate (Lithobid) 300 mg HS PO ; Start 02/16/17 at 21:00 Active Scripts Active Reported Tylenol (Acetaminophen) 325 Mg Tablet 650 Mg PO PRN Q6HRS PRN Arthritis Pain (Acetaminophen) 650 Mg Tablet.er 650 Mg PO BID Trazodone Hcl 100 Mg Tablet 100 Mg PO PRN QHS PRN Trazodone Hcl 100 Mg Tablet 100 Mg PO QHS Tramadol Hcl (Tramadol HCl) 50 Mg Tablet 25 Mg PO PRN Q6HRS PRN Synthroid (Levothyroxine Sodium) 100 Mcg Tablet 100 Mcg PO DAILY07 Senna S Tablet (Sennosides/Docusate Sodium) 1 Each Tablet 1 Tab PO QHS Risperdal (Risperidone) 1 Mg/1 Ml Solution 3 Mg PO DAILY16 Restoril (Temazepam) 30 Mg Capsule 30 Mg PO PRN QHS PRN Nitrostat (Nitroglycerin) 0.4 Mg Tab.subl 0.4 Mg SL PRN Q5MIN PRN Miralax (Polyethylene Glycol 3350) 119 Gm Powder 17 Gm PO QODAY Antacid Suspension (Mag Hydrox/Al Hydrox/Simeth) 355 Ml Oral.susp 30 Ml PO PRN Q4HRS PRN Lisinopril 5 Mg Tablet 5 Mg PO DAILY Lipitor (Atorvastatin Calcium) 40 Mg Tablet 40 Mg PO QHS Lasix (Furosemide) 40 Mg Tablet 40 Mg PO DAILY Lactulose 10 Gm/15 Ml Solution 20 Gm PO PRN DAILY PRN Klonopin (Clonazepam) 0.5 Mg Tablet 0.5 Mg PO TID Glucophage (Metformin Hcl) 500 Mg Tablet 500 Mg PO BIDWMEALS Josie-Tussin Dm Syrup (Guaifenesin/Dextromethorphan) 473 Ml Syrup 10 Ml PO PRN Q4HRS PRN Duoneb 0.5-3(2.5) Mg/3 Ml (Albuterol/Ipratropium) 3 Ml Ampul.neb 3 Ml NEB PRN Q4HRS PRN Depakote Sprinkle (Divalproex Sodium) 125 Mg Cap.sprink 125 Mg PO TID Bisacodyl 10 Mg Supp.rect 10 Mg RC PRN DAILY PRN Bisacodyl 5 Mg Tablet.dr 10 Mg PO PRN DAILY PRN Reshma Antifungal (Miconazole Nitrate) 142 Gm Cream..g. 1 Gerson TP BID Ativan (Lorazepam) 0.5 Mg Tablet 0.5 Mg PO PRN Q4HRS PRN Aspirin Ec (Aspirin) 81 Mg Tablet.dr 81 Mg PO DAILY Advair Hfa 115-21 Mcg Inhaler (Fluticasone/Salmeterol) 12 Gm Hfa.aer.ad 2 Puff IH BID Diagnosis: Problems: (1) Psychosis (2) Schizophrenia, acute (3) Anxiety disorder (4) Bipolar affective, mixed, sev w/ psych (5) Impulse control disorder (6) Schizoaffective disorder, chronic condition with acute exacerbation ALBERT ROSE MD Feb 15, 2017 20:00
--- NOTE | 2017-02-16 02:33 | PN ---
DATE: 02/14/2017 SUBJECTIVE: This late 02/14/2017 covers elements not covered in my initial note of 02/14/2017. I met with the patient evening of 02/14/2017. As per nursing report, the patient has been irritable at times, often refuses some of her medications. Reportedly, a friend of hers called, but guardian has prohibited contact due to some financial irregularity with this friend in the past per nursing report. REVIEW OF SYSTEMS: Positive for lymphedema, bilateral lower extremities. No CV, , pulmonary, eye system symptoms on review. MENTAL STATUS EXAM: Reasonably oriented. Speech, often responses monosyllabic, little disorganized, asks questions unrelated to the conversation, things about me personally, but otherwise pleasant __ speech is coherent, at times pressured. Abstraction fair, computation impaired, language function intact, attention span short. Mood and affect still somewhat labile, but showing improvement. LABORATORY DATA: Reviewed. IMPRESSION: Unchanged from initial note. PLAN: Labs awaited 02/15/2017 CBC, CMP, lithium level. She is currently on lithium 150 a.m. and 300 at bedtime. We let him to reach a therapeutic level. Last level was 0.4. Valproic acid level is 70. Review of drug interactions, risk/benefit ratio favors no further change at this time. We will adjust the lithium as noted. MAN Hero ROSE MD DR: CHASE/[facility] JOB#: [id number] / [id number]
[2017-02-16] MEDS: FUROSEMIDE 40 MG TABLET PO SCH (05:19)
[2017-02-16] MEDS: LEVOTHYROXINE 100 MCG TABLET PO SCH (05:19)
[2017-02-16] MEDS: POTASSIUM CHLORIDE 20 MEQ TABLET.ER. PO SCH (05:20)
[2017-02-16 06:22] VITALS: BP 119/80
[2017-02-16] MEDS: POLYETHYLENE GLYCOL 3350 17 GM PACKET. PO SCH (08:45)
[2017-02-16] MEDS: CYANOCOBALAMIN (VITAMIN B-12) 1,000 MCG TABLET. PO SCH (08:45)
[2017-02-16] MEDS: VALPROATE ACID 250 MG/5 ML ORAL SOLUTION PO SCH ×2 (08:45→19:46)
[2017-02-16] MEDS: metFORMIN 500 MG TABLET PO SCH ×2 (08:45→16:48)
[2017-02-16] MEDS: clonazePAM 0.5 MG TABLET PO SCH ×3 (08:45→19:48)
[2017-02-16] MEDS: ASPIRIN ENTERIC COATED 81 MG TABLET.DR. PO SCH (08:46)
[2017-02-16] MEDS: LISINOPRIL 5 MG TABLET. PO SCH (08:46)
[2017-02-16] MEDS: ACETAMINOPHEN 325 MG TABLET PO SCH ×3 (08:47→19:47)
[2017-02-16] MEDS: LITHIUM CARBONATE 150 MG CAPSULE. PO SCH (08:50)
[2017-02-16] MEDS: traMADol 50 MG TABLET PO PRN (08:50)
[2017-02-16] MEDS ORDERED: POTASSIUM CHLORIDE 20 MEQ TABLET.ER. PO SCH (09:00)
[2017-02-16 16:21] VITALS: BP 91/46
[2017-02-16] MEDS: risperiDONE ORAL 1 MG/ML 30ml BOTTLE. PO SCH (16:48)
[2017-02-16] MEDS: SENNOSIDES/DOCUSATE 8.6/50MG TABLET. PO SCH (19:46)
[2017-02-16] MEDS: MIRTAZAPINE 7.5 MG TABLET. PO SCH (19:46)
[2017-02-16] MEDS: ATORVASTATIN CALCIUM 20 MG TABLET PO SCH (19:46)
[2017-02-16] MEDS: traZODone 100 MG TABLET. PO SCH (19:46)
[2017-02-16] MEDS: LITHIUM CARBONATE ER 300 MG TABLET.ER PO SCH (19:48)
[2017-02-16] MEDS: TEMAZEPAM 15 MG CAPSULE PO SCH (19:48)
--- NOTE | 2017-02-16 19:55 | PDOC ---
Exam Tra Demential Exam: Tra Note: Please also refer to the separate dictated note~for this date of service dictated separately.~Patient seen individually. Discussed the patient with Nursing staff reviewed the chart.~Reviewed interim history and current functioning. Reviewed vital signs,~Labs/ Radiology~and current medications noted below. Continue current treatment with the changes noted in the dictated addendum note Assessment: Vital Signs: Vital Signs Date Time Temp Pulse Resp B/P (MAP) Pulse Ox O2 Delivery O2 Flow Rate FiO2 02/16/17 16:21 98.5 65 20 91/46 (61) 95 02/13/17 16:37 Room Air I&O Intake and Output 02/17/17 07:00 Intake Total 360 ml Balance 360 ml Intake Oral 360 ml Current Medications: Meds: Current Medications Olanzapine (ZyPREXA ZYDIS) 10 mg STK-MED ONCE .ROUTE ; Start 01/25/17 at 04:06; Stop 01/25/17 at 04:07; Status DC Olanzapine (ZyPREXA ZYDIS) 10 mg 1X STAT PO Last administered on 01/25/17 04: 07; Start 01/25/17 at 04:03; Stop 01/25/17 at 06:26; Status DC Nicotine (Nicoderm Cq 21mg) 1 patch DAILY TD Last administered on 02/02/17 08: 30; Start 01/25/17 at 09:00; Stop 02/11/17 at 16:38; Status DC Clonazepam (KlonoPIN) 0.5 mg TID PO Last administered on 02/16/17 19:48; Start 01/25/17 at 09:00 Divalproex Sodium (Depakote Sprinkles) 125 mg TID PO Last administered on 14:16; Start 01/25/17 at 09:00; Stop 01/28/17 at 18:41; Status DC Lorazepam (Ativan) 0.5 mg PRN Q4HRS PRN PO ANXIETY / AGITATION; Start 01/25/17 at 05:30 Risperidone (RisperDAL) 3 mg DAILY16 PO Last administered on 02/08/17 16:00; Start 01/25/17 at 16:00; Stop 02/08/17 at 18:42; Status DC Temazepam (Restoril) 30 mg PRN QHS PRN PO INSOMNIA; Start 01/25/17 at 05:30; Stop 01/25/17 at 06:31; Status DC Trazodone HCl (Desyrel) 100 mg PRN QHS PRN PO INSOMNIA; Start 01/25/17 at 05:30 ; Stop 01/25/17 at 11:36; Status DC Trazodone HCl (Desyrel) 100 mg QHS PO ; Start 01/25/17 at 21:00; Stop 01/25/17 at 21:00; Status DC Temazepam (Restoril) 30 mg PRN QHS PRN PO INSOMNIA Last administered on 19:22; Start 01/25/17 at 06:31; Stop 01/29/17 at 18:50; Status DC Acetaminophen (Tylenol) 650 mg PRN Q6HRS PRN PO PAIN / TEMP Last administered on 02/07/17 04:26; Start 01/25/17 at 06:45 Aspirin (Aspirin Enteric Coated) 81 mg DAILY PO Last administered on 02/15/17 07:48; Start 01/25/17 at 09:00 Bisacodyl (Dulcolax Tab) 10 mg PRN DAILY PRN PO CONSTIPATION; Start 01/25/17 at 06:45 Bisacodyl (Dulcolax Supp) 10 mg PRN DAILY PRN RC CONSTIPATION; Start 01/25/17 at 06:45 Furosemide (Lasix) 40 mg DAILY PO Last administered on 01/28/17 05:15; Start 01/25/17 at 09:00; Stop 01/29/17 at 03:25; Status DC Guaifenesin (Robitussin Dm) 10 ml PRN Q4HRS PRN PO COUGH; Start 01/25/17 at 06: 45 Albuterol/ Ipratropium (Duoneb) 3 ml PRN Q4HRS PRN NEB SHORTNESS OF BREATH; Start 01/25/17 at 06:45 Levothyroxine Sodium (Synthroid) 100 mcg DAILY06 PO Last administered on 05:19; Start 01/25/17 at 07:00 Lisinopril (Prinivil) 5 mg DAILY PO Last administered on 02/15/17 07:48; Start 01/25/17 at 09:00 Al Hydroxide/Mg Hydroxide (Mylanta Plus Xs) 30 ml PRN Q4HRS PRN PO DYSPEPSIA; Start 01/25/17 at 06:45 Metformin HCl (Glucophage) 500 mg BIDWMEALS PO Last administered on 02/03/17 08 :13; Start 01/25/17 at 08:00; Stop 02/03/17 at 15:41; Status DC Miconazole Nitrate (Monistat-Derm) 1 gerson BID TP ; Start 01/25/17 at 09:00; Stop 01/25/17 at 09:00; Status DC Nitroglycerin (Nitrostat) 0.4 mg PRN Q5MIN PRN SL CHEST PAIN; Start 01/25/17 at 06:45 Polyethylene Glycol (miraLAX) 17 gm QODAY PO Last administered on 02/16/17 08: 45; Start 01/25/17 at 09:00 Senna/Docusate Sodium (Senna Plus) 1 tab QHS PO Last administered on 02/16/17 19:46; Start 01/25/17 at 21:00 Tramadol HCl (Ultram) 25 mg PRN Q6HRS PRN PO PAIN Last administered on 08:50; Start 01/25/17 at 06:45 Acetaminophen (Tylenol) 650 mg TID PO Last administered on 02/16/17 19:47; Start 01/25/17 at 09:00 Atorvastatin Calcium (Lipitor) 40 mg QHS PO Last administered on 02/16/17 19: 46; Start 01/25/17 at 21:00 Albuterol Sulfate (Ventolin) 2.5 mg Q6H NEB ; Start 01/25/17 at 07:30; Stop at 17:24; Status DC Lactulose 20 gm PRN DAILY PRN PO CONSTIPATION; Start 01/25/17 at 07:30 Budesonide (Pulmicort) 0.5 mg RTBID NEB ; Start 01/25/17 at 08:00; Stop at 17:24; Status DC Olanzapine (ZyPREXA ZYDIS) 2.5 mg PRN Q2HR PRN PO ANXIETY / AGITATION; Start at 08:00 Lorazepam (Ativan) 1 mg DAILY IM Last administered on 01/27/17 09:03; Start at 11:00; Stop 01/27/17 at 18:25; Status DC Haloperidol Lactate (Haldol) 5 mg DAILY IM Last administered on 01/27/17 08:58 ; Start 01/25/17 at 11:00; Stop 01/27/17 at 18:25; Status DC Risperidone (RisperDAL CONSTA) 25 mg Q2WKS IM Last administered on 02/09/17 10 :08; Start 01/26/17 at 09:00 Risperidone (RisperDAL) 3 mg 1X ONCE SL Last administered on 01/26/17 16:15; Start 01/26/17 at 16:00; Stop 01/26/17 at 16:02; Status DC Albuterol Sulfate (Ventolin) 2.5 mg PRN Q6HRS PRN NEB SHORTNESS OF BREATH; Start 01/28/17 at 13:30 Budesonide (Pulmicort) 0.5 mg PRN BID PRN NEB SHORTNESS OF BREATH; Start at 08:00 Haloperidol Lactate (Haldol) 5 mg DAILY IM Last administered on 01/30/17 11:07 ; Start 01/28/17 at 09:00; Stop 01/30/17 at 18:32; Status DC Olanzapine (ZyPREXA ZYDIS) 5 mg PRN Q2HR PRN PO ANXIETY / AGITATION; Start at 18:30 Lorazepam (Ativan) 1 mg DAILY IM Last administered on 01/30/17 11:07; Start at 09:00; Stop 01/30/17 at 18:32; Status DC Valproic Acid (Depakene) 375 mg HS PO ; Start 01/29/17 at 21:00; Stop 01/29/17 at 21:00; Status DC Furosemide (Lasix) 40 mg DAILY06 PO Last administered on 02/16/17 05:19; Start 01/29/17 at 06:00 Valproic Acid (Depakene) 375 mg BID PO Last administered on 02/03/17 08:23; Start 01/29/17 at 21:00; Stop 02/03/17 at 18:22; Status DC Temazepam (Restoril) 30 mg QHS PO Last administered on 02/16/17 19:48; Start 01/29/17 at 21:00 Potassium Chloride (Klor-Con) 20 meq BID PO ; Start 01/30/17 at 21:00; Stop at 05:33; Status DC Magnesium Hydroxide (Milk Of Magnesia) 2,400 mg PRN DAILY PRN PO CONSTIPATION; Start 01/30/17 at 16:30; Status UNV Magnesium Hydroxide (Milk Of Magnesia) 2,400 mg PRN DAILY PRN PO CONSTIPATION Last administered on 02/15/17 20:11; Start 01/30/17 at 16:45 Potassium Chloride (Klor-Con) 20 meq BID66 PO Last administered on 02/15/17 05 :46; Start 01/31/17 at 06:00; Stop 02/15/17 at 16:58; Status DC Metformin HCl (Glucophage) 250 mg BIDWMEALS PO Last administered on 02/16/17 16:48; Start 02/03/17 at 17:00 Cyanocobalamin (Vitamin B-12) 1,000 mcg DAILY PO Last administered on 08:45; Start 02/04/17 at 09:00 Valproic Acid (Depakene) 500 mg BID PO Last administered on 02/07/17 08:01; Start 02/03/17 at 21:00; Stop 02/07/17 at 15:17; Status DC Valproic Acid (Depakene) 750 mg BID PO Last administered on 02/16/17 19:46; Start 02/07/17 at 21:00 Trazodone HCl (Desyrel) 100 mg QHS PO Last administered on 02/16/17 19:46; Start 02/07/17 at 21:00 Trazodone HCl (Desyrel) 100 mg PRN QHS PRN PO INSOMNIA; Start 02/07/17 at 19:00 Risperidone (RisperDAL) 2 mg DAILY16 PO Last administered on 02/09/17 16:44; Start 02/09/17 at 16:00; Stop 02/09/17 at 18:47; Status DC [place] Carbonate (Lithobid) 300 mg HS PO Last administered on 02/14/17 20:09 ; Start 02/08/17 at 21:00; Stop 02/15/17 at 18:52; Status DC Risperidone (RisperDAL) 1 mg DAILY16 PO Last administered on 02/16/17 16:48; Start 02/11/17 at 16:00 [place] Carbonate (Lithobid) 150 mg DAILY PO Last administered on 02/13/17 08: 41; Start 02/13/17 at 09:00; Stop 02/14/17 at 10:24; Status DC Mirtazapine (Remeron) 7.5 mg QHS PO Last administered on 02/16/17 19:46; Start 02/13/17 at 21:00 [place] Carbonate 150 mg TID PO Last administered on 02/15/17 13:35; Start at 14:00; Stop 02/15/17 at 18:52; Status DC Potassium Chloride (Klor-Con) 20 meq DAILY PO ; Start 02/16/17 at 09:00; Stop at 09:00; Status DC [place] Carbonate 150 mg DAILY PO Last administered on 02/16/17 08:50; Start 02/16/17 at 09:00 [place] Carbonate (Lithobid) 300 mg HS PO Last administered on 02/16/17 19:48 ; Start 02/16/17 at 21:00 Potassium Chloride (Klor-Con) 20 meq DAILY06 PO Last administered on 02/16/17 05:20; Start 02/16/17 at 06:00 Active Scripts Active Reported Tylenol (Acetaminophen) 325 Mg Tablet 650 Mg PO PRN Q6HRS PRN Arthritis Pain (Acetaminophen) 650 Mg Tablet.er 650 Mg PO BID Trazodone Hcl 100 Mg Tablet 100 Mg PO PRN QHS PRN Trazodone Hcl 100 Mg Tablet 100 Mg PO QHS Tramadol Hcl (Tramadol HCl) 50 Mg Tablet 25 Mg PO PRN Q6HRS PRN Synthroid (Levothyroxine Sodium) 100 Mcg Tablet 100 Mcg PO DAILY07 Senna S Tablet (Sennosides/Docusate Sodium) 1 Each Tablet 1 Tab PO QHS Risperdal (Risperidone) 1 Mg/1 Ml Solution 3 Mg PO DAILY16 Restoril (Temazepam) 30 Mg Capsule 30 Mg PO PRN QHS PRN Nitrostat (Nitroglycerin) 0.4 Mg Tab.subl 0.4 Mg SL PRN Q5MIN PRN Miralax (Polyethylene Glycol 3350) 119 Gm Powder 17 Gm PO QODAY Antacid Suspension (Mag Hydrox/Al Hydrox/Simeth) 355 Ml Oral.susp 30 Ml PO PRN Q4HRS PRN Lisinopril 5 Mg Tablet 5 Mg PO DAILY Lipitor (Atorvastatin Calcium) 40 Mg Tablet 40 Mg PO QHS Lasix (Furosemide) 40 Mg Tablet 40 Mg PO DAILY Lactulose 10 Gm/15 Ml Solution 20 Gm PO PRN DAILY PRN Klonopin (Clonazepam) 0.5 Mg Tablet 0.5 Mg PO TID Glucophage (Metformin Hcl) 500 Mg Tablet 500 Mg PO BIDWMEALS Josie-Tussin Dm Syrup (Guaifenesin/Dextromethorphan) 473 Ml Syrup 10 Ml PO PRN Q4HRS PRN Duoneb 0.5-3(2.5) Mg/3 Ml (Albuterol/Ipratropium) 3 Ml Ampul.neb 3 Ml NEB PRN Q4HRS PRN Depakote Sprinkle (Divalproex Sodium) 125 Mg Cap.sprink 125 Mg PO TID Bisacodyl 10 Mg Supp.rect 10 Mg RC PRN DAILY PRN Bisacodyl 5 Mg Tablet.dr 10 Mg PO PRN DAILY PRN Reshma Antifungal (Miconazole Nitrate) 142 Gm Cream..g. 1 [place]erson TP BID Ativan (Lorazepam) 0.5 Mg Tablet 0.5 Mg PO PRN Q4HRS PRN Aspirin Ec (Aspirin) 81 Mg Tablet.dr 81 Mg PO DAILY Advair Hfa 115-21 Mcg Inhaler (Fluticasone/Salmeterol) 12 Gm Hfa.aer.ad 2 Puff IH BID Diagnosis: Problems: (1) Psychosis (2) Schizophrenia, acute (3) Anxiety disorder (4) Bipolar affective, mixed, sev w/ psych (5) Impulse control disorder (6) Schizoaffective disorder, chronic condition with acute exacerbation ALBERT ROSE MD Feb 16, 2017 19:55
--- NOTE | 2017-02-17 05:40 | PN ---
DATE: 02/15/2017 SUBJECTIVE: This is a late entry 02/15/2017, covers elements not covered in my initial note. Met with the patient evening of 02/15/2017. [place] level is 1.2 and we will hold the lithium night of 02/15/2017, and starting 02/16/2017 change it from 150 mg 3 times a day and 300 mg at bedtime to 150 mg in the morning and 300 at night. Check CBC, CMP, and lithium level in 3 days and adjust thereafter. Valproic acid level is 70 therapeutic. Overall, the patient continues to have some mood lability, anxiety, often verbal responses, and monosyllabic. Associations at times loose. REVIEW OF SYSTEMS: Ambulation impaired. Bilateral pedal edema and lymphedema. No CV, , pulmonary, or eye system symptoms on review. MENTAL STATUS EXAM: Oriented to herself and situation. Speech is coherent, often responses monosyllabic, and rapid at times. Abstraction fair, computation impaired, language function intact, and attention span short. Mood and affect still somewhat anxious and labile, but showing improvement. LABORATORY DATA: Reviewed as noted above. IMPRESSION: Unchanged from initial note. PLAN: Continue current psychotropics with changes noted above. Reviewed drug interactions. Risk/benefit ratio favors no further change at this time. ALBERT ROSE MD DR: CH[facility] JOB#: [id number] / [id number]
[2017-02-17] MEDS: LEVOTHYROXINE 100 MCG TABLET PO SCH (05:57)
[2017-02-17] MEDS: FUROSEMIDE 40 MG TABLET PO SCH (05:57)
[2017-02-17] MEDS: POTASSIUM CHLORIDE 20 MEQ TABLET.ER. PO SCH (05:57)
[2017-02-17 06:03] VITALS: BP 115/80
[2017-02-17] MEDS: MAGNESIUM CITRATE 296 ML SOLUTION. PO ONE ×2 (08:10→09:24)
[2017-02-17] MEDS: CYANOCOBALAMIN (VITAMIN B-12) 1,000 MCG TABLET. PO SCH (09:00)
[2017-02-17] MEDS: ASPIRIN ENTERIC COATED 81 MG TABLET.DR. PO SCH (09:00)
[2017-02-17] MEDS: ACETAMINOPHEN 325 MG TABLET PO SCH ×3 (09:00→20:12)
[2017-02-17] MEDS: LISINOPRIL 5 MG TABLET. PO SCH (09:00)
[2017-02-17] MEDS: clonazePAM 0.5 MG TABLET PO SCH ×3 (09:20→20:12)
[2017-02-17] MEDS: VALPROATE ACID 250 MG/5 ML ORAL SOLUTION PO SCH ×2 (09:20→20:10)
[2017-02-17] MEDS: LITHIUM CARBONATE 150 MG CAPSULE. PO SCH (09:20)
[2017-02-17] MEDS: metFORMIN 500 MG TABLET PO SCH ×2 (09:20→17:57)
[2017-02-17] MEDS: POLYETHYLENE GLYCOL 3350 17 GM PACKET. PO SCH (09:24)
--- NOTE | 2017-02-17 13:03 | RAD ---
KUB, 02/17/2017: History: Abdominal pain, constipation Gas is present in large and small bowel without evidence of obstruction. The gas extends down through the level the rectum. There is a moderate amount stool in scattered portions of the colon. There is no evidence of organomegaly. Scattered arterial calcifications are present. There is a mild lumbar scoliosis with moderately severe multilevel degenerative change. IMPRESSION: No acute abdominal abnormality is detected.
[2017-02-17 13:53] LABS: BILIRUBIN,URINE NEG (NEG); CLARITY,URINE CLEAR; COLOR,URINE YELLOW; GLUCOSE,URINE NEG (NEG); NITRITE,URINE NEG (NEG); UROBILINOGEN,URINE 0.2 mg/dL (0.2 mg/dL)
[2017-02-17 13:55] LABS: LI 1.2 mmol/L (0.6-1.2)
[2017-02-17 13:57] LABS: BACTERIA,URINE FEW /HPF (0-FEW); SQUAMOUS EPITHELIAL CELL,UR FEW /LPF
[2017-02-17 13:58] LABS: HYALINE CASTS, URINE OCC /HPF
[2017-02-17 15:52] VITALS: BP 117/79
[2017-02-17] MEDS: risperiDONE ORAL 1 MG/ML 30ml BOTTLE. PO SCH (16:00)
--- NOTE | 2017-02-17 19:50 | PDOC ---
Exam Tra Demential Exam: Tra Note: Please also refer to the separate dictated note~for this date of service dictated separately.~Patient seen individually. Discussed the patient with Nursing staff reviewed the chart.~Reviewed interim history and current functioning. Reviewed vital signs,~Labs/ Radiology~and current medications noted below. Continue current treatment with the changes noted in the dictated addendum note Assessment: Vital Signs: Vital Signs Date Time Temp Pulse Resp B/P (MAP) Pulse Ox O2 Delivery O2 Flow Rate FiO2 02/17/17 15:52 98.2 69 16 117/79 (92) 98 02/13/17 16:37 Room Air I&O Intake and Output 02/18/17 07:00 Intake Total 960 ml Balance 960 ml Intake Oral 960 ml Labs: Laboratory Tests Test 02/17/17 11:55 02/17/17 13:40 [place] Level 1.2 mmol/L (0.6-1.2) [place] Last Dose Date 02/17/17 [place] Last Dose Time 0900 Urine Collection Type Clean catch Urine Color Yellow Urine Clarity Clear Urine pH 6.5 Urine Specific [place] 1.015 Urine Protein Neg (NEG-TRACE) Urine Glucose (UA) Neg mg/dL (NEG) Urine Ketones (Stick) Neg mg/dL (NEG) Urine Blood Neg (NEG) Urine Nitrite Neg (NEG) Urine Bilirubin Neg (NEG) Urine Urobilinogen Dipstick 0.2 mg/dL (0.2 mg/dL) Urine Leukocyte Esterase Small (NEG) Urine RBC 1-2 /HPF (0-2) Urine WBC 5-10 /HPF (0-4) Urine Squamous Epithelial Cells Few /LPF Urine Transitional Epithelial Cells Few /LPF Urine Bacteria Few /HPF (0-FEW) Urine Hyaline Casts Occ /HPF Current Medications: Meds: Current Medications Olanzapine (ZyPREXA ZYDIS) 10 mg STK-MED ONCE .ROUTE ; Start 01/25/17 at 04:06; Stop 01/25/17 at 04:07; Status DC Olanzapine (ZyPREXA ZYDIS) 10 mg 1X STAT PO Last administered on 01/25/17 04: 07; Start 01/25/17 at 04:03; Stop 01/25/17 at 06:26; Status DC Nicotine (Nicoderm Cq 21mg) 1 patch DAILY TD Last administered on 02/02/17 08: 30; Start 01/25/17 at 09:00; Stop 02/11/17 at 16:38; Status DC Clonazepam (KlonoPIN) 0.5 mg TID PO Last administered on 02/17/17 09:20; Start 01/25/17 at 09:00 Divalproex Sodium (Depakote Sprinkles) 125 mg TID PO Last administered on 14:16; Start 01/25/17 at 09:00; Stop 01/28/17 at 18:41; Status DC Lorazepam (Ativan) 0.5 mg PRN Q4HRS PRN PO ANXIETY / AGITATION; Start 01/25/17 at 05:30 Risperidone (RisperDAL) 3 mg DAILY16 PO Last administered on 02/08/17 16:00; Start 01/25/17 at 16:00; Stop 02/08/17 at 18:42; Status DC Temazepam (Restoril) 30 mg PRN QHS PRN PO INSOMNIA; Start 01/25/17 at 05:30; Stop 01/25/17 at 06:31; Status DC Trazodone HCl (Desyrel) 100 mg PRN QHS PRN PO INSOMNIA; Start 01/25/17 at 05:30 ; Stop 01/25/17 at 11:36; Status DC Trazodone HCl (Desyrel) 100 mg QHS PO ; Start 01/25/17 at 21:00; Stop 01/25/17 at 21:00; Status DC Temazepam (Restoril) 30 mg PRN QHS PRN PO INSOMNIA Last administered on 19:22; Start 01/25/17 at 06:31; Stop 01/29/17 at 18:50; Status DC Acetaminophen (Tylenol) 650 mg PRN Q6HRS PRN PO PAIN / TEMP Last administered on 02/07/17 04:26; Start 01/25/17 at 06:45 Aspirin (Aspirin Enteric Coated) 81 mg DAILY PO Last administered on 02/15/17 07:48; Start 01/25/17 at 09:00 Bisacodyl (Dulcolax Tab) 10 mg PRN DAILY PRN PO CONSTIPATION; Start 01/25/17 at 06:45 Bisacodyl (Dulcolax Supp) 10 mg PRN DAILY PRN RC CONSTIPATION; Start 01/25/17 at 06:45 Furosemide (Lasix) 40 mg DAILY PO Last administered on 01/28/17 05:15; Start 01/25/17 at 09:00; Stop 01/29/17 at 03:25; Status DC Guaifenesin (Robitussin Dm) 10 ml PRN Q4HRS PRN PO COUGH; Start 01/25/17 at 06: 45 Albuterol/ Ipratropium (Duoneb) 3 ml PRN Q4HRS PRN NEB SHORTNESS OF BREATH; Start 01/25/17 at 06:45 Levothyroxine Sodium (Synthroid) 100 mcg DAILY06 PO Last administered on 05:57; Start 01/25/17 at 07:00 Lisinopril (Prinivil) 5 mg DAILY PO Last administered on 02/15/17 07:48; Start 01/25/17 at 09:00 Al Hydroxide/Mg Hydroxide (Mylanta Plus Xs) 30 ml PRN Q4HRS PRN PO DYSPEPSIA; Start 01/25/17 at 06:45 Metformin HCl (Glucophage) 500 mg BIDWMEALS PO Last administered on 02/03/17 08 :13; Start 01/25/17 at 08:00; Stop 02/03/17 at 15:41; Status DC Miconazole Nitrate (Monistat-Derm) 1 gerson BID TP ; Start 01/25/17 at 09:00; Stop 01/25/17 at 09:00; Status DC Nitroglycerin (Nitrostat) 0.4 mg PRN Q5MIN PRN SL CHEST PAIN; Start 01/25/17 at 06:45 Polyethylene Glycol (miraLAX) 17 gm QODAY PO Last administered on 02/16/17 08: 45; Start 01/25/17 at 09:00; Stop 02/17/17 at 07:55; Status DC Senna/Docusate Sodium (Senna Plus) 1 tab QHS PO Last administered on 02/16/17 19:46; Start 01/25/17 at 21:00 Tramadol HCl (Ultram) 25 mg PRN Q6HRS PRN PO PAIN Last administered on 08:50; Start 01/25/17 at 06:45 Acetaminophen (Tylenol) 650 mg TID PO Last administered on 02/16/17 19:47; Start 01/25/17 at 09:00 Atorvastatin Calcium (Lipitor) 40 mg QHS PO Last administered on 02/16/17 19: 46; Start 01/25/17 at 21:00 Albuterol Sulfate (Ventolin) 2.5 mg Q6H NEB ; Start 01/25/17 at 07:30; Stop at 17:24; Status DC Lactulose 20 gm PRN DAILY PRN PO CONSTIPATION; Start 01/25/17 at 07:30 Budesonide (Pulmicort) 0.5 mg RTBID NEB ; Start 01/25/17 at 08:00; Stop at 17:24; Status DC Olanzapine (ZyPREXA ZYDIS) 2.5 mg PRN Q2HR PRN PO ANXIETY / AGITATION; Start at 08:00 Lorazepam (Ativan) 1 mg DAILY IM Last administered on 01/27/17 09:03; Start at 11:00; Stop 01/27/17 at 18:25; Status DC Haloperidol Lactate (Haldol) 5 mg DAILY IM Last administered on 01/27/17 08:58 ; Start 01/25/17 at 11:00; Stop 01/27/17 at 18:25; Status DC Risperidone (RisperDAL CONSTA) 25 mg Q2WKS IM Last administered on 02/09/17 10 :08; Start 01/26/17 at 09:00 Risperidone (RisperDAL) 3 mg 1X ONCE SL Last administered on 01/26/17 16:15; Start 01/26/17 at 16:00; Stop 01/26/17 at 16:02; Status DC Albuterol Sulfate (Ventolin) 2.5 mg PRN Q6HRS PRN NEB SHORTNESS OF BREATH; Start 01/28/17 at 13:30 Budesonide (Pulmicort) 0.5 mg PRN BID PRN NEB SHORTNESS OF BREATH; Start at 08:00 Haloperidol Lactate (Haldol) 5 mg DAILY IM Last administered on 01/30/17 11:07 ; Start 01/28/17 at 09:00; Stop 01/30/17 at 18:32; Status DC Olanzapine (ZyPREXA ZYDIS) 5 mg PRN Q2HR PRN PO ANXIETY / AGITATION; Start at 18:30 Lorazepam (Ativan) 1 mg DAILY IM Last administered on 01/30/17 11:07; Start at 09:00; Stop 01/30/17 at 18:32; Status DC Valproic Acid (Depakene) 375 mg HS PO ; Start 01/29/17 at 21:00; Stop 01/29/17 at 21:00; Status DC Furosemide (Lasix) 40 mg DAILY06 PO Last administered on 02/17/17 05:57; Start 01/29/17 at 06:00 Valproic Acid (Depakene) 375 mg BID PO Last administered on 02/03/17 08:23; Start 01/29/17 at 21:00; Stop 02/03/17 at 18:22; Status DC Temazepam (Restoril) 30 mg QHS PO Last administered on 02/16/17 19:48; Start 01/29/17 at 21:00 Potassium Chloride (Klor-Con) 20 meq BID PO ; Start 01/30/17 at 21:00; Stop at 05:33; Status DC Magnesium Hydroxide (Milk Of Magnesia) 2,400 mg PRN DAILY PRN PO CONSTIPATION; Start 01/30/17 at 16:30; Status UNV Magnesium Hydroxide (Milk Of Magnesia) 2,400 mg PRN DAILY PRN PO CONSTIPATION Last administered on 02/15/17 20:11; Start 01/30/17 at 16:45 Potassium Chloride (Klor-Con) 20 meq BID66 PO Last administered on 02/15/17 05 :46; Start 01/31/17 at 06:00; Stop 02/15/17 at 16:58; Status DC Metformin HCl (Glucophage) 250 mg BIDWMEALS PO Last administered on 02/17/17 17:57; Start 02/03/17 at 17:00 Cyanocobalamin (Vitamin B-12) 1,000 mcg DAILY PO Last administered on 08:45; Start 02/04/17 at 09:00 Valproic Acid (Depakene) 500 mg BID PO Last administered on 02/07/17 08:01; Start 02/03/17 at 21:00; Stop 02/07/17 at 15:17; Status DC Valproic Acid (Depakene) 750 mg BID PO Last administered on 02/17/17 09:20; Start 02/07/17 at 21:00 Trazodone HCl (Desyrel) 100 mg QHS PO Last administered on 02/16/17 19:46; Start 02/07/17 at 21:00 Trazodone HCl (Desyrel) 100 mg PRN QHS PRN PO INSOMNIA; Start 02/07/17 at 19:00 Risperidone (RisperDAL) 2 mg DAILY16 PO Last administered on 02/09/17 16:44; Start 02/09/17 at 16:00; Stop 02/09/17 at 18:47; Status DC [place] Carbonate (Lithobid) 300 mg HS PO Last administered on 02/14/17 20:09 ; Start 02/08/17 at 21:00; Stop 02/15/17 at 18:52; Status DC Risperidone (RisperDAL) 1 mg DAILY16 PO Last administered on 02/16/17 16:48; Start 02/11/17 at 16:00 [place] Carbonate (Lithobid) 150 mg DAILY PO Last administered on 02/13/17 08: 41; Start 02/13/17 at 09:00; Stop 02/14/17 at 10:24; Status DC Mirtazapine (Remeron) 7.5 mg QHS PO Last administered on 02/16/17 19:46; Start 02/13/17 at 21:00 [place] Carbonate 150 mg TID PO Last administered on 02/15/17 13:35; Start at 14:00; Stop 02/15/17 at 18:52; Status DC Potassium Chloride (Klor-Con) 20 meq DAILY PO ; Start 02/16/17 at 09:00; Stop at 09:00; Status DC [place] Carbonate 150 mg DAILY PO Last administered on 02/17/17 09:20; Start 02/16/17 at 09:00 [place] Carbonate (Lithobid) 300 mg HS PO Last administered on 02/16/17 19:48 ; Start 02/16/17 at 21:00 Potassium Chloride (Klor-Con) 20 meq DAILY06 PO Last administered on 02/17/17 05:57; Start 02/16/17 at 06:00 Polyethylene Glycol (miraLAX) 17 gm DAILY PO Last administered on 02/17/17 09: 24; Start 02/17/17 at 09:00 Magnesium Citrate (Citroma) 296 ml 1X ONCE PO ; Start 02/17/17 at 08:10; Stop 02/17/17 at 08:11; Status DC Active Scripts Active Reported Tylenol (Acetaminophen) 325 Mg Tablet 650 Mg PO PRN Q6HRS PRN Arthritis Pain (Acetaminophen) 650 Mg Tablet.er 650 Mg PO BID Trazodone Hcl 100 Mg Tablet 100 Mg PO PRN QHS PRN Trazodone Hcl 100 Mg Tablet 100 Mg PO QHS Tramadol Hcl (Tramadol HCl) 50 Mg Tablet 25 Mg PO PRN Q6HRS PRN Synthroid (Levothyroxine Sodium) 100 Mcg Tablet 100 Mcg PO DAILY07 Senna S Tablet (Sennosides/Docusate Sodium) 1 Each Tablet 1 Tab PO QHS Risperdal (Risperidone) 1 Mg/1 Ml Solution 3 Mg PO DAILY16 Restoril (Temazepam) 30 Mg Capsule 30 Mg PO PRN QHS PRN Nitrostat (Nitroglycerin) 0.4 Mg Tab.subl 0.4 Mg SL PRN Q5MIN PRN Miralax (Polyethylene Glycol 3350) 119 Gm Powder 17 Gm PO QODAY Antacid Suspension (Mag Hydrox/Al Hydrox/Simeth) 355 Ml Oral.susp 30 Ml PO PRN Q4HRS PRN Lisinopril 5 Mg Tablet 5 Mg PO DAILY Lipitor (Atorvastatin Calcium) 40 Mg Tablet 40 Mg PO QHS Lasix (Furosemide) 40 Mg Tablet 40 Mg PO DAILY Lactulose 10 Gm/15 Ml Solution 20 Gm PO PRN DAILY PRN Klonopin (Clonazepam) 0.5 Mg Tablet 0.5 Mg PO TID Glucophage (Metformin Hcl) 500 Mg Tablet 500 Mg PO BIDWMEALS Josie-Tussin Dm Syrup (Guaifenesin/Dextromethorphan) 473 Ml Syrup 10 Ml PO PRN Q4HRS PRN Duoneb 0.5-3(2.5) Mg/3 Ml (Albuterol/Ipratropium) 3 Ml Ampul.neb 3 Ml NEB PRN Q4HRS PRN Depakote Sprinkle (Divalproex Sodium) 125 Mg Cap.sprink 125 Mg PO TID Bisacodyl 10 Mg Supp.rect 10 Mg RC PRN DAILY PRN Bisacodyl 5 Mg Tablet.dr 10 Mg PO PRN DAILY PRN Reshma Antifungal (Miconazole Nitrate) 142 Gm Cream..g. 1 Gerson TP BID Ativan (Lorazepam) 0.5 Mg Tablet 0.5 Mg PO PRN Q4HRS PRN Aspirin Ec (Aspirin) 81 Mg Tablet.dr 81 Mg PO DAILY Advair Hfa 115-21 Mcg Inhaler (Fluticasone/Salmeterol) 12 Gm Hfa.aer.ad 2 Puff IH BID Diagnosis: Problems: (1) Psychosis (2) Schizophrenia, acute (3) Anxiety disorder (4) Bipolar affective, mixed, sev w/ psych (5) Impulse control disorder (6) Schizoaffective disorder, chronic condition with acute exacerbation ALBERT ROSE MD Feb 17, 2017 19:50
[2017-02-17] MEDS: ATORVASTATIN CALCIUM 20 MG TABLET PO SCH (20:11)
[2017-02-17] MEDS: TEMAZEPAM 15 MG CAPSULE PO SCH (20:11)
[2017-02-17] MEDS: traZODone 100 MG TABLET. PO SCH (20:12)
[2017-02-17] MEDS: SENNOSIDES/DOCUSATE 8.6/50MG TABLET. PO SCH (20:12)
[2017-02-17] MEDS: MIRTAZAPINE 7.5 MG TABLET. PO SCH (20:12)
[2017-02-17] MEDS: LITHIUM CARBONATE ER 300 MG TABLET.ER PO SCH (20:13)
--- NOTE | 2017-02-18 05:20 | PN ---
DATE: 02/16/2017 This is late entry for 02/16/2017 cover elements not covered in my initial note of 02/16/2017. SUBJECTIVE: I met with the patient in the evening of 02/16/2017. The patient has had a slurred speech, somewhat hypotensive at times. REVIEW OF SYSTEMS: Ambulation impaired, bilateral lymphedema. No CV, , pulmonary, eye system symptoms on review. Reliability varies. MENTAL STATUS EXAM: Oriented to herself and situation. Speech slurred, abstraction fair, computation impaired, language function intact, attention span short. Mood and affect still somewhat labile, often verbal responses monosyllabic. No active suicidal or homicidal ideation. LABORATORY DATA: Reviewed. IMPRESSION: Unchanged from initial note. PLAN: Reduce the Risperdal from 2 mg daily oral to 1 mg daily since she is on the Risperdal Consta. Heron level at last check was 1.2 and will be repeated on 02/18/2017. Maintain the rest of the psychotropics. Reviewed drug interactions. Risk/benefit ratio favors no further change. Check UA on 02/17/2017 and if the slurred speech continues, we will hold the lithium till we get the next level back. ALBERT ROSE MD DR: CHASE/[facility] JOB#: [id number] / [id number]
[2017-02-18 05:48] VITALS: BP 117/53
[2017-02-18] MEDS: POTASSIUM CHLORIDE 20 MEQ TABLET.ER. PO SCH (05:58)
[2017-02-18] MEDS: LEVOTHYROXINE 100 MCG TABLET PO SCH (05:58)
[2017-02-18] MEDS: FUROSEMIDE 40 MG TABLET PO SCH (06:00)
[2017-02-18] MEDS: metFORMIN 500 MG TABLET PO SCH ×2 (08:18→16:42)
[2017-02-18] MEDS: ASPIRIN ENTERIC COATED 81 MG TABLET.DR. PO SCH (08:18)
[2017-02-18] MEDS: VALPROATE ACID 250 MG/5 ML ORAL SOLUTION PO SCH ×2 (08:19→20:45)
[2017-02-18] MEDS: ACETAMINOPHEN 325 MG TABLET PO SCH ×4 (08:19→20:46)
[2017-02-18] MEDS: CYANOCOBALAMIN (VITAMIN B-12) 1,000 MCG TABLET. PO SCH (08:19)
[2017-02-18] MEDS: POLYETHYLENE GLYCOL 3350 17 GM PACKET. PO SCH (08:24)
[2017-02-18] MEDS: clonazePAM 0.5 MG TABLET PO SCH ×3 (08:25→20:43)
[2017-02-18] MEDS: LISINOPRIL 5 MG TABLET. PO SCH (08:25)
[2017-02-18] MEDS: LITHIUM CARBONATE 150 MG CAPSULE. PO SCH (08:25)
[2017-02-18 10:16] LABS: BASO % 1 % (0-3); EOS % 0 % (0-3); HEMATOCRIT 34.5 % (36.0-47.0); HEMOGLOBIN 11.8 g/dL (12.0-15.5); LYMPH # 0.9 x10^3/uL (1.0-4.8); LYMPH % 18 % (24-48); MEAN CORPUSCULAR HEMOGLOBIN 35 pg (25-35); MEAN CORPUSCULAR HGB CONC 34 g/dL (31-37); MEAN CORPUSCULAR VOLUME 101 fL (79-100); MONO # 0.7 x10^3/uL (0.0-1.1); MONO % 13 % (0-9); NEUT # 3.5 x10^3uL (1.8-7.7); NEUT % 69 % (31-73); PLATELET COUNT 223 x10^3/uL (140-400); RED BLOOD COUNT 3.41 x10^6/uL (3.50-5.40); RED CELL DISTRIBUTION WIDTH 13.6 % (11.5-14.5); WHITE BLOOD COUNT 5.1 x10^3/uL (4.0-11.0)
[2017-02-18 10:31] LABS: ALBUMIN 3.3 g/dL (3.4-5.0); ALBUMIN/GLOBULIN RATIO 1.1 (1.0-1.7); CALCIUM 8.9 mg/dL (8.5-10.1); CREATININE 0.8 mg/dL (0.6-1.0); GFR 69.7; POTASSIUM 4.6 mmol/L (3.5-5.1); TOTAL BILIRUBIN 0.3 mg/dL (0.2-1.0); TOTAL PROTEIN 6.4 g/dL (6.4-8.2)
[2017-02-18] MEDS: risperiDONE ORAL 1 MG/ML 30ml BOTTLE. PO SCH (16:42)
[2017-02-18 16:55] VITALS: BP 108/44
[2017-02-18] MEDS: TEMAZEPAM 15 MG CAPSULE PO SCH (20:44)
[2017-02-18] MEDS: LITHIUM CARBONATE ER 300 MG TABLET.ER PO SCH (20:45)
[2017-02-18] MEDS: SENNOSIDES/DOCUSATE 8.6/50MG TABLET. PO SCH (20:45)
[2017-02-18] MEDS: MIRTAZAPINE 7.5 MG TABLET. PO SCH (20:46)
[2017-02-18] MEDS: ATORVASTATIN CALCIUM 20 MG TABLET PO SCH (20:46)
[2017-02-18] MEDS: traZODone 100 MG TABLET. PO SCH (20:46)
--- NOTE | 2017-02-18 21:19 | PDOC ---
Exam Tra Demential Exam: Tra Note: Please also refer to the separate dictated note~for this date of service dictated separately.~Patient seen individually. Discussed the patient with Nursing staff reviewed the chart.~Reviewed interim history and current functioning. Reviewed vital signs,~Labs/ Radiology~and current medications noted below. Continue current treatment with the changes noted in the dictated addendum note Assessment: Vital Signs: Vital Signs Date Time Temp Pulse Resp B/P (MAP) Pulse Ox O2 Delivery O2 Flow Rate FiO2 02/18/17 16:55 97.4 57 16 108/44 (65) 98 02/18/17 05:48 Room Air I&O Intake and Output 02/19/17 07:00 Intake Total 1185 ml Balance 1185 ml Intake Oral 1185 ml Labs: Laboratory Tests Test 02/18/17 09:45 02/18/17 09:51 White Blood Count 5.1 x10^3/uL (4.0-11.0) Red Blood Count 3.41 x10^6/uL (3.50-5.40) L Hemoglobin 11.8 g/dL (12.0-15.5) L Hematocrit 34.5 % (36.0-47.0) L Mean Corpuscular Volume 101 fL (79-100) H Mean Corpuscular Hemoglobin 35 pg (25-35) Mean Corpuscular Hemoglobin Concent 34 g/dL (31-37) Red Cell Distribution Width 13.6 % (11.5-14.5) Platelet Count 223 x10^3/uL (140-400) Neutrophils (%) (Auto) 69 % (31-73) Lymphocytes (%) (Auto) 18 % (24-48) L Monocytes (%) (Auto) 13 % (0-9) H Eosinophils (%) (Auto) 0 % (0-3) Basophils (%) (Auto) 1 % (0-3) Neutrophils # (Auto) 3.5 x10^3uL (1.8-7.7) Lymphocytes # (Auto) 0.9 x10^3/uL (1.0-4.8) L Monocytes # (Auto) 0.7 x10^3/uL (0.0-1.1) Eosinophils # (Auto) 0.0 x10^3/uL (0.0-0.7) Basophils # (Auto) 0.0 x10^3/uL (0.0-0.2) Sodium Level 138 mmol/L (136-145) Potassium Level 4.6 mmol/L (3.5-5.1) Chloride Level 103 mmol/L (98-107) Carbon Dioxide Level 34 mmol/L (21-32) H Anion Gap 1 (6-14) L Blood Urea Nitrogen 25 mg/dL (7-20) H Creatinine 0.8 mg/dL (0.6-1.0) Estimated GFR (Cockcroft-Gault) 69.7 BUN/Creatinine Ratio 31 (6-20) H Glucose Level 125 mg/dL (70-99) H Calcium Level 8.9 mg/dL (8.5-10.1) Total Bilirubin 0.3 mg/dL (0.2-1.0) Aspartate Amino Transferase (AST) 11 U/L (15-37) L Alanine Aminotransferase (ALT) 19 U/L (14-59) Alkaline Phosphatase 97 U/L (46-116) Total Protein 6.4 g/dL (6.4-8.2) Albumin 3.3 g/dL (3.4-5.0) L Albumin/Globulin Ratio 1.1 (1.0-1.7) Current Medications: Meds: Current Medications Olanzapine (ZyPREXA ZYDIS) 10 mg STK-MED ONCE .ROUTE ; Start 01/25/17 at 04:06; Stop 01/25/17 at 04:07; Status DC Olanzapine (ZyPREXA ZYDIS) 10 mg 1X STAT PO Last administered on 01/25/17 04: 07; Start 01/25/17 at 04:03; Stop 01/25/17 at 06:26; Status DC Nicotine (Nicoderm Cq 21mg) 1 patch DAILY TD Last administered on 02/02/17 08: 30; Start 01/25/17 at 09:00; Stop 02/11/17 at 16:38; Status DC Clonazepam (KlonoPIN) 0.5 mg TID PO Last administered on 02/18/17 20:43; Start 01/25/17 at 09:00 Divalproex Sodium (Depakote Sprinkles) 125 mg TID PO Last administered on 14:16; Start 01/25/17 at 09:00; Stop 01/28/17 at 18:41; Status DC Lorazepam (Ativan) 0.5 mg PRN Q4HRS PRN PO ANXIETY / AGITATION; Start 01/25/17 at 05:30 Risperidone (RisperDAL) 3 mg DAILY16 PO Last administered on 02/08/17 16:00; Start 01/25/17 at 16:00; Stop 02/08/17 at 18:42; Status DC Temazepam (Restoril) 30 mg PRN QHS PRN PO INSOMNIA; Start 01/25/17 at 05:30; Stop 01/25/17 at 06:31; Status DC Trazodone HCl (Desyrel) 100 mg PRN QHS PRN PO INSOMNIA; Start 01/25/17 at 05:30 ; Stop 01/25/17 at 11:36; Status DC Trazodone HCl (Desyrel) 100 mg QHS PO ; Start 01/25/17 at 21:00; Stop 01/25/17 at 21:00; Status DC Temazepam (Restoril) 30 mg PRN QHS PRN PO INSOMNIA Last administered on 19:22; Start 01/25/17 at 06:31; Stop 01/29/17 at 18:50; Status DC Acetaminophen (Tylenol) 650 mg PRN Q6HRS PRN PO PAIN / TEMP Last administered on 02/07/17 04:26; Start 01/25/17 at 06:45 Aspirin (Aspirin Enteric Coated) 81 mg DAILY PO Last administered on 02/18/17 08:18; Start 01/25/17 at 09:00 Bisacodyl (Dulcolax Tab) 10 mg PRN DAILY PRN PO CONSTIPATION Last administered on 02/18/17 20:45; Start 01/25/17 at 06:45 Bisacodyl (Dulcolax Supp) 10 mg PRN DAILY PRN RC CONSTIPATION; Start 01/25/17 at 06:45 Furosemide (Lasix) 40 mg DAILY PO Last administered on 01/28/17 05:15; Start 01/25/17 at 09:00; Stop 01/29/17 at 03:25; Status DC Guaifenesin (Robitussin Dm) 10 ml PRN Q4HRS PRN PO COUGH; Start 01/25/17 at 06: 45 Albuterol/ Ipratropium (Duoneb) 3 ml PRN Q4HRS PRN NEB SHORTNESS OF BREATH; Start 01/25/17 at 06:45 Levothyroxine Sodium (Synthroid) 100 mcg DAILY06 PO Last administered on 05:58; Start 01/25/17 at 07:00 Lisinopril (Prinivil) 5 mg DAILY PO Last administered on 02/18/17 08:25; Start 01/25/17 at 09:00 Al Hydroxide/Mg Hydroxide (Mylanta Plus Xs) 30 ml PRN Q4HRS PRN PO DYSPEPSIA; Start 01/25/17 at 06:45 Metformin HCl (Glucophage) 500 mg BIDWMEALS PO Last administered on 02/03/17 08 :13; Start 01/25/17 at 08:00; Stop 02/03/17 at 15:41; Status DC Miconazole Nitrate (Monistat-Derm) 1 gerosn BID TP ; Start 01/25/17 at 09:00; Stop 01/25/17 at 09:00; Status DC Nitroglycerin (Nitrostat) 0.4 mg PRN Q5MIN PRN SL CHEST PAIN; Start 01/25/17 at 06:45 Polyethylene Glycol (miraLAX) 17 gm QODAY PO Last administered on 02/16/17 08: 45; Start 01/25/17 at 09:00; Stop 02/17/17 at 07:55; Status DC Senna/Docusate Sodium (Senna Plus) 1 tab QHS PO Last administered on 02/18/17 20:45; Start 01/25/17 at 21:00 Tramadol HCl (Ultram) 25 mg PRN Q6HRS PRN PO PAIN Last administered on 08:50; Start 01/25/17 at 06:45 Acetaminophen (Tylenol) 650 mg TID PO Last administered on 02/18/17 20:46; Start 01/25/17 at 09:00 Atorvastatin Calcium (Lipitor) 40 mg QHS PO Last administered on 02/18/17 20: 46; Start 01/25/17 at 21:00 Albuterol Sulfate (Ventolin) 2.5 mg Q6H NEB ; Start 01/25/17 at 07:30; Stop at 17:24; Status DC Lactulose 20 gm PRN DAILY PRN PO CONSTIPATION; Start 01/25/17 at 07:30 Budesonide (Pulmicort) 0.5 mg RTBID NEB ; Start 01/25/17 at 08:00; Stop at 17:24; Status DC Olanzapine (ZyPREXA ZYDIS) 2.5 mg PRN Q2HR PRN PO ANXIETY / AGITATION; Start at 08:00 Lorazepam (Ativan) 1 mg DAILY IM Last administered on 01/27/17 09:03; Start at 11:00; Stop 01/27/17 at 18:25; Status DC Haloperidol Lactate (Haldol) 5 mg DAILY IM Last administered on 01/27/17 08:58 ; Start 01/25/17 at 11:00; Stop 01/27/17 at 18:25; Status DC Risperidone (RisperDAL CONSTA) 25 mg Q2WKS IM Last administered on 02/09/17 10 :08; Start 01/26/17 at 09:00 Risperidone (RisperDAL) 3 mg 1X ONCE SL Last administered on 01/26/17 16:15; Start 01/26/17 at 16:00; Stop 01/26/17 at 16:02; Status DC Albuterol Sulfate (Ventolin) 2.5 mg PRN Q6HRS PRN NEB SHORTNESS OF BREATH; Start 01/28/17 at 13:30 Budesonide (Pulmicort) 0.5 mg PRN BID PRN NEB SHORTNESS OF BREATH; Start at 08:00 Haloperidol Lactate (Haldol) 5 mg DAILY IM Last administered on 01/30/17 11:07 ; Start 01/28/17 at 09:00; Stop 01/30/17 at 18:32; Status DC Olanzapine (ZyPREXA ZYDIS) 5 mg PRN Q2HR PRN PO ANXIETY / AGITATION; Start at 18:30 Lorazepam (Ativan) 1 mg DAILY IM Last administered on 01/30/17 11:07; Start at 09:00; Stop 01/30/17 at 18:32; Status DC Valproic Acid (Depakene) 375 mg HS PO ; Start 01/29/17 at 21:00; Stop 01/29/17 at 21:00; Status DC Furosemide (Lasix) 40 mg DAILY06 PO Last administered on 02/18/17 06:00; Start 01/29/17 at 06:00 Valproic Acid (Depakene) 375 mg BID PO Last administered on 02/03/17 08:23; Start 01/29/17 at 21:00; Stop 02/03/17 at 18:22; Status DC Temazepam (Restoril) 30 mg QHS PO Last administered on 02/18/17 20:44; Start 01/29/17 at 21:00 Potassium Chloride (Klor-Con) 20 meq BID PO ; Start 01/30/17 at 21:00; Stop at 05:33; Status DC Magnesium Hydroxide (Milk Of Magnesia) 2,400 mg PRN DAILY PRN PO CONSTIPATION; Start 01/30/17 at 16:30; Status UNV Magnesium Hydroxide (Milk Of Magnesia) 2,400 mg PRN DAILY PRN PO CONSTIPATION Last administered on 02/15/17 20:11; Start 01/30/17 at 16:45 Potassium Chloride (Klor-Con) 20 meq BID66 PO Last administered on 02/15/17 05 :46; Start 01/31/17 at 06:00; Stop 02/15/17 at 16:58; Status DC Metformin HCl (Glucophage) 250 mg BIDWMEALS PO Last administered on 02/18/17 16:42; Start 02/03/17 at 17:00 Cyanocobalamin (Vitamin B-12) 1,000 mcg DAILY PO Last administered on 08:19; Start 02/04/17 at 09:00 Valproic Acid (Depakene) 500 mg BID PO Last administered on 02/07/17 08:01; Start 02/03/17 at 21:00; Stop 02/07/17 at 15:17; Status DC Valproic Acid (Depakene) 750 mg BID PO Last administered on 02/18/17 20:45; Start 02/07/17 at 21:00 Trazodone HCl (Desyrel) 100 mg QHS PO Last administered on 02/18/17 20:46; Start 02/07/17 at 21:00 Trazodone HCl (Desyrel) 100 mg PRN QHS PRN PO INSOMNIA; Start 02/07/17 at 19:00 Risperidone (RisperDAL) 2 mg DAILY16 PO Last administered on 02/09/17 16:44; Start 02/09/17 at 16:00; Stop 02/09/17 at 18:47; Status DC Winifred Carbonate (Lithobid) 300 mg HS PO Last administered on 02/14/17 20:09 ; Start 02/08/17 at 21:00; Stop 02/15/17 at 18:52; Status DC Risperidone (RisperDAL) 1 mg DAILY16 PO Last administered on 02/18/17 16:42; Start 02/11/17 at 16:00 Winifred Carbonate (Lithobid) 150 mg DAILY PO Last administered on 02/13/17 08: 41; Start 02/13/17 at 09:00; Stop 02/14/17 at 10:24; Status DC Mirtazapine (Remeron) 7.5 mg QHS PO Last administered on 02/18/17 20:46; Start 02/13/17 at 21:00 Winifred Carbonate 150 mg TID PO Last administered on 02/15/17 13:35; Start at 14:00; Stop 02/15/17 at 18:52; Status DC Potassium Chloride (Klor-Con) 20 meq DAILY PO ; Start 02/16/17 at 09:00; Stop at 09:00; Status DC Winifred Carbonate 150 mg DAILY PO Last administered on 02/18/17 08:25; Start 02/16/17 at 09:00 Winifred Carbonate (Lithobid) 300 mg HS PO Last administered on 02/18/17 20:45 ; Start 02/16/17 at 21:00 Potassium Chloride (Klor-Con) 20 meq DAILY06 PO Last administered on 02/18/17 05:58; Start 02/16/17 at 06:00 Polyethylene Glycol (miraLAX) 17 gm DAILY PO Last administered on 02/18/17 08: 24; Start 02/17/17 at 09:00 Magnesium Citrate (Citroma) 296 ml 1X ONCE PO ; Start 02/17/17 at 08:10; Stop 02/17/17 at 08:11; Status DC Active Scripts Active Reported Tylenol (Acetaminophen) 325 Mg Tablet 650 Mg PO PRN Q6HRS PRN Arthritis Pain (Acetaminophen) 650 Mg Tablet.er 650 Mg PO BID Trazodone Hcl 100 Mg Tablet 100 Mg PO PRN QHS PRN Trazodone Hcl 100 Mg Tablet 100 Mg PO QHS Tramadol Hcl (Tramadol HCl) 50 Mg Tablet 25 Mg PO PRN Q6HRS PRN Synthroid (Levothyroxine Sodium) 100 Mcg Tablet 100 Mcg PO DAILY07 Senna S Tablet (Sennosides/Docusate Sodium) 1 Each Tablet 1 Tab PO QHS Risperdal (Risperidone) 1 Mg/1 Ml Solution 3 Mg PO DAILY16 Restoril (Temazepam) 30 Mg Capsule 30 Mg PO PRN QHS PRN Nitrostat (Nitroglycerin) 0.4 Mg Tab.subl 0.4 Mg SL PRN Q5MIN PRN Miralax (Polyethylene Glycol 3350) 119 Gm Powder 17 Gm PO QODAY Antacid Suspension (Mag Hydrox/Al Hydrox/Simeth) 355 Ml Oral.susp 30 Ml PO PRN Q4HRS PRN Lisinopril 5 Mg Tablet 5 Mg PO DAILY Lipitor (Atorvastatin Calcium) 40 Mg Tablet 40 Mg PO QHS Lasix (Furosemide) 40 Mg Tablet 40 Mg PO DAILY Lactulose 10 Gm/15 Ml Solution 20 Gm PO PRN DAILY PRN Klonopin (Clonazepam) 0.5 Mg Tablet 0.5 Mg PO TID Glucophage (Metformin Hcl) 500 Mg Tablet 500 Mg PO BIDWMEALS Josie-Tussin Dm Syrup (Guaifenesin/Dextromethorphan) 473 Ml Syrup 10 Ml PO PRN Q4HRS PRN Duoneb 0.5-3(2.5) Mg/3 Ml (Albuterol/Ipratropium) 3 Ml Ampul.neb 3 Ml NEB PRN Q4HRS PRN Depakote Sprinkle (Divalproex Sodium) 125 Mg Cap.sprink 125 Mg PO TID Bisacodyl 10 Mg Supp.rect 10 Mg RC PRN DAILY PRN Bisacodyl 5 Mg Tablet.dr 10 Mg PO PRN DAILY PRN Reshma Antifungal (Miconazole Nitrate) 142 Gm Cream..g. 1 Gerson TP BID Ativan (Lorazepam) 0.5 Mg Tablet 0.5 Mg PO PRN Q4HRS PRN Aspirin Ec (Aspirin) 81 Mg Tablet.dr 81 Mg PO DAILY Advair Hfa 115-21 Mcg Inhaler (Fluticasone/Salmeterol) 12 Gm Hfa.aer.ad 2 Puff IH BID Diagnosis: Problems: (1) Psychosis (2) Schizophrenia, acute (3) Anxiety disorder (4) Bipolar affective, mixed, sev w/ psych (5) Impulse control disorder (6) Schizoaffective disorder, chronic condition with acute exacerbation ALBERT ROSE MD Feb 18, 2017 21:19
--- NOTE | 2017-02-19 05:32 | PN ---
DATE: 02/17/2017 PSYCHIATRIC PROGRESS NOTE This is a late entry for 02/17/2017, covers elements not covered in my initial note of 02/17/2017. Met with the patient in the evening of 02/17/2017. She slept 4-1/2 hours previous evening. Nursing staff had called me a couple of times during the day on 02/17/2017, they felt the patient was more confused and could possibly be consequent to lithium. Withheld the lithium with a plan to repeat a level. She has been putting herself on the floor the previous evening. X-ray kidney, urinary bladder showed gas in the bowels and this was done because she was fixated, obsessive on being extremely constipated. UA has reflexed to culture. REVIEW OF SYSTEMS: Ambulation impaired. Bilateral pedal/lymphedema. Complains of constipation, though she is not. No CV, , pulmonary, eye system symptoms on review. MENTAL STATUS EXAM: A little more confused, often verbal responses monosyllabic, somewhat obsessive, repetitive, abstraction fair, computation impaired, language function intact, attention span short. Mood and affect remain somewhat labile. LABORATORY DATA: Reviewed. IMPRESSION: Unchanged from initial note. PLAN: Hold the lithium and check another level. Labs, await urine and C and S. Make further adjustments as clinically indicated. Valproic acid level is 70, therapeutic review. Drug interactions. Risk/benefit ratio favors no further change. MAN Hero ROSE MD DR: CHASE/[facility] JOB#: [id number] / [id number]
[2017-02-19] MEDS: LEVOTHYROXINE 100 MCG TABLET PO SCH (05:44)
[2017-02-19] MEDS: FUROSEMIDE 40 MG TABLET PO SCH (05:44)
[2017-02-19] MEDS: POTASSIUM CHLORIDE 20 MEQ TABLET.ER. PO SCH (05:45)
[2017-02-19 06:03] VITALS: BP 131/91
[2017-02-19] MEDS: ACETAMINOPHEN 325 MG TABLET PO SCH ×4 (07:58→20:05)
[2017-02-19] MEDS: ASPIRIN ENTERIC COATED 81 MG TABLET.DR. PO SCH (07:58)
[2017-02-19] MEDS: LISINOPRIL 5 MG TABLET. PO SCH (07:59)
[2017-02-19] MEDS: CYANOCOBALAMIN (VITAMIN B-12) 1,000 MCG TABLET. PO SCH (07:59)
[2017-02-19] MEDS: LITHIUM CARBONATE 150 MG CAPSULE. PO SCH (07:59)
[2017-02-19] MEDS: metFORMIN 500 MG TABLET PO SCH ×2 (07:59→16:52)
[2017-02-19] MEDS: POLYETHYLENE GLYCOL 3350 17 GM PACKET. PO SCH (08:00)
[2017-02-19] MEDS: VALPROATE ACID 250 MG/5 ML ORAL SOLUTION PO SCH (08:02)
[2017-02-19] MEDS: clonazePAM 0.5 MG TABLET PO SCH ×3 (08:02→20:09)
[2017-02-19 16:33] VITALS: BP 80/40
[2017-02-19 16:40] VITALS: BP 118/40
[2017-02-19] MEDS: risperiDONE ORAL 1 MG/ML 30ml BOTTLE. PO SCH (16:51)
[2017-02-19] MEDS: traZODone 100 MG TABLET. PO SCH (20:04)
[2017-02-19] MEDS: ATORVASTATIN CALCIUM 20 MG TABLET PO SCH (20:04)
[2017-02-19] MEDS: TEMAZEPAM 15 MG CAPSULE PO SCH (20:04)
[2017-02-19] MEDS: SENNOSIDES/DOCUSATE 8.6/50MG TABLET. PO SCH (20:04)
[2017-02-19] MEDS: LITHIUM CARBONATE ER 300 MG TABLET.ER PO SCH (20:04)
[2017-02-19] MEDS: MIRTAZAPINE 7.5 MG TABLET. PO SCH (20:04)
--- NOTE | 2017-02-19 21:14 | PDOC ---
Exam Tra Demential Exam: Tra Note: Please also refer to the separate dictated note~for this date of service dictated separately.~Patient seen individually. Discussed the patient with Nursing staff reviewed the chart.~Reviewed interim history and current functioning. Reviewed vital signs,~Labs/ Radiology~and current medications noted below. Continue current treatment with the changes noted in the dictated addendum note Assessment: Vital Signs: Vital Signs Date Time Temp Pulse Resp B/P (MAP) Pulse Ox O2 Delivery O2 Flow Rate FiO2 02/19/17 16:40 118/40 (66) 02/19/17 16:33 97.4 62 14 92 02/18/17 05:48 Room Air I&O Intake and Output 02/20/17 07:00 Intake Total 840 ml Balance 840 ml Intake Oral 840 ml # Bowel Movements 1 Current Medications: Meds: Current Medications Olanzapine (ZyPREXA ZYDIS) 10 mg STK-MED ONCE .ROUTE ; Start 01/25/17 at 04:06; Stop 01/25/17 at 04:07; Status DC Olanzapine (ZyPREXA ZYDIS) 10 mg 1X STAT PO Last administered on 01/25/17 04: 07; Start 01/25/17 at 04:03; Stop 01/25/17 at 06:26; Status DC Nicotine (Nicoderm Cq 21mg) 1 patch DAILY TD Last administered on 02/02/17 08: 30; Start 01/25/17 at 09:00; Stop 02/11/17 at 16:38; Status DC Clonazepam (KlonoPIN) 0.5 mg TID PO Last administered on 02/19/17 13:42; Start 01/25/17 at 09:00 Divalproex Sodium (Depakote Sprinkles) 125 mg TID PO Last administered on 14:16; Start 01/25/17 at 09:00; Stop 01/28/17 at 18:41; Status DC Lorazepam (Ativan) 0.5 mg PRN Q4HRS PRN PO ANXIETY / AGITATION; Start 01/25/17 at 05:30 Risperidone (RisperDAL) 3 mg DAILY16 PO Last administered on 02/08/17 16:00; Start 01/25/17 at 16:00; Stop 02/08/17 at 18:42; Status DC Temazepam (Restoril) 30 mg PRN QHS PRN PO INSOMNIA; Start 01/25/17 at 05:30; Stop 01/25/17 at 06:31; Status DC Trazodone HCl (Desyrel) 100 mg PRN QHS PRN PO INSOMNIA; Start 01/25/17 at 05:30 ; Stop 01/25/17 at 11:36; Status DC Trazodone HCl (Desyrel) 100 mg QHS PO ; Start 01/25/17 at 21:00; Stop 01/25/17 at 21:00; Status DC Temazepam (Restoril) 30 mg PRN QHS PRN PO INSOMNIA Last administered on 19:22; Start 01/25/17 at 06:31; Stop 01/29/17 at 18:50; Status DC Acetaminophen (Tylenol) 650 mg PRN Q6HRS PRN PO PAIN / TEMP Last administered on 02/07/17 04:26; Start 01/25/17 at 06:45 Aspirin (Aspirin Enteric Coated) 81 mg DAILY PO Last administered on 02/19/17 07:58; Start 01/25/17 at 09:00 Bisacodyl (Dulcolax Tab) 10 mg PRN DAILY PRN PO CONSTIPATION Last administered on 02/18/17 20:45; Start 01/25/17 at 06:45 Bisacodyl (Dulcolax Supp) 10 mg PRN DAILY PRN RC CONSTIPATION; Start 01/25/17 at 06:45 Furosemide (Lasix) 40 mg DAILY PO Last administered on 01/28/17 05:15; Start 01/25/17 at 09:00; Stop 01/29/17 at 03:25; Status DC Guaifenesin (Robitussin Dm) 10 ml PRN Q4HRS PRN PO COUGH; Start 01/25/17 at 06: 45 Albuterol/ Ipratropium (Duoneb) 3 ml PRN Q4HRS PRN NEB SHORTNESS OF BREATH; Start 01/25/17 at 06:45 Levothyroxine Sodium (Synthroid) 100 mcg DAILY06 PO Last administered on 05:44; Start 01/25/17 at 07:00 Lisinopril (Prinivil) 5 mg DAILY PO Last administered on 02/19/17 07:59; Start 01/25/17 at 09:00; Stop 02/19/17 at 18:43; Status DC Al Hydroxide/Mg Hydroxide (Mylanta Plus Xs) 30 ml PRN Q4HRS PRN PO DYSPEPSIA; Start 01/25/17 at 06:45 Metformin HCl (Glucophage) 500 mg BIDWMEALS PO Last administered on 02/03/17 08 :13; Start 01/25/17 at 08:00; Stop 02/03/17 at 15:41; Status DC Miconazole Nitrate (Monistat-Derm) 1 gerson BID TP ; Start 01/25/17 at 09:00; Stop 01/25/17 at 09:00; Status DC Nitroglycerin (Nitrostat) 0.4 mg PRN Q5MIN PRN SL CHEST PAIN; Start 01/25/17 at 06:45 Polyethylene Glycol (miraLAX) 17 gm QODAY PO Last administered on 02/16/17 08: 45; Start 01/25/17 at 09:00; Stop 02/17/17 at 07:55; Status DC Senna/Docusate Sodium (Senna Plus) 1 tab QHS PO Last administered on 02/19/17 20:04; Start 01/25/17 at 21:00 Tramadol HCl (Ultram) 25 mg PRN Q6HRS PRN PO PAIN Last administered on 08:50; Start 01/25/17 at 06:45 Acetaminophen (Tylenol) 650 mg TID PO Last administered on 02/19/17 20:05; Start 01/25/17 at 09:00 Atorvastatin Calcium (Lipitor) 40 mg QHS PO Last administered on 02/19/17 20: 04; Start 01/25/17 at 21:00 Albuterol Sulfate (Ventolin) 2.5 mg Q6H NEB ; Start 01/25/17 at 07:30; Stop at 17:24; Status DC Lactulose 20 gm PRN DAILY PRN PO CONSTIPATION; Start 01/25/17 at 07:30 Budesonide (Pulmicort) 0.5 mg RTBID NEB ; Start 01/25/17 at 08:00; Stop at 17:24; Status DC Olanzapine (ZyPREXA ZYDIS) 2.5 mg PRN Q2HR PRN PO ANXIETY / AGITATION; Start at 08:00 Lorazepam (Ativan) 1 mg DAILY IM Last administered on 01/27/17 09:03; Start at 11:00; Stop 01/27/17 at 18:25; Status DC Haloperidol Lactate (Haldol) 5 mg DAILY IM Last administered on 01/27/17 08:58 ; Start 01/25/17 at 11:00; Stop 01/27/17 at 18:25; Status DC Risperidone (RisperDAL CONSTA) 25 mg Q2WKS IM Last administered on 02/09/17 10 :08; Start 01/26/17 at 09:00 Risperidone (RisperDAL) 3 mg 1X ONCE SL Last administered on 01/26/17 16:15; Start 01/26/17 at 16:00; Stop 01/26/17 at 16:02; Status DC Albuterol Sulfate (Ventolin) 2.5 mg PRN Q6HRS PRN NEB SHORTNESS OF BREATH; Start 01/28/17 at 13:30 Budesonide (Pulmicort) 0.5 mg PRN BID PRN NEB SHORTNESS OF BREATH; Start at 08:00 Haloperidol Lactate (Haldol) 5 mg DAILY IM Last administered on 01/30/17 11:07 ; Start 01/28/17 at 09:00; Stop 01/30/17 at 18:32; Status DC Olanzapine (ZyPREXA ZYDIS) 5 mg PRN Q2HR PRN PO ANXIETY / AGITATION; Start at 18:30 Lorazepam (Ativan) 1 mg DAILY IM Last administered on 01/30/17 11:07; Start at 09:00; Stop 01/30/17 at 18:32; Status DC Valproic Acid (Depakene) 375 mg HS PO ; Start 01/29/17 at 21:00; Stop 01/29/17 at 21:00; Status DC Furosemide (Lasix) 40 mg DAILY06 PO Last administered on 02/19/17 05:44; Start 01/29/17 at 06:00; Stop 02/19/17 at 18:43; Status DC Valproic Acid (Depakene) 375 mg BID PO Last administered on 02/03/17 08:23; Start 01/29/17 at 21:00; Stop 02/03/17 at 18:22; Status DC Temazepam (Restoril) 30 mg QHS PO Last administered on 02/19/17 20:04; Start 01/29/17 at 21:00 Potassium Chloride (Klor-Con) 20 meq BID PO ; Start 01/30/17 at 21:00; Stop at 05:33; Status DC Magnesium Hydroxide (Milk Of Magnesia) 2,400 mg PRN DAILY PRN PO CONSTIPATION; Start 01/30/17 at 16:30; Status UNV Magnesium Hydroxide (Milk Of Magnesia) 2,400 mg PRN DAILY PRN PO CONSTIPATION Last administered on 02/15/17 20:11; Start 01/30/17 at 16:45 Potassium Chloride (Klor-Con) 20 meq BID66 PO Last administered on 02/15/17 05 :46; Start 01/31/17 at 06:00; Stop 02/15/17 at 16:58; Status DC Metformin HCl (Glucophage) 250 mg BIDWMEALS PO Last administered on 02/19/17 16:52; Start 02/03/17 at 17:00 Cyanocobalamin (Vitamin B-12) 1,000 mcg DAILY PO Last administered on 07:59; Start 02/04/17 at 09:00 Valproic Acid (Depakene) 500 mg BID PO Last administered on 02/07/17 08:01; Start 02/03/17 at 21:00; Stop 02/07/17 at 15:17; Status DC Valproic Acid (Depakene) 750 mg BID PO Last administered on 02/19/17 08:02; Start 02/07/17 at 21:00; Stop 02/19/17 at 13:14; Status DC Trazodone HCl (Desyrel) 100 mg QHS PO Last administered on 02/19/17 20:04; Start 02/07/17 at 21:00 Trazodone HCl (Desyrel) 100 mg PRN QHS PRN PO INSOMNIA; Start 02/07/17 at 19:00 Risperidone (RisperDAL) 2 mg DAILY16 PO Last administered on 02/09/17 16:44; Start 02/09/17 at 16:00; Stop 02/09/17 at 18:47; Status DC [place] Carbonate (Lithobid) 300 mg HS PO Last administered on 02/14/17 20:09 ; Start 02/08/17 at 21:00; Stop 02/15/17 at 18:52; Status DC Risperidone (RisperDAL) 1 mg DAILY16 PO Last administered on 02/19/17 16:51; Start 02/11/17 at 16:00 [place] Carbonate (Lithobid) 150 mg DAILY PO Last administered on 02/13/17 08: 41; Start 02/13/17 at 09:00; Stop 02/14/17 at 10:24; Status DC Mirtazapine (Remeron) 7.5 mg QHS PO Last administered on 02/19/17 20:04; Start 02/13/17 at 21:00 [place] Carbonate 150 mg TID PO Last administered on 02/15/17 13:35; Start at 14:00; Stop 02/15/17 at 18:52; Status DC Potassium Chloride (Klor-Con) 20 meq DAILY PO ; Start 02/16/17 at 09:00; Stop at 09:00; Status DC [place] Carbonate 150 mg DAILY PO Last administered on 02/19/17 07:59; Start 02/16/17 at 09:00 [place] Carbonate (Lithobid) 300 mg HS PO Last administered on 02/19/17 20:04 ; Start 02/16/17 at 21:00 Potassium Chloride (Klor-Con) 20 meq DAILY06 PO Last administered on 02/19/17 05:45; Start 02/16/17 at 06:00 Polyethylene Glycol (miraLAX) 17 gm DAILY PO Last administered on 02/19/17 08: 00; Start 02/17/17 at 09:00 Magnesium Citrate (Citroma) 296 ml 1X ONCE PO ; Start 02/17/17 at 08:10; Stop 02/17/17 at 08:11; Status DC Furosemide (Lasix) 20 mg DAILY06 PO ; Start 02/20/17 at 06:00 Active Scripts Active Reported Tylenol (Acetaminophen) 325 Mg Tablet 650 Mg PO PRN Q6HRS PRN Arthritis Pain (Acetaminophen) 650 Mg Tablet.er 650 Mg PO BID Trazodone Hcl 100 Mg Tablet 100 Mg PO PRN QHS PRN Trazodone Hcl 100 Mg Tablet 100 Mg PO QHS Tramadol Hcl (Tramadol HCl) 50 Mg Tablet 25 Mg PO PRN Q6HRS PRN Synthroid (Levothyroxine Sodium) 100 Mcg Tablet 100 Mcg PO DAILY07 Senna S Tablet (Sennosides/Docusate Sodium) 1 Each Tablet 1 Tab PO QHS Risperdal (Risperidone) 1 Mg/1 Ml Solution 3 Mg PO DAILY16 Restoril (Temazepam) 30 Mg Capsule 30 Mg PO PRN QHS PRN Nitrostat (Nitroglycerin) 0.4 Mg Tab.subl 0.4 Mg SL PRN Q5MIN PRN Miralax (Polyethylene Glycol 3350) 119 Gm Powder 17 Gm PO QODAY Antacid Suspension (Mag Hydrox/Al Hydrox/Simeth) 355 Ml Oral.susp 30 Ml PO PRN Q4HRS PRN Lisinopril 5 Mg Tablet 5 Mg PO DAILY Lipitor (Atorvastatin Calcium) 40 Mg Tablet 40 Mg PO QHS Lasix (Furosemide) 40 Mg Tablet 40 Mg PO DAILY Lactulose 10 Gm/15 Ml Solution 20 Gm PO PRN DAILY PRN Klonopin (Clonazepam) 0.5 Mg Tablet 0.5 Mg PO TID Glucophage (Metformin Hcl) 500 Mg Tablet 500 Mg PO BIDWMEALS Josie-Tussin Dm Syrup (Guaifenesin/Dextromethorphan) 473 Ml Syrup 10 Ml PO PRN Q4HRS PRN Duoneb 0.5-3(2.5) Mg/3 Ml (Albuterol/Ipratropium) 3 Ml Ampul.neb 3 Ml NEB PRN Q4HRS PRN Depakote Sprinkle (Divalproex Sodium) 125 Mg Cap.sprink 125 Mg PO TID Bisacodyl 10 Mg Supp.rect 10 Mg RC PRN DAILY PRN Bisacodyl 5 Mg Tablet.dr 10 Mg PO PRN DAILY PRN Reshma Antifungal (Miconazole Nitrate) 142 Gm Cream..g. 1 Gerson TP BID Ativan (Lorazepam) 0.5 Mg Tablet 0.5 Mg PO PRN Q4HRS PRN Aspirin Ec (Aspirin) 81 Mg Tablet.dr 81 Mg PO DAILY Advair Hfa 115-21 Mcg Inhaler (Fluticasone/Salmeterol) 12 Gm Hfa.aer.ad 2 Puff IH BID Diagnosis: Problems: (1) Psychosis (2) Schizophrenia, acute (3) Anxiety disorder (4) Bipolar affective, mixed, sev w/ psych (5) Impulse control disorder (6) Schizoaffective disorder, chronic condition with acute exacerbation ALBERT ROSE MD Feb 19, 2017 21:14
--- NOTE | 2017-02-20 02:51 | PN ---
DATE: 02/18/2017 This is a late entry for 02/18/2017 and covers the elements not covered in my initial note of 02/18/2017. SUBJECTIVE: I met with the patient the evening of 02/18/2017. The patient's UA has reflex to culture. The previous evening, lithium and Klonopin were held due to sedation and increased confusion. [place] is currently 150 a.m., 300 at bedtime, with repeat lithium level on 02/20/2017. The patient has been somewhat withdrawn, drowsy at times, demanding, compliant with medications. REVIEW OF SYSTEMS: Ambulation impaired and she complains of her bilateral lymphedema, vague somatic symptoms. No specific CV, , pulmonary, eye system symptoms on review. MENTAL STATUS EXAM: Oriented to herself and situation, often verbal, responses monosyllabic, somewhat loose associations, but she has not been having as much hypergraphia as in the past. No active suicidal or homicidal ideation. Mood remains somewhat labile, tearful at times. No suicidal or homicidal ideation. LABORATORY DATA: Reviewed. IMPRESSION: Unchanged from initial note. PLAN: Await urine c and s, lithium level on 02/20/2017. Review drug interactions. Risk/benefit ratio favors no further change as of now, but treat UTI if culture positive. ALBERT ROSE MD DR: CHASE/[facility] JOB#: [id number] / [id number]
[2017-02-20] MEDS: POTASSIUM CHLORIDE 20 MEQ TABLET.ER. PO SCH (05:15)
[2017-02-20] MEDS: FUROSEMIDE 20 MG TABLET PO SCH (05:15)
[2017-02-20] MEDS: LEVOTHYROXINE 100 MCG TABLET PO SCH (05:15)
[2017-02-20 06:08] VITALS: BP 88/45
[2017-02-20] MEDS: metFORMIN 500 MG TABLET PO SCH ×2 (08:18→16:27)
[2017-02-20] MEDS: ASPIRIN ENTERIC COATED 81 MG TABLET.DR. PO SCH (08:18)
[2017-02-20] MEDS: CYANOCOBALAMIN (VITAMIN B-12) 1,000 MCG TABLET. PO SCH (08:18)
[2017-02-20] MEDS: POLYETHYLENE GLYCOL 3350 17 GM PACKET. PO SCH (08:19)
[2017-02-20] MEDS: LITHIUM CARBONATE 150 MG CAPSULE. PO SCH (08:19)
[2017-02-20] MEDS: clonazePAM 0.5 MG TABLET PO SCH ×3 (08:19→20:25)
[2017-02-20] MEDS: ACETAMINOPHEN 325 MG TABLET PO SCH ×3 (08:19→20:27)
[2017-02-20 13:46] LABS: LI 1.2 mmol/L (0.6-1.2)
[2017-02-20 16:16] VITALS: BP 122/65
[2017-02-20] MEDS: risperiDONE ORAL 1 MG/ML 30ml BOTTLE. PO SCH (16:27)
[2017-02-20] MEDS: MAGNESIUM HYDROXIDE 2,400 MG/30 ML ORAL.SUSP. PO PRN (17:06)
[2017-02-20] MEDS: traZODone 100 MG TABLET. PO SCH (20:24)
[2017-02-20] MEDS: LITHIUM CARBONATE ER 300 MG TABLET.ER PO SCH (20:26)
[2017-02-20] MEDS: MIRTAZAPINE 7.5 MG TABLET. PO SCH (20:26)
[2017-02-20] MEDS: ATORVASTATIN CALCIUM 20 MG TABLET PO SCH (20:26)
[2017-02-20] MEDS: SENNOSIDES/DOCUSATE 8.6/50MG TABLET. PO SCH (20:26)
[2017-02-20] MEDS: TEMAZEPAM 15 MG CAPSULE PO SCH (20:26)
--- NOTE | 2017-02-20 21:06 | PDOC ---
Exam Tra Demential Exam: Tra Note: Please also refer to the separate dictated note~for this date of service dictated separately.~Patient seen individually. Discussed the patient with Nursing staff reviewed the chart.~Reviewed interim history and current functioning. Reviewed vital signs,~Labs/ Radiology~and current medications noted below. Continue current treatment with the changes noted in the dictated addendum note Assessment: Vital Signs: Vital Signs Date Time Temp Pulse Resp B/P (MAP) Pulse Ox O2 Delivery O2 Flow Rate FiO2 02/20/17 16:16 97.7 61 20 122/65 (84) 97 02/18/17 05:48 Room Air I&O Intake and Output 02/21/17 07:00 Intake Total 1320 ml Balance 1320 ml Intake Oral 1320 ml Labs: Laboratory Tests Test 02/20/17 07:29 [place] Level 1.2 mmol/L (0.6-1.2) [place] Last Dose Date 02/19/17 [place] Last Dose Time 2100 Current Medications: Meds: Current Medications Olanzapine (ZyPREXA ZYDIS) 10 mg STK-MED ONCE .ROUTE ; Start 01/25/17 at 04:06; Stop 01/25/17 at 04:07; Status DC Olanzapine (ZyPREXA ZYDIS) 10 mg 1X STAT PO Last administered on 01/25/17 04: 07; Start 01/25/17 at 04:03; Stop 01/25/17 at 06:26; Status DC Nicotine (Nicoderm Cq 21mg) 1 patch DAILY TD Last administered on 02/02/17 08: 30; Start 01/25/17 at 09:00; Stop 02/11/17 at 16:38; Status DC Clonazepam (KlonoPIN) 0.5 mg TID PO Last administered on 02/20/17 20:25; Start 01/25/17 at 09:00 Divalproex Sodium (Depakote Sprinkles) 125 mg TID PO Last administered on 14:16; Start 01/25/17 at 09:00; Stop 01/28/17 at 18:41; Status DC Lorazepam (Ativan) 0.5 mg PRN Q4HRS PRN PO ANXIETY / AGITATION; Start 01/25/17 at 05:30 Risperidone (RisperDAL) 3 mg DAILY16 PO Last administered on 02/08/17 16:00; Start 01/25/17 at 16:00; Stop 02/08/17 at 18:42; Status DC Temazepam (Restoril) 30 mg PRN QHS PRN PO INSOMNIA; Start 01/25/17 at 05:30; Stop 01/25/17 at 06:31; Status DC Trazodone HCl (Desyrel) 100 mg PRN QHS PRN PO INSOMNIA; Start 01/25/17 at 05:30 ; Stop 01/25/17 at 11:36; Status DC Trazodone HCl (Desyrel) 100 mg QHS PO ; Start 01/25/17 at 21:00; Stop 01/25/17 at 21:00; Status DC Temazepam (Restoril) 30 mg PRN QHS PRN PO INSOMNIA Last administered on 19:22; Start 01/25/17 at 06:31; Stop 01/29/17 at 18:50; Status DC Acetaminophen (Tylenol) 650 mg PRN Q6HRS PRN PO PAIN / TEMP Last administered on 02/07/17 04:26; Start 01/25/17 at 06:45 Aspirin (Aspirin Enteric Coated) 81 mg DAILY PO Last administered on 02/20/17 08:18; Start 01/25/17 at 09:00 Bisacodyl (Dulcolax Tab) 10 mg PRN DAILY PRN PO CONSTIPATION Last administered on 02/18/17 20:45; Start 01/25/17 at 06:45 Bisacodyl (Dulcolax Supp) 10 mg PRN DAILY PRN RC CONSTIPATION; Start 01/25/17 at 06:45 Furosemide (Lasix) 40 mg DAILY PO Last administered on 01/28/17 05:15; Start 01/25/17 at 09:00; Stop 01/29/17 at 03:25; Status DC Guaifenesin (Robitussin Dm) 10 ml PRN Q4HRS PRN PO COUGH; Start 01/25/17 at 06: 45 Albuterol/ Ipratropium (Duoneb) 3 ml PRN Q4HRS PRN NEB SHORTNESS OF BREATH; Start 01/25/17 at 06:45 Levothyroxine Sodium (Synthroid) 100 mcg DAILY06 PO Last administered on 05:15; Start 01/25/17 at 07:00 Lisinopril (Prinivil) 5 mg DAILY PO Last administered on 02/19/17 07:59; Start 01/25/17 at 09:00; Stop 02/19/17 at 18:43; Status DC Al Hydroxide/Mg Hydroxide (Mylanta Plus Xs) 30 ml PRN Q4HRS PRN PO DYSPEPSIA; Start 01/25/17 at 06:45 Metformin HCl (Glucophage) 500 mg BIDWMEALS PO Last administered on 02/03/17 08 :13; Start 01/25/17 at 08:00; Stop 02/03/17 at 15:41; Status DC Miconazole Nitrate (Monistat-Derm) 1 gerson BID TP ; Start 01/25/17 at 09:00; Stop 01/25/17 at 09:00; Status DC Nitroglycerin (Nitrostat) 0.4 mg PRN Q5MIN PRN SL CHEST PAIN; Start 01/25/17 at 06:45 Polyethylene Glycol (miraLAX) 17 gm QODAY PO Last administered on 02/16/17 08: 45; Start 01/25/17 at 09:00; Stop 02/17/17 at 07:55; Status DC Senna/Docusate Sodium (Senna Plus) 1 tab QHS PO Last administered on 02/20/17 20:26; Start 01/25/17 at 21:00 Tramadol HCl (Ultram) 25 mg PRN Q6HRS PRN PO PAIN Last administered on 08:50; Start 01/25/17 at 06:45 Acetaminophen (Tylenol) 650 mg TID PO Last administered on 02/20/17 20:27; Start 01/25/17 at 09:00 Atorvastatin Calcium (Lipitor) 40 mg QHS PO Last administered on 02/20/17 20: 26; Start 01/25/17 at 21:00 Albuterol Sulfate (Ventolin) 2.5 mg Q6H NEB ; Start 01/25/17 at 07:30; Stop at 17:24; Status DC Lactulose 20 gm PRN DAILY PRN PO CONSTIPATION; Start 01/25/17 at 07:30 Budesonide (Pulmicort) 0.5 mg RTBID NEB ; Start 01/25/17 at 08:00; Stop at 17:24; Status DC Olanzapine (ZyPREXA ZYDIS) 2.5 mg PRN Q2HR PRN PO ANXIETY / AGITATION; Start at 08:00 Lorazepam (Ativan) 1 mg DAILY IM Last administered on 01/27/17 09:03; Start at 11:00; Stop 01/27/17 at 18:25; Status DC Haloperidol Lactate (Haldol) 5 mg DAILY IM Last administered on 01/27/17 08:58 ; Start 01/25/17 at 11:00; Stop 01/27/17 at 18:25; Status DC Risperidone (RisperDAL CONSTA) 25 mg Q2WKS IM Last administered on 02/09/17 10 :08; Start 01/26/17 at 09:00 Risperidone (RisperDAL) 3 mg 1X ONCE SL Last administered on 01/26/17 16:15; Start 01/26/17 at 16:00; Stop 01/26/17 at 16:02; Status DC Albuterol Sulfate (Ventolin) 2.5 mg PRN Q6HRS PRN NEB SHORTNESS OF BREATH; Start 01/28/17 at 13:30 Budesonide (Pulmicort) 0.5 mg PRN BID PRN NEB SHORTNESS OF BREATH; Start at 08:00 Haloperidol Lactate (Haldol) 5 mg DAILY IM Last administered on 01/30/17 11:07 ; Start 01/28/17 at 09:00; Stop 01/30/17 at 18:32; Status DC Olanzapine (ZyPREXA ZYDIS) 5 mg PRN Q2HR PRN PO ANXIETY / AGITATION; Start at 18:30 Lorazepam (Ativan) 1 mg DAILY IM Last administered on 01/30/17 11:07; Start at 09:00; Stop 01/30/17 at 18:32; Status DC Valproic Acid (Depakene) 375 mg HS PO ; Start 01/29/17 at 21:00; Stop 01/29/17 at 21:00; Status DC Furosemide (Lasix) 40 mg DAILY06 PO Last administered on 02/19/17 05:44; Start 01/29/17 at 06:00; Stop 02/19/17 at 18:43; Status DC Valproic Acid (Depakene) 375 mg BID PO Last administered on 02/03/17 08:23; Start 01/29/17 at 21:00; Stop 02/03/17 at 18:22; Status DC Temazepam (Restoril) 30 mg QHS PO Last administered on 02/20/17 20:26; Start 01/29/17 at 21:00 Potassium Chloride (Klor-Con) 20 meq BID PO ; Start 01/30/17 at 21:00; Stop at 05:33; Status DC Magnesium Hydroxide (Milk Of Magnesia) 2,400 mg PRN DAILY PRN PO CONSTIPATION; Start 01/30/17 at 16:30; Status UNV Magnesium Hydroxide (Milk Of Magnesia) 2,400 mg PRN DAILY PRN PO CONSTIPATION Last administered on 02/20/17 17:06; Start 01/30/17 at 16:45 Potassium Chloride (Klor-Con) 20 meq BID66 PO Last administered on 02/15/17 05 :46; Start 01/31/17 at 06:00; Stop 02/15/17 at 16:58; Status DC Metformin HCl (Glucophage) 250 mg BIDWMEALS PO Last administered on 02/20/17 16:27; Start 02/03/17 at 17:00 Cyanocobalamin (Vitamin B-12) 1,000 mcg DAILY PO Last administered on 08:18; Start 02/04/17 at 09:00 Valproic Acid (Depakene) 500 mg BID PO Last administered on 02/07/17 08:01; Start 02/03/17 at 21:00; Stop 02/07/17 at 15:17; Status DC Valproic Acid (Depakene) 750 mg BID PO Last administered on 02/19/17 08:02; Start 02/07/17 at 21:00; Stop 02/19/17 at 13:14; Status DC Trazodone HCl (Desyrel) 100 mg QHS PO Last administered on 02/20/17 20:24; Start 02/07/17 at 21:00 Trazodone HCl (Desyrel) 100 mg PRN QHS PRN PO INSOMNIA; Start 02/07/17 at 19:00 Risperidone (RisperDAL) 2 mg DAILY16 PO Last administered on 02/09/17 16:44; Start 02/09/17 at 16:00; Stop 02/09/17 at 18:47; Status DC [place] Carbonate (Lithobid) 300 mg HS PO Last administered on 02/14/17 20:09 ; Start 02/08/17 at 21:00; Stop 02/15/17 at 18:52; Status DC Risperidone (RisperDAL) 1 mg DAILY16 PO Last administered on 02/20/17 16:27; Start 02/11/17 at 16:00 [place] Carbonate (Lithobid) 150 mg DAILY PO Last administered on 02/13/17 08: 41; Start 02/13/17 at 09:00; Stop 02/14/17 at 10:24; Status DC Mirtazapine (Remeron) 7.5 mg QHS PO Last administered on 02/20/17 20:26; Start 02/13/17 at 21:00 [place] Carbonate 150 mg TID PO Last administered on 02/15/17 13:35; Start at 14:00; Stop 02/15/17 at 18:52; Status DC Potassium Chloride (Klor-Con) 20 meq DAILY PO ; Start 02/16/17 at 09:00; Stop at 09:00; Status DC [place] Carbonate 150 mg DAILY PO Last administered on 02/20/17 08:19; Start 02/16/17 at 09:00 [place] Carbonate (Lithobid) 300 mg HS PO Last administered on 02/20/17 20:26 ; Start 02/16/17 at 21:00 Potassium Chloride (Klor-Con) 20 meq DAILY06 PO Last administered on 02/20/17 05:15; Start 02/16/17 at 06:00 Polyethylene Glycol (miraLAX) 17 gm DAILY PO Last administered on 02/20/17 08: 19; Start 02/17/17 at 09:00 Magnesium Citrate (Citroma) 296 ml 1X ONCE PO ; Start 02/17/17 at 08:10; Stop 02/17/17 at 08:11; Status DC Furosemide (Lasix) 20 mg DAILY06 PO Last administered on 9/22/17at 05:15; Start 02/20/17 at 06:00 Active Scripts Active Reported Tylenol (Acetaminophen) 325 Mg Tablet 650 Mg PO PRN Q6HRS PRN Arthritis Pain (Acetaminophen) 650 Mg Tablet.er 650 Mg PO BID Trazodone Hcl 100 Mg Tablet 100 Mg PO PRN QHS PRN Trazodone Hcl 100 Mg Tablet 100 Mg PO QHS Tramadol Hcl (Tramadol HCl) 50 Mg Tablet 25 Mg PO PRN Q6HRS PRN Synthroid (Levothyroxine Sodium) 100 Mcg Tablet 100 Mcg PO DAILY07 Senna S Tablet (Sennosides/Docusate Sodium) 1 Each Tablet 1 Tab PO QHS Risperdal (Risperidone) 1 Mg/1 Ml Solution 3 Mg PO DAILY16 Restoril (Temazepam) 30 Mg Capsule 30 Mg PO PRN QHS PRN Nitrostat (Nitroglycerin) 0.4 Mg Tab.subl 0.4 Mg SL PRN Q5MIN PRN Miralax (Polyethylene Glycol 3350) 119 Gm Powder 17 Gm PO QODAY Antacid Suspension (Mag Hydrox/Al Hydrox/Simeth) 355 Ml Oral.susp 30 Ml PO PRN Q4HRS PRN Lisinopril 5 Mg Tablet 5 Mg PO DAILY Lipitor (Atorvastatin Calcium) 40 Mg Tablet 40 Mg PO QHS Lasix (Furosemide) 40 Mg Tablet 40 Mg PO DAILY Lactulose 10 Gm/15 Ml Solution 20 Gm PO PRN DAILY PRN Klonopin (Clonazepam) 0.5 Mg Tablet 0.5 Mg PO TID Glucophage (Metformin Hcl) 500 Mg Tablet 500 Mg PO BIDWMEALS Josie-Tussin Dm Syrup (Guaifenesin/Dextromethorphan) 473 Ml Syrup 10 Ml PO PRN Q4HRS PRN Duoneb 0.5-3(2.5) Mg/3 Ml (Albuterol/Ipratropium) 3 Ml Ampul.neb 3 Ml NEB PRN Q4HRS PRN Depakote Sprinkle (Divalproex Sodium) 125 Mg Cap.sprink 125 Mg PO TID Bisacodyl 10 Mg Supp.rect 10 Mg RC PRN DAILY PRN Bisacodyl 5 Mg Tablet.dr 10 Mg PO PRN DAILY PRN Reshma Antifungal (Miconazole Nitrate) 142 Gm Cream..g. 1 Gerson TP BID Ativan (Lorazepam) 0.5 Mg Tablet 0.5 Mg PO PRN Q4HRS PRN Aspirin Ec (Aspirin) 81 Mg Tablet.dr 81 Mg PO DAILY Advair Hfa 115-21 Mcg Inhaler (Fluticasone/Salmeterol) 12 Gm Hfa.aer.ad 2 Puff IH BID Diagnosis: Problems: (1) Psychosis (2) Schizophrenia, acute (3) Anxiety disorder (4) Bipolar affective, mixed, sev w/ psych (5) Impulse control disorder (6) Schizoaffective disorder, chronic condition with acute exacerbation ALBERT ROSE MD Feb 20, 2017 21:06
--- NOTE | 2017-02-21 01:48 | PN ---
DATE: 02/19/2017 This is a late entry 02/19/2017, covers the elements not covered in my initial note of 02/19/2017. SUBJECTIVE: The patient was seen individually evening of 02/19/2017, staffed at a treatment team meeting with the entire team morning of 02/19/2017. The patient remains somewhat obsessive, manifesting less hypergraphia, but still demanding, labile, somewhat helpless, confused. Blood pressure has been somewhat low, p.m. Klonopin was held, and I have asked the nursing staff to hold it if the patient was drowsy. Her blood pressure is low, otherwise confusion is concerned, she seems a little better. REVIEW OF SYSTEMS: Ambulation impaired bilateral lower extremity, lymphedema. No CV, , pulmonary, eye, ENT system symptoms on review. MENTAL STATUS EXAM: Oriented to herself and situation. Speech has some latency, often response is monosyllabic, low and volume abstraction fair, computation impaired, somewhat pressured speech at times, but still low in volume. No active suicidal or homicidal ideation. Attention span short. Language function intact. LABORATORY DATA: Reviewed. IMPRESSION: Unchanged from initial note. PLAN: Stop the Depakote since the patient is now on lithium. We will check a lithium level in the morning of 02/20/2017. Maintain the rest of the psychotropics, reviewed drug interactions, risk/benefit ratio favors no further change at this time. ALBERT ROSE MD DR: CHASE/[facility]us JOB#: [id number] / [id number]
[2017-02-21] MEDS: FUROSEMIDE 20 MG TABLET PO SCH (05:01)
[2017-02-21] MEDS: POTASSIUM CHLORIDE 20 MEQ TABLET.ER. PO SCH (05:01)
[2017-02-21] MEDS: LEVOTHYROXINE 100 MCG TABLET PO SCH (05:01)
[2017-02-21 06:23] VITALS: BP 109/71
[2017-02-21] MEDS: metFORMIN 500 MG TABLET PO SCH ×2 (07:58→16:34)
[2017-02-21] MEDS: LITHIUM CARBONATE 150 MG CAPSULE. PO SCH (07:59)
[2017-02-21] MEDS: ACETAMINOPHEN 325 MG TABLET PO SCH ×3 (07:59→20:39)
[2017-02-21] MEDS: POLYETHYLENE GLYCOL 3350 17 GM PACKET. PO SCH (08:00)
[2017-02-21] MEDS: ASPIRIN ENTERIC COATED 81 MG TABLET.DR. PO SCH (08:00)
[2017-02-21] MEDS: CYANOCOBALAMIN (VITAMIN B-12) 1,000 MCG TABLET. PO SCH (08:00)
[2017-02-21] MEDS: clonazePAM 0.5 MG TABLET PO SCH ×3 (08:01→20:42)
[2017-02-21] MEDS: risperiDONE ORAL 1 MG/ML 30ml BOTTLE. PO SCH (16:34)
[2017-02-21 17:10] VITALS: BP 98/50
[2017-02-21] MEDS: SENNOSIDES/DOCUSATE 8.6/50MG TABLET. PO SCH (20:38)
[2017-02-21] MEDS: MIRTAZAPINE 7.5 MG TABLET. PO SCH (20:38)
[2017-02-21] MEDS: ATORVASTATIN CALCIUM 20 MG TABLET PO SCH (20:39)
[2017-02-21] MEDS: LITHIUM CARBONATE ER 300 MG TABLET.ER PO SCH (20:39)
[2017-02-21] MEDS: TEMAZEPAM 15 MG CAPSULE PO SCH ×2 (20:42→21:00)
[2017-02-21] MEDS: traZODone 100 MG TABLET. PO SCH (20:43)
--- NOTE | 2017-02-21 21:18 | PDOC ---
Exam Tra Demential Exam: Tra Note: Please also refer to the separate dictated note~for this date of service dictated separately.~Patient seen individually. Discussed the patient with Nursing staff reviewed the chart.~Reviewed interim history and current functioning. Reviewed vital signs,~Labs/ Radiology~and current medications noted below. Continue current treatment with the changes noted in the dictated addendum note Assessment: Vital Signs: Vital Signs Date Time Temp Pulse Resp B/P (MAP) Pulse Ox O2 Delivery O2 Flow Rate FiO2 02/21/17 17:10 97.8 58 16 98/50 (66) 96 Room Air I&O Intake and Output 02/22/17 07:00 Intake Total 960 ml Balance 960 ml Intake Oral 960 ml Current Medications: Meds: Current Medications Olanzapine (ZyPREXA ZYDIS) 10 mg STK-MED ONCE .ROUTE ; Start 01/25/17 at 04:06; Stop 01/25/17 at 04:07; Status DC Olanzapine (ZyPREXA ZYDIS) 10 mg 1X STAT PO Last administered on 01/25/17 04: 07; Start 01/25/17 at 04:03; Stop 01/25/17 at 06:26; Status DC Nicotine (Nicoderm Cq 21mg) 1 patch DAILY TD Last administered on 02/02/17 08: 30; Start 01/25/17 at 09:00; Stop 02/11/17 at 16:38; Status DC Clonazepam (KlonoPIN) 0.5 mg TID PO Last administered on 02/21/17 08:01; Start 01/25/17 at 09:00; Stop 02/21/17 at 12:11; Status DC Divalproex Sodium (Depakote Sprinkles) 125 mg TID PO Last administered on 14:16; Start 01/25/17 at 09:00; Stop 01/28/17 at 18:41; Status DC Lorazepam (Ativan) 0.5 mg PRN Q4HRS PRN PO ANXIETY / AGITATION; Start 01/25/17 at 05:30 Risperidone (RisperDAL) 3 mg DAILY16 PO Last administered on 02/08/17 16:00; Start 01/25/17 at 16:00; Stop 02/08/17 at 18:42; Status DC Temazepam (Restoril) 30 mg PRN QHS PRN PO INSOMNIA; Start 01/25/17 at 05:30; Stop 01/25/17 at 06:31; Status DC Trazodone HCl (Desyrel) 100 mg PRN QHS PRN PO INSOMNIA; Start 01/25/17 at 05:30 ; Stop 01/25/17 at 11:36; Status DC Trazodone HCl (Desyrel) 100 mg QHS PO ; Start 01/25/17 at 21:00; Stop 01/25/17 at 21:00; Status DC Temazepam (Restoril) 30 mg PRN QHS PRN PO INSOMNIA Last administered on 19:22; Start 01/25/17 at 06:31; Stop 01/29/17 at 18:50; Status DC Acetaminophen (Tylenol) 650 mg PRN Q6HRS PRN PO PAIN / TEMP Last administered on 02/07/17 04:26; Start 01/25/17 at 06:45 Aspirin (Aspirin Enteric Coated) 81 mg DAILY PO Last administered on 02/21/17 08:00; Start 01/25/17 at 09:00 Bisacodyl (Dulcolax Tab) 10 mg PRN DAILY PRN PO CONSTIPATION Last administered on 02/18/17 20:45; Start 01/25/17 at 06:45 Bisacodyl (Dulcolax Supp) 10 mg PRN DAILY PRN RC CONSTIPATION; Start 01/25/17 at 06:45 Furosemide (Lasix) 40 mg DAILY PO Last administered on 01/28/17 05:15; Start 01/25/17 at 09:00; Stop 01/29/17 at 03:25; Status DC Guaifenesin (Robitussin Dm) 10 ml PRN Q4HRS PRN PO COUGH; Start 01/25/17 at 06: 45 Albuterol/ Ipratropium (Duoneb) 3 ml PRN Q4HRS PRN NEB SHORTNESS OF BREATH; Start 01/25/17 at 06:45 Levothyroxine Sodium (Synthroid) 100 mcg DAILY06 PO Last administered on 05:01; Start 01/25/17 at 07:00 Lisinopril (Prinivil) 5 mg DAILY PO Last administered on 02/19/17 07:59; Start 01/25/17 at 09:00; Stop 02/19/17 at 18:43; Status DC Al Hydroxide/Mg Hydroxide (Mylanta Plus Xs) 30 ml PRN Q4HRS PRN PO DYSPEPSIA; Start 01/25/17 at 06:45 Metformin HCl (Glucophage) 500 mg BIDWMEALS PO Last administered on 02/03/17 08 :13; Start 01/25/17 at 08:00; Stop 02/03/17 at 15:41; Status DC Miconazole Nitrate (Monistat-Derm) 1 gerson BID TP ; Start 01/25/17 at 09:00; Stop 01/25/17 at 09:00; Status DC Nitroglycerin (Nitrostat) 0.4 mg PRN Q5MIN PRN SL CHEST PAIN; Start 01/25/17 at 06:45 Polyethylene Glycol (miraLAX) 17 gm QODAY PO Last administered on 02/16/17 08: 45; Start 01/25/17 at 09:00; Stop 02/17/17 at 07:55; Status DC Senna/Docusate Sodium (Senna Plus) 1 tab QHS PO Last administered on 02/21/17 20:38; Start 01/25/17 at 21:00 Tramadol HCl (Ultram) 25 mg PRN Q6HRS PRN PO PAIN Last administered on 08:50; Start 01/25/17 at 06:45 Acetaminophen (Tylenol) 650 mg TID PO Last administered on 02/21/17 20:39; Start 01/25/17 at 09:00 Atorvastatin Calcium (Lipitor) 40 mg QHS PO Last administered on 02/21/17 20: 39; Start 01/25/17 at 21:00 Albuterol Sulfate (Ventolin) 2.5 mg Q6H NEB ; Start 01/25/17 at 07:30; Stop at 17:24; Status DC Lactulose 20 gm PRN DAILY PRN PO CONSTIPATION; Start 01/25/17 at 07:30 Budesonide (Pulmicort) 0.5 mg RTBID NEB ; Start 01/25/17 at 08:00; Stop at 17:24; Status DC Olanzapine (ZyPREXA ZYDIS) 2.5 mg PRN Q2HR PRN PO ANXIETY / AGITATION; Start at 08:00 Lorazepam (Ativan) 1 mg DAILY IM Last administered on 01/27/17 09:03; Start at 11:00; Stop 01/27/17 at 18:25; Status DC Haloperidol Lactate (Haldol) 5 mg DAILY IM Last administered on 01/27/17 08:58 ; Start 01/25/17 at 11:00; Stop 01/27/17 at 18:25; Status DC Risperidone (RisperDAL CONSTA) 25 mg Q2WKS IM Last administered on 02/09/17 10 :08; Start 01/26/17 at 09:00 Risperidone (RisperDAL) 3 mg 1X ONCE SL Last administered on 01/26/17 16:15; Start 01/26/17 at 16:00; Stop 01/26/17 at 16:02; Status DC Albuterol Sulfate (Ventolin) 2.5 mg PRN Q6HRS PRN NEB SHORTNESS OF BREATH; Start 01/28/17 at 13:30 Budesonide (Pulmicort) 0.5 mg PRN BID PRN NEB SHORTNESS OF BREATH; Start at 08:00 Haloperidol Lactate (Haldol) 5 mg DAILY IM Last administered on 01/30/17 11:07 ; Start 01/28/17 at 09:00; Stop 01/30/17 at 18:32; Status DC Olanzapine (ZyPREXA ZYDIS) 5 mg PRN Q2HR PRN PO ANXIETY / AGITATION; Start at 18:30 Lorazepam (Ativan) 1 mg DAILY IM Last administered on 01/30/17 11:07; Start at 09:00; Stop 01/30/17 at 18:32; Status DC Valproic Acid (Depakene) 375 mg HS PO ; Start 01/29/17 at 21:00; Stop 01/29/17 at 21:00; Status DC Furosemide (Lasix) 40 mg DAILY06 PO Last administered on 02/19/17 05:44; Start 01/29/17 at 06:00; Stop 02/19/17 at 18:43; Status DC Valproic Acid (Depakene) 375 mg BID PO Last administered on 02/03/17 08:23; Start 01/29/17 at 21:00; Stop 02/03/17 at 18:22; Status DC Temazepam (Restoril) 30 mg QHS PO Last administered on 02/21/17 20:42; Start 01/29/17 at 21:00 Potassium Chloride (Klor-Con) 20 meq BID PO ; Start 01/30/17 at 21:00; Stop at 05:33; Status DC Magnesium Hydroxide (Milk Of Magnesia) 2,400 mg PRN DAILY PRN PO CONSTIPATION; Start 01/30/17 at 16:30; Status UNV Magnesium Hydroxide (Milk Of Magnesia) 2,400 mg PRN DAILY PRN PO CONSTIPATION Last administered on 02/20/17 17:06; Start 01/30/17 at 16:45 Potassium Chloride (Klor-Con) 20 meq BID66 PO Last administered on 02/15/17 05 :46; Start 01/31/17 at 06:00; Stop 02/15/17 at 16:58; Status DC Metformin HCl (Glucophage) 250 mg BIDWMEALS PO Last administered on 02/21/17 16:34; Start 02/03/17 at 17:00 Cyanocobalamin (Vitamin B-12) 1,000 mcg DAILY PO Last administered on 08:00; Start 02/04/17 at 09:00 Valproic Acid (Depakene) 500 mg BID PO Last administered on 02/07/17 08:01; Start 02/03/17 at 21:00; Stop 02/07/17 at 15:17; Status DC Valproic Acid (Depakene) 750 mg BID PO Last administered on 02/19/17 08:02; Start 02/07/17 at 21:00; Stop 02/19/17 at 13:14; Status DC Trazodone HCl (Desyrel) 100 mg QHS PO Last administered on 02/21/17 20:43; Start 02/07/17 at 21:00 Trazodone HCl (Desyrel) 100 mg PRN QHS PRN PO INSOMNIA; Start 02/07/17 at 19:00 Risperidone (RisperDAL) 2 mg DAILY16 PO Last administered on 02/09/17 16:44; Start 02/09/17 at 16:00; Stop 02/09/17 at 18:47; Status DC [place] Carbonate (Lithobid) 300 mg HS PO Last administered on 02/14/17 20:09 ; Start 02/08/17 at 21:00; Stop 02/15/17 at 18:52; Status DC Risperidone (RisperDAL) 1 mg DAILY16 PO Last administered on 02/21/17 16:34; Start 02/11/17 at 16:00 [place] Carbonate (Lithobid) 150 mg DAILY PO Last administered on 02/13/17 08: 41; Start 02/13/17 at 09:00; Stop 02/14/17 at 10:24; Status DC Mirtazapine (Remeron) 7.5 mg QHS PO Last administered on 02/21/17 20:38; Start 02/13/17 at 21:00 [place] Carbonate 150 mg TID PO Last administered on 02/15/17 13:35; Start at 14:00; Stop 02/15/17 at 18:52; Status DC Potassium Chloride (Klor-Con) 20 meq DAILY PO ; Start 02/16/17 at 09:00; Stop at 09:00; Status DC [place] Carbonate 150 mg DAILY PO Last administered on 02/21/17 07:59; Start 02/16/17 at 09:00 [place] Carbonate (Lithobid) 300 mg HS PO Last administered on 02/21/17 20:39 ; Start 02/16/17 at 21:00 Potassium Chloride (Klor-Con) 20 meq DAILY06 PO Last administered on 02/21/17 05:01; Start 02/16/17 at 06:00 Polyethylene Glycol (miraLAX) 17 gm DAILY PO Last administered on 02/21/17 08: 00; Start 02/17/17 at 09:00 Magnesium Citrate (Citroma) 296 ml 1X ONCE PO ; Start 02/17/17 at 08:10; Stop 02/17/17 at 08:11; Status DC Furosemide (Lasix) 20 mg DAILY06 PO Last administered on 02/21/17 05:01; Start 02/20/17 at 06:00 Clonazepam (KlonoPIN) 0.25 mg TID PO Last administered on 9/23/17at 20:42; Start 02/21/17 at 14:00 Active Scripts Active Reported Tylenol (Acetaminophen) 325 Mg Tablet 650 Mg PO PRN Q6HRS PRN Arthritis Pain (Acetaminophen) 650 Mg Tablet.er 650 Mg PO BID Trazodone Hcl 100 Mg Tablet 100 Mg PO PRN QHS PRN Trazodone Hcl 100 Mg Tablet 100 Mg PO QHS Tramadol Hcl (Tramadol HCl) 50 Mg Tablet 25 Mg PO PRN Q6HRS PRN Synthroid (Levothyroxine Sodium) 100 Mcg Tablet 100 Mcg PO DAILY07 Senna S Tablet (Sennosides/Docusate Sodium) 1 Each Tablet 1 Tab PO QHS Risperdal (Risperidone) 1 Mg/1 Ml Solution 3 Mg PO DAILY16 Restoril (Temazepam) 30 Mg Capsule 30 Mg PO PRN QHS PRN Nitrostat (Nitroglycerin) 0.4 Mg Tab.subl 0.4 Mg SL PRN Q5MIN PRN Miralax (Polyethylene Glycol 3350) 119 Gm Powder 17 Gm PO QODAY Antacid Suspension (Mag Hydrox/Al Hydrox/Simeth) 355 Ml Oral.susp 30 Ml PO PRN Q4HRS PRN Lisinopril 5 Mg Tablet 5 Mg PO DAILY Lipitor (Atorvastatin Calcium) 40 Mg Tablet 40 Mg PO QHS Lasix (Furosemide) 40 Mg Tablet 40 Mg PO DAILY Lactulose 10 Gm/15 Ml Solution 20 Gm PO PRN DAILY PRN Klonopin (Clonazepam) 0.5 Mg Tablet 0.5 Mg PO TID Glucophage (Metformin Hcl) 500 Mg Tablet 500 Mg PO BIDWMEALS Josie-Tussin Dm Syrup (Guaifenesin/Dextromethorphan) 473 Ml Syrup 10 Ml PO PRN Q4HRS PRN Duoneb 0.5-3(2.5) Mg/3 Ml (Albuterol/Ipratropium) 3 Ml Ampul.neb 3 Ml NEB PRN Q4HRS PRN Depakote Sprinkle (Divalproex Sodium) 125 Mg Cap.sprink 125 Mg PO TID Bisacodyl 10 Mg Supp.rect 10 Mg RC PRN DAILY PRN Bisacodyl 5 Mg Tablet.dr 10 Mg PO PRN DAILY PRN Reshma Antifungal (Miconazole Nitrate) 142 Gm Cream..g. 1 Gerson TP BID Ativan (Lorazepam) 0.5 Mg Tablet 0.5 Mg PO PRN Q4HRS PRN Aspirin Ec (Aspirin) 81 Mg Tablet.dr 81 Mg PO DAILY Advair Hfa 115-21 Mcg Inhaler (Fluticasone/Salmeterol) 12 Gm Hfa.aer.ad 2 Puff IH BID Diagnosis: Problems: (1) Psychosis (2) Schizophrenia, acute (3) Anxiety disorder (4) Bipolar affective, mixed, sev w/ psych (5) Impulse control disorder (6) Schizoaffective disorder, chronic condition with acute exacerbation ALBERT ROSE MD Feb 21, 2017 21:18
[2017-02-21] MEDS: MAGNESIUM HYDROXIDE 2,400 MG/30 ML ORAL.SUSP. PO PRN ×2 (21:56→21:57)
--- NOTE | 2017-02-21 23:39 | PN ---
DATE: 02/20/2017 PSYCHIATRIC PROGRESS NOTE This is a late entry 02/20/2017, covers elements not covered in my initial note 02/20/2017. I met with the patient evening of 02/20/2017. The patient was sedated previous evening, Klonopin was held, drowsy during the day at times, slept 7-1/2 hours last evening, 2 hours during the day on 02/20/2017. Per nursing report, she appears "more like herself," during the day on 02/20/2017, since we stopped the Depakote and reduced the Klonopin. REVIEW OF SYSTEMS: Ambulation impaired, in a wheelchair. No CV, , pulmonary, eye system symptoms on review, still fixated on her bilateral lower extremity lymphedema. MENTAL STATUS EXAM: Oriented to herself and situation. Speech at times verbal responses monosyllabic, low in volume, abstraction fair, computation impaired, language function intact, attention span short, mood and affect, lability is improved. LABORATORY DATA: Reviewed. IMPRESSION: Unchanged from my initial note. PLAN: Continue current psychotropics, reviewed drug interactions, risk/benefit ratio favors no further change. We may have to reduce the Klonopin, in fact starting 02/21/2017, we will drop the Klonopin from 0.5 mg 3 times a day to 0.25 mg 3 times a day. MAN Hero ROSE MD DR: [facility] JOB#: [id number] / [id number]
[2017-02-22] MEDS: LEVOTHYROXINE 100 MCG TABLET PO SCH (05:21)
[2017-02-22] MEDS: POTASSIUM CHLORIDE 20 MEQ TABLET.ER. PO SCH (05:22)
[2017-02-22] MEDS: FUROSEMIDE 20 MG TABLET PO SCH (05:22)
[2017-02-22 06:23] VITALS: BP 95/59
[2017-02-22] MEDS: POLYETHYLENE GLYCOL 3350 17 GM PACKET. PO SCH (08:05)
[2017-02-22] MEDS: ACETAMINOPHEN 325 MG TABLET PO SCH ×3 (08:05→20:32)
[2017-02-22] MEDS: LITHIUM CARBONATE 150 MG CAPSULE. PO SCH (08:06)
[2017-02-22] MEDS: metFORMIN 500 MG TABLET PO SCH ×2 (08:06→17:22)
[2017-02-22] MEDS: CYANOCOBALAMIN (VITAMIN B-12) 1,000 MCG TABLET. PO SCH (08:06)
[2017-02-22] MEDS: clonazePAM 0.5 MG TABLET PO SCH ×3 (08:09→20:37)
[2017-02-22] MEDS: ASPIRIN ENTERIC COATED 81 MG TABLET.DR. PO SCH (08:09)
[2017-02-22 16:31] VITALS: BP 124/91
[2017-02-22] MEDS: risperiDONE ORAL 1 MG/ML 30ml BOTTLE. PO SCH (17:22)
[2017-02-22] MEDS ORDERED: TEMAZEPAM 15 MG CAPSULE PO PRN (19:15)
--- NOTE | 2017-02-22 20:14 | PN ---
DATE: 02/21/2017 PSYCHIATRIC PROGRESS NOTE This late entry for 02/21/2017 covers elements not covered in my initial of 02/21/2017. SUBJECTIVE: I met with the patient evening of 02/21/2017 in her room. Overall, the patient remains somewhat confused, anxious, restless, still with some pressure of speech. REVIEW OF SYSTEMS: Ambulation impaired, bilateral lower extremity lymphedema. No CV, , pulmonary, eye system symptoms on review. MENTAL STATUS EXAM: Oriented to herself and situation. Speech coherent, low in volume, rapid at times. Abstraction fair, computation impaired, language function intact. Mood and affect continues to be labile, some improvement. LABORATORY DATA: Reviewed. IMPRESSION: Unchanged from initial note. PLAN: Continue current psychotropics. Reviewed drug interactions, risk and benefit ratio favors no further change. Repeat labs level on the lithium. Adjust further as clinically indicated. MAN Hero ROSE MD DR: [facility] JOB#: [id number] / [id number]
[2017-02-22] MEDS: ATORVASTATIN CALCIUM 20 MG TABLET PO SCH (20:31)
[2017-02-22] MEDS: MIRTAZAPINE 7.5 MG TABLET. PO SCH (20:31)
[2017-02-22] MEDS: SENNOSIDES/DOCUSATE 8.6/50MG TABLET. PO SCH (20:31)
[2017-02-22] MEDS: LITHIUM CARBONATE ER 300 MG TABLET.ER PO SCH (20:31)
[2017-02-22] MEDS: traZODone 100 MG TABLET. PO SCH (20:32)
--- NOTE | 2017-02-22 22:53 | PDOC ---
Exam Tra Demential Exam: Tra Note: Please also refer to the separate dictated note~for this date of service dictated separately.~Patient seen individually. Discussed the patient with Nursing staff reviewed the chart.~Reviewed interim history and current functioning. Reviewed vital signs,~Labs/ Radiology~and current medications noted below. Continue current treatment with the changes noted in the dictated addendum note Assessment: Vital Signs: Vital Signs Date Time Temp Pulse Resp B/P (MAP) Pulse Ox O2 Delivery O2 Flow Rate FiO2 02/22/17 16:31 97.3 65 18 124/91 (102) 97 02/21/17 17:10 Room Air I&O Intake and Output 02/23/17 07:00 Intake Total 1320 ml Balance 1320 ml Intake Oral 1320 ml # Voids 1 Current Medications: Meds: Current Medications Olanzapine (ZyPREXA ZYDIS) 10 mg STK-MED ONCE .ROUTE ; Start 01/25/17 at 04:06; Stop 01/25/17 at 04:07; Status DC Olanzapine (ZyPREXA ZYDIS) 10 mg 1X STAT PO Last administered on 01/25/17 04: 07; Start 01/25/17 at 04:03; Stop 01/25/17 at 06:26; Status DC Nicotine (Nicoderm Cq 21mg) 1 patch DAILY TD Last administered on 02/02/17 08: 30; Start 01/25/17 at 09:00; Stop 02/11/17 at 16:38; Status DC Clonazepam (KlonoPIN) 0.5 mg TID PO Last administered on 02/21/17 08:01; Start 01/25/17 at 09:00; Stop 02/21/17 at 12:11; Status DC Divalproex Sodium (Depakote Sprinkles) 125 mg TID PO Last administered on 14:16; Start 01/25/17 at 09:00; Stop 01/28/17 at 18:41; Status DC Lorazepam (Ativan) 0.5 mg PRN Q4HRS PRN PO ANXIETY / AGITATION; Start 01/25/17 at 05:30 Risperidone (RisperDAL) 3 mg DAILY16 PO Last administered on 02/08/17 16:00; Start 01/25/17 at 16:00; Stop 02/08/17 at 18:42; Status DC Temazepam (Restoril) 30 mg PRN QHS PRN PO INSOMNIA; Start 01/25/17 at 05:30; Stop 01/25/17 at 06:31; Status DC Trazodone HCl (Desyrel) 100 mg PRN QHS PRN PO INSOMNIA; Start 01/25/17 at 05:30 ; Stop 01/25/17 at 11:36; Status DC Trazodone HCl (Desyrel) 100 mg QHS PO ; Start 01/25/17 at 21:00; Stop 01/25/17 at 21:00; Status DC Temazepam (Restoril) 30 mg PRN QHS PRN PO INSOMNIA Last administered on 19:22; Start 01/25/17 at 06:31; Stop 01/29/17 at 18:50; Status DC Acetaminophen (Tylenol) 650 mg PRN Q6HRS PRN PO PAIN / TEMP Last administered on 02/07/17 04:26; Start 01/25/17 at 06:45 Aspirin (Aspirin Enteric Coated) 81 mg DAILY PO Last administered on 02/22/17 08:09; Start 01/25/17 at 09:00 Bisacodyl (Dulcolax Tab) 10 mg PRN DAILY PRN PO CONSTIPATION Last administered on 02/18/17 20:45; Start 01/25/17 at 06:45 Bisacodyl (Dulcolax Supp) 10 mg PRN DAILY PRN RC CONSTIPATION; Start 01/25/17 at 06:45 Furosemide (Lasix) 40 mg DAILY PO Last administered on 01/28/17 05:15; Start 01/25/17 at 09:00; Stop 01/29/17 at 03:25; Status DC Guaifenesin (Robitussin Dm) 10 ml PRN Q4HRS PRN PO COUGH; Start 01/25/17 at 06: 45 Albuterol/ Ipratropium (Duoneb) 3 ml PRN Q4HRS PRN NEB SHORTNESS OF BREATH; Start 01/25/17 at 06:45 Levothyroxine Sodium (Synthroid) 100 mcg DAILY06 PO Last administered on 05:21; Start 01/25/17 at 07:00 Lisinopril (Prinivil) 5 mg DAILY PO Last administered on 02/19/17 07:59; Start 01/25/17 at 09:00; Stop 02/19/17 at 18:43; Status DC Al Hydroxide/Mg Hydroxide (Mylanta Plus Xs) 30 ml PRN Q4HRS PRN PO DYSPEPSIA; Start 01/25/17 at 06:45 Metformin HCl (Glucophage) 500 mg BIDWMEALS PO Last administered on 02/03/17 08 :13; Start 01/25/17 at 08:00; Stop 02/03/17 at 15:41; Status DC Miconazole Nitrate (Monistat-Derm) 1 gerson BID TP ; Start 01/25/17 at 09:00; Stop 01/25/17 at 09:00; Status DC Nitroglycerin (Nitrostat) 0.4 mg PRN Q5MIN PRN SL CHEST PAIN; Start 01/25/17 at 06:45 Polyethylene Glycol (miraLAX) 17 gm QODAY PO Last administered on 02/16/17 08: 45; Start 01/25/17 at 09:00; Stop 02/17/17 at 07:55; Status DC Senna/Docusate Sodium (Senna Plus) 1 tab QHS PO Last administered on 02/22/17 20:31; Start 01/25/17 at 21:00 Tramadol HCl (Ultram) 25 mg PRN Q6HRS PRN PO PAIN Last administered on 08:50; Start 01/25/17 at 06:45 Acetaminophen (Tylenol) 650 mg TID PO Last administered on 02/22/17 20:32; Start 01/25/17 at 09:00 Atorvastatin Calcium (Lipitor) 40 mg QHS PO Last administered on 02/22/17 20: 31; Start 01/25/17 at 21:00 Albuterol Sulfate (Ventolin) 2.5 mg Q6H NEB ; Start 01/25/17 at 07:30; Stop at 17:24; Status DC Lactulose 20 gm PRN DAILY PRN PO CONSTIPATION; Start 01/25/17 at 07:30 Budesonide (Pulmicort) 0.5 mg RTBID NEB ; Start 01/25/17 at 08:00; Stop at 17:24; Status DC Olanzapine (ZyPREXA ZYDIS) 2.5 mg PRN Q2HR PRN PO ANXIETY / AGITATION; Start at 08:00 Lorazepam (Ativan) 1 mg DAILY IM Last administered on 01/27/17 09:03; Start at 11:00; Stop 01/27/17 at 18:25; Status DC Haloperidol Lactate (Haldol) 5 mg DAILY IM Last administered on 01/27/17 08:58 ; Start 01/25/17 at 11:00; Stop 01/27/17 at 18:25; Status DC Risperidone (RisperDAL CONSTA) 25 mg Q2WKS IM Last administered on 02/09/17 10 :08; Start 01/26/17 at 09:00 Risperidone (RisperDAL) 3 mg 1X ONCE SL Last administered on 01/26/17 16:15; Start 01/26/17 at 16:00; Stop 01/26/17 at 16:02; Status DC Albuterol Sulfate (Ventolin) 2.5 mg PRN Q6HRS PRN NEB SHORTNESS OF BREATH; Start 01/28/17 at 13:30 Budesonide (Pulmicort) 0.5 mg PRN BID PRN NEB SHORTNESS OF BREATH; Start at 08:00 Haloperidol Lactate (Haldol) 5 mg DAILY IM Last administered on 01/30/17 11:07 ; Start 01/28/17 at 09:00; Stop 01/30/17 at 18:32; Status DC Olanzapine (ZyPREXA ZYDIS) 5 mg PRN Q2HR PRN PO ANXIETY / AGITATION; Start at 18:30 Lorazepam (Ativan) 1 mg DAILY IM Last administered on 01/30/17 11:07; Start at 09:00; Stop 01/30/17 at 18:32; Status DC Valproic Acid (Depakene) 375 mg HS PO ; Start 01/29/17 at 21:00; Stop 01/29/17 at 21:00; Status DC Furosemide (Lasix) 40 mg DAILY06 PO Last administered on 02/19/17 05:44; Start 01/29/17 at 06:00; Stop 02/19/17 at 18:43; Status DC Valproic Acid (Depakene) 375 mg BID PO Last administered on 02/03/17 08:23; Start 01/29/17 at 21:00; Stop 02/03/17 at 18:22; Status DC Temazepam (Restoril) 30 mg QHS PO Last administered on 02/20/17 20:26; Start 01/29/17 at 21:00; Stop 02/22/17 at 19:09; Status DC Potassium Chloride (Klor-Con) 20 meq BID PO ; Start 01/30/17 at 21:00; Stop at 05:33; Status DC Magnesium Hydroxide (Milk Of Magnesia) 2,400 mg PRN DAILY PRN PO CONSTIPATION; Start 01/30/17 at 16:30; Status UNV Magnesium Hydroxide (Milk Of Magnesia) 2,400 mg PRN DAILY PRN PO CONSTIPATION Last administered on 02/21/17 21:57; Start 01/30/17 at 16:45 Potassium Chloride (Klor-Con) 20 meq BID66 PO Last administered on 02/15/17 05 :46; Start 01/31/17 at 06:00; Stop 02/15/17 at 16:58; Status DC Metformin HCl (Glucophage) 250 mg BIDWMEALS PO Last administered on 02/22/17 17:22; Start 02/03/17 at 17:00 Cyanocobalamin (Vitamin B-12) 1,000 mcg DAILY PO Last administered on 08:06; Start 02/04/17 at 09:00 Valproic Acid (Depakene) 500 mg BID PO Last administered on 02/07/17 08:01; Start 02/03/17 at 21:00; Stop 02/07/17 at 15:17; Status DC Valproic Acid (Depakene) 750 mg BID PO Last administered on 02/19/17 08:02; Start 02/07/17 at 21:00; Stop 02/19/17 at 13:14; Status DC Trazodone HCl (Desyrel) 100 mg QHS PO Last administered on 02/22/17 20:32; Start 02/07/17 at 21:00 Trazodone HCl (Desyrel) 100 mg PRN QHS PRN PO INSOMNIA; Start 02/07/17 at 19:00 Risperidone (RisperDAL) 2 mg DAILY16 PO Last administered on 02/09/17 16:44; Start 02/09/17 at 16:00; Stop 02/09/17 at 18:47; Status DC [place] Carbonate (Lithobid) 300 mg HS PO Last administered on 02/14/17 20:09 ; Start 02/08/17 at 21:00; Stop 02/15/17 at 18:52; Status DC Risperidone (RisperDAL) 1 mg DAILY16 PO Last administered on 02/22/17 17:22; Start 02/11/17 at 16:00 [place] Carbonate (Lithobid) 150 mg DAILY PO Last administered on 02/13/17 08: 41; Start 02/13/17 at 09:00; Stop 02/14/17 at 10:24; Status DC Mirtazapine (Remeron) 7.5 mg QHS PO Last administered on 02/22/17 20:31; Start 02/13/17 at 21:00 [place] Carbonate 150 mg TID PO Last administered on 02/15/17 13:35; Start at 14:00; Stop 02/15/17 at 18:52; Status DC Potassium Chloride (Klor-Con) 20 meq DAILY PO ; Start 02/16/17 at 09:00; Stop at 09:00; Status DC [place] Carbonate 150 mg DAILY PO Last administered on 02/22/17 08:06; Start 02/16/17 at 09:00 [place] Carbonate (Lithobid) 300 mg HS PO Last administered on 02/22/17 20:31 ; Start 02/16/17 at 21:00 Potassium Chloride (Klor-Con) 20 meq DAILY06 PO Last administered on 02/22/17 05:22; Start 02/16/17 at 06:00 Polyethylene Glycol (miraLAX) 17 gm DAILY PO Last administered on 02/22/17 08: 05; Start 02/17/17 at 09:00 Magnesium Citrate (Citroma) 296 ml 1X ONCE PO ; Start 02/17/17 at 08:10; Stop 02/17/17 at 08:11; Status DC Furosemide (Lasix) 20 mg DAILY06 PO Last administered on 02/22/17 05:22; Start 02/20/17 at 06:00 Clonazepam (KlonoPIN) 0.25 mg TID PO Last administered on 02/22/17t 20:37; Start 02/21/17 at 14:00 Temazepam (Restoril) 30 mg PRN QHS PRN PO INSOMNIA; Start 02/22/17 at 19:15 Active Scripts Active Reported Tylenol (Acetaminophen) 325 Mg Tablet 650 Mg PO PRN Q6HRS PRN Arthritis Pain (Acetaminophen) 650 Mg Tablet.er 650 Mg PO BID Trazodone Hcl 100 Mg Tablet 100 Mg PO PRN QHS PRN Trazodone Hcl 100 Mg Tablet 100 Mg PO QHS Tramadol Hcl (Tramadol HCl) 50 Mg Tablet 25 Mg PO PRN Q6HRS PRN Synthroid (Levothyroxine Sodium) 100 Mcg Tablet 100 Mcg PO DAILY07 Senna S Tablet (Sennosides/Docusate Sodium) 1 Each Tablet 1 Tab PO QHS Risperdal (Risperidone) 1 Mg/1 Ml Solution 3 Mg PO DAILY16 Restoril (Temazepam) 30 Mg Capsule 30 Mg PO PRN QHS PRN Nitrostat (Nitroglycerin) 0.4 Mg Tab.subl 0.4 Mg SL PRN Q5MIN PRN Miralax (Polyethylene Glycol 3350) 119 Gm Powder 17 Gm PO QODAY Antacid Suspension (Mag Hydrox/Al Hydrox/Simeth) 355 Ml Oral.susp 30 Ml PO PRN Q4HRS PRN Lisinopril 5 Mg Tablet 5 Mg PO DAILY Lipitor (Atorvastatin Calcium) 40 Mg Tablet 40 Mg PO QHS Lasix (Furosemide) 40 Mg Tablet 40 Mg PO DAILY Lactulose 10 Gm/15 Ml Solution 20 Gm PO PRN DAILY PRN Klonopin (Clonazepam) 0.5 Mg Tablet 0.5 Mg PO TID Glucophage (Metformin Hcl) 500 Mg Tablet 500 Mg PO BIDWMEALS Josie-Tussin Dm Syrup (Guaifenesin/Dextromethorphan) 473 Ml Syrup 10 Ml PO PRN Q4HRS PRN Duoneb 0.5-3(2.5) Mg/3 Ml (Albuterol/Ipratropium) 3 Ml Ampul.neb 3 Ml NEB PRN Q4HRS PRN Depakote Sprinkle (Divalproex Sodium) 125 Mg Cap.sprink 125 Mg PO TID Bisacodyl 10 Mg Supp.rect 10 Mg RC PRN DAILY PRN Bisacodyl 5 Mg Tablet.dr 10 Mg PO PRN DAILY PRN Reshma Antifungal (Miconazole Nitrate) 142 Gm Cream..g. 1 Gerosn TP BID Ativan (Lorazepam) 0.5 Mg Tablet 0.5 Mg PO PRN Q4HRS PRN Aspirin Ec (Aspirin) 81 Mg Tablet.dr 81 Mg PO DAILY Advair Hfa 115-21 Mcg Inhaler (Fluticasone/Salmeterol) 12 Gm Hfa.aer.ad 2 Puff IH BID Diagnosis: Problems: (1) Psychosis (2) Schizophrenia, acute (3) Anxiety disorder (4) Bipolar affective, mixed, sev w/ psych (5) Impulse control disorder (6) Schizoaffective disorder, chronic condition with acute exacerbation ALBERT ROSE MD Feb 22, 2017 22:53
[2017-02-23] MEDS: FUROSEMIDE 20 MG TABLET PO SCH (05:45)
[2017-02-23] MEDS: LEVOTHYROXINE 100 MCG TABLET PO SCH (05:45)
[2017-02-23] MEDS: POTASSIUM CHLORIDE 20 MEQ TABLET.ER. PO SCH (05:45)
[2017-02-23 06:38] VITALS: BP 112/65
[2017-02-23] MEDS: ACETAMINOPHEN 325 MG TABLET PO SCH ×5 (08:17→20:12)
[2017-02-23] MEDS: CYANOCOBALAMIN (VITAMIN B-12) 1,000 MCG TABLET. PO SCH (08:17)
[2017-02-23] MEDS: LITHIUM CARBONATE 150 MG CAPSULE. PO SCH (08:17)
[2017-02-23] MEDS: ASPIRIN ENTERIC COATED 81 MG TABLET.DR. PO SCH (08:17)
[2017-02-23] MEDS: metFORMIN 500 MG TABLET PO SCH ×2 (08:17→17:05)
[2017-02-23] MEDS: POLYETHYLENE GLYCOL 3350 17 GM PACKET. PO SCH (08:18)
[2017-02-23] MEDS: clonazePAM 0.5 MG TABLET PO SCH ×3 (08:20→20:15)
[2017-02-23] MEDS: risperiDONE MICROSPHERES 25 MG/2 ML DISP.SYRIN. IM SCH (12:50)
[2017-02-23 16:29] VITALS: BP 112/42
[2017-02-23] MEDS: risperiDONE ORAL 1 MG/ML 30ml BOTTLE. PO SCH (17:04)
[2017-02-23] MEDS: MIRTAZAPINE 7.5 MG TABLET. PO SCH (20:13)
[2017-02-23] MEDS: LITHIUM CARBONATE ER 300 MG TABLET.ER PO SCH (20:13)
[2017-02-23] MEDS: ATORVASTATIN CALCIUM 20 MG TABLET PO SCH (20:13)
[2017-02-23] MEDS: traZODone 100 MG TABLET. PO SCH (20:13)
[2017-02-23] MEDS: SENNOSIDES/DOCUSATE 8.6/50MG TABLET. PO SCH (20:13)
--- NOTE | 2017-02-23 21:09 | PDOC ---
Exam Tra Demential Exam: Tra Note: Please also refer to the separate dictated note~for this date of service dictated separately.~Patient seen individually. Discussed the patient with Nursing staff reviewed the chart.~Reviewed interim history and current functioning. Reviewed vital signs,~Labs/ Radiology~and current medications noted below. Continue current treatment with the changes noted in the dictated addendum note Assessment: Vital Signs: Vital Signs Date Time Temp Pulse Resp B/P (MAP) Pulse Ox O2 Delivery O2 Flow Rate FiO2 02/23/17 16:29 98.1 60 16 112/42 (65) 98 02/21/17 17:10 Room Air I&O Intake and Output 02/24/17 07:00 Intake Total 1440 ml Balance 1440 ml Intake Oral 1440 ml Current Medications: Meds: Current Medications Olanzapine (ZyPREXA ZYDIS) 10 mg STK-MED ONCE .ROUTE ; Start 01/25/17 at 04:06; Stop 01/25/17 at 04:07; Status DC Olanzapine (ZyPREXA ZYDIS) 10 mg 1X STAT PO Last administered on 01/25/17 04: 07; Start 01/25/17 at 04:03; Stop 01/25/17 at 06:26; Status DC Nicotine (Nicoderm Cq 21mg) 1 patch DAILY TD Last administered on 02/02/17 08: 30; Start 01/25/17 at 09:00; Stop 02/11/17 at 16:38; Status DC Clonazepam (KlonoPIN) 0.5 mg TID PO Last administered on 02/21/17 08:01; Start 01/25/17 at 09:00; Stop 02/21/17 at 12:11; Status DC Divalproex Sodium (Depakote Sprinkles) 125 mg TID PO Last administered on 14:16; Start 01/25/17 at 09:00; Stop 01/28/17 at 18:41; Status DC Lorazepam (Ativan) 0.5 mg PRN Q4HRS PRN PO ANXIETY / AGITATION; Start 01/25/17 at 05:30 Risperidone (RisperDAL) 3 mg DAILY16 PO Last administered on 02/08/17 16:00; Start 01/25/17 at 16:00; Stop 02/08/17 at 18:42; Status DC Temazepam (Restoril) 30 mg PRN QHS PRN PO INSOMNIA; Start 01/25/17 at 05:30; Stop 01/25/17 at 06:31; Status DC Trazodone HCl (Desyrel) 100 mg PRN QHS PRN PO INSOMNIA; Start 01/25/17 at 05:30 ; Stop 01/25/17 at 11:36; Status DC Trazodone HCl (Desyrel) 100 mg QHS PO ; Start 01/25/17 at 21:00; Stop 01/25/17 at 21:00; Status DC Temazepam (Restoril) 30 mg PRN QHS PRN PO INSOMNIA Last administered on 19:22; Start 01/25/17 at 06:31; Stop 01/29/17 at 18:50; Status DC Acetaminophen (Tylenol) 650 mg PRN Q6HRS PRN PO PAIN / TEMP Last administered on 02/07/17 04:26; Start 01/25/17 at 06:45 Aspirin (Aspirin Enteric Coated) 81 mg DAILY PO Last administered on 02/23/17 08:17; Start 01/25/17 at 09:00 Bisacodyl (Dulcolax Tab) 10 mg PRN DAILY PRN PO CONSTIPATION Last administered on 02/18/17 20:45; Start 01/25/17 at 06:45 Bisacodyl (Dulcolax Supp) 10 mg PRN DAILY PRN RC CONSTIPATION; Start 01/25/17 at 06:45 Furosemide (Lasix) 40 mg DAILY PO Last administered on 01/28/17 05:15; Start 01/25/17 at 09:00; Stop 01/29/17 at 03:25; Status DC Guaifenesin (Robitussin Dm) 10 ml PRN Q4HRS PRN PO COUGH; Start 01/25/17 at 06: 45 Albuterol/ Ipratropium (Duoneb) 3 ml PRN Q4HRS PRN NEB SHORTNESS OF BREATH; Start 01/25/17 at 06:45 Levothyroxine Sodium (Synthroid) 100 mcg DAILY06 PO Last administered on 05:45; Start 01/25/17 at 07:00 Lisinopril (Prinivil) 5 mg DAILY PO Last administered on 02/19/17 07:59; Start 01/25/17 at 09:00; Stop 02/19/17 at 18:43; Status DC Al Hydroxide/Mg Hydroxide (Mylanta Plus Xs) 30 ml PRN Q4HRS PRN PO DYSPEPSIA; Start 01/25/17 at 06:45 Metformin HCl (Glucophage) 500 mg BIDWMEALS PO Last administered on 02/03/17 08 :13; Start 01/25/17 at 08:00; Stop 02/03/17 at 15:41; Status DC Miconazole Nitrate (Monistat-Derm) 1 gerson BID TP ; Start 01/25/17 at 09:00; Stop 01/25/17 at 09:00; Status DC Nitroglycerin (Nitrostat) 0.4 mg PRN Q5MIN PRN SL CHEST PAIN; Start 01/25/17 at 06:45 Polyethylene Glycol (miraLAX) 17 gm QODAY PO Last administered on 02/16/17 08: 45; Start 01/25/17 at 09:00; Stop 02/17/17 at 07:55; Status DC Senna/Docusate Sodium (Senna Plus) 1 tab QHS PO Last administered on 02/23/17 20:13; Start 01/25/17 at 21:00 Tramadol HCl (Ultram) 25 mg PRN Q6HRS PRN PO PAIN Last administered on 08:50; Start 01/25/17 at 06:45 Acetaminophen (Tylenol) 650 mg TID PO Last administered on 02/23/17 20:12; Start 01/25/17 at 09:00 Atorvastatin Calcium (Lipitor) 40 mg QHS PO Last administered on 02/23/17 20: 13; Start 01/25/17 at 21:00 Albuterol Sulfate (Ventolin) 2.5 mg Q6H NEB ; Start 01/25/17 at 07:30; Stop at 17:24; Status DC Lactulose 20 gm PRN DAILY PRN PO CONSTIPATION; Start 01/25/17 at 07:30 Budesonide (Pulmicort) 0.5 mg RTBID NEB ; Start 01/25/17 at 08:00; Stop at 17:24; Status DC Olanzapine (ZyPREXA ZYDIS) 2.5 mg PRN Q2HR PRN PO ANXIETY / AGITATION; Start at 08:00 Lorazepam (Ativan) 1 mg DAILY IM Last administered on 01/27/17 09:03; Start at 11:00; Stop 01/27/17 at 18:25; Status DC Haloperidol Lactate (Haldol) 5 mg DAILY IM Last administered on 01/27/17 08:58 ; Start 01/25/17 at 11:00; Stop 01/27/17 at 18:25; Status DC Risperidone (RisperDAL CONSTA) 25 mg Q2WKS IM Last administered on 02/23/17 12 :50; Start 01/26/17 at 09:00; Stop 02/23/17 at 18:39; Status DC Risperidone (RisperDAL) 3 mg 1X ONCE SL Last administered on 01/26/17 16:15; Start 01/26/17 at 16:00; Stop 01/26/17 at 16:02; Status DC Albuterol Sulfate (Ventolin) 2.5 mg PRN Q6HRS PRN NEB SHORTNESS OF BREATH; Start 01/28/17 at 13:30 Budesonide (Pulmicort) 0.5 mg PRN BID PRN NEB SHORTNESS OF BREATH; Start at 08:00 Haloperidol Lactate (Haldol) 5 mg DAILY IM Last administered on 01/30/17 11:07 ; Start 01/28/17 at 09:00; Stop 01/30/17 at 18:32; Status DC Olanzapine (ZyPREXA ZYDIS) 5 mg PRN Q2HR PRN PO ANXIETY / AGITATION; Start at 18:30 Lorazepam (Ativan) 1 mg DAILY IM Last administered on 01/30/17 11:07; Start at 09:00; Stop 01/30/17 at 18:32; Status DC Valproic Acid (Depakene) 375 mg HS PO ; Start 01/29/17 at 21:00; Stop 01/29/17 at 21:00; Status DC Furosemide (Lasix) 40 mg DAILY06 PO Last administered on 02/19/17 05:44; Start 01/29/17 at 06:00; Stop 02/19/17 at 18:43; Status DC Valproic Acid (Depakene) 375 mg BID PO Last administered on 02/03/17 08:23; Start 01/29/17 at 21:00; Stop 02/03/17 at 18:22; Status DC Temazepam (Restoril) 30 mg QHS PO Last administered on 02/20/17 20:26; Start 01/29/17 at 21:00; Stop 02/22/17 at 19:09; Status DC Potassium Chloride (Klor-Con) 20 meq BID PO ; Start 01/30/17 at 21:00; Stop at 05:33; Status DC Magnesium Hydroxide (Milk Of Magnesia) 2,400 mg PRN DAILY PRN PO CONSTIPATION; Start 01/30/17 at 16:30; Status UNV Magnesium Hydroxide (Milk Of Magnesia) 2,400 mg PRN DAILY PRN PO CONSTIPATION Last administered on 02/21/17 21:57; Start 01/30/17 at 16:45 Potassium Chloride (Klor-Con) 20 meq BID66 PO Last administered on 02/15/17 05 :46; Start 01/31/17 at 06:00; Stop 02/15/17 at 16:58; Status DC Metformin HCl (Glucophage) 250 mg BIDWMEALS PO Last administered on 02/23/17 17:05; Start 02/03/17 at 17:00 Cyanocobalamin (Vitamin B-12) 1,000 mcg DAILY PO Last administered on 08:17; Start 02/04/17 at 09:00 Valproic Acid (Depakene) 500 mg BID PO Last administered on 02/07/17 08:01; Start 02/03/17 at 21:00; Stop 02/07/17 at 15:17; Status DC Valproic Acid (Depakene) 750 mg BID PO Last administered on 02/19/17 08:02; Start 02/07/17 at 21:00; Stop 02/19/17 at 13:14; Status DC Trazodone HCl (Desyrel) 100 mg QHS PO Last administered on 02/23/17 20:13; Start 02/07/17 at 21:00 Trazodone HCl (Desyrel) 100 mg PRN QHS PRN PO INSOMNIA; Start 02/07/17 at 19:00 Risperidone (RisperDAL) 2 mg DAILY16 PO Last administered on 02/09/17 16:44; Start 02/09/17 at 16:00; Stop 02/09/17 at 18:47; Status DC [place] Carbonate (Lithobid) 300 mg HS PO Last administered on 02/14/17 20:09 ; Start 02/08/17 at 21:00; Stop 02/15/17 at 18:52; Status DC Risperidone (RisperDAL) 1 mg DAILY16 PO Last administered on 02/23/17 17:04; Start 02/11/17 at 16:00 [place] Carbonate (Lithobid) 150 mg DAILY PO Last administered on 02/13/17 08: 41; Start 02/13/17 at 09:00; Stop 02/14/17 at 10:24; Status DC Mirtazapine (Remeron) 7.5 mg QHS PO Last administered on 02/23/17 20:13; Start 02/13/17 at 21:00 [place] Carbonate 150 mg TID PO Last administered on 02/15/17 13:35; Start at 14:00; Stop 02/15/17 at 18:52; Status DC Potassium Chloride (Klor-Con) 20 meq DAILY PO ; Start 02/16/17 at 09:00; Stop at 09:00; Status DC [place] Carbonate 150 mg DAILY PO Last administered on 02/23/17 08:17; Start 02/16/17 at 09:00 [place] Carbonate (Lithobid) 300 mg HS PO Last administered on 02/23/17 20:13 ; Start 02/16/17 at 21:00 Potassium Chloride (Klor-Con) 20 meq DAILY06 PO Last administered on 02/23/17 05:45; Start 02/16/17 at 06:00 Polyethylene Glycol (miraLAX) 17 gm DAILY PO Last administered on 02/23/17 08: 18; Start 02/17/17 at 09:00 Magnesium Citrate (Citroma) 296 ml 1X ONCE PO ; Start 02/17/17 at 08:10; Stop 02/17/17 at 08:11; Status DC Furosemide (Lasix) 20 mg DAILY06 PO Last administered on 02/23/17 05:45; Start 02/20/17 at 06:00 Clonazepam (KlonoPIN) 0.25 mg TID PO Last administered on 02/23/17 20:15; Start 02/21/17 at 14:00 Temazepam (Restoril) 30 mg PRN QHS PRN PO INSOMNIA; Start 02/22/17 at 19:15 Active Scripts Active Reported Tylenol (Acetaminophen) 325 Mg Tablet 650 Mg PO PRN Q6HRS PRN Arthritis Pain (Acetaminophen) 650 Mg Tablet.er 650 Mg PO BID Trazodone Hcl 100 Mg Tablet 100 Mg PO PRN QHS PRN Trazodone Hcl 100 Mg Tablet 100 Mg PO QHS Tramadol Hcl (Tramadol HCl) 50 Mg Tablet 25 Mg PO PRN Q6HRS PRN Synthroid (Levothyroxine Sodium) 100 Mcg Tablet 100 Mcg PO DAILY07 Senna S Tablet (Sennosides/Docusate Sodium) 1 Each Tablet 1 Tab PO QHS Risperdal (Risperidone) 1 Mg/1 Ml Solution 3 Mg PO DAILY16 Restoril (Temazepam) 30 Mg Capsule 30 Mg PO PRN QHS PRN Nitrostat (Nitroglycerin) 0.4 Mg Tab.subl 0.4 Mg SL PRN Q5MIN PRN Miralax (Polyethylene Glycol 3350) 119 Gm Powder 17 Gm PO QODAY Antacid Suspension (Mag Hydrox/Al Hydrox/Simeth) 355 Ml Oral.susp 30 Ml PO PRN Q4HRS PRN Lisinopril 5 Mg Tablet 5 Mg PO DAILY Lipitor (Atorvastatin Calcium) 40 Mg Tablet 40 Mg PO QHS Lasix (Furosemide) 40 Mg Tablet 40 Mg PO DAILY Lactulose 10 Gm/15 Ml Solution 20 Gm PO PRN DAILY PRN Klonopin (Clonazepam) 0.5 Mg Tablet 0.5 Mg PO TID Glucophage (Metformin Hcl) 500 Mg Tablet 500 Mg PO BIDWMEALS Josie-Tussin Dm Syrup (Guaifenesin/Dextromethorphan) 473 Ml Syrup 10 Ml PO PRN Q4HRS PRN Duoneb 0.5-3(2.5) Mg/3 Ml (Albuterol/Ipratropium) 3 Ml Ampul.neb 3 Ml NEB PRN Q4HRS PRN Depakote Sprinkle (Divalproex Sodium) 125 Mg Cap.sprink 125 Mg PO TID Bisacodyl 10 Mg Supp.rect 10 Mg RC PRN DAILY PRN Bisacodyl 5 Mg Tablet.dr 10 Mg PO PRN DAILY PRN Reshma Antifungal (Miconazole Nitrate) 142 Gm Cream..g. 1 Gerson TP BID Ativan (Lorazepam) 0.5 Mg Tablet 0.5 Mg PO PRN Q4HRS PRN Aspirin Ec (Aspirin) 81 Mg Tablet.dr 81 Mg PO DAILY Advair Hfa 115-21 Mcg Inhaler (Fluticasone/Salmeterol) 12 Gm Hfa.aer.ad 2 Puff IH BID Diagnosis: Problems: (1) Psychosis (2) Schizophrenia, acute (3) Anxiety disorder (4) Bipolar affective, mixed, sev w/ psych (5) Impulse control disorder (6) Schizoaffective disorder, chronic condition with acute exacerbation ALBERT ROSE MD Feb 23, 2017 21:09
[2017-02-23] MEDS: traZODone 100 MG TABLET. PO PRN (23:07)
[2017-02-23] MEDS: traMADol 50 MG TABLET PO PRN (23:08)
[2017-02-24] MEDS: LEVOTHYROXINE 100 MCG TABLET PO SCH (06:08)
[2017-02-24] MEDS: FUROSEMIDE 20 MG TABLET PO SCH (06:08)
[2017-02-24] MEDS: POTASSIUM CHLORIDE 20 MEQ TABLET.ER. PO SCH (06:08)
[2017-02-24 06:25] VITALS: BP 103/59
[2017-02-24] MEDS: LITHIUM CARBONATE 150 MG CAPSULE. PO SCH (07:56)
[2017-02-24] MEDS: ACETAMINOPHEN 325 MG TABLET PO SCH (07:56)
[2017-02-24] MEDS: metFORMIN 500 MG TABLET PO SCH ×2 (07:56→16:14)
[2017-02-24] MEDS: CYANOCOBALAMIN (VITAMIN B-12) 1,000 MCG TABLET. PO SCH (07:56)
[2017-02-24] MEDS: POLYETHYLENE GLYCOL 3350 17 GM PACKET. PO SCH (07:57)
[2017-02-24] MEDS: ASPIRIN ENTERIC COATED 81 MG TABLET.DR. PO SCH (07:57)
[2017-02-24] MEDS: clonazePAM 0.5 MG TABLET PO SCH ×3 (07:58→19:44)
[2017-02-24 16:12] VITALS: BP 132/45
[2017-02-24] MEDS: risperiDONE ORAL 1 MG/ML 30ml BOTTLE. PO SCH (16:13)
--- NOTE | 2017-02-24 16:42 | PN ---
DATE: 02/22/2017 This is a late entry for date of service 02/22/2017 and covers elements not covered in my initial note of 02/22/217. SUBJECTIVE: I met with the patient evening of 02/22/2017. Per nursing report, the patient has had a good day. At one point during the music group, she was dancing, stated that she was not having any hallucinations, "I don't hear voices. She refused her Restoril previous evening and we will make it p.r.n. and check a lithium level in the morning of 02/23/2017. REVIEW OF SYSTEMS: Positive for impaired ambulation, bilateral pedal edema/lymphedema. No CV, , pulmonary, eye system symptoms on review. MENTAL STATUS EXAM: Oriented to herself and situation. Speech is coherent, has some latency. Abstraction fair, computation impaired, language function intact, attention span short. Mood and affect less labile. LABORATORY DATA: Reviewed. IMPRESSION: Unchanged from initial note. PLAN: Continue current psychotropics. Reviewed drug interactions, risk benefit favors no change. Check lithium level in the morning of 02/23/2017. MAN Hero ROSE MD DR: CHASE/[facility] JOB#: [id number] / [id number]
[2017-02-24] MEDS: LITHIUM CARBONATE ER 300 MG TABLET.ER PO SCH (19:41)
[2017-02-24] MEDS: traZODone 100 MG TABLET. PO SCH (19:41)
[2017-02-24] MEDS: MIRTAZAPINE 7.5 MG TABLET. PO SCH (19:41)
[2017-02-24] MEDS: SENNOSIDES/DOCUSATE 8.6/50MG TABLET. PO SCH (19:41)
[2017-02-24] MEDS: ATORVASTATIN CALCIUM 20 MG TABLET PO SCH (19:42)
[2017-02-24] MEDS: traZODone 100 MG TABLET. PO PRN (19:44)
--- NOTE | 2017-02-24 21:02 | PDOC ---
Exam Tra Demential Exam: Tra Note: Please also refer to the separate dictated note~for this date of service dictated separately.~Patient seen individually. Discussed the patient with Nursing staff reviewed the chart.~Reviewed interim history and current functioning. Reviewed vital signs,~Labs/ Radiology~and current medications noted below. Continue current treatment with the changes noted in the dictated addendum note Assessment: Vital Signs: Vital Signs Date Time Temp Pulse Resp B/P (MAP) Pulse Ox O2 Delivery O2 Flow Rate FiO2 02/24/17 16:12 97.9 56 16 132/45 (74) 95 02/24/17 00:08 Room Air I&O Intake and Output 02/25/17 07:00 Intake Total 960 ml Balance 960 ml Intake Oral 960 ml Current Medications: Meds: Current Medications Olanzapine (ZyPREXA ZYDIS) 10 mg STK-MED ONCE .ROUTE ; Start 01/25/17 at 04:06; Stop 01/25/17 at 04:07; Status DC Olanzapine (ZyPREXA ZYDIS) 10 mg 1X STAT PO Last administered on 01/25/17 04: 07; Start 01/25/17 at 04:03; Stop 01/25/17 at 06:26; Status DC Nicotine (Nicoderm Cq 21mg) 1 patch DAILY TD Last administered on 02/02/17 08: 30; Start 01/25/17 at 09:00; Stop 02/11/17 at 16:38; Status DC Clonazepam (KlonoPIN) 0.5 mg TID PO Last administered on 02/21/17 08:01; Start 01/25/17 at 09:00; Stop 02/21/17 at 12:11; Status DC Divalproex Sodium (Depakote Sprinkles) 125 mg TID PO Last administered on 14:16; Start 01/25/17 at 09:00; Stop 01/28/17 at 18:41; Status DC Lorazepam (Ativan) 0.5 mg PRN Q4HRS PRN PO ANXIETY / AGITATION; Start 01/25/17 at 05:30 Risperidone (RisperDAL) 3 mg DAILY16 PO Last administered on 02/08/17 16:00; Start 01/25/17 at 16:00; Stop 02/08/17 at 18:42; Status DC Temazepam (Restoril) 30 mg PRN QHS PRN PO INSOMNIA; Start 01/25/17 at 05:30; Stop 01/25/17 at 06:31; Status DC Trazodone HCl (Desyrel) 100 mg PRN QHS PRN PO INSOMNIA; Start 01/25/17 at 05:30 ; Stop 01/25/17 at 11:36; Status DC Trazodone HCl (Desyrel) 100 mg QHS PO ; Start 01/25/17 at 21:00; Stop 01/25/17 at 21:00; Status DC Temazepam (Restoril) 30 mg PRN QHS PRN PO INSOMNIA Last administered on 19:22; Start 01/25/17 at 06:31; Stop 01/29/17 at 18:50; Status DC Acetaminophen (Tylenol) 650 mg PRN Q6HRS PRN PO PAIN / TEMP Last administered on 02/07/17 04:26; Start 01/25/17 at 06:45 Aspirin (Aspirin Enteric Coated) 81 mg DAILY PO Last administered on 02/24/17 07:57; Start 01/25/17 at 09:00 Bisacodyl (Dulcolax Tab) 10 mg PRN DAILY PRN PO CONSTIPATION Last administered on 02/18/17 20:45; Start 01/25/17 at 06:45 Bisacodyl (Dulcolax Supp) 10 mg PRN DAILY PRN RC CONSTIPATION; Start 01/25/17 at 06:45 Furosemide (Lasix) 40 mg DAILY PO Last administered on 01/28/17 05:15; Start 01/25/17 at 09:00; Stop 01/29/17 at 03:25; Status DC Guaifenesin (Robitussin Dm) 10 ml PRN Q4HRS PRN PO COUGH; Start 01/25/17 at 06: 45 Albuterol/ Ipratropium (Duoneb) 3 ml PRN Q4HRS PRN NEB SHORTNESS OF BREATH; Start 01/25/17 at 06:45 Levothyroxine Sodium (Synthroid) 100 mcg DAILY06 PO Last administered on 06:08; Start 01/25/17 at 07:00 Lisinopril (Prinivil) 5 mg DAILY PO Last administered on 02/19/17 07:59; Start 01/25/17 at 09:00; Stop 02/19/17 at 18:43; Status DC Al Hydroxide/Mg Hydroxide (Mylanta Plus Xs) 30 ml PRN Q4HRS PRN PO DYSPEPSIA; Start 01/25/17 at 06:45 Metformin HCl (Glucophage) 500 mg BIDWMEALS PO Last administered on 02/03/17 08 :13; Start 01/25/17 at 08:00; Stop 02/03/17 at 15:41; Status DC Miconazole Nitrate (Monistat-Derm) 1 gerson BID TP ; Start 01/25/17 at 09:00; Stop 01/25/17 at 09:00; Status DC Nitroglycerin (Nitrostat) 0.4 mg PRN Q5MIN PRN SL CHEST PAIN; Start 01/25/17 at 06:45 Polyethylene Glycol (miraLAX) 17 gm QODAY PO Last administered on 02/16/17 08: 45; Start 01/25/17 at 09:00; Stop 02/17/17 at 07:55; Status DC Senna/Docusate Sodium (Senna Plus) 1 tab QHS PO Last administered on 02/24/17 19:41; Start 01/25/17 at 21:00 Tramadol HCl (Ultram) 25 mg PRN Q6HRS PRN PO PAIN Last administered on 23:08; Start 01/25/17 at 06:45 Acetaminophen (Tylenol) 650 mg TID PO Last administered on 02/24/17 07:56; Start 01/25/17 at 09:00; Stop 02/24/17 at 13:30; Status DC Atorvastatin Calcium (Lipitor) 40 mg QHS PO Last administered on 02/24/17 19: 42; Start 01/25/17 at 21:00 Albuterol Sulfate (Ventolin) 2.5 mg Q6H NEB ; Start 01/25/17 at 07:30; Stop at 17:24; Status DC Lactulose 20 gm PRN DAILY PRN PO CONSTIPATION; Start 01/25/17 at 07:30 Budesonide (Pulmicort) 0.5 mg RTBID NEB ; Start 01/25/17 at 08:00; Stop at 17:24; Status DC Olanzapine (ZyPREXA ZYDIS) 2.5 mg PRN Q2HR PRN PO ANXIETY / AGITATION; Start at 08:00 Lorazepam (Ativan) 1 mg DAILY IM Last administered on 01/27/17 09:03; Start at 11:00; Stop 01/27/17 at 18:25; Status DC Haloperidol Lactate (Haldol) 5 mg DAILY IM Last administered on 01/27/17 08:58 ; Start 01/25/17 at 11:00; Stop 01/27/17 at 18:25; Status DC Risperidone (RisperDAL CONSTA) 25 mg Q2WKS IM Last administered on 02/23/17 12 :50; Start 01/26/17 at 09:00; Stop 02/23/17 at 18:39; Status DC Risperidone (RisperDAL) 3 mg 1X ONCE SL Last administered on 01/26/17 16:15; Start 01/26/17 at 16:00; Stop 01/26/17 at 16:02; Status DC Albuterol Sulfate (Ventolin) 2.5 mg PRN Q6HRS PRN NEB SHORTNESS OF BREATH; Start 01/28/17 at 13:30 Budesonide (Pulmicort) 0.5 mg PRN BID PRN NEB SHORTNESS OF BREATH; Start at 08:00 Haloperidol Lactate (Haldol) 5 mg DAILY IM Last administered on 01/30/17 11:07 ; Start 01/28/17 at 09:00; Stop 01/30/17 at 18:32; Status DC Olanzapine (ZyPREXA ZYDIS) 5 mg PRN Q2HR PRN PO ANXIETY / AGITATION; Start at 18:30 Lorazepam (Ativan) 1 mg DAILY IM Last administered on 01/30/17 11:07; Start at 09:00; Stop 01/30/17 at 18:32; Status DC Valproic Acid (Depakene) 375 mg HS PO ; Start 01/29/17 at 21:00; Stop 01/29/17 at 21:00; Status DC Furosemide (Lasix) 40 mg DAILY06 PO Last administered on 02/19/17 05:44; Start 01/29/17 at 06:00; Stop 02/19/17 at 18:43; Status DC Valproic Acid (Depakene) 375 mg BID PO Last administered on 02/03/17 08:23; Start 01/29/17 at 21:00; Stop 02/03/17 at 18:22; Status DC Temazepam (Restoril) 30 mg QHS PO Last administered on 02/20/17 20:26; Start 01/29/17 at 21:00; Stop 02/22/17 at 19:09; Status DC Potassium Chloride (Klor-Con) 20 meq BID PO ; Start 01/30/17 at 21:00; Stop at 05:33; Status DC Magnesium Hydroxide (Milk Of Magnesia) 2,400 mg PRN DAILY PRN PO CONSTIPATION; Start 01/30/17 at 16:30; Status UNV Magnesium Hydroxide (Milk Of Magnesia) 2,400 mg PRN DAILY PRN PO CONSTIPATION Last administered on 02/21/17 21:57; Start 01/30/17 at 16:45 Potassium Chloride (Klor-Con) 20 meq BID66 PO Last administered on 02/15/17 05 :46; Start 01/31/17 at 06:00; Stop 02/15/17 at 16:58; Status DC Metformin HCl (Glucophage) 250 mg BIDWMEALS PO Last administered on 02/24/17 16:14; Start 02/03/17 at 17:00 Cyanocobalamin (Vitamin B-12) 1,000 mcg DAILY PO Last administered on 07:56; Start 02/04/17 at 09:00 Valproic Acid (Depakene) 500 mg BID PO Last administered on 02/07/17 08:01; Start 02/03/17 at 21:00; Stop 02/07/17 at 15:17; Status DC Valproic Acid (Depakene) 750 mg BID PO Last administered on 02/19/17 08:02; Start 02/07/17 at 21:00; Stop 02/19/17 at 13:14; Status DC Trazodone HCl (Desyrel) 100 mg QHS PO Last administered on 02/24/17 19:41; Start 02/07/17 at 21:00 Trazodone HCl (Desyrel) 100 mg PRN QHS PRN PO INSOMNIA Last administered on 19:44; Start 02/07/17 at 19:00 Risperidone (RisperDAL) 2 mg DAILY16 PO Last administered on 02/09/17 16:44; Start 02/09/17 at 16:00; Stop 02/09/17 at 18:47; Status DC [place] Carbonate (Lithobid) 300 mg HS PO Last administered on 02/14/17 20:09 ; Start 02/08/17 at 21:00; Stop 02/15/17 at 18:52; Status DC Risperidone (RisperDAL) 1 mg DAILY16 PO Last administered on 02/24/17 16:13; Start 02/11/17 at 16:00 [place] Carbonate (Lithobid) 150 mg DAILY PO Last administered on 02/13/17 08: 41; Start 02/13/17 at 09:00; Stop 02/14/17 at 10:24; Status DC Mirtazapine (Remeron) 7.5 mg QHS PO Last administered on 02/24/17 19:41; Start 02/13/17 at 21:00 [place] Carbonate 150 mg TID PO Last administered on 02/15/17 13:35; Start at 14:00; Stop 02/15/17 at 18:52; Status DC Potassium Chloride (Klor-Con) 20 meq DAILY PO ; Start 02/16/17 at 09:00; Stop at 09:00; Status DC [place] Carbonate 150 mg DAILY PO Last administered on 02/24/17 07:56; Start 02/16/17 at 09:00 [place] Carbonate (Lithobid) 300 mg HS PO Last administered on 02/24/17 19:41 ; Start 02/16/17 at 21:00 Potassium Chloride (Klor-Con) 20 meq DAILY06 PO Last administered on 02/24/17 06:08; Start 02/16/17 at 06:00 Polyethylene Glycol (miraLAX) 17 gm DAILY PO Last administered on 02/24/17 07: 57; Start 02/17/17 at 09:00 Magnesium Citrate (Citroma) 296 ml 1X ONCE PO ; Start 02/17/17 at 08:10; Stop 02/17/17 at 08:11; Status DC Furosemide (Lasix) 20 mg DAILY06 PO Last administered on 02/24/17 06:08; Start 02/20/17 at 06:00 Clonazepam (KlonoPIN) 0.25 mg TID PO Last administered on 02/24/17 19:44; Start 02/21/17 at 14:00 Temazepam (Restoril) 30 mg PRN QHS PRN PO INSOMNIA; Start 02/22/17 at 19:15 Active Scripts Active Reported Tylenol (Acetaminophen) 325 Mg Tablet 650 Mg PO PRN Q6HRS PRN Arthritis Pain (Acetaminophen) 650 Mg Tablet.er 650 Mg PO BID Trazodone Hcl 100 Mg Tablet 100 Mg PO PRN QHS PRN Trazodone Hcl 100 Mg Tablet 100 Mg PO QHS Tramadol Hcl (Tramadol HCl) 50 Mg Tablet 25 Mg PO PRN Q6HRS PRN Synthroid (Levothyroxine Sodium) 100 Mcg Tablet 100 Mcg PO DAILY07 Senna S Tablet (Sennosides/Docusate Sodium) 1 Each Tablet 1 Tab PO QHS Risperdal (Risperidone) 1 Mg/1 Ml Solution 3 Mg PO DAILY16 Restoril (Temazepam) 30 Mg Capsule 30 Mg PO PRN QHS PRN Nitrostat (Nitroglycerin) 0.4 Mg Tab.subl 0.4 Mg SL PRN Q5MIN PRN Miralax (Polyethylene Glycol 3350) 119 Gm Powder 17 Gm PO QODAY Antacid Suspension (Mag Hydrox/Al Hydrox/Simeth) 355 Ml Oral.susp 30 Ml PO PRN Q4HRS PRN Lisinopril 5 Mg Tablet 5 Mg PO DAILY Lipitor (Atorvastatin Calcium) 40 Mg Tablet 40 Mg PO QHS Lasix (Furosemide) 40 Mg Tablet 40 Mg PO DAILY Lactulose 10 Gm/15 Ml Solution 20 Gm PO PRN DAILY PRN Klonopin (Clonazepam) 0.5 Mg Tablet 0.5 Mg PO TID Glucophage (Metformin Hcl) 500 Mg Tablet 500 Mg PO BIDWMEALS Josie-Tussin Dm Syrup (Guaifenesin/Dextromethorphan) 473 Ml Syrup 10 Ml PO PRN Q4HRS PRN Duoneb 0.5-3(2.5) Mg/3 Ml (Albuterol/Ipratropium) 3 Ml Ampul.neb 3 Ml NEB PRN Q4HRS PRN Depakote Sprinkle (Divalproex Sodium) 125 Mg Cap.sprink 125 Mg PO TID Bisacodyl 10 Mg Supp.rect 10 Mg RC PRN DAILY PRN Bisacodyl 5 Mg Tablet.dr 10 Mg PO PRN DAILY PRN Reshma Antifungal (Miconazole Nitrate) 142 Gm Cream..g. 1 Gerson TP BID Ativan (Lorazepam) 0.5 Mg Tablet 0.5 Mg PO PRN Q4HRS PRN Aspirin Ec (Aspirin) 81 Mg Tablet.dr 81 Mg PO DAILY Advair Hfa 115-21 Mcg Inhaler (Fluticasone/Salmeterol) 12 Gm Hfa.aer.ad 2 Puff IH BID Diagnosis: Problems: (1) Psychosis (2) Schizophrenia, acute (3) Anxiety disorder (4) Bipolar affective, mixed, sev w/ psych (5) Impulse control disorder (6) Schizoaffective disorder, chronic condition with acute exacerbation ALBERT ROSE MD Feb 24, 2017 21:02
[2017-02-25] MEDS: FUROSEMIDE 20 MG TABLET PO SCH (05:30)
[2017-02-25] MEDS: LEVOTHYROXINE 100 MCG TABLET PO SCH (05:30)
[2017-02-25] MEDS: POTASSIUM CHLORIDE 20 MEQ TABLET.ER. PO SCH (05:30)
[2017-02-25 06:05] LABS: BASO % 1 % (0-3); EOS % 0 % (0-3); HEMATOCRIT 32.4 % (36.0-47.0); HEMOGLOBIN 11.2 g/dL (12.0-15.5); LYMPH # 1.3 x10^3/uL (1.0-4.8); LYMPH % 19 % (24-48); MEAN CORPUSCULAR HEMOGLOBIN 35 pg (25-35); MEAN CORPUSCULAR HGB CONC 35 g/dL (31-37); MEAN CORPUSCULAR VOLUME 102 fL (79-100); MONO # 0.7 x10^3/uL (0.0-1.1); MONO % 11 % (0-9); NEUT # 4.5 x10^3uL (1.8-7.7); NEUT % 69 % (31-73); PLATELET COUNT 227 x10^3/uL (140-400); WHITE BLOOD COUNT 6.6 x10^3/uL (4.0-11.0)
[2017-02-25 06:16] LABS: ALBUMIN 3.2 g/dL (3.4-5.0); CALCIUM 8.7 mg/dL (8.5-10.1); CREATININE 0.6 mg/dL (0.6-1.0); GFR 97.2; POTASSIUM 4.2 mmol/L (3.5-5.1); TOTAL BILIRUBIN 0.2 mg/dL (0.2-1.0); TOTAL PROTEIN 6.3 g/dL (6.4-8.2)
[2017-02-25 06:28] VITALS: BP 118/68
[2017-02-25] MEDS: metFORMIN 500 MG TABLET PO SCH ×2 (09:50→17:09)
[2017-02-25] MEDS: LITHIUM CARBONATE 150 MG CAPSULE. PO SCH (09:50)
[2017-02-25] MEDS: ASPIRIN ENTERIC COATED 81 MG TABLET.DR. PO SCH (09:51)
[2017-02-25] MEDS: CYANOCOBALAMIN (VITAMIN B-12) 1,000 MCG TABLET. PO SCH (09:51)
[2017-02-25] MEDS: POLYETHYLENE GLYCOL 3350 17 GM PACKET. PO SCH (09:51)
[2017-02-25] MEDS: clonazePAM 0.5 MG TABLET PO SCH ×3 (09:53→19:17)
[2017-02-25 16:19] VITALS: BP 110/50
[2017-02-25] MEDS: risperiDONE ORAL 1 MG/ML 30ml BOTTLE. PO SCH (17:09)
--- NOTE | 2017-02-25 17:18 | PN ---
DATE: 02/23/2017 PSYCHIATRIC PROGRESS NOTE This is a late entry 02/23/2017, covers elements not covered in my initial note of 02/23/2017. SUBJECTIVE: I met with the patient evening of 02/23/2017 in her room at length. The patient has been somewhat more demanding, irritable, but more awake, alert and interactive as compared to a few days back. REVIEW OF SYSTEMS: Positive for bilateral lower extremity edema/lymphedema and impaired ambulation, in wheelchair. No CV, , pulmonary, eye, ENT system symptoms on review. MENTAL STATUS EXAM: Oriented to herself and situation. She has been writing profusely once again. Had several pages she handed me, one to her doctor wanting Podiatry consult and another letter to her dentist wanting dental floss. Somewhat disorganized, abstraction fair, computation impaired, language function intact, attention span short. Mood and affect remained somewhat labile, but improved. LABORATORY DATA: Reviewed. IMPRESSION: Unchanged from initial note. PLAN: Continue current psychotropics. She is compliant with oral psychotropics. We will stop the Risperdal Consta. May consider changing Risperdal to Clozaril in the future when she is compliant and maintains the compliance with oral psychotropics. Review of drug interactions. Risk, benefit ratio favors no further change. ALBERT ROSE MD DR: CH[facility] JOB#: [id number] / [id number]
[2017-02-25] MEDS: MIRTAZAPINE 7.5 MG TABLET. PO SCH (19:14)
[2017-02-25] MEDS: traZODone 100 MG TABLET. PO SCH (19:15)
[2017-02-25] MEDS: SENNOSIDES/DOCUSATE 8.6/50MG TABLET. PO SCH (19:15)
[2017-02-25] MEDS: ATORVASTATIN CALCIUM 20 MG TABLET PO SCH (19:15)
[2017-02-25] MEDS: traZODone 100 MG TABLET. PO PRN (19:16)
[2017-02-25] MEDS: LITHIUM CARBONATE ER 300 MG TABLET.ER PO SCH (19:16)
--- NOTE | 2017-02-25 20:59 | PDOC ---
Exam Tra Demential Exam: Tra Note: Please also refer to the separate dictated note~for this date of service dictated separately.~Patient seen individually. Discussed the patient with Nursing staff reviewed the chart.~Reviewed interim history and current functioning. Reviewed vital signs,~Labs/ Radiology~and current medications noted below. Continue current treatment with the changes noted in the dictated addendum note Assessment: Vital Signs: Vital Signs Date Time Temp Pulse Resp B/P (MAP) Pulse Ox O2 Delivery O2 Flow Rate FiO2 02/25/17 16:19 97.6 55 18 110/50 (70) 96 02/24/17 00:08 Room Air I&O Intake and Output 02/26/17 07:00 Intake Total 960 ml Balance 960 ml Intake Oral 960 ml Labs: Laboratory Tests Test 02/25/17 05:49 White Blood Count 6.6 x10^3/uL (4.0-11.0) Red Blood Count 3.20 x10^6/uL (3.50-5.40) L Hemoglobin 11.2 g/dL (12.0-15.5) L Hematocrit 32.4 % (36.0-47.0) L Mean Corpuscular Volume 102 fL (79-100) H Mean Corpuscular Hemoglobin 35 pg (25-35) Mean Corpuscular Hemoglobin Concent 35 g/dL (31-37) Red Cell Distribution Width 13.0 % (11.5-14.5) Platelet Count 227 x10^3/uL (140-400) Neutrophils (%) (Auto) 69 % (31-73) Lymphocytes (%) (Auto) 19 % (24-48) L Monocytes (%) (Auto) 11 % (0-9) H Eosinophils (%) (Auto) 0 % (0-3) Basophils (%) (Auto) 1 % (0-3) Neutrophils # (Auto) 4.5 x10^3uL (1.8-7.7) Lymphocytes # (Auto) 1.3 x10^3/uL (1.0-4.8) Monocytes # (Auto) 0.7 x10^3/uL (0.0-1.1) Eosinophils # (Auto) 0.0 x10^3/uL (0.0-0.7) Basophils # (Auto) 0.0 x10^3/uL (0.0-0.2) Sodium Level 137 mmol/L (136-145) Potassium Level 4.2 mmol/L (3.5-5.1) Chloride Level 104 mmol/L (98-107) Carbon Dioxide Level 32 mmol/L (21-32) Anion Gap 1 (6-14) L Blood Urea Nitrogen 18 mg/dL (7-20) Creatinine 0.6 mg/dL (0.6-1.0) Estimated GFR (Cockcroft-Gault) 97.2 BUN/Creatinine Ratio 30 (6-20) H Glucose Level 91 mg/dL (70-99) Calcium Level 8.7 mg/dL (8.5-10.1) Total Bilirubin 0.2 mg/dL (0.2-1.0) Aspartate Amino Transferase (AST) 14 U/L (15-37) L Alanine Aminotransferase (ALT) 22 U/L (14-59) Alkaline Phosphatase 106 U/L (46-116) Total Protein 6.3 g/dL (6.4-8.2) L Albumin 3.2 g/dL (3.4-5.0) L Albumin/Globulin Ratio 1.0 (1.0-1.7) Current Medications: Meds: Current Medications Olanzapine (ZyPREXA ZYDIS) 10 mg STK-MED ONCE .ROUTE ; Start 01/25/17 at 04:06; Stop 01/25/17 at 04:07; Status DC Olanzapine (ZyPREXA ZYDIS) 10 mg 1X STAT PO Last administered on 01/25/17 04: 07; Start 01/25/17 at 04:03; Stop 01/25/17 at 06:26; Status DC Nicotine (Nicoderm Cq 21mg) 1 patch DAILY TD Last administered on 02/02/17 08: 30; Start 01/25/17 at 09:00; Stop 02/11/17 at 16:38; Status DC Clonazepam (KlonoPIN) 0.5 mg TID PO Last administered on 02/21/17 08:01; Start 01/25/17 at 09:00; Stop 02/21/17 at 12:11; Status DC Divalproex Sodium (Depakote Sprinkles) 125 mg TID PO Last administered on 14:16; Start 01/25/17 at 09:00; Stop 01/28/17 at 18:41; Status DC Lorazepam (Ativan) 0.5 mg PRN Q4HRS PRN PO ANXIETY / AGITATION; Start 01/25/17 at 05:30 Risperidone (RisperDAL) 3 mg DAILY16 PO Last administered on 02/08/17 16:00; Start 01/25/17 at 16:00; Stop 02/08/17 at 18:42; Status DC Temazepam (Restoril) 30 mg PRN QHS PRN PO INSOMNIA; Start 01/25/17 at 05:30; Stop 01/25/17 at 06:31; Status DC Trazodone HCl (Desyrel) 100 mg PRN QHS PRN PO INSOMNIA; Start 01/25/17 at 05:30 ; Stop 01/25/17 at 11:36; Status DC Trazodone HCl (Desyrel) 100 mg QHS PO ; Start 01/25/17 at 21:00; Stop 01/25/17 at 21:00; Status DC Temazepam (Restoril) 30 mg PRN QHS PRN PO INSOMNIA Last administered on 19:22; Start 01/25/17 at 06:31; Stop 01/29/17 at 18:50; Status DC Acetaminophen (Tylenol) 650 mg PRN Q6HRS PRN PO PAIN / TEMP Last administered on 02/07/17 04:26; Start 01/25/17 at 06:45 Aspirin (Aspirin Enteric Coated) 81 mg DAILY PO Last administered on 02/25/17 09:51; Start 01/25/17 at 09:00 Bisacodyl (Dulcolax Tab) 10 mg PRN DAILY PRN PO CONSTIPATION Last administered on 02/18/17 20:45; Start 01/25/17 at 06:45 Bisacodyl (Dulcolax Supp) 10 mg PRN DAILY PRN RC CONSTIPATION; Start 01/25/17 at 06:45 Furosemide (Lasix) 40 mg DAILY PO Last administered on 01/28/17 05:15; Start 01/25/17 at 09:00; Stop 01/29/17 at 03:25; Status DC Guaifenesin (Robitussin Dm) 10 ml PRN Q4HRS PRN PO COUGH; Start 01/25/17 at 06: 45 Albuterol/ Ipratropium (Duoneb) 3 ml PRN Q4HRS PRN NEB SHORTNESS OF BREATH; Start 01/25/17 at 06:45 Levothyroxine Sodium (Synthroid) 100 mcg DAILY06 PO Last administered on 05:30; Start 01/25/17 at 07:00 Lisinopril (Prinivil) 5 mg DAILY PO Last administered on 02/19/17 07:59; Start 01/25/17 at 09:00; Stop 02/19/17 at 18:43; Status DC Al Hydroxide/Mg Hydroxide (Mylanta Plus Xs) 30 ml PRN Q4HRS PRN PO DYSPEPSIA; Start 01/25/17 at 06:45 Metformin HCl (Glucophage) 500 mg BIDWMEALS PO Last administered on 02/03/17 08 :13; Start 01/25/17 at 08:00; Stop 02/03/17 at 15:41; Status DC Miconazole Nitrate (Monistat-Derm) 1 gerson BID TP ; Start 01/25/17 at 09:00; Stop 01/25/17 at 09:00; Status DC Nitroglycerin (Nitrostat) 0.4 mg PRN Q5MIN PRN SL CHEST PAIN; Start 01/25/17 at 06:45 Polyethylene Glycol (miraLAX) 17 gm QODAY PO Last administered on 02/16/17 08: 45; Start 01/25/17 at 09:00; Stop 02/17/17 at 07:55; Status DC Senna/Docusate Sodium (Senna Plus) 1 tab QHS PO Last administered on 02/25/17 19:15; Start 01/25/17 at 21:00 Tramadol HCl (Ultram) 25 mg PRN Q6HRS PRN PO PAIN Last administered on 23:08; Start 01/25/17 at 06:45 Acetaminophen (Tylenol) 650 mg TID PO Last administered on 02/24/17 07:56; Start 01/25/17 at 09:00; Stop 02/24/17 at 13:30; Status DC Atorvastatin Calcium (Lipitor) 40 mg QHS PO Last administered on 02/25/17 19: 15; Start 01/25/17 at 21:00 Albuterol Sulfate (Ventolin) 2.5 mg Q6H NEB ; Start 01/25/17 at 07:30; Stop at 17:24; Status DC Lactulose 20 gm PRN DAILY PRN PO CONSTIPATION; Start 01/25/17 at 07:30 Budesonide (Pulmicort) 0.5 mg RTBID NEB ; Start 01/25/17 at 08:00; Stop at 17:24; Status DC Olanzapine (ZyPREXA ZYDIS) 2.5 mg PRN Q2HR PRN PO ANXIETY / AGITATION; Start at 08:00 Lorazepam (Ativan) 1 mg DAILY IM Last administered on 01/27/17 09:03; Start at 11:00; Stop 01/27/17 at 18:25; Status DC Haloperidol Lactate (Haldol) 5 mg DAILY IM Last administered on 01/27/17 08:58 ; Start 01/25/17 at 11:00; Stop 01/27/17 at 18:25; Status DC Risperidone (RisperDAL CONSTA) 25 mg Q2WKS IM Last administered on 02/23/17 12 :50; Start 01/26/17 at 09:00; Stop 02/23/17 at 18:39; Status DC Risperidone (RisperDAL) 3 mg 1X ONCE SL Last administered on 01/26/17 16:15; Start 01/26/17 at 16:00; Stop 01/26/17 at 16:02; Status DC Albuterol Sulfate (Ventolin) 2.5 mg PRN Q6HRS PRN NEB SHORTNESS OF BREATH; Start 01/28/17 at 13:30 Budesonide (Pulmicort) 0.5 mg PRN BID PRN NEB SHORTNESS OF BREATH; Start at 08:00 Haloperidol Lactate (Haldol) 5 mg DAILY IM Last administered on 01/30/17 11:07 ; Start 01/28/17 at 09:00; Stop 01/30/17 at 18:32; Status DC Olanzapine (ZyPREXA ZYDIS) 5 mg PRN Q2HR PRN PO ANXIETY / AGITATION; Start at 18:30 Lorazepam (Ativan) 1 mg DAILY IM Last administered on 01/30/17 11:07; Start at 09:00; Stop 01/30/17 at 18:32; Status DC Valproic Acid (Depakene) 375 mg HS PO ; Start 01/29/17 at 21:00; Stop 01/29/17 at 21:00; Status DC Furosemide (Lasix) 40 mg DAILY06 PO Last administered on 02/19/17 05:44; Start 01/29/17 at 06:00; Stop 02/19/17 at 18:43; Status DC Valproic Acid (Depakene) 375 mg BID PO Last administered on 02/03/17 08:23; Start 01/29/17 at 21:00; Stop 02/03/17 at 18:22; Status DC Temazepam (Restoril) 30 mg QHS PO Last administered on 02/20/17 20:26; Start 01/29/17 at 21:00; Stop 02/22/17 at 19:09; Status DC Potassium Chloride (Klor-Con) 20 meq BID PO ; Start 01/30/17 at 21:00; Stop at 05:33; Status DC Magnesium Hydroxide (Milk Of Magnesia) 2,400 mg PRN DAILY PRN PO CONSTIPATION; Start 01/30/17 at 16:30; Status UNV Magnesium Hydroxide (Milk Of Magnesia) 2,400 mg PRN DAILY PRN PO CONSTIPATION Last administered on 02/21/17 21:57; Start 01/30/17 at 16:45 Potassium Chloride (Klor-Con) 20 meq BID66 PO Last administered on 02/15/17 05 :46; Start 01/31/17 at 06:00; Stop 02/15/17 at 16:58; Status DC Metformin HCl (Glucophage) 250 mg BIDWMEALS PO Last administered on 02/25/17 17:09; Start 02/03/17 at 17:00 Cyanocobalamin (Vitamin B-12) 1,000 mcg DAILY PO Last administered on 09:51; Start 02/04/17 at 09:00 Valproic Acid (Depakene) 500 mg BID PO Last administered on 02/07/17 08:01; Start 02/03/17 at 21:00; Stop 02/07/17 at 15:17; Status DC Valproic Acid (Depakene) 750 mg BID PO Last administered on 02/19/17 08:02; Start 02/07/17 at 21:00; Stop 02/19/17 at 13:14; Status DC Trazodone HCl (Desyrel) 100 mg QHS PO Last administered on 02/25/17 19:15; Start 02/07/17 at 21:00 Trazodone HCl (Desyrel) 100 mg PRN QHS PRN PO INSOMNIA Last administered on 19:16; Start 02/07/17 at 19:00 Risperidone (RisperDAL) 2 mg DAILY16 PO Last administered on 02/09/17 16:44; Start 02/09/17 at 16:00; Stop 02/09/17 at 18:47; Status DC [place] Carbonate (Lithobid) 300 mg HS PO Last administered on 02/14/17 20:09 ; Start 02/08/17 at 21:00; Stop 02/15/17 at 18:52; Status DC Risperidone (RisperDAL) 1 mg DAILY16 PO Last administered on 02/25/17 17:09; Start 02/11/17 at 16:00 [place] Carbonate (Lithobid) 150 mg DAILY PO Last administered on 02/13/17 08: 41; Start 02/13/17 at 09:00; Stop 02/14/17 at 10:24; Status DC Mirtazapine (Remeron) 7.5 mg QHS PO Last administered on 02/25/17 19:14; Start 02/13/17 at 21:00 [place] Carbonate 150 mg TID PO Last administered on 02/15/17 13:35; Start at 14:00; Stop 02/15/17 at 18:52; Status DC Potassium Chloride (Klor-Con) 20 meq DAILY PO ; Start 02/16/17 at 09:00; Stop at 09:00; Status DC [place] Carbonate 150 mg DAILY PO Last administered on 02/25/17 09:50; Start 02/16/17 at 09:00 [place] Carbonate (Lithobid) 300 mg HS PO Last administered on 02/25/17 19:16 ; Start 9/18/17 at 21:00 Potassium Chloride (Klor-Con) 20 meq DAILY06 PO Last administered on 02/25/17 05:30; Start 02/16/17 at 06:00 Polyethylene Glycol (miraLAX) 17 gm DAILY PO Last administered on 02/25/17 09: 51; Start 02/17/17 at 09:00 Magnesium Citrate (Citroma) 296 ml 1X ONCE PO ; Start 02/17/17 at 08:10; Stop 02/17/17 at 08:11; Status DC Furosemide (Lasix) 20 mg DAILY06 PO Last administered on 02/25/17 05:30; Start 02/20/17 at 06:00 Clonazepam (KlonoPIN) 0.25 mg TID PO Last administered on 02/25/17 19:17; Start 02/21/17 at 14:00 Temazepam (Restoril) 30 mg PRN QHS PRN PO INSOMNIA; Start 02/22/17 at 19:15 Active Scripts Active Reported Tylenol (Acetaminophen) 325 Mg Tablet 650 Mg PO PRN Q6HRS PRN Arthritis Pain (Acetaminophen) 650 Mg Tablet.er 650 Mg PO BID Trazodone Hcl 100 Mg Tablet 100 Mg PO PRN QHS PRN Trazodone Hcl 100 Mg Tablet 100 Mg PO QHS Tramadol Hcl (Tramadol HCl) 50 Mg Tablet 25 Mg PO PRN Q6HRS PRN Synthroid (Levothyroxine Sodium) 100 Mcg Tablet 100 Mcg PO DAILY07 Senna S Tablet (Sennosides/Docusate Sodium) 1 Each Tablet 1 Tab PO QHS Risperdal (Risperidone) 1 Mg/1 Ml Solution 3 Mg PO DAILY16 Restoril (Temazepam) 30 Mg Capsule 30 Mg PO PRN QHS PRN Nitrostat (Nitroglycerin) 0.4 Mg Tab.subl 0.4 Mg SL PRN Q5MIN PRN Miralax (Polyethylene Glycol 3350) 119 Gm Powder 17 Gm PO QODAY Antacid Suspension (Mag Hydrox/Al Hydrox/Simeth) 355 Ml Oral.susp 30 Ml PO PRN Q4HRS PRN Lisinopril 5 Mg Tablet 5 Mg PO DAILY Lipitor (Atorvastatin Calcium) 40 Mg Tablet 40 Mg PO QHS Lasix (Furosemide) 40 Mg Tablet 40 Mg PO DAILY Lactulose 10 Gm/15 Ml Solution 20 Gm PO PRN DAILY PRN Klonopin (Clonazepam) 0.5 Mg Tablet 0.5 Mg PO TID Glucophage (Metformin Hcl) 500 Mg Tablet 500 Mg PO BIDWMEALS Josie-Tussin Dm Syrup (Guaifenesin/Dextromethorphan) 473 Ml Syrup 10 Ml PO PRN Q4HRS PRN Duoneb 0.5-3(2.5) Mg/3 Ml (Albuterol/Ipratropium) 3 Ml Ampul.neb 3 Ml NEB PRN Q4HRS PRN Depakote Sprinkle (Divalproex Sodium) 125 Mg Cap.sprink 125 Mg PO TID Bisacodyl 10 Mg Supp.rect 10 Mg RC PRN DAILY PRN Bisacodyl 5 Mg Tablet.dr 10 Mg PO PRN DAILY PRN Reshma Antifungal (Miconazole Nitrate) 142 Gm Cream..g. 1 Gerson TP BID Ativan (Lorazepam) 0.5 Mg Tablet 0.5 Mg PO PRN Q4HRS PRN Aspirin Ec (Aspirin) 81 Mg Tablet.dr 81 Mg PO DAILY Advair Hfa 115-21 Mcg Inhaler (Fluticasone/Salmeterol) 12 Gm Hfa.aer.ad 2 Puff IH BID Diagnosis: Problems: (1) Psychosis (2) Schizophrenia, acute (3) Anxiety disorder (4) Bipolar affective, mixed, sev w/ psych (5) Impulse control disorder (6) Schizoaffective disorder, chronic condition with acute exacerbation ALBERT ROSE MD Feb 25, 2017 20:59
--- NOTE | 2017-02-26 05:06 | PN ---
DATE: 02/24/2017 This late entry 02/24/2017 covers elements not covered in my initial note of 02/24/2017. SUBJECTIVE: I met with the patient the evening of 02/24/2017. She has been somewhat disorganized, at times anxious, restless, intrusive, but much more awake and appropriate. She still has some hypergraphia as I met with her individually. Rosalie level at last check is 1.2. REVIEW OF SYSTEMS: Positive for lymphedema bilateral lower extremities, impaired ambulation and wheelchair. No CV, , pulmonary, eye, ENT system symptoms on review. MENTAL STATUS EXAM: Oriented to herself and situation. Speech, often responses monosyllabic, rapid at times, typical for her with some loose associations, but speech is otherwise coherent and you can follow along with her thought processes, even though at times there are little rushed. No psychotic symptoms, suicidal or homicidal ideation. Attention span somewhat short. Language function intact. Intellect average and insight improving. Mood and affect is improved. LABORATORIES: Reviewed. IMPRESSION: Unchanged from initial note. PLAN: Risperdal Consta has been discontinued. Maintain the rest of her psychotropics, review drug interactions, risk/benefit ratio favors no further change. ALBERT ROSE MD DR: CH[facility] JOB#: [id number] / [id number]
[2017-02-26] MEDS: POTASSIUM CHLORIDE 20 MEQ TABLET.ER. PO SCH (05:11)
[2017-02-26] MEDS: FUROSEMIDE 20 MG TABLET PO SCH (05:11)
[2017-02-26] MEDS: LEVOTHYROXINE 100 MCG TABLET PO SCH (05:11)
[2017-02-26 06:03] VITALS: BP 132/68
[2017-02-26] MEDS: CYANOCOBALAMIN (VITAMIN B-12) 1,000 MCG TABLET. PO SCH (08:35)
[2017-02-26] MEDS: LITHIUM CARBONATE 150 MG CAPSULE. PO SCH (08:35)
[2017-02-26] MEDS: POLYETHYLENE GLYCOL 3350 17 GM PACKET. PO SCH (08:35)
[2017-02-26] MEDS: metFORMIN 500 MG TABLET PO SCH ×2 (08:35→17:32)
[2017-02-26] MEDS: ASPIRIN ENTERIC COATED 81 MG TABLET.DR. PO SCH (08:35)
[2017-02-26] MEDS: clonazePAM 0.5 MG TABLET PO SCH ×3 (08:39→20:49)
[2017-02-26 09:24] LABS: HEMATOCRIT 32.7 % (36.0-47.0); HEMOGLOBIN 11.2 g/dL (12.0-15.5); RED BLOOD COUNT 3.2 x10^6/uL (3.50-5.40); RED CELL DISTRIBUTION WIDTH 13.1 % (11.5-14.5); WHITE BLOOD COUNT 10.1 x10^3/uL (4.0-11.0)
[2017-02-26 09:48] LABS: ALBUMIN 3.1 g/dL (3.4-5.0); CALCIUM 8.5 mg/dL (8.5-10.1); CREATININE 0.7 mg/dL (0.6-1.0); GFR 81.4; POTASSIUM 4.1 mmol/L (3.5-5.1); TOTAL BILIRUBIN 0.3 mg/dL (0.2-1.0); TOTAL PROTEIN 6.2 g/dL (6.4-8.2)
[2017-02-26 14:20] LABS: LI 0.8 mmol/L (0.6-1.2)
[2017-02-26 16:17] VITALS: BP 103/49
[2017-02-26] MEDS: risperiDONE ORAL 1 MG/ML 30ml BOTTLE. PO SCH (17:07)
[2017-02-26] MEDS: traMADol 50 MG TABLET PO PRN (17:43)
[2017-02-26] MEDS: ATORVASTATIN CALCIUM 20 MG TABLET PO SCH (20:41)
[2017-02-26] MEDS: SENNOSIDES/DOCUSATE 8.6/50MG TABLET. PO SCH (20:41)
[2017-02-26] MEDS: LITHIUM CARBONATE ER 300 MG TABLET.ER PO SCH (20:41)
[2017-02-26] MEDS: traZODone 100 MG TABLET. PO SCH (20:41)
[2017-02-26] MEDS: MIRTAZAPINE 15 MG TAB.RAPDIS PO SCH (20:48)
--- NOTE | 2017-02-26 20:52 | PDOC ---
Exam Tra Demential Exam: Tra Note: Please also refer to the separate dictated note~for this date of service dictated separately.~Patient seen individually. Discussed the patient with Nursing staff reviewed the chart.~Reviewed interim history and current functioning. Reviewed vital signs,~Labs/ Radiology~and current medications noted below. Continue current treatment with the changes noted in the dictated addendum note Assessment: Vital Signs: Vital Signs Date Time Temp Pulse Resp B/P (MAP) Pulse Ox O2 Delivery O2 Flow Rate FiO2 02/26/17 19:12 100 02/26/17 16:17 97.8 60 20 103/49 (67) Room Air I&O Intake and Output 02/27/17 06:59 Intake Total 1080 ml Balance 1080 ml Intake Oral 1080 ml Labs: Laboratory Tests Test 02/26/17 09:15 White Blood Count 10.1 x10^3/uL (4.0-11.0) # Red Blood Count 3.20 x10^6/uL (3.50-5.40) L Hemoglobin 11.2 g/dL (12.0-15.5) L Hematocrit 32.7 % (36.0-47.0) L Mean Corpuscular Volume 102 fL (79-100) H Mean Corpuscular Hemoglobin 35 pg (25-35) Mean Corpuscular Hemoglobin Concent 34 g/dL (31-37) Red Cell Distribution Width 13.1 % (11.5-14.5) Platelet Count 255 x10^3/uL (140-400) Sodium Level 139 mmol/L (136-145) Potassium Level 4.1 mmol/L (3.5-5.1) Chloride Level 103 mmol/L (98-107) Carbon Dioxide Level 31 mmol/L (21-32) Anion Gap 5 (6-14) L Blood Urea Nitrogen 15 mg/dL (7-20) Creatinine 0.7 mg/dL (0.6-1.0) Estimated GFR (Cockcroft-Gault) 81.4 BUN/Creatinine Ratio 21 (6-20) H Glucose Level 182 mg/dL (70-99) H Calcium Level 8.5 mg/dL (8.5-10.1) Total Bilirubin 0.3 mg/dL (0.2-1.0) Aspartate Amino Transferase (AST) 12 U/L (15-37) L Alanine Aminotransferase (ALT) 21 U/L (14-59) Alkaline Phosphatase 116 U/L (46-116) Total Protein 6.2 g/dL (6.4-8.2) L Albumin 3.1 g/dL (3.4-5.0) L Albumin/Globulin Ratio 1.0 (1.0-1.7) [place] Level 0.8 mmol/L (0.6-1.2) [place] Last Dose Date 02/25/17 [place] Last Dose Time 2100 Current Medications: Meds: Current Medications Olanzapine (ZyPREXA ZYDIS) 10 mg STK-MED ONCE .ROUTE ; Start 01/25/17 at 04:06; Stop 01/25/17 at 04:07; Status DC Olanzapine (ZyPREXA ZYDIS) 10 mg 1X STAT PO Last administered on 01/25/17 04: 07; Start 01/25/17 at 04:03; Stop 01/25/17 at 06:26; Status DC Nicotine (Nicoderm Cq 21mg) 1 patch DAILY TD Last administered on 02/02/17 08: 30; Start 01/25/17 at 09:00; Stop 02/11/17 at 16:38; Status DC Clonazepam (KlonoPIN) 0.5 mg TID PO Last administered on 02/21/17 08:01; Start 01/25/17 at 09:00; Stop 02/21/17 at 12:11; Status DC Divalproex Sodium (Depakote Sprinkles) 125 mg TID PO Last administered on 14:16; Start 01/25/17 at 09:00; Stop 01/28/17 at 18:41; Status DC Lorazepam (Ativan) 0.5 mg PRN Q4HRS PRN PO ANXIETY / AGITATION; Start 01/25/17 at 05:30 Risperidone (RisperDAL) 3 mg DAILY16 PO Last administered on 02/08/17 16:00; Start 01/25/17 at 16:00; Stop 02/08/17 at 18:42; Status DC Temazepam (Restoril) 30 mg PRN QHS PRN PO INSOMNIA; Start 01/25/17 at 05:30; Stop 01/25/17 at 06:31; Status DC Trazodone HCl (Desyrel) 100 mg PRN QHS PRN PO INSOMNIA; Start 01/25/17 at 05:30 ; Stop 01/25/17 at 11:36; Status DC Trazodone HCl (Desyrel) 100 mg QHS PO ; Start 01/25/17 at 21:00; Stop 01/25/17 at 21:00; Status DC Temazepam (Restoril) 30 mg PRN QHS PRN PO INSOMNIA Last administered on 19:22; Start 01/25/17 at 06:31; Stop 01/29/17 at 18:50; Status DC Acetaminophen (Tylenol) 650 mg PRN Q6HRS PRN PO PAIN / TEMP Last administered on 02/07/17 04:26; Start 01/25/17 at 06:45 Aspirin (Aspirin Enteric Coated) 81 mg DAILY PO Last administered on 02/26/17 08:35; Start 01/25/17 at 09:00 Bisacodyl (Dulcolax Tab) 10 mg PRN DAILY PRN PO CONSTIPATION Last administered on 02/18/17 20:45; Start 01/25/17 at 06:45 Bisacodyl (Dulcolax Supp) 10 mg PRN DAILY PRN RC CONSTIPATION; Start 01/25/17 at 06:45 Furosemide (Lasix) 40 mg DAILY PO Last administered on 01/28/17 05:15; Start 01/25/17 at 09:00; Stop 01/29/17 at 03:25; Status DC Guaifenesin (Robitussin Dm) 10 ml PRN Q4HRS PRN PO COUGH; Start 01/25/17 at 06: 45 Albuterol/ Ipratropium (Duoneb) 3 ml PRN Q4HRS PRN NEB SHORTNESS OF BREATH; Start 01/25/17 at 06:45 Levothyroxine Sodium (Synthroid) 100 mcg DAILY06 PO Last administered on 05:11; Start 01/25/17 at 07:00 Lisinopril (Prinivil) 5 mg DAILY PO Last administered on 02/19/17 07:59; Start 01/25/17 at 09:00; Stop 02/19/17 at 18:43; Status DC Al Hydroxide/Mg Hydroxide (Mylanta Plus Xs) 30 ml PRN Q4HRS PRN PO DYSPEPSIA; Start 01/25/17 at 06:45 Metformin HCl (Glucophage) 500 mg BIDWMEALS PO Last administered on 02/03/17 08 :13; Start 01/25/17 at 08:00; Stop 02/03/17 at 15:41; Status DC Miconazole Nitrate (Monistat-Derm) 1 gerson BID TP ; Start 01/25/17 at 09:00; Stop 01/25/17 at 09:00; Status DC Nitroglycerin (Nitrostat) 0.4 mg PRN Q5MIN PRN SL CHEST PAIN; Start 01/25/17 at 06:45 Polyethylene Glycol (miraLAX) 17 gm QODAY PO Last administered on 02/16/17 08: 45; Start 01/25/17 at 09:00; Stop 02/17/17 at 07:55; Status DC Senna/Docusate Sodium (Senna Plus) 1 tab QHS PO Last administered on 02/26/17 20:41; Start 01/25/17 at 21:00 Tramadol HCl (Ultram) 25 mg PRN Q6HRS PRN PO PAIN Last administered on 17:43; Start 01/25/17 at 06:45 Acetaminophen (Tylenol) 650 mg TID PO Last administered on 02/24/17 07:56; Start 01/25/17 at 09:00; Stop 02/24/17 at 13:30; Status DC Atorvastatin Calcium (Lipitor) 40 mg QHS PO Last administered on 02/26/17 20: 41; Start 01/25/17 at 21:00 Albuterol Sulfate (Ventolin) 2.5 mg Q6H NEB ; Start 01/25/17 at 07:30; Stop at 17:24; Status DC Lactulose 20 gm PRN DAILY PRN PO CONSTIPATION; Start 01/25/17 at 07:30 Budesonide (Pulmicort) 0.5 mg RTBID NEB ; Start 01/25/17 at 08:00; Stop at 17:24; Status DC Olanzapine (ZyPREXA ZYDIS) 2.5 mg PRN Q2HR PRN PO ANXIETY / AGITATION; Start at 08:00 Lorazepam (Ativan) 1 mg DAILY IM Last administered on 01/27/17 09:03; Start at 11:00; Stop 01/27/17 at 18:25; Status DC Haloperidol Lactate (Haldol) 5 mg DAILY IM Last administered on 01/27/17 08:58 ; Start 01/25/17 at 11:00; Stop 01/27/17 at 18:25; Status DC Risperidone (RisperDAL CONSTA) 25 mg Q2WKS IM Last administered on 02/23/17 12 :50; Start 01/26/17 at 09:00; Stop 02/23/17 at 18:39; Status DC Risperidone (RisperDAL) 3 mg 1X ONCE SL Last administered on 01/26/17 16:15; Start 01/26/17 at 16:00; Stop 01/26/17 at 16:02; Status DC Albuterol Sulfate (Ventolin) 2.5 mg PRN Q6HRS PRN NEB SHORTNESS OF BREATH; Start 01/28/17 at 13:30 Budesonide (Pulmicort) 0.5 mg PRN BID PRN NEB SHORTNESS OF BREATH; Start at 08:00 Haloperidol Lactate (Haldol) 5 mg DAILY IM Last administered on 01/30/17 11:07 ; Start 01/28/17 at 09:00; Stop 01/30/17 at 18:32; Status DC Olanzapine (ZyPREXA ZYDIS) 5 mg PRN Q2HR PRN PO ANXIETY / AGITATION; Start at 18:30 Lorazepam (Ativan) 1 mg DAILY IM Last administered on 01/30/17 11:07; Start at 09:00; Stop 01/30/17 at 18:32; Status DC Valproic Acid (Depakene) 375 mg HS PO ; Start 01/29/17 at 21:00; Stop 01/29/17 at 21:00; Status DC Furosemide (Lasix) 40 mg DAILY06 PO Last administered on 02/19/17 05:44; Start 01/29/17 at 06:00; Stop 02/19/17 at 18:43; Status DC Valproic Acid (Depakene) 375 mg BID PO Last administered on 02/03/17 08:23; Start 01/29/17 at 21:00; Stop 02/03/17 at 18:22; Status DC Temazepam (Restoril) 30 mg QHS PO Last administered on 02/20/17 20:26; Start 01/29/17 at 21:00; Stop 02/22/17 at 19:09; Status DC Potassium Chloride (Klor-Con) 20 meq BID PO ; Start 01/30/17 at 21:00; Stop at 05:33; Status DC Magnesium Hydroxide (Milk Of Magnesia) 2,400 mg PRN DAILY PRN PO CONSTIPATION; Start 01/30/17 at 16:30; Status UNV Magnesium Hydroxide (Milk Of Magnesia) 2,400 mg PRN DAILY PRN PO CONSTIPATION Last administered on 02/21/17 21:57; Start 01/30/17 at 16:45 Potassium Chloride (Klor-Con) 20 meq BID66 PO Last administered on 02/15/17 05 :46; Start 01/31/17 at 06:00; Stop 02/15/17 at 16:58; Status DC Metformin HCl (Glucophage) 250 mg BIDWMEALS PO Last administered on 02/26/17 17:32; Start 02/03/17 at 17:00 Cyanocobalamin (Vitamin B-12) 1,000 mcg DAILY PO Last administered on 08:35; Start 02/04/17 at 09:00 Valproic Acid (Depakene) 500 mg BID PO Last administered on 02/07/17 08:01; Start 02/03/17 at 21:00; Stop 02/07/17 at 15:17; Status DC Valproic Acid (Depakene) 750 mg BID PO Last administered on 02/19/17 08:02; Start 02/07/17 at 21:00; Stop 02/19/17 at 13:14; Status DC Trazodone HCl (Desyrel) 100 mg QHS PO Last administered on 02/26/17 20:41; Start 02/07/17 at 21:00 Trazodone HCl (Desyrel) 100 mg PRN QHS PRN PO INSOMNIA Last administered on 19:16; Start 02/07/17 at 19:00 Risperidone (RisperDAL) 2 mg DAILY16 PO Last administered on 02/09/17 16:44; Start 02/09/17 at 16:00; Stop 02/09/17 at 18:47; Status DC [place] Carbonate (Lithobid) 300 mg HS PO Last administered on 02/14/17 20:09 ; Start 02/08/17 at 21:00; Stop 02/15/17 at 18:52; Status DC Risperidone (RisperDAL) 1 mg DAILY16 PO Last administered on 02/26/17 17:07; Start 02/11/17 at 16:00 [place] Carbonate (Lithobid) 150 mg DAILY PO Last administered on 02/13/17 08: 41; Start 02/13/17 at 09:00; Stop 02/14/17 at 10:24; Status DC Mirtazapine (Remeron) 7.5 mg QHS PO Last administered on 02/25/17 19:14; Start 02/13/17 at 21:00; Stop 02/26/17 at 14:39; Status DC [place] Carbonate 150 mg TID PO Last administered on 02/15/17 13:35; Start at 14:00; Stop 02/15/17 at 18:52; Status DC Potassium Chloride (Klor-Con) 20 meq DAILY PO ; Start 02/16/17 at 09:00; Stop at 09:00; Status DC [place] Carbonate 150 mg DAILY PO Last administered on 02/26/17 08:35; Start 02/16/17 at 09:00 [place] Carbonate (Lithobid) 300 mg HS PO Last administered on 02/26/17 20:41 ; Start 02/16/17 at 21:00 Potassium Chloride (Klor-Con) 20 meq DAILY06 PO Last administered on 02/26/17 05:11; Start 02/16/17 at 06:00 Polyethylene Glycol (miraLAX) 17 gm DAILY PO Last administered on 02/26/17 08: 35; Start 02/17/17 at 09:00 Magnesium Citrate (Citroma) 296 ml 1X ONCE PO ; Start 02/17/17 at 08:10; Stop 02/17/17 at 08:11; Status DC Furosemide (Lasix) 20 mg DAILY06 PO Last administered on 02/26/17 05:11; Start 02/20/17 at 06:00 Clonazepam (KlonoPIN) 0.25 mg TID PO Last administered on 02/26/17 20:49; Start 02/21/17 at 14:00 Temazepam (Restoril) 30 mg PRN QHS PRN PO INSOMNIA; Start 02/22/17 at 19:15 Mirtazapine (Remeron Valeri-Tab) 15 mg QHS PO Last administered on 02/26/17 20:48 ; Start 02/26/17 at 21:00 Active Scripts Active Reported Tylenol (Acetaminophen) 325 Mg Tablet 650 Mg PO PRN Q6HRS PRN Arthritis Pain (Acetaminophen) 650 Mg Tablet.er 650 Mg PO BID Trazodone Hcl 100 Mg Tablet 100 Mg PO PRN QHS PRN Trazodone Hcl 100 Mg Tablet 100 Mg PO QHS Tramadol Hcl (Tramadol HCl) 50 Mg Tablet 25 Mg PO PRN Q6HRS PRN Synthroid (Levothyroxine Sodium) 100 Mcg Tablet 100 Mcg PO DAILY07 Senna S Tablet (Sennosides/Docusate Sodium) 1 Each Tablet 1 Tab PO QHS Risperdal (Risperidone) 1 Mg/1 Ml Solution 3 Mg PO DAILY16 Restoril (Temazepam) 30 Mg Capsule 30 Mg PO PRN QHS PRN Nitrostat (Nitroglycerin) 0.4 Mg Tab.subl 0.4 Mg SL PRN Q5MIN PRN Miralax (Polyethylene Glycol 3350) 119 Gm Powder 17 Gm PO QODAY Antacid Suspension (Mag Hydrox/Al Hydrox/Simeth) 355 Ml Oral.susp 30 Ml PO PRN Q4HRS PRN Lisinopril 5 Mg Tablet 5 Mg PO DAILY Lipitor (Atorvastatin Calcium) 40 Mg Tablet 40 Mg PO QHS Lasix (Furosemide) 40 Mg Tablet 40 Mg PO DAILY Lactulose 10 Gm/15 Ml Solution 20 Gm PO PRN DAILY PRN Klonopin (Clonazepam) 0.5 Mg Tablet 0.5 Mg PO TID Glucophage (Metformin Hcl) 500 Mg Tablet 500 Mg PO BIDWMEALS Josie-Tussin Dm Syrup (Guaifenesin/Dextromethorphan) 473 Ml Syrup 10 Ml PO PRN Q4HRS PRN Duoneb 0.5-3(2.5) Mg/3 Ml (Albuterol/Ipratropium) 3 Ml Ampul.neb 3 Ml NEB PRN Q4HRS PRN Depakote Sprinkle (Divalproex Sodium) 125 Mg Cap.sprink 125 Mg PO TID Bisacodyl 10 Mg Supp.rect 10 Mg RC PRN DAILY PRN Bisacodyl 5 Mg Tablet.dr 10 Mg PO PRN DAILY PRN [place] Antifungal (Miconazole Nitrate) 142 Gm Cream..g. 1 [place]erson TP BID Ativan (Lorazepam) 0.5 Mg Tablet 0.5 Mg PO PRN Q4HRS PRN Aspirin Ec (Aspirin) 81 Mg Tablet.dr 81 Mg PO DAILY Advair Hfa 115-21 Mcg Inhaler (Fluticasone/Salmeterol) 12 Gm Hfa.aer.ad 2 Puff IH BID Diagnosis: Problems: (1) Schizophrenia, acute (2) Psychosis (3) Anxiety disorder (4) Bipolar affective, mixed, sev w/ psych (5) Impulse control disorder (6) Schizoaffective disorder, chronic condition with acute exacerbation ALBERT ROSE MD Feb 26, 2017 20:52
[2017-02-27] MEDS: LEVOTHYROXINE 100 MCG TABLET PO SCH (05:08)
[2017-02-27] MEDS: FUROSEMIDE 20 MG TABLET PO SCH (05:08)
[2017-02-27] MEDS: POTASSIUM CHLORIDE 20 MEQ TABLET.ER. PO SCH (05:08)
[2017-02-27 05:17] VITALS: BP 110/60
[2017-02-27] MEDS: metFORMIN 500 MG TABLET PO SCH ×2 (08:20→16:44)
[2017-02-27] MEDS: CYANOCOBALAMIN (VITAMIN B-12) 1,000 MCG TABLET. PO SCH (08:20)
[2017-02-27] MEDS: ASPIRIN ENTERIC COATED 81 MG TABLET.DR. PO SCH (08:20)
[2017-02-27] MEDS: POLYETHYLENE GLYCOL 3350 17 GM PACKET. PO SCH (08:21)
[2017-02-27] MEDS: LITHIUM CARBONATE 150 MG CAPSULE. PO SCH (08:21)
[2017-02-27] MEDS: clonazePAM 0.5 MG TABLET PO SCH ×3 (08:23→21:00)
--- NOTE | 2017-02-27 09:28 | PN ---
DATE: 02/25/2017 PSYCHIATRIC PROGRESS NOTE This late entry 02/25/2017, covers elements not covered in my initial note. SUBJECTIVE: The patient was seen individually evening of 02/25/2017. She has been much more awake, alert, little more demanding and intrusive, wanting to call Natalia remove the leg wraps. We will check a CBC, CMP, lithium level 02/26/2017. REVIEW OF SYSTEMS: Ambulation impaired. Bilateral pedal edema. No CV, , eye, ENT system symptoms on review. MENTAL STATUS EXAM: Oriented to herself and situation. Speech, often responses monosyllabic, but appropriate. Abstraction fair. Computation impaired. Language function intact. Mood and affect, lability is improved. LABORATORY DATA: Reviewed. IMPRESSION: Unchanged from initial note. PLAN: Continue current psychotropics. Check lithium level morning of 02/26/2017, reviewed drug interactions, risk/benefit ratio favors no further change. MAN Hero ROSE MD DR: [facility] JOB#: [id number] / [id number]
[2017-02-27] MEDS ORDERED: POLYVINYL ALCOHOL 1.4% OPHTH SOLUTION 15ML BOTTLE. OU PRN (15:00)
[2017-02-27 16:31] VITALS: BP 121/45
[2017-02-27] MEDS: risperiDONE ORAL 1 MG/ML 30ml BOTTLE. PO SCH (16:44)
[2017-02-27] MEDS: traMADol 50 MG TABLET PO PRN (16:45)
[2017-02-27] MEDS: MIRTAZAPINE 15 MG TAB.RAPDIS PO SCH (20:52)
[2017-02-27] MEDS: SENNOSIDES/DOCUSATE 8.6/50MG TABLET. PO SCH (20:52)
[2017-02-27] MEDS: LITHIUM CARBONATE ER 300 MG TABLET.ER PO SCH (20:52)
[2017-02-27] MEDS: ATORVASTATIN CALCIUM 20 MG TABLET PO SCH (20:52)
[2017-02-27] MEDS: traZODone 100 MG TABLET. PO SCH (20:52)
--- NOTE | 2017-02-27 22:22 | PDOC ---
Exam Tra Demential Exam: Tra Note: Please also refer to the separate dictated note~for this date of service dictated separately.~Patient seen individually. Discussed the patient with Nursing staff reviewed the chart.~Reviewed interim history and current functioning. Reviewed vital signs,~Labs/ Radiology~and current medications noted below. Continue current treatment with the changes noted in the dictated addendum note Assessment: Vital Signs: Vital Signs Date Time Temp Pulse Resp B/P (MAP) Pulse Ox O2 Delivery O2 Flow Rate FiO2 02/27/17 17:49 99 02/27/17 16:31 97.4 51 24 121/45 (70) 02/26/17 16:17 Room Air I&O Intake and Output 02/28/17 07:00 Intake Total 1320 ml Balance 1320 ml Intake Oral 1320 ml Current Medications: Meds: Current Medications Olanzapine (ZyPREXA ZYDIS) 10 mg STK-MED ONCE .ROUTE ; Start 01/25/17 at 04:06; Stop 01/25/17 at 04:07; Status DC Olanzapine (ZyPREXA ZYDIS) 10 mg 1X STAT PO Last administered on 01/25/17 04: 07; Start 01/25/17 at 04:03; Stop 01/25/17 at 06:26; Status DC Nicotine (Nicoderm Cq 21mg) 1 patch DAILY TD Last administered on 02/02/17 08: 30; Start 01/25/17 at 09:00; Stop 02/11/17 at 16:38; Status DC Clonazepam (KlonoPIN) 0.5 mg TID PO Last administered on 02/21/17 08:01; Start 01/25/17 at 09:00; Stop 02/21/17 at 12:11; Status DC Divalproex Sodium (Depakote Sprinkles) 125 mg TID PO Last administered on 14:16; Start 01/25/17 at 09:00; Stop 01/28/17 at 18:41; Status DC Lorazepam (Ativan) 0.5 mg PRN Q4HRS PRN PO ANXIETY / AGITATION; Start 01/25/17 at 05:30 Risperidone (RisperDAL) 3 mg DAILY16 PO Last administered on 02/08/17 16:00; Start 01/25/17 at 16:00; Stop 02/08/17 at 18:42; Status DC Temazepam (Restoril) 30 mg PRN QHS PRN PO INSOMNIA; Start 01/25/17 at 05:30; Stop 01/25/17 at 06:31; Status DC Trazodone HCl (Desyrel) 100 mg PRN QHS PRN PO INSOMNIA; Start 01/25/17 at 05:30 ; Stop 01/25/17 at 11:36; Status DC Trazodone HCl (Desyrel) 100 mg QHS PO ; Start 01/25/17 at 21:00; Stop 01/25/17 at 21:00; Status DC Temazepam (Restoril) 30 mg PRN QHS PRN PO INSOMNIA Last administered on 19:22; Start 01/25/17 at 06:31; Stop 01/29/17 at 18:50; Status DC Acetaminophen (Tylenol) 650 mg PRN Q6HRS PRN PO PAIN / TEMP Last administered on 02/07/17 04:26; Start 01/25/17 at 06:45 Aspirin (Aspirin Enteric Coated) 81 mg DAILY PO Last administered on 02/27/17 08:20; Start 01/25/17 at 09:00 Bisacodyl (Dulcolax Tab) 10 mg PRN DAILY PRN PO CONSTIPATION Last administered on 02/18/17 20:45; Start 01/25/17 at 06:45 Bisacodyl (Dulcolax Supp) 10 mg PRN DAILY PRN RC CONSTIPATION; Start 01/25/17 at 06:45 Furosemide (Lasix) 40 mg DAILY PO Last administered on 01/28/17 05:15; Start 01/25/17 at 09:00; Stop 01/29/17 at 03:25; Status DC Guaifenesin (Robitussin Dm) 10 ml PRN Q4HRS PRN PO COUGH; Start 01/25/17 at 06: 45 Albuterol/ Ipratropium (Duoneb) 3 ml PRN Q4HRS PRN NEB SHORTNESS OF BREATH; Start 01/25/17 at 06:45 Levothyroxine Sodium (Synthroid) 100 mcg DAILY06 PO Last administered on 05:08; Start 01/25/17 at 07:00 Lisinopril (Prinivil) 5 mg DAILY PO Last administered on 02/19/17 07:59; Start 01/25/17 at 09:00; Stop 02/19/17 at 18:43; Status DC Al Hydroxide/Mg Hydroxide (Mylanta Plus Xs) 30 ml PRN Q4HRS PRN PO DYSPEPSIA; Start 01/25/17 at 06:45 Metformin HCl (Glucophage) 500 mg BIDWMEALS PO Last administered on 02/03/17 08 :13; Start 01/25/17 at 08:00; Stop 02/03/17 at 15:41; Status DC Miconazole Nitrate (Monistat-Derm) 1 gerson BID TP ; Start 01/25/17 at 09:00; Stop 01/25/17 at 09:00; Status DC Nitroglycerin (Nitrostat) 0.4 mg PRN Q5MIN PRN SL CHEST PAIN; Start 01/25/17 at 06:45 Polyethylene Glycol (miraLAX) 17 gm QODAY PO Last administered on 02/16/17 08: 45; Start 01/25/17 at 09:00; Stop 02/17/17 at 07:55; Status DC Senna/Docusate Sodium (Senna Plus) 1 tab QHS PO Last administered on 02/27/17 20:52; Start 01/25/17 at 21:00 Tramadol HCl (Ultram) 25 mg PRN Q6HRS PRN PO PAIN Last administered on 16:45; Start 01/25/17 at 06:45 Acetaminophen (Tylenol) 650 mg TID PO Last administered on 02/24/17 07:56; Start 01/25/17 at 09:00; Stop 02/24/17 at 13:30; Status DC Atorvastatin Calcium (Lipitor) 40 mg QHS PO Last administered on 02/27/17 20: 52; Start 01/25/17 at 21:00 Albuterol Sulfate (Ventolin) 2.5 mg Q6H NEB ; Start 01/25/17 at 07:30; Stop at 17:24; Status DC Lactulose 20 gm PRN DAILY PRN PO CONSTIPATION; Start 01/25/17 at 07:30 Budesonide (Pulmicort) 0.5 mg RTBID NEB ; Start 01/25/17 at 08:00; Stop at 17:24; Status DC Olanzapine (ZyPREXA ZYDIS) 2.5 mg PRN Q2HR PRN PO ANXIETY / AGITATION; Start at 08:00 Lorazepam (Ativan) 1 mg DAILY IM Last administered on 01/27/17 09:03; Start at 11:00; Stop 01/27/17 at 18:25; Status DC Haloperidol Lactate (Haldol) 5 mg DAILY IM Last administered on 01/27/17 08:58 ; Start 01/25/17 at 11:00; Stop 01/27/17 at 18:25; Status DC Risperidone (RisperDAL CONSTA) 25 mg Q2WKS IM Last administered on 02/23/17 12 :50; Start 01/26/17 at 09:00; Stop 02/23/17 at 18:39; Status DC Risperidone (RisperDAL) 3 mg 1X ONCE SL Last administered on 01/26/17 16:15; Start 01/26/17 at 16:00; Stop 01/26/17 at 16:02; Status DC Albuterol Sulfate (Ventolin) 2.5 mg PRN Q6HRS PRN NEB SHORTNESS OF BREATH; Start 01/28/17 at 13:30 Budesonide (Pulmicort) 0.5 mg PRN BID PRN NEB SHORTNESS OF BREATH; Start at 08:00 Haloperidol Lactate (Haldol) 5 mg DAILY IM Last administered on 01/30/17 11:07 ; Start 01/28/17 at 09:00; Stop 01/30/17 at 18:32; Status DC Olanzapine (ZyPREXA ZYDIS) 5 mg PRN Q2HR PRN PO ANXIETY / AGITATION; Start at 18:30 Lorazepam (Ativan) 1 mg DAILY IM Last administered on 01/30/17 11:07; Start at 09:00; Stop 01/30/17 at 18:32; Status DC Valproic Acid (Depakene) 375 mg HS PO ; Start 01/29/17 at 21:00; Stop 01/29/17 at 21:00; Status DC Furosemide (Lasix) 40 mg DAILY06 PO Last administered on 02/19/17 05:44; Start 01/29/17 at 06:00; Stop 02/19/17 at 18:43; Status DC Valproic Acid (Depakene) 375 mg BID PO Last administered on 02/03/17 08:23; Start 01/29/17 at 21:00; Stop 02/03/17 at 18:22; Status DC Temazepam (Restoril) 30 mg QHS PO Last administered on 02/20/17 20:26; Start 01/29/17 at 21:00; Stop 02/22/17 at 19:09; Status DC Potassium Chloride (Klor-Con) 20 meq BID PO ; Start 01/30/17 at 21:00; Stop at 05:33; Status DC Magnesium Hydroxide (Milk Of Magnesia) 2,400 mg PRN DAILY PRN PO CONSTIPATION; Start 01/30/17 at 16:30; Status UNV Magnesium Hydroxide (Milk Of Magnesia) 2,400 mg PRN DAILY PRN PO CONSTIPATION Last administered on 02/21/17 21:57; Start 01/30/17 at 16:45 Potassium Chloride (Klor-Con) 20 meq BID66 PO Last administered on 02/15/17 05 :46; Start 01/31/17 at 06:00; Stop 02/15/17 at 16:58; Status DC Metformin HCl (Glucophage) 250 mg BIDWMEALS PO Last administered on 02/27/17 16:44; Start 02/03/17 at 17:00 Cyanocobalamin (Vitamin B-12) 1,000 mcg DAILY PO Last administered on 08:20; Start 02/04/17 at 09:00 Valproic Acid (Depakene) 500 mg BID PO Last administered on 02/07/17 08:01; Start 02/03/17 at 21:00; Stop 02/07/17 at 15:17; Status DC Valproic Acid (Depakene) 750 mg BID PO Last administered on 02/19/17 08:02; Start 02/07/17 at 21:00; Stop 02/19/17 at 13:14; Status DC Trazodone HCl (Desyrel) 100 mg QHS PO Last administered on 02/27/17 20:52; Start 02/07/17 at 21:00 Trazodone HCl (Desyrel) 100 mg PRN QHS PRN PO INSOMNIA Last administered on 19:16; Start 02/07/17 at 19:00 Risperidone (RisperDAL) 2 mg DAILY16 PO Last administered on 02/09/17 16:44; Start 02/09/17 at 16:00; Stop 02/09/17 at 18:47; Status DC Lexa Carbonate (Lithobid) 300 mg HS PO Last administered on 02/14/17 20:09 ; Start 02/08/17 at 21:00; Stop 02/15/17 at 18:52; Status DC Risperidone (RisperDAL) 1 mg DAILY16 PO Last administered on 02/27/17 16:44; Start 02/11/17 at 16:00 Lexa Carbonate (Lithobid) 150 mg DAILY PO Last administered on 02/13/17 08: 41; Start 02/13/17 at 09:00; Stop 02/14/17 at 10:24; Status DC Mirtazapine (Remeron) 7.5 mg QHS PO Last administered on 02/25/17 19:14; Start 02/13/17 at 21:00; Stop 02/26/17 at 14:39; Status DC Lexa Carbonate 150 mg TID PO Last administered on 02/15/17 13:35; Start at 14:00; Stop 02/15/17 at 18:52; Status DC Potassium Chloride (Klor-Con) 20 meq DAILY PO ; Start 02/16/17 at 09:00; Stop at 09:00; Status DC Lexa Carbonate 150 mg DAILY PO Last administered on 02/27/17 08:21; Start 02/16/17 at 09:00 Lexa Carbonate (Lithobid) 300 mg HS PO Last administered on 02/27/17 20:52 ; Start 02/16/17 at 21:00 Potassium Chloride (Klor-Con) 20 meq DAILY06 PO Last administered on 02/27/17 05:08; Start 02/16/17 at 06:00 Polyethylene Glycol (miraLAX) 17 gm DAILY PO Last administered on 02/27/17 08: 21; Start 02/17/17 at 09:00 Magnesium Citrate (Citroma) 296 ml 1X ONCE PO ; Start 02/17/17 at 08:10; Stop 02/17/17 at 08:11; Status DC Furosemide (Lasix) 20 mg DAILY06 PO Last administered on 02/27/17 05:08; Start 02/20/17 at 06:00 Clonazepam (KlonoPIN) 0.25 mg TID PO Last administered on 02/27/17 21:00; Start 02/21/17 at 14:00 Temazepam (Restoril) 30 mg PRN QHS PRN PO INSOMNIA; Start 02/22/17 at 19:15 Mirtazapine (Remeron Valeri-Tab) 15 mg QHS PO Last administered on 02/27/17 20:52 ; Start 02/26/17 at 21:00 Artificial Tears (Artificial Tears) 1 drop PRN Q1HR PRN OU DRY EYE Last administered on 02/27/17 18:15; Start 02/27/17 at 15:00 Active Scripts Active Reported Tylenol (Acetaminophen) 325 Mg Tablet 650 Mg PO PRN Q6HRS PRN Arthritis Pain (Acetaminophen) 650 Mg Tablet.er 650 Mg PO BID Trazodone Hcl 100 Mg Tablet 100 Mg PO PRN QHS PRN Trazodone Hcl 100 Mg Tablet 100 Mg PO QHS Tramadol Hcl (Tramadol HCl) 50 Mg Tablet 25 Mg PO PRN Q6HRS PRN Synthroid (Levothyroxine Sodium) 100 Mcg Tablet 100 Mcg PO DAILY07 Senna S Tablet (Sennosides/Docusate Sodium) 1 Each Tablet 1 Tab PO QHS Risperdal (Risperidone) 1 Mg/1 Ml Solution 3 Mg PO DAILY16 Restoril (Temazepam) 30 Mg Capsule 30 Mg PO PRN QHS PRN Nitrostat (Nitroglycerin) 0.4 Mg Tab.subl 0.4 Mg SL PRN Q5MIN PRN Miralax (Polyethylene Glycol 3350) 119 Gm Powder 17 Gm PO QODAY Antacid Suspension (Mag Hydrox/Al Hydrox/Simeth) 355 Ml Oral.susp 30 Ml PO PRN Q4HRS PRN Lisinopril 5 Mg Tablet 5 Mg PO DAILY Lipitor (Atorvastatin Calcium) 40 Mg Tablet 40 Mg PO QHS Lasix (Furosemide) 40 Mg Tablet 40 Mg PO DAILY Lactulose 10 Gm/15 Ml Solution 20 Gm PO PRN DAILY PRN Klonopin (Clonazepam) 0.5 Mg Tablet 0.5 Mg PO TID Glucophage (Metformin Hcl) 500 Mg Tablet 500 Mg PO BIDWMEALS Josie-Tussin Dm Syrup (Guaifenesin/Dextromethorphan) 473 Ml Syrup 10 Ml PO PRN Q4HRS PRN Duoneb 0.5-3(2.5) Mg/3 Ml (Albuterol/Ipratropium) 3 Ml Ampul.neb 3 Ml NEB PRN Q4HRS PRN Depakote Sprinkle (Divalproex Sodium) 125 Mg Cap.sprink 125 Mg PO TID Bisacodyl 10 Mg Supp.rect 10 Mg RC PRN DAILY PRN Bisacodyl 5 Mg Tablet.dr 10 Mg PO PRN DAILY PRN Reshma Antifungal (Miconazole Nitrate) 142 Gm Cream..g. 1 Gerson TP BID Ativan (Lorazepam) 0.5 Mg Tablet 0.5 Mg PO PRN Q4HRS PRN Aspirin Ec (Aspirin) 81 Mg Tablet.dr 81 Mg PO DAILY Advair Hfa 115-21 Mcg Inhaler (Fluticasone/Salmeterol) 12 Gm Hfa.aer.ad 2 Puff IH BID Diagnosis: Problems: (1) Psychosis (2) Schizophrenia, acute (3) Anxiety disorder (4) Bipolar affective, mixed, sev w/ psych (5) Impulse control disorder (6) Schizoaffective disorder, chronic condition with acute exacerbation ALBERT ROSE MD Feb 27, 2017 22:22
[2017-02-28] MEDS: POTASSIUM CHLORIDE 20 MEQ TABLET.ER. PO SCH (05:33)
[2017-02-28] MEDS: FUROSEMIDE 20 MG TABLET PO SCH (05:33)
[2017-02-28] MEDS: LEVOTHYROXINE 100 MCG TABLET PO SCH (05:33)
[2017-02-28 06:11] VITALS: BP 133/49
[2017-02-28] MEDS: CYANOCOBALAMIN (VITAMIN B-12) 1,000 MCG TABLET. PO SCH (08:06)
[2017-02-28] MEDS: LITHIUM CARBONATE 150 MG CAPSULE. PO SCH (08:06)
[2017-02-28] MEDS: ASPIRIN ENTERIC COATED 81 MG TABLET.DR. PO SCH (08:06)
[2017-02-28] MEDS: POLYETHYLENE GLYCOL 3350 17 GM PACKET. PO SCH (08:07)
[2017-02-28] MEDS: metFORMIN 500 MG TABLET PO SCH ×2 (08:07→17:00)
[2017-02-28] MEDS: clonazePAM 0.5 MG TABLET PO SCH ×3 (08:08→20:37)
[2017-02-28 08:29] LABS: HEMATOCRIT 31.8 % (36.0-47.0); HEMOGLOBIN 11.1 g/dL (12.0-15.5); RED BLOOD COUNT 3.14 x10^6/uL (3.50-5.40); RED CELL DISTRIBUTION WIDTH 13.6 % (11.5-14.5); WHITE BLOOD COUNT 7.1 x10^3/uL (4.0-11.0)
--- NOTE | 2017-02-28 12:49 | PN ---
DATE: 02/26/2017 This is a late entry for 02/26/2017 and covers the elements not covered in my initial note of 02/26/2017. SUBJECTIVE: The patient was staffed at a treatment team meeting with the entire team morning of 02/26/2017, seen individually the evening of 02/26/2017, slept 3-1/4 hours previous evening, remains somewhat disorganized and intrusive, but less so than before. Speech is somewhat rapid at times, but she is more compliant with her psychotropics. As I met with her individually, she was fixated on wanting a chiropractor for her lower extremity lymphedema and I processed this with her. She insisted on giving me the name and telephone number of her chiropractor and stated she wanted to be taken in a "bus" from here. REVIEW OF SYSTEMS: Ambulation impaired with a walker, bilateral lower extremity lymphedema. No CV, , pulmonary, eye, ENT system symptoms on review; vague somatic symptoms. MENTAL STATUS EXAM: Oriented to herself and situation. Speech is as noted above. Abstraction fair, computation impaired, attention span short, language function intact. Mood and affect, intermittently anxious, labile, but improved. LABORATORY DATA: Reviewed. IMPRESSION: Unchanged from initial note. PLAN: Increase Remeron to 15 mg at bedtime to help with insomnia, mood lability; continue rest of the psychotropics. Reviewed drug interactions. Risk/benefit ratio favors no further change. ALBERT ROSE MD DR: CHASE[facility] JOB#: [id number] / [id number]
[2017-02-28] MEDS: risperiDONE ORAL 1 MG/ML 30ml BOTTLE. PO SCH (17:00)
[2017-02-28 17:16] VITALS: BP 105/49
[2017-02-28] MEDS: MIRTAZAPINE 15 MG TAB.RAPDIS PO SCH (20:35)
[2017-02-28] MEDS: ATORVASTATIN CALCIUM 20 MG TABLET PO SCH (20:35)
[2017-02-28] MEDS: LITHIUM CARBONATE ER 300 MG TABLET.ER PO SCH (20:35)
[2017-02-28] MEDS: traZODone 100 MG TABLET. PO SCH (20:35)
[2017-02-28] MEDS: SENNOSIDES/DOCUSATE 8.6/50MG TABLET. PO SCH (20:35)
[2017-02-28] MEDS: traMADol 50 MG TABLET PO PRN (20:59)
--- NOTE | 2017-02-28 23:07 | PDOC ---
Exam Tra Demential Exam: Tra Note: Please also refer to the separate dictated note~for this date of service dictated separately.~Patient seen individually. Discussed the patient with Nursing staff reviewed the chart.~Reviewed interim history and current functioning. Reviewed vital signs,~Labs/ Radiology~and current medications noted below. Continue current treatment with the changes noted in the dictated addendum note Assessment: Vital Signs: Vital Signs Date Time Temp Pulse Resp B/P (MAP) Pulse Ox O2 Delivery O2 Flow Rate FiO2 02/28/17 17:16 98.8 61 20 105/49 (67) 95 02/26/17 16:17 Room Air I&O Intake and Output 03/01/17 07:00 Intake Total 1440 ml Balance 1440 ml Intake Oral 1440 ml Labs: Laboratory Tests Test 02/28/17 07:35 White Blood Count 7.1 x10^3/uL (4.0-11.0) Red Blood Count 3.14 x10^6/uL (3.50-5.40) L Hemoglobin 11.1 g/dL (12.0-15.5) L Hematocrit 31.8 % (36.0-47.0) L Mean Corpuscular Volume 101 fL (79-100) H Mean Corpuscular Hemoglobin 35 pg (25-35) Mean Corpuscular Hemoglobin Concent 35 g/dL (31-37) Red Cell Distribution Width 13.6 % (11.5-14.5) Platelet Count 268 x10^3/uL (140-400) Current Medications: Meds: Current Medications Olanzapine (ZyPREXA ZYDIS) 10 mg STK-MED ONCE .ROUTE ; Start 01/25/17 at 04:06; Stop 01/25/17 at 04:07; Status DC Olanzapine (ZyPREXA ZYDIS) 10 mg 1X STAT PO Last administered on 01/25/17 04: 07; Start 01/25/17 at 04:03; Stop 01/25/17 at 06:26; Status DC Nicotine (Nicoderm Cq 21mg) 1 patch DAILY TD Last administered on 02/02/17 08: 30; Start 01/25/17 at 09:00; Stop 02/11/17 at 16:38; Status DC Clonazepam (KlonoPIN) 0.5 mg TID PO Last administered on 02/21/17 08:01; Start 01/25/17 at 09:00; Stop 02/21/17 at 12:11; Status DC Divalproex Sodium (Depakote Sprinkles) 125 mg TID PO Last administered on 14:16; Start 01/25/17 at 09:00; Stop 01/28/17 at 18:41; Status DC Lorazepam (Ativan) 0.5 mg PRN Q4HRS PRN PO ANXIETY / AGITATION; Start 01/25/17 at 05:30 Risperidone (RisperDAL) 3 mg DAILY16 PO Last administered on 02/08/17 16:00; Start 01/25/17 at 16:00; Stop 02/08/17 at 18:42; Status DC Temazepam (Restoril) 30 mg PRN QHS PRN PO INSOMNIA; Start 01/25/17 at 05:30; Stop 01/25/17 at 06:31; Status DC Trazodone HCl (Desyrel) 100 mg PRN QHS PRN PO INSOMNIA; Start 01/25/17 at 05:30 ; Stop 01/25/17 at 11:36; Status DC Trazodone HCl (Desyrel) 100 mg QHS PO ; Start 01/25/17 at 21:00; Stop 01/25/17 at 21:00; Status DC Temazepam (Restoril) 30 mg PRN QHS PRN PO INSOMNIA Last administered on 19:22; Start 01/25/17 at 06:31; Stop 01/29/17 at 18:50; Status DC Acetaminophen (Tylenol) 650 mg PRN Q6HRS PRN PO PAIN / TEMP Last administered on 02/07/17 04:26; Start 01/25/17 at 06:45 Aspirin (Aspirin Enteric Coated) 81 mg DAILY PO Last administered on 02/28/17 08:06; Start 01/25/17 at 09:00 Bisacodyl (Dulcolax Tab) 10 mg PRN DAILY PRN PO CONSTIPATION Last administered on 02/18/17 20:45; Start 01/25/17 at 06:45 Bisacodyl (Dulcolax Supp) 10 mg PRN DAILY PRN RC CONSTIPATION; Start 01/25/17 at 06:45 Furosemide (Lasix) 40 mg DAILY PO Last administered on 01/28/17 05:15; Start 01/25/17 at 09:00; Stop 01/29/17 at 03:25; Status DC Guaifenesin (Robitussin Dm) 10 ml PRN Q4HRS PRN PO COUGH; Start 01/25/17 at 06: 45 Albuterol/ Ipratropium (Duoneb) 3 ml PRN Q4HRS PRN NEB SHORTNESS OF BREATH; Start 01/25/17 at 06:45 Levothyroxine Sodium (Synthroid) 100 mcg DAILY06 PO Last administered on 05:33; Start 01/25/17 at 07:00 Lisinopril (Prinivil) 5 mg DAILY PO Last administered on 02/19/17 07:59; Start 01/25/17 at 09:00; Stop 02/19/17 at 18:43; Status DC Al Hydroxide/Mg Hydroxide (Mylanta Plus Xs) 30 ml PRN Q4HRS PRN PO DYSPEPSIA; Start 01/25/17 at 06:45 Metformin HCl (Glucophage) 500 mg BIDWMEALS PO Last administered on 02/03/17 08 :13; Start 01/25/17 at 08:00; Stop 02/03/17 at 15:41; Status DC Miconazole Nitrate (Monistat-Derm) 1 gerson BID TP ; Start 01/25/17 at 09:00; Stop 01/25/17 at 09:00; Status DC Nitroglycerin (Nitrostat) 0.4 mg PRN Q5MIN PRN SL CHEST PAIN; Start 01/25/17 at 06:45 Polyethylene Glycol (miraLAX) 17 gm QODAY PO Last administered on 02/16/17 08: 45; Start 01/25/17 at 09:00; Stop 02/17/17 at 07:55; Status DC Senna/Docusate Sodium (Senna Plus) 1 tab QHS PO Last administered on 02/28/17 20:35; Start 01/25/17 at 21:00 Tramadol HCl (Ultram) 25 mg PRN Q6HRS PRN PO PAIN Last administered on 20:59; Start 01/25/17 at 06:45 Acetaminophen (Tylenol) 650 mg TID PO Last administered on 02/24/17 07:56; Start 01/25/17 at 09:00; Stop 02/24/17 at 13:30; Status DC Atorvastatin Calcium (Lipitor) 40 mg QHS PO Last administered on 02/28/17 20: 35; Start 01/25/17 at 21:00 Albuterol Sulfate (Ventolin) 2.5 mg Q6H NEB ; Start 01/25/17 at 07:30; Stop at 17:24; Status DC Lactulose 20 gm PRN DAILY PRN PO CONSTIPATION; Start 01/25/17 at 07:30 Budesonide (Pulmicort) 0.5 mg RTBID NEB ; Start 01/25/17 at 08:00; Stop at 17:24; Status DC Olanzapine (ZyPREXA ZYDIS) 2.5 mg PRN Q2HR PRN PO ANXIETY / AGITATION; Start at 08:00 Lorazepam (Ativan) 1 mg DAILY IM Last administered on 01/27/17 09:03; Start at 11:00; Stop 01/27/17 at 18:25; Status DC Haloperidol Lactate (Haldol) 5 mg DAILY IM Last administered on 01/27/17 08:58 ; Start 01/25/17 at 11:00; Stop 01/27/17 at 18:25; Status DC Risperidone (RisperDAL CONSTA) 25 mg Q2WKS IM Last administered on 02/23/17 12 :50; Start 01/26/17 at 09:00; Stop 02/23/17 at 18:39; Status DC Risperidone (RisperDAL) 3 mg 1X ONCE SL Last administered on 01/26/17 16:15; Start 01/26/17 at 16:00; Stop 01/26/17 at 16:02; Status DC Albuterol Sulfate (Ventolin) 2.5 mg PRN Q6HRS PRN NEB SHORTNESS OF BREATH; Start 01/28/17 at 13:30 Budesonide (Pulmicort) 0.5 mg PRN BID PRN NEB SHORTNESS OF BREATH; Start at 08:00 Haloperidol Lactate (Haldol) 5 mg DAILY IM Last administered on 01/30/17 11:07 ; Start 01/28/17 at 09:00; Stop 01/30/17 at 18:32; Status DC Olanzapine (ZyPREXA ZYDIS) 5 mg PRN Q2HR PRN PO ANXIETY / AGITATION; Start at 18:30 Lorazepam (Ativan) 1 mg DAILY IM Last administered on 01/30/17 11:07; Start at 09:00; Stop 01/30/17 at 18:32; Status DC Valproic Acid (Depakene) 375 mg HS PO ; Start 01/29/17 at 21:00; Stop 01/29/17 at 21:00; Status DC Furosemide (Lasix) 40 mg DAILY06 PO Last administered on 02/19/17 05:44; Start 01/29/17 at 06:00; Stop 02/19/17 at 18:43; Status DC Valproic Acid (Depakene) 375 mg BID PO Last administered on 02/03/17 08:23; Start 01/29/17 at 21:00; Stop 02/03/17 at 18:22; Status DC Temazepam (Restoril) 30 mg QHS PO Last administered on 02/20/17 20:26; Start 01/29/17 at 21:00; Stop 02/22/17 at 19:09; Status DC Potassium Chloride (Klor-Con) 20 meq BID PO ; Start 01/30/17 at 21:00; Stop at 05:33; Status DC Magnesium Hydroxide (Milk Of Magnesia) 2,400 mg PRN DAILY PRN PO CONSTIPATION; Start 01/30/17 at 16:30; Status UNV Magnesium Hydroxide (Milk Of Magnesia) 2,400 mg PRN DAILY PRN PO CONSTIPATION Last administered on 02/21/17 21:57; Start 01/30/17 at 16:45 Potassium Chloride (Klor-Con) 20 meq BID66 PO Last administered on 02/15/17 05 :46; Start 01/31/17 at 06:00; Stop 02/15/17 at 16:58; Status DC Metformin HCl (Glucophage) 250 mg BIDWMEALS PO Last administered on 02/28/17 17:00; Start 02/03/17 at 17:00 Cyanocobalamin (Vitamin B-12) 1,000 mcg DAILY PO Last administered on 08:06; Start 02/04/17 at 09:00 Valproic Acid (Depakene) 500 mg BID PO Last administered on 02/07/17 08:01; Start 02/03/17 at 21:00; Stop 02/07/17 at 15:17; Status DC Valproic Acid (Depakene) 750 mg BID PO Last administered on 02/19/17 08:02; Start 02/07/17 at 21:00; Stop 02/19/17 at 13:14; Status DC Trazodone HCl (Desyrel) 100 mg QHS PO Last administered on 02/28/17 20:35; Start 02/07/17 at 21:00 Trazodone HCl (Desyrel) 100 mg PRN QHS PRN PO INSOMNIA Last administered on 19:16; Start 02/07/17 at 19:00 Risperidone (RisperDAL) 2 mg DAILY16 PO Last administered on 02/09/17 16:44; Start 02/09/17 at 16:00; Stop 02/09/17 at 18:47; Status DC Ricardo Carbonate (Lithobid) 300 mg HS PO Last administered on 02/14/17 20:09 ; Start 02/08/17 at 21:00; Stop 02/15/17 at 18:52; Status DC Risperidone (RisperDAL) 1 mg DAILY16 PO Last administered on 02/28/17 17:00; Start 02/11/17 at 16:00 Ricardo Carbonate (Lithobid) 150 mg DAILY PO Last administered on 02/13/17 08: 41; Start 02/13/17 at 09:00; Stop 02/14/17 at 10:24; Status DC Mirtazapine (Remeron) 7.5 mg QHS PO Last administered on 02/25/17 19:14; Start 02/13/17 at 21:00; Stop 02/26/17 at 14:39; Status DC Ricardo Carbonate 150 mg TID PO Last administered on 02/15/17 13:35; Start at 14:00; Stop 02/15/17 at 18:52; Status DC Potassium Chloride (Klor-Con) 20 meq DAILY PO ; Start 02/16/17 at 09:00; Stop at 09:00; Status DC Ricardo Carbonate 150 mg DAILY PO Last administered on 02/28/17 08:06; Start 02/16/17 at 09:00 Ricardo Carbonate (Lithobid) 300 mg HS PO Last administered on 02/28/17 20:35 ; Start 02/16/17 at 21:00 Potassium Chloride (Klor-Con) 20 meq DAILY06 PO Last administered on 02/28/17 05:33; Start 02/16/17 at 06:00 Polyethylene Glycol (miraLAX) 17 gm DAILY PO Last administered on 02/28/17 08: 07; Start 02/17/17 at 09:00 Magnesium Citrate (Citroma) 296 ml 1X ONCE PO ; Start 02/17/17 at 08:10; Stop 02/17/17 at 08:11; Status DC Furosemide (Lasix) 20 mg DAILY06 PO Last administered on 02/28/17 05:33; Start 02/20/17 at 06:00 Clonazepam (KlonoPIN) 0.25 mg TID PO Last administered on 02/28/17 20:37; Start 02/21/17 at 14:00 Temazepam (Restoril) 30 mg PRN QHS PRN PO INSOMNIA; Start 02/22/17 at 19:15 Mirtazapine (Remeron Valeri-Tab) 15 mg QHS PO Last administered on 02/28/17 20:35 ; Start 02/26/17 at 21:00 Artificial Tears (Artificial Tears) 1 drop PRN Q1HR PRN OU DRY EYE Last administered on 02/27/17 18:15; Start 02/27/17 at 15:00 Active Scripts Active Reported Tylenol (Acetaminophen) 325 Mg Tablet 650 Mg PO PRN Q6HRS PRN Arthritis Pain (Acetaminophen) 650 Mg Tablet.er 650 Mg PO BID Trazodone Hcl 100 Mg Tablet 100 Mg PO PRN QHS PRN Trazodone Hcl 100 Mg Tablet 100 Mg PO QHS Tramadol Hcl (Tramadol HCl) 50 Mg Tablet 25 Mg PO PRN Q6HRS PRN Synthroid (Levothyroxine Sodium) 100 Mcg Tablet 100 Mcg PO DAILY07 Senna S Tablet (Sennosides/Docusate Sodium) 1 Each Tablet 1 Tab PO QHS Risperdal (Risperidone) 1 Mg/1 Ml Solution 3 Mg PO DAILY16 Restoril (Temazepam) 30 Mg Capsule 30 Mg PO PRN QHS PRN Nitrostat (Nitroglycerin) 0.4 Mg Tab.subl 0.4 Mg SL PRN Q5MIN PRN Miralax (Polyethylene Glycol 3350) 119 Gm Powder 17 Gm PO QODAY Antacid Suspension (Mag Hydrox/Al Hydrox/Simeth) 355 Ml Oral.susp 30 Ml PO PRN Q4HRS PRN Lisinopril 5 Mg Tablet 5 Mg PO DAILY Lipitor (Atorvastatin Calcium) 40 Mg Tablet 40 Mg PO QHS Lasix (Furosemide) 40 Mg Tablet 40 Mg PO DAILY Lactulose 10 Gm/15 Ml Solution 20 Gm PO PRN DAILY PRN Klonopin (Clonazepam) 0.5 Mg Tablet 0.5 Mg PO TID Glucophage (Metformin Hcl) 500 Mg Tablet 500 Mg PO BIDWMEALS Josie-Tussin Dm Syrup (Guaifenesin/Dextromethorphan) 473 Ml Syrup 10 Ml PO PRN Q4HRS PRN Duoneb 0.5-3(2.5) Mg/3 Ml (Albuterol/Ipratropium) 3 Ml Ampul.neb 3 Ml NEB PRN Q4HRS PRN Depakote Sprinkle (Divalproex Sodium) 125 Mg Cap.sprink 125 Mg PO TID Bisacodyl 10 Mg Supp.rect 10 Mg RC PRN DAILY PRN Bisacodyl 5 Mg Tablet.dr 10 Mg PO PRN DAILY PRN Reshma Antifungal (Miconazole Nitrate) 142 Gm Cream..g. 1 Gerson TP BID Ativan (Lorazepam) 0.5 Mg Tablet 0.5 Mg PO PRN Q4HRS PRN Aspirin Ec (Aspirin) 81 Mg Tablet.dr 81 Mg PO DAILY Advair Hfa 115-21 Mcg Inhaler (Fluticasone/Salmeterol) 12 Gm Hfa.aer.ad 2 Puff IH BID Diagnosis: Problems: (1) Psychosis (2) Schizophrenia, acute (3) Anxiety disorder (4) Bipolar affective, mixed, sev w/ psych (5) Impulse control disorder (6) Schizoaffective disorder, chronic condition with acute exacerbation ALBERT ROSE MD Feb 28, 2017 23:07
--- NOTE | 2017-03-01 01:09 | PN ---
DATE: 02/27/2017 This is a late entry for 02/27/2017 and covers the elements not covered in my initial note of 02/27/2017 HISTORY OF PRESENT ILLNESS: I met with the patient in the evening of 02/27/2017. Overall, per nursing report, she is doing better. She has not made any threats to harm herself, still a little pressured in her speech, but much less irritable and labile and hypergraphia is not evident. Complains of dry eyes and we will start artificial tears. REVIEW OF SYSTEMS: Impaired ambulation, leg swelling due to lymphedema. No CV, , pulmonary, eye system symptoms on review. MENTAL STATUS EXAM: I met with the patient on 3 separate occasions evening of 02/27/2017, was seen in her room and then she followed me to the hallway and then the day room. Speech coherent, abstraction fair, computation impaired, language function intact. Short memory has some deficits. No active suicidal or homicidal ideation. Attention span short. Language function intact. LABORATORY DATA: Reviewed. IMPRESSION: Unchanged from initial note. PLAN: Continue current psychotropics. Ahtanum level is 0.8. Reviewed drug interactions. Risk and benefit ratio favors no further change. ALBERT ROSE MD DR: CHASE/[facility] JOB#: [id number] / [id number]
[2017-03-01] MEDS: LEVOTHYROXINE 100 MCG TABLET PO SCH (04:32)
[2017-03-01] MEDS: POTASSIUM CHLORIDE 20 MEQ TABLET.ER. PO SCH (04:33)
[2017-03-01] MEDS: FUROSEMIDE 20 MG TABLET PO SCH (04:33)
[2017-03-01 06:14] VITALS: BP 106/50
[2017-03-01] MEDS: POLYETHYLENE GLYCOL 3350 17 GM PACKET. PO SCH (08:00)
[2017-03-01] MEDS: LITHIUM CARBONATE 150 MG CAPSULE. PO SCH (08:00)
[2017-03-01] MEDS: ASPIRIN ENTERIC COATED 81 MG TABLET.DR. PO SCH (08:01)
[2017-03-01] MEDS: CYANOCOBALAMIN (VITAMIN B-12) 1,000 MCG TABLET. PO SCH (08:01)
[2017-03-01] MEDS: metFORMIN 500 MG TABLET PO SCH ×2 (08:01→16:53)
[2017-03-01] MEDS: clonazePAM 0.5 MG TABLET PO SCH ×3 (08:02→19:41)
[2017-03-01] MEDS ORDERED: CYAN10005 PO (14:50)
[2017-03-01] MEDS ORDERED: FURO20TA3 PO (14:51)
[2017-03-01] MEDS ORDERED: LITH300C PO (14:53)
[2017-03-01] MEDS ORDERED: LITH150C PO (14:53)
[2017-03-01] MEDS ORDERED: MAGN400O7 PO (14:54)
[2017-03-01] MEDS ORDERED: MIRT15TA3 PO (14:54)
[2017-03-01] MEDS ORDERED: OLAN5TAB9 PO (14:56)
[2017-03-01] MEDS ORDERED: DEXT15DR5 EACHEYE (15:00)
[2017-03-01] MEDS ORDERED: POTA20TA4 PO (15:01)
[2017-03-01] MEDS ORDERED: RISP1TAB43 PO (15:03)
[2017-03-01 16:40] VITALS: BP 112/73
[2017-03-01] MEDS: risperiDONE ORAL 1 MG/ML 30ml BOTTLE. PO SCH (16:53)
[2017-03-01] MEDS: ATORVASTATIN CALCIUM 20 MG TABLET PO SCH (19:39)
[2017-03-01] MEDS: LITHIUM CARBONATE ER 300 MG TABLET.ER PO SCH (19:39)
[2017-03-01] MEDS: traZODone 100 MG TABLET. PO SCH (19:39)
[2017-03-01] MEDS: MIRTAZAPINE 15 MG TAB.RAPDIS PO SCH (19:39)
[2017-03-01] MEDS: SENNOSIDES/DOCUSATE 8.6/50MG TABLET. PO SCH (19:39)
--- NOTE | 2017-03-01 21:20 | PDOC ---
Exam Tra Demential Exam: Tra Note: Please also refer to the separate dictated note~for this date of service dictated separately.~Patient seen individually. Discussed the patient with Nursing staff reviewed the chart.~Reviewed interim history and current functioning. Reviewed vital signs,~Labs/ Radiology~and current medications noted below. Continue current treatment with the changes noted in the dictated addendum note Assessment: Vital Signs: Vital Signs Date Time Temp Pulse Resp B/P (MAP) Pulse Ox O2 Delivery O2 Flow Rate FiO2 03/01/17 16:40 98.3 56 20 112/73 (86) 97 03/01/17 06:14 Room Air I&O Intake and Output 03/02/17 07:00 Intake Total 1440 ml Balance 1440 ml Intake Oral 1440 ml Current Medications: Meds: Current Medications Olanzapine (ZyPREXA ZYDIS) 10 mg STK-MED ONCE .ROUTE ; Start 01/25/17 at 04:06; Stop 01/25/17 at 04:07; Status DC Olanzapine (ZyPREXA ZYDIS) 10 mg 1X STAT PO Last administered on 01/25/17 04: 07; Start 01/25/17 at 04:03; Stop 01/25/17 at 06:26; Status DC Nicotine (Nicoderm Cq 21mg) 1 patch DAILY TD Last administered on 02/02/17 08: 30; Start 01/25/17 at 09:00; Stop 02/11/17 at 16:38; Status DC Clonazepam (KlonoPIN) 0.5 mg TID PO Last administered on 02/21/17 08:01; Start 01/25/17 at 09:00; Stop 02/21/17 at 12:11; Status DC Divalproex Sodium (Depakote Sprinkles) 125 mg TID PO Last administered on 14:16; Start 01/25/17 at 09:00; Stop 01/28/17 at 18:41; Status DC Lorazepam (Ativan) 0.5 mg PRN Q4HRS PRN PO ANXIETY / AGITATION; Start 01/25/17 at 05:30 Risperidone (RisperDAL) 3 mg DAILY16 PO Last administered on 02/08/17 16:00; Start 01/25/17 at 16:00; Stop 02/08/17 at 18:42; Status DC Temazepam (Restoril) 30 mg PRN QHS PRN PO INSOMNIA; Start 01/25/17 at 05:30; Stop 01/25/17 at 06:31; Status DC Trazodone HCl (Desyrel) 100 mg PRN QHS PRN PO INSOMNIA; Start 01/25/17 at 05:30 ; Stop 01/25/17 at 11:36; Status DC Trazodone HCl (Desyrel) 100 mg QHS PO ; Start 01/25/17 at 21:00; Stop 01/25/17 at 21:00; Status DC Temazepam (Restoril) 30 mg PRN QHS PRN PO INSOMNIA Last administered on 19:22; Start 01/25/17 at 06:31; Stop 01/29/17 at 18:50; Status DC Acetaminophen (Tylenol) 650 mg PRN Q6HRS PRN PO PAIN / TEMP Last administered on 02/07/17 04:26; Start 01/25/17 at 06:45 Aspirin (Aspirin Enteric Coated) 81 mg DAILY PO Last administered on 03/01/17 08:01; Start 01/25/17 at 09:00 Bisacodyl (Dulcolax Tab) 10 mg PRN DAILY PRN PO CONSTIPATION Last administered on 02/18/17 20:45; Start 01/25/17 at 06:45 Bisacodyl (Dulcolax Supp) 10 mg PRN DAILY PRN RC CONSTIPATION; Start 01/25/17 at 06:45 Furosemide (Lasix) 40 mg DAILY PO Last administered on 01/28/17 05:15; Start 01/25/17 at 09:00; Stop 01/29/17 at 03:25; Status DC Guaifenesin (Robitussin Dm) 10 ml PRN Q4HRS PRN PO COUGH; Start 01/25/17 at 06: 45 Albuterol/ Ipratropium (Duoneb) 3 ml PRN Q4HRS PRN NEB SHORTNESS OF BREATH; Start 01/25/17 at 06:45 Levothyroxine Sodium (Synthroid) 100 mcg DAILY06 PO Last administered on 04:32; Start 01/25/17 at 07:00 Lisinopril (Prinivil) 5 mg DAILY PO Last administered on 02/19/17 07:59; Start 01/25/17 at 09:00; Stop 02/19/17 at 18:43; Status DC Al Hydroxide/Mg Hydroxide (Mylanta Plus Xs) 30 ml PRN Q4HRS PRN PO DYSPEPSIA Last administered on 03/01/17 10:57; Start 01/25/17 at 06:45 Metformin HCl (Glucophage) 500 mg BIDWMEALS PO Last administered on 02/03/17 08 :13; Start 01/25/17 at 08:00; Stop 02/03/17 at 15:41; Status DC Miconazole Nitrate (Monistat-Derm) 1 gerson BID TP ; Start 01/25/17 at 09:00; Stop 01/25/17 at 09:00; Status DC Nitroglycerin (Nitrostat) 0.4 mg PRN Q5MIN PRN SL CHEST PAIN; Start 01/25/17 at 06:45 Polyethylene Glycol (miraLAX) 17 gm QODAY PO Last administered on 02/16/17 08: 45; Start 01/25/17 at 09:00; Stop 02/17/17 at 07:55; Status DC Senna/Docusate Sodium (Senna Plus) 1 tab QHS PO Last administered on 03/01/17 19:39; Start 01/25/17 at 21:00 Tramadol HCl (Ultram) 25 mg PRN Q6HRS PRN PO PAIN Last administered on 20:59; Start 01/25/17 at 06:45 Acetaminophen (Tylenol) 650 mg TID PO Last administered on 02/24/17 07:56; Start 01/25/17 at 09:00; Stop 02/24/17 at 13:30; Status DC Atorvastatin Calcium (Lipitor) 40 mg QHS PO Last administered on 03/01/17 19: 39; Start 01/25/17 at 21:00 Albuterol Sulfate (Ventolin) 2.5 mg Q6H NEB ; Start 01/25/17 at 07:30; Stop at 17:24; Status DC Lactulose 20 gm PRN DAILY PRN PO CONSTIPATION; Start 01/25/17 at 07:30 Budesonide (Pulmicort) 0.5 mg RTBID NEB ; Start 01/25/17 at 08:00; Stop at 17:24; Status DC Olanzapine (ZyPREXA ZYDIS) 2.5 mg PRN Q2HR PRN PO ANXIETY / AGITATION; Start at 08:00 Lorazepam (Ativan) 1 mg DAILY IM Last administered on 01/27/17 09:03; Start at 11:00; Stop 01/27/17 at 18:25; Status DC Haloperidol Lactate (Haldol) 5 mg DAILY IM Last administered on 01/27/17 08:58 ; Start 01/25/17 at 11:00; Stop 01/27/17 at 18:25; Status DC Risperidone (RisperDAL CONSTA) 25 mg Q2WKS IM Last administered on 02/23/17 12 :50; Start 01/26/17 at 09:00; Stop 02/23/17 at 18:39; Status DC Risperidone (RisperDAL) 3 mg 1X ONCE SL Last administered on 01/26/17 16:15; Start 01/26/17 at 16:00; Stop 01/26/17 at 16:02; Status DC Albuterol Sulfate (Ventolin) 2.5 mg PRN Q6HRS PRN NEB SHORTNESS OF BREATH; Start 01/28/17 at 13:30 Budesonide (Pulmicort) 0.5 mg PRN BID PRN NEB SHORTNESS OF BREATH; Start at 08:00 Haloperidol Lactate (Haldol) 5 mg DAILY IM Last administered on 01/30/17 11:07 ; Start 01/28/17 at 09:00; Stop 01/30/17 at 18:32; Status DC Olanzapine (ZyPREXA ZYDIS) 5 mg PRN Q2HR PRN PO ANXIETY / AGITATION; Start at 18:30 Lorazepam (Ativan) 1 mg DAILY IM Last administered on 01/30/17 11:07; Start at 09:00; Stop 01/30/17 at 18:32; Status DC Valproic Acid (Depakene) 375 mg HS PO ; Start 01/29/17 at 21:00; Stop 01/29/17 at 21:00; Status DC Furosemide (Lasix) 40 mg DAILY06 PO Last administered on 02/19/17 05:44; Start 01/29/17 at 06:00; Stop 02/19/17 at 18:43; Status DC Valproic Acid (Depakene) 375 mg BID PO Last administered on 02/03/17 08:23; Start 01/29/17 at 21:00; Stop 02/03/17 at 18:22; Status DC Temazepam (Restoril) 30 mg QHS PO Last administered on 02/20/17 20:26; Start 01/29/17 at 21:00; Stop 02/22/17 at 19:09; Status DC Potassium Chloride (Klor-Con) 20 meq BID PO ; Start 01/30/17 at 21:00; Stop at 05:33; Status DC Magnesium Hydroxide (Milk Of Magnesia) 2,400 mg PRN DAILY PRN PO CONSTIPATION; Start 01/30/17 at 16:30; Status UNV Magnesium Hydroxide (Milk Of Magnesia) 2,400 mg PRN DAILY PRN PO CONSTIPATION Last administered on 02/21/17 21:57; Start 01/30/17 at 16:45 Potassium Chloride (Klor-Con) 20 meq BID66 PO Last administered on 02/15/17 05 :46; Start 01/31/17 at 06:00; Stop 02/15/17 at 16:58; Status DC Metformin HCl (Glucophage) 250 mg BIDWMEALS PO Last administered on 03/01/17 16:53; Start 02/03/17 at 17:00 Cyanocobalamin (Vitamin B-12) 1,000 mcg DAILY PO Last administered on 08:01; Start 02/04/17 at 09:00 Valproic Acid (Depakene) 500 mg BID PO Last administered on 02/07/17 08:01; Start 02/03/17 at 21:00; Stop 02/07/17 at 15:17; Status DC Valproic Acid (Depakene) 750 mg BID PO Last administered on 02/19/17 08:02; Start 02/07/17 at 21:00; Stop 02/19/17 at 13:14; Status DC Trazodone HCl (Desyrel) 100 mg QHS PO Last administered on 03/01/17 19:39; Start 02/07/17 at 21:00 Trazodone HCl (Desyrel) 100 mg PRN QHS PRN PO INSOMNIA Last administered on 19:16; Start 02/07/17 at 19:00 Risperidone (RisperDAL) 2 mg DAILY16 PO Last administered on 02/09/17 16:44; Start 02/09/17 at 16:00; Stop 02/09/17 at 18:47; Status DC [place] Carbonate (Lithobid) 300 mg HS PO Last administered on 02/14/17 20:09 ; Start 02/08/17 at 21:00; Stop 02/15/17 at 18:52; Status DC Risperidone (RisperDAL) 1 mg DAILY16 PO Last administered on 03/01/17 16:53; Start 02/11/17 at 16:00 [place] Carbonate (Lithobid) 150 mg DAILY PO Last administered on 02/13/17 08: 41; Start 02/13/17 at 09:00; Stop 02/14/17 at 10:24; Status DC Mirtazapine (Remeron) 7.5 mg QHS PO Last administered on 02/25/17 19:14; Start 02/13/17 at 21:00; Stop 02/26/17 at 14:39; Status DC [place] Carbonate 150 mg TID PO Last administered on 02/15/17 13:35; Start at 14:00; Stop 02/15/17 at 18:52; Status DC Potassium Chloride (Klor-Con) 20 meq DAILY PO ; Start 02/16/17 at 09:00; Stop at 09:00; Status DC [place] Carbonate 150 mg DAILY PO Last administered on 03/01/17 08:00; Start 02/16/17 at 09:00 [place] Carbonate (Lithobid) 300 mg HS PO Last administered on 03/01/17 19:39 ; Start 02/16/17 at 21:00 Potassium Chloride (Klor-Con) 20 meq DAILY06 PO Last administered on 03/01/17 04:33; Start 02/16/17 at 06:00 Polyethylene Glycol (miraLAX) 17 gm DAILY PO Last administered on 03/01/17 08: 00; Start 02/17/17 at 09:00 Magnesium Citrate (Citroma) 296 ml 1X ONCE PO ; Start 02/17/17 at 08:10; Stop 02/17/17 at 08:11; Status DC Furosemide (Lasix) 20 mg DAILY06 PO Last administered on 03/01/17 04:33; Start 02/20/17 at 06:00 Clonazepam (KlonoPIN) 0.25 mg TID PO Last administered on 03/01/17 19:41; Start 02/21/17 at 14:00 Temazepam (Restoril) 30 mg PRN QHS PRN PO INSOMNIA; Start 02/22/17 at 19:15 Mirtazapine (Remeron Valeri-Tab) 15 mg QHS PO Last administered on 03/01/17 19:39 ; Start 02/26/17 at 21:00 Artificial Tears (Artificial Tears) 1 drop PRN Q1HR PRN OU DRY EYE Last administered on 02/27/17 18:15; Start 02/27/17 at 15:00 Active Scripts Active Reported Risperdal (Risperidone) 1 Mg Tablet 1 Mg PO DAILY16 Klor-Con M20 (Potassium Chloride) 20 Meq Tab.er.prt 20 Meq PO DAILY Artificial Tears Eye Drops (Dextran 70/Hypromellose) 15 Ml Drops 1 Drop EACHEYE PRN Q1HR PRN Olanzapine 5 Mg Tablet 2.5 Mg PO PRN Q2HR PRN Mirtazapine 15 Mg Tablet 15 Mg PO HS Milk Of Magnesia (Magnesium Hydroxide) 400 Mg/5 Ml Oral.susp 400 Mg PO PRN QHS PRN [place] Carbonate 300 Mg Capsule 300 Mg PO HS [place] Carbonate 150 Mg Capsule 150 Mg PO DAILY Furosemide 20 Mg Tablet 20 Mg PO DAILY Vitamin B-12 (Cyanocobalamin (Vitamin B-12)) 1,000 Mcg Tablet 1,000 Mcg PO DAILY Tylenol (Acetaminophen) 325 Mg Tablet 650 Mg PO PRN Q6HRS PRN Arthritis Pain (Acetaminophen) 650 Mg Tablet.er 650 Mg PO BID Trazodone Hcl 100 Mg Tablet 100 Mg PO PRN QHS PRN Trazodone Hcl 100 Mg Tablet 100 Mg PO QHS Tramadol Hcl (Tramadol HCl) 50 Mg Tablet 25 Mg PO PRN Q6HRS PRN Synthroid (Levothyroxine Sodium) 100 Mcg Tablet 100 Mcg PO DAILY07 Senna S Tablet (Sennosides/Docusate Sodium) 1 Each Tablet 1 Tab PO QHS Risperdal (Risperidone) 1 Mg/1 Ml Solution 3 Mg PO DAILY16 Restoril (Temazepam) 30 Mg Capsule 30 Mg PO PRN QHS PRN Nitrostat (Nitroglycerin) 0.4 Mg Tab.subl 0.4 Mg SL PRN Q5MIN PRN Miralax (Polyethylene Glycol 3350) 119 Gm Powder 17 Gm PO QODAY Antacid Suspension (Mag Hydrox/Al Hydrox/Simeth) 355 Ml Oral.susp 30 Ml PO PRN Q4HRS PRN Lisinopril 5 Mg Tablet 5 Mg PO DAILY Lipitor (Atorvastatin Calcium) 40 Mg Tablet 40 Mg PO QHS Lasix (Furosemide) 40 Mg Tablet 40 Mg PO DAILY Lactulose 10 Gm/15 Ml Solution 20 Gm PO PRN DAILY PRN Klonopin (Clonazepam) 0.5 Mg Tablet 0.5 Mg PO TID Glucophage (Metformin Hcl) 500 Mg Tablet 500 Mg PO BIDWMEALS Josie-Tussin Dm Syrup (Guaifenesin/Dextromethorphan) 473 Ml Syrup 10 Ml PO PRN Q4HRS PRN Duoneb 0.5-3(2.5) Mg/3 Ml (Albuterol/Ipratropium) 3 Ml Ampul.neb 3 Ml NEB PRN Q4HRS PRN Depakote Sprinkle (Divalproex Sodium) 125 Mg Cap.sprink 125 Mg PO TID Bisacodyl 10 Mg Supp.rect 10 Mg RC PRN DAILY PRN Bisacodyl 5 Mg Tablet.dr 10 Mg PO PRN DAILY PRN [place] Antifungal (Miconazole Nitrate) 142 Gm Cream..g. 1 Gerson TP BID Ativan (Lorazepam) 0.5 Mg Tablet 0.5 Mg PO PRN Q4HRS PRN Aspirin Ec (Aspirin) 81 Mg Tablet.dr 81 Mg PO DAILY Advair Hfa 115-21 Mcg Inhaler (Fluticasone/Salmeterol) 12 Gm Hfa.aer.ad 2 Puff IH BID Diagnosis: Problems: (1) Psychosis (2) Schizophrenia, acute (3) Anxiety disorder (4) Bipolar affective, mixed, sev w/ psych (5) Impulse control disorder (6) Schizoaffective disorder, chronic condition with acute exacerbation ALBERT ROSE MD Mar 01, 2017 21:20
[2017-03-01] MEDS ORDERED: MIRT15TA5 PO (23:41)
[2017-03-01] MEDS ORDERED: OLAN5TAB5 PO (23:42)
--- NOTE | 2017-03-02 05:43 | PN ---
DATE: 02/28/2017 This late entry 02/28/2017 covers elements not covered in my initial note of 02/28/2017. SUBJECTIVE: I met with the patient in the evening of 02/28/2017. Overall, per nursing report, the patient remains somewhat demanding, disorganized, intrusive, compliant with medications with cognitively clearer and less labile as compared to earlier. REVIEW OF SYSTEMS: Positive for bilateral pedal edema, lymphedema, impaired ambulation; in a wheelchair. No CV, , pulmonary, eye system symptoms on review. MENTAL STATUS EXAM: Oriented to herself and situation. Speech often responses monosyllabic. Abstraction fair, computation impaired, language function intact. Speech, a little pressured at times. LABORATORIES: Reviewed. [place] level 0.8. IMPRESSION: Unchanged from initial note. PLAN: Continue current psychotropics mentioned in my initial note. Review drug interactions, risk/benefit ratio favors no further change. ALBERT ROSE MD DR: [facility] JOB#: [id number] / [id number]
[2017-03-02] MEDS: LEVOTHYROXINE 100 MCG TABLET PO SCH (05:58)
[2017-03-02] MEDS: POTASSIUM CHLORIDE 20 MEQ TABLET.ER. PO SCH (05:58)
[2017-03-02] MEDS: FUROSEMIDE 20 MG TABLET PO SCH (05:58)
[2017-03-02 06:00] VITALS: BP 118/49
[2017-03-02] MEDS: ASPIRIN ENTERIC COATED 81 MG TABLET.DR. PO SCH (08:08)
[2017-03-02] MEDS: metFORMIN 500 MG TABLET PO SCH (08:08)
[2017-03-02] MEDS: CYANOCOBALAMIN (VITAMIN B-12) 1,000 MCG TABLET. PO SCH (08:08)
[2017-03-02] MEDS: LITHIUM CARBONATE 150 MG CAPSULE. PO SCH (08:09)
[2017-03-02] MEDS: POLYETHYLENE GLYCOL 3350 17 GM PACKET. PO SCH ×2 (08:09→09:00)
[2017-03-02] MEDS: clonazePAM 0.5 MG TABLET PO SCH (08:09)
--- NOTE | 2017-03-03 01:33 | PN ---
DATE: 03/01/2017 PSYCHIATRIC PROGRESS NOTE This late entry, date of service 03/01/2017 covers elements not covered in my initial note of 03/01/2017. SUBJECTIVE: I met with the patient in the evening of 03/01/2017. She is overall doing better, still somewhat irritable, demanding at times, but improved. She is watching a [employer] video evening of 03/01/2017 was very animated, talked to me at length about how she used to go for dancing lessons when she was around age 11-13 in [place], [place], how she was in competitions for this as well, enjoyed it, did very well. REVIEW OF SYSTEMS: Positive for bilateral lower extremity edema, impaired ambulation. No CV, , pulmonary, eye system symptoms on review. MENTAL STATUS EXAM: Oriented to herself and situation. Speech is coherent, abstraction fair, computation impaired, language function intact, attention span short. Mood and affect is improved. LABORATORY DATA: [place] level 0.8. IMPRESSION: Unchanged from initial note. PLAN: Continue current psychotropics, Risperdal oral together with Klonopin, trazodone, lithium, Remeron, lithium level therapeutic. Review drug interactions, risk/benefit ratio favors no further change. ALBERT ROSE MD DR: [facility] JOB#: [id number] / [id number]
--- NOTE | 2017-03-03 14:29 | DS ---
DATE OF DISCHARGE: 03/02/2017 This is a late entry for 03/02/2017 and covers elements not covered in my initial note of 03/02/2017. REASON FOR ADMISSION: Please refer to the admission history for details. Briefly, the patient is a 76-year-old female, referred from [facility] by her primary care physician and admitted by her guardian on account of recurrence of her schizoaffective disorder, bipolar type, making threats to hurt herself, appearing manic, labile, writing extensively on a notebook, having auditory hallucinations, worsening psychosis, paranoia. She had failed outpatient psychiatric interventions, referred for inpatient psychiatric stabilization. SIGNIFICANT FINDINGS AND CLINICAL COURSE: The patient had a very challenging course during this lengthy hospitalization. Multiple changes in her psychotropics were made and backtracked several times as she developed side effects and intolerance and then other changes instituted in an attempt to stabilize her mood, psychosis, agitation, hypergraphia, disorganized, disruptive behaviors. I met with her daily individually. She was followed medically per Dr. Sapp/Dr. Leonardo. She had a history of lithium toxicity in the past and was very noncompliant with treatment initially and therefore started on Depakote rather than lithium with its risk of repeat toxicity. Antipsychotics were adjusted and later Depakote changed to lithium. As the psychosis stabilized, she was much more compliant and IM psychotropics were discontinued in preference for oral and the Risperdal Consta, which was initially started because of medication noncompliance was finally discontinued. Again, this was a very challenging difficult course with multiple changes in her psychotropics and she finally seemed to stabilize on a combination of Klonopin 0.25 mg 3 times a day, Risperdal solution 1 mg daily at 1600 hours, Trazodone 100 mg at bedtime p.r.n., may repeat x 1 for insomnia, lithium carbonate 150 mg in the morning and 300 mg at night with a level therapeutic at 0.8, Remeron 15 mg at bedtime to help with the insomnia. Prior to discharge on 03/02/2017, ambulation impaired, in wheelchair and she does have bilateral lower extremity lymphedema, which was a great distress to her and followed medically per Dr. Sapp/Dr. Leonardo. REVIEW OF SYSTEMS: No CV, , pulmonary, eye system symptoms on review. MENTAL STATUS EXAM: Oriented to herself and situation. Speech was typical for her, often monosyllabic, but much more appropriate, pleasant, cooperative. Paranoia was much improved. No active suicidal or homicidal ideation at discharge. His speech was less pressured. Cognitively, she was much clearer. LABORATORY DATA: Reviewed. CONDITION AT DISCHARGE: Improved. FINAL DIAGNOSES: Schizoaffective disorder, bipolar type, mixed with psychotic features, in partial remission; anxiety disorder, unspecified; impulse control disorder, unspecified. Rest of diagnoses unchanged from admission. DISCHARGE MEDICATIONS: Please refer to the [facility]. DISCHARGE INSTRUCTIONS: [facility] and [facility] at [facility]. Time for discharge day management is greater than 30 minutes. ALBERT ROSE MD DR: [facility] JOB#: [id number] / [id number]
== END 2017-03-02 13:22 | disposition home or self-care (01) | DRG 885 ==
LOC: ER 02:45 → GEROPSY 05:28
PROVIDERS: ADMIT Psychiatry & Neurology Psychiatry; ATTEND Psychiatry & Neurology Psychiatry
DX: F25.0 Schizoaffective disorder, bipolar type (principal); J44.9 Chronic obstructive pulmonary disease, unspecified; G30.9 Alzheimer's disease, unspecified; F23 Brief psychotic disorder; F01.50 Vascular dementia, unspecified severity, without behavioral disturbance, psychotic disturbance, mood disturbance, and anxiety; E11.9 Type 2 diabetes mellitus without complications; E03.9 Hypothyroidism, unspecified; K59.00 Constipation, unspecified; M54.30 Sciatica, unspecified side; I89.0 Lymphedema, not elsewhere classified; M19.90 Unspecified osteoarthritis, unspecified site; E78.5 Hyperlipidemia, unspecified; F17.200 Nicotine dependence, unspecified, uncomplicated; F22 Delusional disorders; F41.9 Anxiety disorder, unspecified; F42.9 Obsessive-compulsive disorder, unspecified; F63.9 Impulse disorder, unspecified; G47.00 Insomnia, unspecified; G89.29 Other chronic pain; Z66 Do not resuscitate; E66.9 Obesity, unspecified; Z68.33 Body mass index [BMI] 33.0-33.9, adult; Z88.8 Allergy status to other drugs, medicaments and biological substances; Z91.19 Patient's noncompliance with other medical treatment and regimen
CPT/HCPCS: 36415; 74000; 80053; 80061; 80164; 80178; 81001; 82140; 82306; 82607; 82947; 83036; 83540; 83550; 83735; 84436; 84443; 84480; 85025; 85027; 86592; 86593; 87086; 93005; J1630; J2060; J2794